=== PATIENT | female | born 1945 | race Caucasian/White ===

== ENCOUNTER 2021-11-26 07:21 | Day surgery (SDC) | payer OTHER ==
--- NOTE | 2021-11-25 15:38 | RAD REPORT ---
EXAM DESCRIPTION: RAD - Chest Pa And Lat (2 Views) - 11/25/2021 3:27 pm CLINICAL HISTORY: pre op pending hernia surgery COMPARISON: Two-view chest November 2012 TECHNIQUE: Frontal and lateral views of the chest were obtained. FINDINGS: The lungs are clear. Interstitial markings are similar comparison. Heart size is normal a nd central vasculature is within normal limits. No pleural effusion or pneumothorax seen. No acute bony finding noted. No aortic abnormality. Since the prior study neurostimulator device has been pl aced into the central canal of the lower thoracic spine. IMPRESSION: No acute cardiopulmonary process. No significant change from comparison study.
[2021-11-25 15:47] LABS: Absolute Lymphocytes (CBC) 1.4 K/uL (0.7-4.9); Hematocrit 37.2 % (36.0-45.0); Lymphocytes % 18.8 % (15.3-44.8); MPV 7.4 fL (7.6-11.3); RBC Red Blood Cell Count 4.07 M/uL (3.86-4.86)
--- NOTE | 2021-11-26 07:48 | EKG ---
Test Date: 2021-11-25 Test Time: 15:11:54 Paperboard Machine Operator: OLY MEASUREMENT RESULTS: Intervals: Rate: 74 IL: 148 QRSD: 78 QT: 362 QTc: 401 [place]: P: 1 IL: 148 QRS: 66 T: 74 INTERPRETIVE STATEMENTS: Normal sinus rhythm Low voltage QRS Borderline ECG Compared to ECG 07/13/2014 13:24:09 No significant changes Electronically Signed On 11-26-21 07:45:43 PASTE UP COPY CAMERA OPERATOR by Miguel Kendrick
[2021-11-26] MEDS ORDERED: Ringers Lactate 1,000 ML IV ONE ×2 (08:14→09:50)
[2021-11-26] MEDS: BUPIVACAINE 0.5% Inj,MDV 50 mL VIAL ONE ×2 (08:27→09:09)
[2021-11-26] MEDS ORDERED: LIDOCAINE 2% MPF 5 ML VIAL ONE (08:28)
[2021-11-26] MEDS ORDERED: ROCURONIUM 50 MG/5 ML VIAL IV ONE ×2 (08:28→10:27)
[2021-11-26] MEDS ORDERED: propofoL 200 MG/20 ML VIAL IV ONE (08:28)
[2021-11-26] MEDS ORDERED: FENTANYL CITR 100 MCG/2 ML ONE (08:28)
[2021-11-26] MEDS ORDERED: CEFAZOLIN/NS 1gm 1 GM/50 ML BAG ONE (08:30)
[2021-11-26] MEDS ORDERED: SCOPOLAMINE HYDROBROMIDE PATCH TD ONE (08:35)
[2021-11-26] MEDS ORDERED: DIPHENHYDRAMINE 50 MG/ML VIAL ONE (09:03)
[2021-11-26] MEDS ORDERED: dexAMETHasone 10 MG/ML VIAL ONE ×2 (09:03→09:32)
[2021-11-26] MEDS ORDERED: KETOROLAC 30 MG/ML INJ ONE (09:03)
[2021-11-26] MEDS ORDERED: ONDANSETRON 4 MG/2 ML VIAL ONE (09:03)
[2021-11-26] MEDS ORDERED: BUPIVACAINE 0.25% PF 10 ML VIAL ONE (09:32)
--- NOTE | 2021-11-26 10:20 | P.BOP ---
Preoperative diagnosis: tender incarcerated ventral and umbilical hernia Postoperative diagnosis: same Primary procedure: 1. Laparoscopic repair of incarcerated ventral hernia with mesh Secondary procedure: 2. Laparoscopic repair of incarcerated umbilical hernia with mesh Other procedure(s): 3. Laparoscopic lysis of adhesions Wrecker Driver: MAURICIO STARKEY (IMPLEMENTATION MANAGER) Estimated blood loss: <10cc Specimen: hernia sac Findings: incarcerated omentum Anesthesia: General Complications: None Implants: !!.5cm ventralight ST with ECHO PS Transferred to: Recovery Room Condition: Good
[2021-11-26] MEDS ORDERED: Mastisol Adhesive Liq ONE (10:28)
[2021-11-26] MEDS: HYDROMORPHONE HCL 1 MG/ML INJ ONE ×4 (11:27→11:46)
[2021-11-26] MEDS ORDERED: NALOXONE 0.4 MG/ML VIAL ONE (12:41)
--- NOTE | 2021-11-26 14:02 | DS ---
Diagnosis: Tender incarcerated ventral and umbilical hernia. Procedures: Laparoscopic repair of incarcerated ventral hernia with mesh, laparoscopic repair of inc arcerated umbilical hernia with mesh, also laparoscopic lysis of adhesions. Disposition: Home. Activity: As tolerated. No heavy lifting. Plan: Follow up in my office in 1 week. Call for appointment at [phone]. Medications: Include hydrocodone q.4 hours p.r.n. pain, Cipro 500 p.o. q.12. HOWARD/PHI Voice ID: [id number] Report ID: [id number]
--- NOTE | 2021-11-26 14:02 | OP ---
Date of Procedure: 11/26/2021 Surgeon: Ryan Gee MD Food Counselor: Priscila Wheat. Preoperative Diagnosis: Tender incarcerated ventral and umbilical hernia. Postoperative Diagnosis: Tender incarcerated ventral and umbilical hernia. Procedures: 1.Laparoscopic repair of incarcerated ventral hernia with mesh. 2.Laparoscopic repair of incarcerated umbilical hernia with mesh. 3.Laparoscopic lysis of adhesions. Estimated Blood Loss: Less than 10 mL. Specimen: Hernia sac. Findings: Incarcerated omentum and both hernias and also extensive adhesions near the hernia itself. We have to spend at least half of the time just doing adhesions with the LigaSure device. Anesthesia: General plus local. Implant: An 11.[address] with Echo Positioning System. Indication: This is the case of a 76-year-old patient, who comes to us with 2 hernias tender and inc reasing in size. The benefits, alternatives, and risks of laparoscopic possible repair of ventral an d umbilical hernia with mesh fully explained, which include, but not limited to infection, bleeding, damage to adjacent structures, anesthesia complication, recurrence, DE, and even . She also und erstands this may not relieve any symptoms. She might need more than one surgical intervention. She understood, signed a consent. Mesh pros and cons were explained to the patient in details. She was allowed to ask questions and answered to the satisfaction. She did consent for the use of mesh. Th e patient understands the need for losing weight and avoiding heavy lifting. Procedure In Detail: The patient was brought to the operating room, placed in supine position. Anes thesia was done without complication. A time-out was called. Abdomen was prepped and draped in usua l sterile fashion. Local anesthesia was applied followed by sharp incision of the skin on the ventra l region. We were trying to use that to trying to put the cameras through that hernia sac, so we can address 2 hernias at the same time. Once we opened that area, we noticed a hernia sac, noticed inca rcerated omentum with extensive adhesions inside, but at least we were able to find a space to put a Bret trocar through it and obtain pneumoperitoneum. Once we obtained pneumoperitoneum, we were abl e to place 3 more trocars, 5 mm each one of them, 2 in the right lateral side of the abdomen on the r ight side and 1 on the left side. This allowed me to switch the cameras and visualize the area insid e. We have extensive adhesions in the anterior abdominal wall. We cannot proceed unless we remove t hose adhesions. The way we did that, we proceeded to carefully using the LigaSure and proceeded to r emove adhesions from that area, and dropping down where it belongs the intestines and the omentum wit hout any enterotomies. Once we have that, we visualized the area of umbilical region. There is a sm all hernia there also with incarcerated omentum that was removed. We closed that defects by a making a counter incision in the bellybutton and going all the way down and cleaning the fascia, removed th e hernia sac and closed that with Prolene #1. At that moment with the camera in, we proceeded to antione culate the area of the mesh. The size of the mesh will cover 2 defects about 11.5 cm with at least 3 -5 cm margins. Once we have that area cleaned, we dropped the mesh into the abdomen through the vent ral incision, inflated the balloon making mesh nice and straight to cover the defects as described ab ove. I proceeded to secure the mesh in place by using CapSure fixation device. The balloon was defl ated and removed under direct visualization and then we continued with the fixation of the mesh anter iorly circumferentially to avoid any tissue to be trapped in between. The mesh looked nice and flat against the defects. The area of the lysis of adhesions looks intact with no bleeding. At that mome nt, I proceeded to deflate the pneumoperitoneum, closed the fascia on the ventral region with #1 Prol nirmal. Trocars were removed already. Pneumoperitoneum was removed and then we proceeded to close the subcutaneous tissue with 3-0 chromic and the skin with 3-0 chromic. Steri-Strip was placed on the ar ea. Sponge counts, instrument counts correct. Local anesthesia was applied at the beginning. The patient sent to recovery in stable condition. HOWARD/PHI Voice ID: [id number] Report ID: [id number]
[2021-11-26 14:11] VITALS: TEMP 97.1
[2021-11-26 16:11] VITALS: BP 118/72; O2SAT 98
== END 2021-11-26 15:30 | disposition home or self-care (01) ==
LOC: OR 07:21
PROVIDERS: ATTEND Surgery
PROC: 0DNU4ZZ Release Omentum, Percutaneous Endoscopic Approach (ICD-10-PCS; 2021-11-26)
PROC: 0WUF4JZ Supplement Abdominal Wall with Synthetic Substitute, Percutaneous Endoscopic Approach (ICD-10-PCS; principal; 2021-11-26 08:45)
DX: K43.6 Other and unspecified ventral hernia with obstruction, without gangrene (principal); K42.0 Umbilical hernia with obstruction, without gangrene; Z20.822 Contact with and (suspected) exposure to COVID-19
CPT/HCPCS: 93005; 85025; 80048; 36415; 88302; 71046; 49653; 49329; U0003; J2704; J2310; J1200; J3010; J1100 ×2; J1170 ×2; J0690; J7120 ×2; J2405; C1781

== ENCOUNTER 2023-07-11 18:00 | Emergency (ER) | payer OTHER ==
--- OUTSIDE RECORDS SUMMARY | 2023-07-11 18:03 | XMS REPORT | Clinical Summary ---
:1945 Author Organization [facility] MD Zamora [facility] Address [address] [place] [address] Care Team Providers Name Role Phone Radha Lynn DO Unavailable Matty Auguste MD Unavailable [phone] Eduardo Antunez MD Unavailable Tierra Wyman APRN Primary Care Provider Allergies Active Allergy Reactions Severity Noted Date Comments Adhesive Itching Medium 04/04/2020 Steri-strips Prochlorperazine Anxiety Low 11/26/2009 Patient sta lubna she gets heart palpitati ons Butorphanol Tartrate Palpitations Low 04/04/2020 Sulfa (Sulfonamide Palpitations Low 12/02/2016 Antibiotics) Medications Medication Sig Dispensed Refills Start Date End Date Status atorvastatin TAKE 1 TABLET 1 03/26/2019 Ac tive (LIPITOR) 20 mg BY MOUTH tablet EVERY DAY pramipexole TAKE 1 TABLET 1 04/17/2019 Act elvira (MIRAPEX) 1 mg BY MOUTH tablet EVERYDAY AT BEDTIME telmisartan TAKE 1 TABLET 1 03/25/2019 Act elvira (MICARDIS) 40 mg BY MOUTH tablet EVERY DAY PARoxetine (PAXIL) Take by mouth 0 Active 30 mg tablet every morning. omeprazole TAKE 1 0 10/22/2020 Active (PriLOSEC) 40 MG CAPSULE BY capsule MOUTH EVERY DAY abaloparatide Inject 80 mcg 0 05/06/2023 A ctive (Tymlos) 80 mcg under the (3,120 mcg/1.56 skin. mL) pnij topiramate TAKE 1 TABLET 0 05/21/2022 Disc ontinued (TOPAMAX) 25 mg BY MOUTH AT 3 (T herapy tablet NIGHT FOR 2 complete d) WEEKS, THEN 2 TABLETS AT NIGHT Active Problems Problem Noted Date Personal history of exposure to therapeutic radiation 08/04/2021 Intraductal carcinoma in situ of left breast 1 Cancer Staging: Clinical stage from 03/26: Stage 0 (cTis (DCIS), cN0, cM0, ER+, MS+, HER2: Not Assessed) - Unsigned Pathologic stage from 06/06/2021: Stage 0 (pTis (DCIS), pN0(sn), cM0, ER: Not Assessed, MS: Not Assessed, HER2: Not Assessed) - Unsigned Lumbar post-laminectomy syndrome 03/28/2020 Overview: Added automatically from request for raul carson [id number] Chronic pain 03/28/2020 Overview: Added automatically from request for raul carson [id number] Reactive depression (situational) 12/06/2019 Generalized anxiety disorder 12/06/2019 Insomnia co-occurrent and due to medical condition Mild cognitive impairment, so stated 12/06/2019 Ankylosing spondylitis 09/06/2019 Low back pain 09/06/2019 Encounters Date Type Specialty Care Team Description 05/26/2023 Office Visit Survivorship - Breast Tierra Wyman, Intr aductal carcinoma in situ of left breast; SLIP COVER SEAMSTRESS Personal history of exposure to therapeu tic radiation Pratima Rubin APRN 05/26/2023 Follow-Up Plastic Surgery Rolando Muller MD Intraduc moustapha carcinoma in situ of left breast; Personal histor y of exposure to therapeutic radiation 05/26/2023 Prep for Surgery Plastic Surgery Carmen Dykes 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 (Primary Dx); Rama PA Personal histor y of exposure to therapeutic radiation 05/26/2023 Travel 05/13/2023 Follow-Up Breast Surgical Juan Stock I, Personal history of Oncology MD breast cancer 05/13/2023 Hospital Encounter Radiation Oncology Eduardo Gonsalez Intraductal carcinoma in situ of left breast; MD Jasmyn Personal histor y of exposure to therapeutic radiation 05/13/2023 Hospital Encounter Radiology Isabel Freitas PA Perso nal history of breast cancer 05/13/2023 Hospital Encounter Radiology Isabel Freitas PA Perso nal history of breast cancer 05/13/2023 Travel after 07/11/2022 Immunizations Name Administration Dates Next Due Influenza Split High Dose Preservative 09/08/2022 Free IM Influenza TIV (IM) 09/01/2019 Influenza, Quadrivalent 08/22/2020 Moderna SARS-CoV-2 Vaccination 07/22/2021, 12/24/2020, 11/27 Surgical History Surgery Date Site/Laterality Comments APPENDECTOMY 11/15/1965 - same surgery as ovary 11/14/1966 removal BACK SURGERY 2015,2016,2018 2 fusions COLONOSCOPY 11/15/2017 - 11/14/2018 HYSTERECTOMY 11/15/1981 - Partial 11/14/1982 NEPHRECTOMY 11/15/2003 - Left and adrenal lucia rickey due to 11/14/2004 kidney cancer; n o further treatment; Dr Se vik Jaffe SHOULDER SURGERY 11/15/2008 - Rotator cuff 11/14/2009 UPPER GASTROINTESTINAL About 3 of them ENDOSCOPY BACK SURGERY 08/10/2019 hardware removal MS PRQ IMPLTJ NSTIM 12/15/2019 Back/N/A Procedure: P ERCUTANEOUS ELECTRODE ARRAY EPIDURAL IMPLANT ATION OF EPIDURAL NEUROSTIMULATOR ELECTRODE ARRAY Spinal cor d stimulator trial ; Surgeon: Lisandro Ruelas MD; Location: [facility]; Service : PAIN SERVICE Medical devices from this surgery are in t he Medical Devices section. MS INSJ/RPLCMT SPI NPGR 04/04/2020 Back/N/A Procedur e: INSERTION OF DIR/INDUXIVE COUPLING SPINAL SEAN ROSTIMULATOR, DIRECT COUPLING; Surgeon: Lisandro Ruelas MD; Location: [facility]; Service : PAIN SERVICE Medical devices from this surgery are in t he Medical Devices section. SKIN LESION EXCISION basal cell on right arm CYST REMOVAL 5 cysts removed in left and right breast starting 24yrs old, over a period of 10 years SKIN LESION EXCISION 11/15/2019 - squamous ce ll under left 11/14/2020 eye OVARY BIOPSY 11/15/1965 - right ovary due to cyst 11/14/1966 FOOT NEUROMA SURGERY Bilateral Right toe f ractured and pin placed. MS MASTECTOMY PARTIAL 06/06/2021 Breast/Left Procedure: SEGMENTAL MASTECTOMY - SEE D LOC; Surgeon: Juan Stock MD; Location[facility]; Service: SURG ON C - MELANOMA MS INJ RADIOACTIVE TRACER 06/06/2021 N/A Proced ure: ISOTOPE FOR ID OF SENTINEL NODE INJECTIO N FOR SENTINEL NODE BIOPSY; Raul geon: Juan Stock MD; Location: [facility]; Service: SURG ON C - MELANOMA MS INTRAOP SENTINEL LYMPH 06/06/2021 Left Proced ure: INTRAOPERATIVE NODE ID W/DYE INJECTION LYMPHATI C MAPPING; Surgeon: Juan Stock MD; [facility]; Service: SURG ON C - MELANOMA MS BX/EXC LYMPH NODE OPEN 06/06/2021 Axilla/Left Proced ure: SENTINEL NODE DEEP AXILLARY NODE BIOPSY - AXIL LA; Surgeon: Juan Stock MD; Location: [facility]; Service: SURG ON C - MELANOMA MS REPAIR COMPLEX TRUNK 06/06/2021 Breast/Left Procedur e: COMPLEX REPAIR 1.1-2.5 CM OF TRUNK; Surgeo n: Rolando Muller MD; Locat ion: [facility]IN OR; Service: PLS - PLASTIC SURGERY Medical History Medical History Date Comments Hypertension 1999 Hyperlipidemia 1999 Cyst of breast 5 cysts removed On left and right br east Gastric reflux Take ranatinadin Hea rtburn also History of recurrent urinary Many infect ions tract infection Urinary incontinence Worse as older Uterine leiomyoma hysterctomy Rheumatoid arthritis Ankylosing spondylitis Taking bi-monthl y infusions, Symponi Gout Many years ago in fo ot Anxiety And panic attacks Taking Paxil Kidney cancer 2004 kidney removed and n o further treatment 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 Basal cell carcinoma of skin 1997 right arm Personal history of exposure to 08/04/2021 therapeutic radiation Family History Medical History Relation Name Comments -Lymphoma Brother 1 Corey Tanner Undergoing treat ments for non-hodgekins -Pancreatic cancer Brother 2 Brian Tanner -Thoracic or Lung Father Elizabeth Tanner history of smo jose martin -Other cancer Paternal Aunt 1 History of smoki ng -Other cancer Paternal Cousin History of smoki ng Bladder Cancer Sister Cleopatra Son Metastatic Relation Name Status Comments Brother 1 Corey Tanner Alive Brother 2 Brian Tanner (Age 68) Daughter Alive Father WKristina Tanner (Age 73) Half-Sister (Age 75) d. heart adrienne rns Maternal Aunt 1 (Age >50) Maternal Aunt 2 (Age 1) d. due to stoma ch issues as a baby Maternal Grandfather (Age 70s) Maternal Grandmother (Age 40s) d. heart issues Maternal Uncle 1 (Age 42) d. heart issu es Maternal Uncle 2 (Age >50) Mother (Age 80) Other 1 (Age >50) Other 2 (Age 1) Paternal Aunt 1 (Age >50) diagnosed >50 Paternal Aunt 2 (Age >50) Paternal Aunt 3 (Age >50) Paternal Aunt 4 (Age >50) Paternal Cousin (Age >50) diagnosed >50 y Paternal Grandfather (Age 53) Paternal Grandmother (Age 86) Paternal Uncle Axel Sister Cleopatra Son (Age 50) Social History Tobacco Use Types Packs/Day Years Used Date Smoking Tobacco: Never Smokeless Tobacco: Never Alcohol Use Standard Drinks/Week Comments Not Currently 0 (1 standard drink = 0.6 oz pure Only m eleonora about 3 or 4 times alcohol) a year Sex Assigned at Date Recorded Not on file Job Start Date Occupation Industry Not on file Not on file Not on file Obstetrics History Para Term AB IAB SAB Ectopic Multiple Living Live Births 1 1 1 Date Outcome GA Total Labor/2nd/3rd Weight Sex Delivery Anes PTL Iwona A 1 A5 Name Clin Labor Para Comments Menarche:16 yrs old Parity: 34 yrs old history:9 weeks total control pills use: 1 month total Fertility Treatments: None Hormone Replacement Therapy Use: Premari n- 10-12yrs after hysterectomy LD : 20years ago LMP: 36yrs old hysterectomy Bra Size: 40B Last Filed Vital Signs Vital Sign Reading Time Taken Comments Blood Pressure 140/75 05/26/2023 10:12 AM CDT Pulse 79 05/26/2023 10:12 AM CDT Temperature 35.9 C (96.6 F) 05/26/2023 10:12 AM CDT Respiratory Rate 19 05/26/2023 10:12 AM CDT Oxygen Saturation 97% 05/26/2023 10:12 AM CDT Inhaled Oxygen Concentration - - Weight 77 kg (169 lb 12.1 oz) 05/26/2023 11:30 AM CDT Height 161 cm (5' 3.39") 05/26/2023 11:30 AM CDT Body Mass Index 29.71 05/26/2023 11:30 AM CDT Plan of Treatment Date Type Specialty Care Team Description 05/11/2024 Appointment Radiology Isabel Freitas PA [address] [place], [place] [address] (Wo rk) 05/11/2024 Appointment Radiology Isabel Freitas PA [address] [place], [place] [address] (Wo rk) 05/11/2024 Follow-Up Breast Surgical Oncology Tashi Stock MD [address] [place], [place] [address] (Wo rk) 05/26/2024 Appointment Radiology Pratima Rubin, SLIP COVER SEAMSTRESS [address] [place], [place] [address] (Wo rk) 05/26/2024 Follow-Up Survivorship - Breast Priscilla Rubin, SLIP COVER SEAMSTRESS [address] [place], [place] [address] (Wo rk) Health Maintenance Due Date Last Done Comments COVID-19 Vaccination (4 - Moderna 09/16/2021 07/22/2021, , series) 11/27/2020 Medical Devices Implanted Type Area Fund Raiser Device Shelf Model / Identifier Expiration Serial / Lot Date Nevro Trial Lead Kit [id number] Implant Midline: 01/2022 [id number] / Implanted: Qty: 1 on 12/15/2019 by Lisandro Ruelas MD at [facility] Back NA / [id number] Nevro N300 Lead Irene Kit [id number] Implant Spine 05/11/2022 [id number] / Implanted: Qty: 1 on 04/04/2020 by Lisandro Ruelas MD at [facility] N/A / [id number] Procedures Procedure Name Priority Date/Time Associated Comments Diagnosis US BREAST COMPLETE Routine 05/13/2023 10:55 AM Personal histor y of Results for this LEFT CDT breast cancer procedure are in the results section. MAMMO DIGITAL Routine 05/13/2023 9:57 AM Personal history of R esults for this DIAGNOSTIC BILATERAL CDT breast cancer proced ure are in [facility] the results section. after 07/11/2022 Results US Breast Complete - Left (05/13/2023 10:55 AM CDT) Anatomical Region Laterality Modality Breast Left Ultrasound Specimen (Source) Anatomical Collection Method Collection Time Re ceived Time Location / / Volume Laterality 05/13/2023 1:19 PM CDT Impressions 05/13/2023 1:26 PM CDT Postsurgical scarring in left breast as detailed above. ACR BI-RADS Category: 2. Benign. Recommend annual surveillance. Narrative 05/13/2023 1:26 PM CDT FULL RESULT: Examination: US BREAST COMPLETE LEFT 04/16 10:55 AM Clinical History: History of left breast DCIS, status post breast conservation surgery in May 2021. History of left sentinel lymph node biopsy (0/1) in May 2021. Presents for routine imaging surveillance with no known clinical complaints. Indication: Personal history of malignan t neoplasm of breast Comparison: Mammography dated ; ultrasound dated 05/14/2022 Technique: Real-time sonographic imaging of the left breast (including all 4 quadrants and retroareolar region) was performed. Images were obtained in multiple scanning planes. Findings: LEFT BREAST: Postsurgical scarring is se en in left upper breast, spanning from 11 o'clock to 2 o'clock/axillary tail. No sonographic features of malignancy are identified. Procedure Note Marina Guzman MD - 05/13/2023Formattin g of this note might be different from the original. FULL RESULT: Examination: US BREAST COMPLETE LEFT 04/16 10:55 AM Clinical History: History of left breast DCIS, status post breast conservation surgery in May 2021. History of left sentinel lymph node biopsy (0/1) in May 2021. Presents for routine imaging surveillance with no known clinical complaints. Indication: Personal history of malignan t neoplasm of breast Comparison: Mammography dated ; ultrasound dated 05/14/2022 Technique: Real-time sonographic imaging of the left breast (including all 4 quadrants and retroareolar region) was performed. Images were obtained in multiple scanning planes. Findings: LEFT BREAST: Postsurgical scarring is se en in left upper breast, spanning from 11 o'clock to 2 o'clock/axillary tail. No sonographic features of malignancy are identified. IMPRESSION: Postsurgical scarring in left breast as detailed above. ACR BI-RADS Category: 2. Benign. Recommend annual surveillance. Isabel SÁNCHEZ IMSarai US ORDERABLES Diagnostic Mammogram w Bladimir - Bilateral (05/13/2023 9:57 AM CDT) Anatomical Region Laterality Modality Breast Bilateral Mammography Specimen (Source) Anatomical Collection Method Collection Time Re ceived Time Location / / Volume Laterality 05/13/2023 12:16 PM CDT Impressions 05/13/2023 12:16 PM CDT There is no mammographic evidence of malignancy. Follow-up mammogram in 1 year is recomme nded. BI-RADS Category 2: Benign Finding(s) Narrative 05/13/2023 12:16 PM CDT CLINICAL INDICATION: Patient is a 77 year old female and is s een for history of breast cancer MAMMO DIGITAL DIAGNOSTIC BILATERAL W NANCI O COMPARISON: The present examination has been compare d to prior imaging studies performed at [facility] o n 12/25/2021 and 05/14/2022. FINDINGS: The breasts are heterogeneously dense, w hich may obscure small masses. There are two post-surgical scars in the left breast in the axilla region and in the superior region. In the right breast, no dominant mass, d istortion, or suspicious calcifications are identified. Tomosynthesis performed in CC and O pr ojections. Procedure Note Marina Guzman MD - 05/13/2023Formattin g of this note might be different from the original. CLINICAL INDICATION: Patient is a 77 year old female and is s een for history of breast cancer MAMMO DIGITAL DIAGNOSTIC BILATERAL W NANCI O COMPARISON: The present examination has been compare d to prior imaging studies performed at [facility] o n 12/25/2021 and 05/14/2022. FINDINGS: The breasts are heterogeneously dense, w hich may obscure small masses. There are two post-surgical scars in the left breast in the axilla region and in the superior region. In the right breast, no dominant mass, d istortion, or suspicious calcifications are identified. Tomosynthesis performed in CC and MLO pr ojections. IMPRESSION: There is no mammographic evidence of mal ignancy. Follow-up mammogram in 1 year is recomme nded. BI-RADS Category 2: Benign Finding(s) Isabel SÁNCHEZ IMG MAMMOGRAPHY ORDERABLES after 07/11/2022 Insurance Payer Benefit Plan / Subscriber ID Effective Dates Phone Addre ss Type Group AETNA MEDICARE AETNA MEDICARE [id number] 2021-Presen [address] [place] [address] (Home) [place] [address] Advance Directives Code Status Date Activated Date Inactivated Comments Full Code 06/06/2021 10:17 PM 06/07/2021 12:34 PM Code Status Date Activated Date Inactivated Comments Full Code 06/06/2021 10:17 PM 06/06/2021 10:17 PM Full Code 04/04/2020 5:33 PM 04/04/2020 8:24 PM Full Code 12/15/2019 1:34 PM 12/15/2019 6:36 PM Care Teams Geometry Professor Relationship Specialty Start Date End Date Radha Lynn DO PCP - External Primary Family Practice 04/12/[address] Care Provider Dimitry [address] [place], [place] [address] Matty Auguste PCP - External Orthopedic Surgery 04/12/19 MD Fabiano Referring [address] [place] [address] Eduardo Antunez MD PCP - External Follow Dermatology 04/17/19 [address] [facility] [place] [address] Tierra Wyman APRN PCP - General Breast Medical 05/25/[address] [place] [address] [place] [address]
--- OUTSIDE RECORDS SUMMARY | 2023-07-11 18:13 | XMS REPORT | Continuity of Care Document ---
:1945 Author Organization [facility] t Address [address] [place] [address] [place] [address] Care Team Providers Name Role Phone Asked, No Pcp Primary Care Physician Unavailable Marybel Burt Attending Clinician Unavailable Radha DANG Attending Clinician Unavailable SYSTEM, PROVIDER NOT IN Attending Clinician Unavailable Shashank Jones Attending Clinician Travon Ortez MD Attending Clinician Sana Kapoor MA Attending Clinician Unavailable Lavell Wyman APRN Attending Clinician Pratima Rubin APRN Attending Clinician LAVELL WYMAN Attending Clinician Unavailable Jose Alfredo Monahan MD Attending Clinician JOSE ALFREDO MONAHAN Attending Clinician Unavailable Carmen Lee Attending Clinician Santhosh Gonsalez MD Attending Clinician SANTHOSH GONSALEZ Attending Clinician Unavailable Britta Templeton MD, I Attending Clinician BRITTA TEMPLETON I Attending Clinician Unavailable Fortino SÁNCHEZ, Pili Attending Clinician PILI FREITAS Attending Clinician Unavailable Sandra Moss DO Attending Clinician [phone] Khadra WEAVER, Chevy Taveras Attending Clinician Angeline Martins MA Attending Clinician Unavailable Evita GRACIA, Cameron Attending Clinician Unavailable SARAY_Cherie Attending Clinician Unavailable Lisa Shields Attending Clinician [phone] Santhosh Hameed Attending Clinician Unavailable Santhosh Hameed Attending Clinician [phone] Justin ATTENDANCE CLERK, Reina Attending Clinician Savage STARKS, Peter Attending Clinician Cheryl CHARLES, Brianna Attending Clinician [phone] Tran Soto Attending Clinician Arminda CHARLES, Teri Akins Attending Clinician James Gonzáles MD Attending Clinician Jennifer Ramos APN Attending Clinician Deng WEAVER, Terra Attending Clinician Talita WEAVER, Griffin Attending Clinician Goodman WEAVER, Lanette Diamond Attending Clinician Flori Asher MD Attending Clinician Eugene Carlton MD Attending Clinician Cal Darby CRNA Attending Clinician Barb Galeano Attending Clinician Antoni TAY Kal Nunes Attending Clinician Unavailable Erik WEAVER, Jennifer Attending Clinician Pratima Vela APN Attending Clinician FLORI ASHER Attending Clinician Unavailable JAMES GONZÁLES Attending Clinician Unavailable Te Cooper Attending Clinician Unavailable Harjeet Earl Attending Clinician Unavailable Swetha Lazo MD Attending Clinician SWETHA LAZO Attending Clinician Unavailable Doctor Unassigned, [place] Attending Clinician Unavailable MARSHA DANIELS Attending Clinician Unavailable LEO NIETO Attending Clinician Unavailable SARAY_Aftab_ Admitting Clinician Unavailable Santhosh Hameed Admitting Clinician Unavailable BRITTA TEMPLETON I Admitting Clinician Unavailable RADHA DANG Admitting Clinician Unavailable Payers Payer Name Policy Type Policy Number Effective Date Expiration Date S caryn AETNA (MEDICARE [id number] 2021 REPLACEMENT PPO) 00:00:00 AETNA [id number] 2018 Common 00:00:00 [facility] AETNA MEDICARE [id number] 2016 ADV 00:00:00 Problems Condition Condition Condition Status Onset Resolution Last Treating Co mments Source Name Details Category Date Date Treatment Clinician Date Other Other Disease Active Methodi osteoporos osteoporos 05-06 is without is without 00:00: Ho spita current current 00 l pathologic pathologic al al fracture fracture Secondary Secondary Disease Active Met hodi hyperparat hyperparat 05-06 st hyroidism hyroidism 00:00: Hosp sandee 00 l Vitamin D Vitamin D Disease Active Met hodi insufficie insufficie 22 [facility] ncy ncy 00:00: Hospita 00 l Lumbosacra Lumbosacra Problem Active A zalea l l 06-18 Orthope radiculopa Radiculopa 00:00: di c thy thy 00 Sports Medic[facility] Neurogenic Neurogenic Problem Active A zalea claudicati Claudicati 06-18 Or thope on on 00:00: dic 00 Sports Medicin e Disorder Disorder Problem Active 2022-0 [facility] a of of 8-04 Orthope lumbosacra Lumbosacra 00:00: di c l l 00 Sports interverte Interverte Me dicin bral disc bral Disc e Lumbar Lumbar Problem Active [facility] post-indu Post-indu 7-12 Or thope ectomy ectomy 00:00: dic syndrome Syndrome 00 Sports Medicin e Chronic Chronic Problem Active [facility] low back Low Back 7-12 Orthop e pain Pain 00:00: dic 00 Sports Medicin e Lumbar Lumbar Problem Active [facility] facet Facet 5-15 Orthope joint pain Joint Pain 00:00: di c 00 Sports Medicin e Personal Personal Disease Active Unive rs history of history of 9-20 it y of exposure exposure 00:00: [place] to to therapeuti therapeuti An derso c c n radiation radiation Can er Center Lumbar Lumbar Problem Active [facility] radiculopa Radiculopa 6-16 Or thope thy thy 00:00: dic 00 Sports Medicin e 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 00 MD left left [facility] breast [facility] Lumbar Lumbar Problem Active [facility] spondylosi Spondylosi 5-27 Or thope s s 00:00: dic 00 Sports Medicin e Lumbar Lumbar Problem Active [place] spine Spine 4-21 Orthope ankylosis Ankylosis 00:00: dic 00 Sports Medicin e Cervical Cervical Problem Active [facility] a post-indu Post-indu 4-21 Or thope ectomy ectomy 00:00: dic syndrome Syndrome 00 Sports Medicin e Pain in Pain in Problem Active [facility] bilateral Bilateral 3-19 Orth ope legs Legs 00:00: dic 00 Sports Medicin e Lumbar Lumbar Disease Active Overview: Univer s post-indu post-indu 5-14 Formattin ity of ectomy ectomy 00:00: g of this [place] syndrome syndrome 00 note MD might be Anders[facility] different n from the Cancer original. Center Added automatic ally from request for surgery [id number] Chronic Chronic Disease Active Overview: Univ ers pain pain 5-14 Formattin ity of 00:00: g of this [place] 00 note MD might be Jigar rivera n from the Cancer original. Center Added automatic ally from request for surgery [id number] Reactive Reactive Disease Active Unive rs depression depression 1-22 it y of [place]sit[place] al[place] 00 MD Jigar walton [facility] Generalize Generalize Disease Active U nivers d anxiety d anxiety 1-22 ity of disorder disorder 00:00: [place] 00 MD Jigar walton [facility] Insomnia Insomnia Disease Active Unive rs co-occurre co-occurre 1-22 it y of nt and due nt and [place] medical to medical 00 condition condition Karl guevara walton [facility] Mild Mild Disease Active Univers cognitive cognitive 1-22 ity of impairment impairment [place] , so , so 00 stated stated Jigar walton [facility] Ankylosing Ankylosing Disease Active 2018-11 U nivers spondyliti spondyliti 0-23 it y of s s 00:00: [place] 00 MD Jigar walton [facility] Low back Low back Disease Active 2018-11 Unive rs pain pain 0-23 ity of 00:00: [place] 00 MD Jigar walton [facility] Lumbosacra Lumbosacra Problem Active A zalea l l 6-21 Orthope spondylosi Spondylosi 00:00: di c s s 00 Sports Medicin e Lumbar Lumbar Problem Active [facility] disc Disc 5-09 Orthope prolapse Prolapse 00:00: dic with with 00 Sports radiculopa Radiculopa Me dicin thy thy e Spinal Spinal Problem Active [facility] stenosis Stenosis 4-03 Orthop e of lumbar of Lumbar 00:00: dic region Region 00 Sports Medicin e Cervical Cervical Problem Active 2017-11 [facility] a spondylosi Spondylosi 2-07 Or s s 00:00: dic 00 Sports Medicin e Spinal Spinal Problem Active 2017-11 [facility] stenosis Stenosis 2-07 Orthop e in in 00:00: dic cervical Cervical 00 Sports region Region Medicin e Aftercare Aftercare Problem Active Aza griffin 9-13 Orthope 00:00: dic 00 Sports Medicin e Idiopathic Idiopathic Problem Active A zalea osteoarthr Osteoarthr 2- Or thope itis itis 00:00: dic 00 Sports Medicin e Enthesopat Enthesopat Problem Active Jennifer nichole hy of hip hy of Hip - Orth ope region Region 00:00: dic 00 Sports Medicin e Panniculit Panniculit Problem Active A dionisio is is 2-18 Orthope affecting Affecting 00:00: dic back Back 00 Sports Medicin e Spondyloli Spondyloli Problem Active A dionisio sthesis sthesis 2-18 Orthope 00:00: dic 00 Sports Medicin e Arthropath Arthropath Problem Active A dionisio y y 7-10 Orthope 00:00: dic 00 Sports Medicin e Rheumatoid Rheumatoid Problem Active 2013-11 A dionisio arthritis Arthritis 2-12 Orth ope 00:00: dic 00 Sports Medicin e Metatarsal Metatarsal Problem Active 2013-11 A dionisio adria adria 2-12 Orthope 00:00: dic 00 Sports Medicin e Lumbosacra Lumbosacra Problem Active A dionisio l l 204 Orthope spondylosi Spondylosi 00:00: di c s without s without 00 Spor ts myelopathy Myelopathy Me dicin e Degenerati Degenerati Problem Active Jennifer nichole on of on of 2-04 Orthope cervicotho Cervicotho 00:00: di c racic racic 00 Sports interverte Interverte Me dicin bral disc bral Disc e Acquired Acquired Problem Active [facility] a spondyloli Spondyloli 2 Or thope sthesis sthesis 00:00: dic 00 Sports Medicin e Shoulder Shoulder Problem Active 2010-11 [facility] a joint pain Joint Pain - Or thope 00:00: dic 00 Sports Medicin e History of History of Problem C ommon 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 St of left of left [facility] kidney kidney [facility] [id number] Stage 3a Problem Comm on chronic Spirit kidney - CHI disease [facility] [id number] History of Problem Co mmon malignant Spirit neoplasm - [facility]I of left [facility] [id number] Diet-contr Problem C ommon [id number] olled type Spirit 2 diabetes - CHI mellitus [facility] [id number] Pulmonary Problem Com mon nodule [facility] Gastroesop GERD Problem Commo n hageal (gastroeso Spirit reflux phageal [facility] disease reflux St disease) [facility] Allergic Allergic Problem Commo n rhinitis rhinitis [facility] [id number] Memory Problem Common change [facility] Chronic Chronic Problem Common back pain back pain Sp[facility] Restless Restless Problem Commo n legs leg Spirit syndrome syndrome [facility] [id number] Acute UTI Problem Com mon [facility] Abnormal Abnormal Problem Commo n mammogram mammogram Sp[facility] Insomnia Insomnia Problem Commo n [facility] Prediabete Prediabete Problem C ommon s s [facility] Hand joint Hand joint Problem C ommon pain pain [facility] [id number] Chronic Problem Common fatigue [facility] [id number] History of Problem Co mmon renal cell [facility] carcinoma [facility] [id number] Influenza Problem Co mmon 9109 vaccinatio [facility] administer St ed at [facility] current Medical visit Center [id number] Sea Problem Common sickness, [facility] initial - [facility] encounter [facility] [id number] Depression Problem Com mon with [facility] anxiety [facility] [id number] Lesion of Problem Co mmon 06 skin of [facility] face [facility] Overactive Overactive Problem C ommon bladder bladder [facility] Dysuria Dysuria Problem Common [facility] Screening Screening Problem Com mon for breast for breast [place] cancer cancer [facility] Sj?gren's Sjogren's Problem Com mon syndrome disease [facility] [id number] Pain in Problem Commo n thumb Spirit joint with - [facility] movement St of left [facility] hand [facility] [id number] Nonadheren Problem Co mmon ce to [facility] medication [facility] [id number] Left hand Problem Co mmon 16415 pain [facility] [id number] Pain in Problem Common right [facility] elbow [facility] Backache Backache Problem Active 2023-07-05 Memoria (finding) (finding) 11:22:23 l Active [place] Problem 07/05/2023 [facility] [place] Dementia Dementia Problem Active 2023-07-05 Memoria (disorder) (disorder) 11:22:23 l Active [place] Problem 07/05/2023 [facility] [place] Essential Essential Problem Active 2023-07-05 Memoria tremor tremor 11:22:23 l (disorder) (disorder) He rmann Active Problem 07/05/2023 [facility] [place] History of History Problem Active 2023-07-05 Memoria nephrectom of 11:22:23 l y nephrectom Fabian n (situation y ) (situation ) Active Problem 07/05/2023 [facility] [place] Hyperlipid Hyperlipi Problem Active 2023-07-05 [facility] emia demia 11:22:23 l (disorder) (disorder) He rmann Active Problem 07/05/2023 [facility] [place] Hypertensi Hypertens Problem Active 2023-07-05 [facility] ve elvira 11:22:23 l disorder, disorder, Herm naye systemic systemic arterial arterial (disorder) (disorder) Active Problem 07/05/2023 [facility] [place] Postproced Postproce Problem Active 2023-07-05 [facility] ural state dural 11:22:23 l finding state Johan (finding) finding (finding) Active Problem 07/05/2023 [facility] [place] Tremor Tremor Problem Active 2023-07-05 Christopher irene (finding) (finding) 11:22:23 l Active Johan Problem 07/05/2023 [facility] [place] Cerebral Cerebral Problem Active 2023-07-05 [facility] atheroscle atheroscle 11:22:23 l rosis rosis Johan (disorder) (disorder) Active Problem 07/05/2023 [facility] [place] Allergies, Adverse Reactions, Alerts Allergy Allergy Status Severity Reaction(s) Onset Inactive Treating Comm ents Source Name Type Date Date Clinician Sulfa DA Active MO HEART RACING [facility] (Sulfona 05-27 [place] mide 00:00: Orthope Antibiot 00 dic ics) Hospita l prochlor DA Active MO HEART [facility] perazine RACING. 05-27 [place] 00:00: Orthope 00 dic Hospita l propoxyp DA Active U UNKNOWN 2022-0 [facility] hene 05-27 00:00: Orthope 00 dic Hospita l pentazoc DA Active PA heart races 2021-0 [facility] ine 05-27 00:00: Orthope 00 dic Hospita l acetamin DA Active U UNKNOWN 2021-0 [facility] ophen 05-27 00:00: Orthope 00 dic Hospita l butorpha DA Active MO HEART 2021-0 [facility] nol RACING. 05-27 00:00: Orthope 00 dic Hospita l citalopr DA Active SV TACHYCARDIA 2021-0 [facility] am 05-27 00:00: Orthope 00 dic Hospita l propoxyp DA Active U UNKNOWN 0 [facility] hene 05-26 00:00: Orthope 00 dic Hospita l acetamin DA Active U UNKNOWN 0 [facility] ophen 05-26 00:00: Orthope 00 dic Hospita l propofol DA Active U UNKNOWN 2021-0 [facility] 05-26 00:00: Orthope 00 dic Hospita l Sulfa DA Active MO HEART RACING 2021-0 [facility] (Sulfona 04-17 mide 00:00: Orthope Antibiot 00 dic ics) Hospita l prochlor DA Active MO HEART 2021-0 [facility] perazine RACING. 04-17 00:00: Orthope 00 dic Hospita l pentazoc DA Active PA heart races 2021-0 [facility] ine 04-17 00:00: Orthope 00 dic Hospita l butorpha DA Active MO HEART 2021-0 [facility] nol RACING. 04-17 00:00: Orthope 00 dic Hospita l citalopr DA Active SV TACHYCARDIA 2021-0 [facility] am 04-17 00:00: Orthope 00 dic Hospita l Sulfa DA Active MO HEART RACING 2021-0 [facility] (Sulfona 02-10 [place] mide 00:00: Orthope Antibiot 00 dic ics) Hospita l prochlor DA Active MO HEART 2021-0 [facility] perazine RACING. 02-10 00:00: Orthope 00 dic Hospita l pentazoc DA Active PA heart races 2021-0 [facility] ine 02-10 00:00: Orthope 00 dic Hospita l butorpha DA Active MO HEART 2021-0 [facility] nol RACING. 02-10 00:00: Orthope 00 dic Hospita l citalopr DA Active SV TACHYCARDIA 2-0 [facility] am 02-10 00:00: Orthope 00 dic Hospita l Sulfa DA Active MO HEART RACING 2021-0 [facility] (Sulfona 01-01 mide 00:00: Orthope Antibiot 00 dic ics) Hospita l prochlor DA Active MO HEART 2021-0 [facility] perazine RACING. 01-01 00:00: Orthope 00 dic Hospita l pentazoc DA Active PA heart races 2021-0 [facility] ine 01-01 00:00: Orthope 00 dic Hospita l butorpha DA Active MO HEART 2021-0 [facility] nol RACING. 01-01 00:00: Orthope 00 dic Hospita l citalopr DA Active SV TACHYCARDIA 2-0 [facility] am 01-01 00:00: Orthope 00 dic Hospita l Sulfa DA Active MO HEART RACING 2020-0 [facility] Antibiot [facility] dic ics) Hospita l prochlor DA Active MO HEART 2020-0 [facility] perazine RACING. 04-30 00:00: Orthope 00 dic Hospita l pentazoc DA Active PA UNKN 2020-0 [facility] ine 04-30 00:00: Orthope 00 dic Hospita l butorpha DA Active MO HEART 2020-0 [facility] nol RACING. 04-30 00:00: Orthope 00 dic Hospita l citalopr DA Active SV TACHYCARDIA 1-0 [facility] am 04-30 00:00: Orthope 00 dic Hospita l Sulfa DA Active MO 1-0 [facility] ([facility]ona 04[facility] Antibiot [facility] dic ics) Hospita l prochlor DA Active MO 1-0 [facility] perazine 04-30 00:00: Orthope 00 dic Hospita l pentazoc DA Active PA 1-0 [facility] ine 04-30 00:00: Orthope 00 dic Hospita l butorpha DA Active MO 1-0 [facility] nol 04-30 00:00: Orthope 00 dic Hospita l citalopr DA Active SV 2021-0 [facility] am 04-30 00:00: Orthope 00 dic Hospita l Sulfa DA Active MO HEART RACING 2020- [facility] (Sulfona 02-06 [facility] Hospita Antibiot 00 l of ics) [place] prochlor DA Active MO HEART 2020-0 [facility] perazine RACING. 02-06 [facility] 00:[facility]: [facility]ospita 00 l of [place] adhesive DA Active U "BREAK OUT" 2020- [facility] tape 02-06 [facility] 00:[facility]: [facility]ospita 00 l of [place] butorpha DA Active MO HEART 2020- [facility] nol RACING. 02-06 [facility] 00:[facility]: [facility]ospita 00 l [facility] [place] Sulfa DA Active MO 2020-0 [facility] (Sulfona 02-06 [facility] 00:00: Hospita Antibiot 00 l of ics) [place] prochlor DA Active MO 2020-0 [facility] perazine 02-06 [facility] 00:[facility]: Hospita 00 l of [place] adhesive DA Active U [facility] tape 02-06 [facility] 00:[facility]: [facility]ospita 00 l of [place] butorpha DA Active MO 2020-0 [facility] nol 02-06 [facility] 00:[facility]: [facility]ospita 00 l [facility] [place] Celexa Allergy Active [facility] to 3-19 Orthope substanc 00:00: dic e 00 Sports Medicin e SULFA Allergy Active 0 [facility] (SULFONA to 3-19 Orthope MIDE substanc 00:00: dic ANTIBIOT e 00 Sports ICS) Medicin e ADHESIVE Allergy Active [facility] TAPE to 2-26 Orthope substanc 00:00: dic e 00 Sports Medicin e Adhesive Drug Active Itching 2020-0 Steri-str Univ ers Allergy 5-21 ips ity of 00:00: [place] 00 MD [facility] Butorpha Propensi Active Palpitations 2020-0 Univers nol ty to 5-21 ity of Tartrate adverse 00:00: [place] reaction 00 MD [facility] BUTORPHA DRUG Active Low Palpitations 2020-0 MD NOL INGREDI 5-21 [facility] TARTRATE 00:00: n 00 ADHESIVE Drug Active Med Itching 2020-0 MD Class 5-21 [facility] 00:00: n 00 BUTORPHA DRUG Active Low Palpitations 2020-0 MD NOL INGREDI 5-21 [facility] TARTRATE 00:00: n 00 ADHESIVE Drug Active Med Itching 2020-0 MD Class 5-21 [facility]o 00:00: n 00 BUTORPHA DRUG Active Low Palpitations 2020-0 MD NOL INGREDI 5-21 [facility] TARTRATE 00:00: n 00 ADHESIVE Drug Active Med Itching 2020-0 MD Class 5-21 Anderso 00:00: n 00 BUTORPHA DRUG Active Low Palpitations 2020-0 MD NOL INGREDI 5-21 [facility] TARTRATE 00:00: n 00 ADHESIVE Drug Active Med Itching 2020-0 MD Class 5-21 Anderso 00:00: n 00 BUTORPHA DRUG Active Low Palpitations 2020-0 MD NOL INGREDI 5-21 Anders[facility] TARTRATE 00:00: n 00 ADHESIVE Drug Active Med Itching 2020-0 MD Class 5-21 [facility]o 00:00: n 00 BUTORPHA DRUG Active Low Palpitations 2020-0 MD NOL INGREDI 5-21 [facility] TARTRATE 00:00: n 00 ADHESIVE Drug Active Med Itching 2020-0 MD Class 5-21 [facility]o 00:00: n 00 BUTORPHA DRUG Active Low Palpitations 2020-0 MD NOL INGREDI 5-21 [facility] TARTRATE 00:00: n 00 ADHESIVE Drug Active Med Itching 2020-0 MD Class 5-21 [facility] 00:00: n 00 BUTORPHA DRUG Active Low Palpitations 2020-0 MD NOL INGREDI 5-21 Anders[facility] TARTRATE 00:00: n 00 ADHESIVE Drug Active Med Itching 2020-0 MD Class 5-21 Anderso 00:00: n 00 BUTORPHA DRUG Active Low Palpitations 2020-0 MD NOL INGREDI 5-21 Anders[facility] TARTRATE 00:00: n 00 ADHESIVE Drug Active Med Itching 2020-0 MD Class 5-21 Anderso 00:00: n 00 BUTORPHA DRUG Active Low Palpitations 2020-0 MD NOL INGREDI 5-21 Anderso TARTRATE 00:00: n 00 ADHESIVE Drug Active Med Itching 2020-0 MD Class 5-21 Anderso 00:00: n 00 BUTORPHA DRUG Active Low Palpitations 2020-0 MD NOL INGREDI 5-21 Anderso TARTRATE 00:00: n 00 ADHESIVE Drug Active Med Itching 2020-0 MD Class 5-21 [facility]o 00:00: n 00 BUTORPHA DRUG Active Low Palpitations 2020-0 MD NOL INGREDI 5-21 Anders[facility] TARTRATE 00:00: n 00 ADHESIVE Drug Active Med Itching 2020-0 MD Class 5-21 [facility]o 00:00: n 00 BUTORPHA DRUG Active Low Palpitations 2020-0 MD NOL INGREDI 5-21 Anderso TARTRATE 00:00: n 00 ADHESIVE Drug Active Med Itching 2020-0 MD Class 5-21 Anderso 00:00: n 00 BUTORPHA DRUG Active Low Palpitations 2020-0 MD NOL INGREDI 5-21 Anderso TARTRATE 00:00: n 00 ADHESIVE Drug Active Med Itching 2020-0 MD Class 5-21 Anderso 00:00: n 00 BUTORPHA DRUG Active Low Palpitations 2020-0 MD NOL INGREDI 5-21 Anderso TARTRATE 00:00: n 00 ADHESIVE Drug Active Med Itching 2020-0 MD Class 5-21 [facility]o 00:00: n 00 BUTORPHA DRUG Active Low Palpitations 2020-0 MD NOL INGREDI 5-21 Anderso TARTRATE 00:00: n 00 ADHESIVE Drug Active Med Itching 2020-0 MD Class 5-21 Anderso 00:00: n 00 BUTORPHA DRUG Active Low Palpitations 2020-0 MD NOL INGREDI 5-21 Anderso TARTRATE 00:00: n 00 ADHESIVE Drug Active Med Itching 2020-0 MD Class 5-21 [facility]o 00:00: n 00 BUTORPHA DRUG Active Low Palpitations 2020-0 MD NOL INGREDI 5-21 Anderso TARTRATE 00:00: n 00 ADHESIVE Drug Active Med Itching 2020-0 MD Class 5-21 Anderso 00:00: n 00 BUTORPHA DRUG Active Low Palpitations 2020-0 MD NOL INGREDI 5-21 Anderso TARTRATE 00:00: n 00 ADHESIVE Drug Active Med Itching 2020-0 MD Class 5-21 Anderso 00:00: n 00 BUTORPHA DRUG Active Low Palpitations 2020-0 MD NOL INGREDI 5-21 Anderso TARTRATE 00:00: n 00 ADHESIVE Drug Active Med Itching 2020-0 MD Class 5-21 Anderso 00:00: n 00 BUTORPHA DRUG Active Low Palpitations 2020-0 MD NOL INGREDI 5-21 Anderso TARTRATE 00:00: n 00 ADHESIVE Drug Active Med Itching 2020-0 MD Class 5-21 Anderso 00:00: n 00 BUTORPHA DRUG Active Low Palpitations 2020-0 MD NOL INGREDI 5-21 Anderso TARTRATE 00:00: n 00 ADHESIVE Drug Active Med Itching 2020-0 MD Class 5-21 Anderso 00:00: n 00 BUTORPHA DRUG Active Low Palpitations 2020-0 MD NOL INGREDI 5-21 Anderso TARTRATE 00:00: n 00 ADHESIVE Drug Active Med Itching 2020-0 MD Class 5-21 Anderso 00:00: n 00 BUTORPHA DRUG Active Low Palpitations 2020-0 MD NOL INGREDI 5-21 Anderso TARTRATE 00:00: n 00 ADHESIVE Drug Active Med Itching 2020-0 MD Class 5-21 Anderso 00:00: n 00 BUTORPHA DRUG Active Low Palpitations 2020-0 MD NOL INGREDI 5-21 Anderso TARTRATE 00:00: n 00 ADHESIVE Drug Active Med Itching 2020-0 MD Class 5-21 Anderso 00:00: n 00 BUTORPHA DRUG Active Low Palpitations 2020-0 MD NOL INGREDI 5-21 Anderso TARTRATE 00:00: n 00 ADHESIVE Drug Active Med Itching 2020-0 MD Class 5-21 Anderso 00:00: n 00 BUTORPHA DRUG Active Low Palpitations 2020-0 MD NOL INGREDI 5-21 Anderso TARTRATE 00:00: n 00 ADHESIVE Drug Active Med Itching 2020-0 MD Class 5-21 Anderso 00:00: n 00 BUTORPHA DRUG Active Low Palpitations 2020-0 MD NOL INGREDI 5-21 Anderso TARTRATE 00:00: n 00 ADHESIVE Drug Active Med Itching 2020-0 MD Class 5-21 Anderso 00:00: n 00 BUTORPHA DRUG Active Low Palpitations 2020-0 MD NOL INGREDI 5-21 Anderso TARTRATE 00:00: n 00 ADHESIVE Drug Active Med Itching 2020-0 MD Class 5-21 Anderso 00:00: n 00 BUTORPHA DRUG Active Low Palpitations 2020-0 MD NOL INGREDI 5-21 Anderso TARTRATE 00:00: n 00 ADHESIVE Drug Active Med Itching 2020-0 MD Class 5-21 Anderso 00:00: n 00 BUTORPHA DRUG Active Low Palpitations 2020-0 MD NOL INGREDI 5-21 Anderso TARTRATE 00:00: n 00 ADHESIVE Drug Active Med Itching 2020-0 MD Class 5-21 Anderso 00:00: n 00 BUTORPHA DRUG Active Low Palpitations 2020-0 MD NOL INGREDI 5-21 Anderso TARTRATE 00:00: n 00 ADHESIVE Drug Active Med Itching 2020-0 MD Class 5-21 Anderso 00:00: n 00 BUTORPHA DRUG Active Low Palpitations 2020-0 MD NOL INGREDI 5-21 Anderso TARTRATE 00:00: n 00 ADHESIVE Drug Active Med Itching 2020-0 MD Class 5-21 Anderso 00:00: n 00 BUTORPHA DRUG Active Low Palpitations 2020-0 MD NOL INGREDI 5-21 Anderso TARTRATE 00:00: n 00 ADHESIVE Drug Active Med Itching 2020-0 MD Class 5-21 Anderso 00:00: n 00 BUTORPHA DRUG Active Low Palpitations 2020-0 MD NOL INGREDI 5-21 Anderso TARTRATE 00:00: n 00 ADHESIVE Drug Active Med Itching 2020-0 MD Class 5-21 Anderso 00:00: n 00 BUTORPHA DRUG Active Low Palpitations 2020-0 MD NOL INGREDI 5-21 Anderso TARTRATE 00:00: n 00 ADHESIVE Drug Active Med Itching 2020-0 MD Class 5-21 Anderso 00:00: n 00 BUTORPHA DRUG Active Low Palpitations 2020-0 MD NOL INGREDI 5-21 Anderso TARTRATE 00:00: n 00 ADHESIVE Drug Active Med Itching 2020-0 MD Class 5-21 Anderso 00:00: n 00 BUTORPHA DRUG Active Low Palpitations 2020-0 MD NOL INGREDI 5-21 Anderso TARTRATE 00:00: n 00 ADHESIVE Drug Active Med Itching 2020-0 MD Class 5-21 Anderso 00:00: n 00 BUTORPHA DRUG Active Low Palpitations 2020-0 MD NOL INGREDI 5-21 Anderso TARTRATE 00:00: n 00 ADHESIVE Drug Active Med Itching 2020-0 MD Class 5-21 Anderso 00:00: n 00 BUTORPHA DRUG Active Low Palpitations 2020-0 MD NOL INGREDI 5-21 Anderso TARTRATE 00:00: n 00 ADHESIVE Drug Active Med Itching 2020-0 MD Class 5-21 Anderso 00:00: n 00 BUTORPHA DRUG Active Low Palpitations 2020-0 MD NOL INGREDI 5-21 Anderso TARTRATE 00:00: n 00 ADHESIVE Drug Active Med Itching 2020-0 MD Class 5-21 Anderso 00:00: n 00 BUTORPHA DRUG Active Low Palpitations 2020-0 MD NOL INGREDI 5-21 Anderso TARTRATE 00:00: n 00 ADHESIVE Drug Active Med Itching 2020-0 MD Class 5-21 Anderso 00:00: n 00 HYDROMOR DRUG Active N/V 2018- Univers PHONE 1-20 ity of (BULK) 00:00: [place] [id number] [facility] BUTORPHA DRUG Active Palpitations 2018- Un merlyn NOL INGREDI 1-18 ity of TARTRATE 00:00: [place] [id number] [facility] citalopr DA Active SV 2019-0 [facility] am 07-14 [facility] [place] citalopr DA Active SV TACHYCARDIA 2019-0 [facility] am 07-14 [facility] 00:[facility]: [facility] [place] ketorola DA Active MO 2019-0 [facility] c 05-05 [place] 00:00: [facility] 00 dic [facility]osp[facility] l Sulfa DA Active MO HEART RACING 2019-0 [facility] (Sulfona 05-05 [place] mide 00:00: Orthope Antibiot 00 dic ics) Hospita l prochlor DA Active MO HEART 2019-0 [facility] perazine RACING. 05-05 [place] 00:00: Orthope 00 dic Hospita l butorpha DA Active MO HEART 2019-0 [facility] nol RACING. 05-05 [place] 00:00: Orthope 00 dic Hospita l Sulfa DA Active MO 2019-0 [facility] (Sulfona 05-05 [facility] mide 00:00: Hospita Antibiot 00 l of ics) [place] prochlor DA Active MO 2019-0 [facility] perazine 05-05 [facility]: [facility] [place] pentazoc DA Active PA 2019-0 [facility] ine 05-05 [facility] 00:[facility]: [facility] [place] butorpha DA Active MO 2019-0 [facility] nol 6-21 [facility] 00:[facility]: [facility] [place] pentazoc DA Active PA UNKN 2019-0 [facility] ine 6-21 [facility] 00:[facility]: [facility] [place] Sulfa DA Active MO 2019-0 [facility] (Sulfona 05-04 [place] mide 00:00: Orthope Antibiot 00 dic ics) Hospita l prochlor DA Active MO 2019-0 [facility] perazine 6 [place] 00:00: Orthope 00 dic [facility]ospita l pentazoc DA Active PA 2019-0 [facility] ine 6 [place] 00:00: Orthope 00 dic Hospita l butorpha DA Active MO 2019-0 [facility] nol 05-04 [place] 00:00: Orthope 00 dic [facility] l Sulfa DA Active MO 2019-0 [facility] Antib[facility] dic ics[facility]ospita l prochlor DA Active MO 2019-0 [facility] perazine 03-23 [place] 00:00: Orthope 00 dic [facility]ospita l butorpha DA Active MO 2019-0 [facility] nol 03-23 [place] 00:00: Orthope 00 dic [facility]ospita l ketorola DA Active PA 2019-0 [facility] c 03-23 [place] 00:00: Orthope 00 dic [facility]ospita l Sulfa DA Active MO 2018-1 [facility] ([facility]ona 12[facility] Antibiot 00 dic ics) Hospita l prochlor DA Active MO 2018-1 [facility] perazine 2- [place] 00:00: Orthope 00 dic Hospita l propoxyp DA Active PA 2018-1 [facility] hene 2 [place] 00:00: Orthope 00 dic Hospita l pentazoc DA Active MO 2018-1 [facility] ine 2-14 [place] 00:00: Orthope 00 dic Hospita l butorpha DA Active MO 2018-1 [facility] nol 2- [place] 00:00: Orthope 00 dic [facility]ospita l Sulfa DA Active MO 2018-0 [facility] ([facility] 06[facility] Antibiot [facility] dic ics) [facility]ospita l prochlor DA Active MO 2018-0 [facility] perazine 8-14 [place] 00:00: Orthope 00 dic Hospita l propoxyp DA Active PA 2018-0 [facility] hene 8 [place] 00:00: Orthope 00 dic Hospita l pentazoc DA Active MO 2018-0 [facility] ine 8-14 [place] 00:00: Orthope 00 dic Hospita l butorpha DA Active MO 2018-0 [facility] nol 8-14 [place] 00:00: Orthope 00 dic Hospita l PROPOXYP DRUG Active Nausea 2018-0 MD HENE INGREDI 8-14 Anderso 00:00: n 00 PROPOXYP DRUG Active Nausea 2018-0 MD HENE INGREDI 8-14 Anderso 00:00: n 00 PROPOXYP DRUG Active Nausea 2018-0 MD HENE INGREDI 8-14 Anderso 00:00: n 00 PROPOXYP DRUG Active Nausea 2018-0 MD HENE INGREDI 8-14 Anderso 00:00: n 00 PROPOXYP DRUG Active Nausea 2018-0 MD HENE INGREDI 8-14 Anderso 00:00: n 00 PROPOXYP DRUG Active Nausea 2018-0 MD HENE INGREDI 8-14 Anderso 00:00: n 00 PROPOXYP DRUG Active Nausea 2018-0 MD HENE INGREDI 8-14 Anderso 00:00: n 00 PROPOXYP DRUG Active Nausea 2018-0 MD HENE INGREDI 8-14 Anderso 00:00: n 00 PROPOXYP DRUG Active Nausea 2018-0 MD HENE INGREDI 8-14 Anderso 00:00: n 00 PROPOXYP DRUG Active Nausea 2018-0 MD HENE INGREDI 8-14 Anderso 00:00: n 00 PROPOXYP DRUG Active Nausea 2018-0 MD HENE INGREDI 8-14 Anderso 00:00: n 00 PROPOXYP DRUG Active Nausea 2018-0 MD HENE INGREDI 8-14 Anderso 00:00: n 00 PROPOXYP DRUG Active Nausea 2018-0 MD HENE INGREDI 8-14 Anderso 00:00: n 00 PROCHLOR DRUG Active Palpitations 2017-0 Un [place] PERAZINE INGREDI 1-18 ity of EDISYLAT 00:00: [place] E 00 [facility] Branch SULFA Drug Active Palpitations 2017-0 Univ ers (SULFONA Class 1-18 ity of MIDE 00:00: [place] ANTIBIOT 00 Medical ICS) Branch PENTAZOC DRUG Active Palpitations 2017-0 Un merlyn INE-NALO 1-18 ity of XONE 00:00: [place] 00 Medical Branch Sulfa Propensi Active Palpitations Un merlyn (Sulfona ty to 1-18 ity of mide adverse 00:00: [place] Antibiot reaction 00 MD ics) [facility] Active Low Palpitations 2016- MD (SULFONA Class 1-18 Anderso MIDE 00:00: n ANTIBIOT 00 ICS) SULFA Drug Active Low Palpitations MD (SULFONA Class 1-18 Anderso MIDE 00:00: n ANTIBIOT 00 ICS) SULFA Drug Active Low Palpitations MD (SULFONA Class 1-18 Anderso MIDE 00:00: n ANTIBIOT 00 ICS) SULFA Drug Active Low Palpitations MD (SULFONA Class 1-18 Anderso MIDE 00:00: n ANTIBIOT 00 ICS) SULFA Drug Active Low Palpitations MD (SULFONA Class 1-18 Anderso MIDE 00:00: n ANTIBIOT 00 ICS) SULFA Drug Active Low Palpitations 2016- MD (SULFONA Class 1-18 Anderso MIDE 00:00: n ANTIBIOT 00 ICS) SULFA Drug Active Low Palpitations 2017- MD (SULFONA Class 1-18 Anderso MIDE 00:00: n ANTIBIOT 00 ICS) SULFA Drug Active Low Palpitations 2016- MD (SULFONA Class 1-18 Anderso MIDE 00:00: n ANTIBIOT 00 ICS) SULFA Drug Active Low Palpitations 2017- MD (SULFONA Class 1-18 Anderso MIDE 00:00: n ANTIBIOT 00 ICS) SULFA Drug Active Low Palpitations 2017- MD (SULFONA Class 1-18 Anderso MIDE 00:00: n ANTIBIOT 00 ICS) SULFA Drug Active Low Palpitations 2017-0 MD (SULFONA Class 1-18 Anderso MIDE 00:00: n ANTIBIOT 00 ICS) SULFA Drug Active Low Palpitations 2017-0 MD (SULFONA Class 1-18 Anderso MIDE 00:00: n ANTIBIOT 00 ICS) SULFA Drug Active Low Palpitations 2016- MD (SULFONA Class 1-18 Anderso MIDE 00:00: n ANTIBIOT 00 ICS) SULFA Drug Active Low Palpitations 2017-0 MD (SULFONA Class 1-18 Anderso MIDE 00:00: n ANTIBIOT 00 ICS) SULFA Drug Active Low Palpitations 2017-0 MD (SULFONA Class 1-18 Anderso MIDE 00:00: n ANTIBIOT 00 ICS) SULFA Drug Active Low Palpitations 2017- MD (SULFONA Class 1-18 Anderso MIDE 00:00: n ANTIBIOT 00 ICS) SULFA Drug Active Low Palpitations 2017- MD (SULFONA Class 1-18 Anderso MIDE 00:00: n ANTIBIOT 00 ICS) SULFA Drug Active Low Palpitations 2017- MD (SULFONA Class 1-18 Anderso MIDE 00:00: n ANTIBIOT 00 ICS) SULFA Drug Active Low Palpitations 2017- MD (SULFONA Class 1-18 Anderso MIDE 00:00: n ANTIBIOT 00 ICS) SULFA Drug Active Low Palpitations 2017- MD (SULFONA Class 1-18 Anderso MIDE 00:00: n ANTIBIOT 00 ICS) SULFA Drug Active Low Palpitations 2017- MD (SULFONA Class 1-18 Anderso MIDE 00:00: n ANTIBIOT 00 ICS) SULFA Drug Active Low Palpitations 2017- MD (SULFONA Class 1-18 Anderso MIDE 00:00: n ANTIBIOT 00 ICS) SULFA Drug Active Low Palpitations 2017- MD (SULFONA Class 1-18 Anderso MIDE 00:00: n ANTIBIOT 00 ICS) SULFA Drug Active Low Palpitations 2017-0 MD (SULFONA Class 1-18 Anderso MIDE 00:00: n ANTIBIOT 00 ICS) SULFA Drug Active Low Palpitations 2017- MD (SULFONA Class 1-18 Anderso MIDE 00:00: n ANTIBIOT 00 ICS) SULFA Drug Active Low Palpitations 2017-0 MD (SULFONA Class 1-18 Anderso MIDE 00:00: n ANTIBIOT 00 ICS) SULFA Drug Active Low Palpitations 2017- MD (SULFONA Class 1-18 Anderso MIDE 00:00: n ANTIBIOT 00 ICS) SULFA Drug Active Low Palpitations 2017-0 MD (SULFONA Class 1-18 Anderso MIDE 00:00: n ANTIBIOT 00 ICS) SULFA Drug Active Low Palpitations 2016-0 MD (SULFONA Class 1-18 Anderso MIDE 00:00: n ANTIBIOT 00 ICS) SULFA Drug Active Low Palpitations 2016- MD (SULFONA Class 1-18 Anderso MIDE 00:00: n ANTIBIOT 00 ICS) SULFA Drug Active Low Palpitations 2016- MD (SULFONA Class 1-18 Anderso MIDE 00:00: n ANTIBIOT 00 ICS) SULFA Drug Active Low Palpitations 2016- MD (SULFONA Class 1-18 Anderso MIDE 00:00: n ANTIBIOT 00 ICS) SULFA Drug Active Low Palpitations 2016- MD (SULFONA Class 1-18 Anderso MIDE 00:00: n ANTIBIOT 00 ICS) SULFA Drug Active Low Palpitations 2016- MD (SULFONA Class 1-18 Anderso MIDE 00:00: n ANTIBIOT 00 ICS) SULFA Drug Active Low Palpitations 2016- MD (SULFONA Class 1-18 Anderso MIDE 00:00: n ANTIBIOT 00 ICS) SULFA Drug Active Low Palpitations 2016- MD (SULFONA Class 1-18 Anderso MIDE 00:00: n ANTIBIOT 00 ICS) SULFA Drug Active Low Palpitations 2016- MD (SULFONA Class 1-18 Anderso MIDE 00:00: n ANTIBIOT 00 ICS) SULFA Drug Active Low Palpitations 2016-0 MD (SULFONA Class 1-18 Anderso MIDE 00:00: n ANTIBIOT 00 ICS) SULFA Drug Active Low Palpitations 2016- MD (SULFONA Class 1-18 Anderso MIDE 00:00: n ANTIBIOT 00 ICS) SULFA Drug Active Low Palpitations 2016-0 MD (SULFONA Class 1-18 Anderso MIDE 00:00: n ANTIBIOT 00 ICS) SULFA Drug Active Low Palpitations 2016- MD (SULFONA Class 1-18 Anderso MIDE 00:00: n ANTIBIOT 00 ICS) SULFA Drug Active Low Palpitations 2016- MD (SULFONA Class 1-18 Anderso MIDE 00:00: n ANTIBIOT 00 ICS) Compazin Allergy Active [place] e to 3-28 Orthope substanc 00:00: dic e 00 Sports Medicin e Sulfathi Allergy Active [place] azole to 3-28 Orthope substanc 00:00: dic e 00 Sports Medicin e Propofol Allergy Active [place] to 3-28 Orthope substanc 00:00: dic e 00 Sports Medicin e DARVON Allergy Active 2010-11 [place] to 2-22 Orthope substanc 00:00: dic e 00 Sports Medicin e STADOL Allergy Active 2010-11 [place] to 2-22 Orthope substanc 00:00: dic e 00 Sports Medicin e Talwin Allergy Active 2010-11 [place] to 2-22 Orthope substanc 00:00: dic e 00 Sports Medicin e PROCHLOR DRUG Active Low Anxiety 2009-0 MD PERAZINE INGREDI 1-12 Anderso 00:00: n 00 CITALOPR DRUG Active NauO 2009-0 MD AM INGREDI 1-12 Anderso 00:00: n 00 PENTAZOC DRUG Active Low Anxiety 2009-0 MD INE INGREDI 1-12 Anderso LACTATE 00:00: n 00 PROCHLOR DRUG Active Low Anxiety 2009-0 MD PERAZINE INGREDI 1-12 Anderso 00:00: n 00 CITALOPR DRUG Active NauO 2010-0 MD AM INGREDI 1-12 Anderso 00:00: n 00 PENTAZOC DRUG Active Low Anxiety 2009-0 MD INE INGREDI 1-12 Anderso LACTATE 00:00: n 00 PROCHLOR DRUG Active Low Anxiety 2009-0 MD PERAZINE INGREDI 1-12 Anderso 00:00: n 00 CITALOPR DRUG Active NauO 2009-0 MD AM INGREDI 1-12 Anderso 00:00: n 00 PENTAZOC DRUG Active Low Anxiety 2009-0 MD INE INGREDI 1-12 Anderso LACTATE 00:00: n 00 PROCHLOR DRUG Active Low Anxiety 2009-0 MD PERAZINE INGREDI 1-12 Anderso 00:00: n 00 CITALOPR DRUG Active NauO 2010-0 MD AM INGREDI 1-12 Anderso 00:00: n 00 PENTAZOC DRUG Active Low Anxiety 2009-0 MD INE INGREDI 1-12 Anderso LACTATE 00:00: n 00 PROCHLOR DRUG Active Low Anxiety 2009-0 MD PERAZINE INGREDI 1-12 Anderso 00:00: n 00 CITALOPR DRUG Active NauO 2010-0 MD AM INGREDI 12 Anderso 00:00: n 00 PENTAZOC DRUG Active Low Anxiety 2009-0 MD INE INGREDI 12 Anderso LACTATE 00:00: n 00 PROCHLOR DRUG Active Low Anxiety 2009-0 MD PERAZINE INGREDI 11-26 Anderso 00:00: n 00 CITALOPR DRUG Active NauO 2009-0 MD AM INGREDI 11-26 Anderso 00:00: n 00 PENTAZOC DRUG Active Low Anxiety 2009-0 MD INE INGREDI 12 Anderso LACTATE 00:00: n 00 Citalopr Propensi Active Nausea Only 2009-0 M ethodi am ty to 11-26 st adverse 00:00: Hospita reaction 00 l s to drug Codeine Propensi Active Nausea Only 2009-0 Me thodi Phosphat ty to 11-26 st e adverse 00:00: Hospita reaction 00 l s to drug Propoxyp Propensi Active Anxiety 2009- Metho di hene-Asa ty to 11-26 st -Caffein adverse 00:00: Hospita e reaction 00 l s to drug Pentazoc Propensi Active Anxiety 2009-0 Metho di ine ty to 11-26 st Lactate adverse 00:00: Hospita reaction 00 l s to drug Sulfasal Propensi Active Rash 2009- Method i azine ty to 11-26 st adverse 00:00: Hospita reaction 00 l s to drug Prochlor Propensi Active Anxiety 2009-0 Patient Univ ers perazine ty to -12 states ity of adverse 00:00: she gets [place] reaction 00 heart MD navjot strange [facility] PROCHLOR DRUG Active Low Anxiety 2009-0 MD PERAZINE INGREDI 11-26 Anderso 00:00: n 00 CITALOPR DRUG Active NauO 2009-0 MD AM INGREDI 11-26 Anderso 00:00: n 00 PENTAZOC DRUG Active Low Anxiety 2009-0 MD INE INGREDI 12 Anderso LACTATE 00:00: n 00 PROCHLOR DRUG Active Low Anxiety 2009-0 MD PERAZINE INGREDI 11-26 Anderso 00:00: n 00 CITALOPR DRUG Active NauO 2009-0 MD AM INGREDI 11-26 Anderso 00:00: n 00 PENTAZOC DRUG Active Low Anxiety 2010-0 MD INE INGREDI 1-12 Anderso LACTATE 00:00: n 00 PROCHLOR DRUG Active Low Anxiety 2010-0 MD PERAZINE INGREDI 1-12 Anderso 00:00: n 00 CITALOPR DRUG Active NauO 2010-0 MD AM INGREDI 1-12 Anderso 00:00: n 00 PENTAZOC DRUG Active Low Anxiety 2010-0 MD INE INGREDI 1-12 Anderso LACTATE 00:00: n 00 PROCHLOR DRUG Active Low Anxiety 2010-0 MD PERAZINE INGREDI 1-12 Anderso 00:00: n 00 CITALOPR DRUG Active NauO 2010-0 MD AM INGREDI 1-12 Anderso 00:00: n 00 PENTAZOC DRUG Active Low Anxiety 2010-0 MD INE INGREDI 1-12 Anderso LACTATE 00:00: n 00 PROCHLOR DRUG Active Low Anxiety 2010-0 MD PERAZINE INGREDI 1-12 Anderso 00:00: n 00 CITALOPR DRUG Active NauO 2010-0 MD AM INGREDI 1-12 Anderso 00:00: n 00 PENTAZOC DRUG Active Low Anxiety 2010-0 MD INE INGREDI 1-12 Anderso LACTATE 00:00: n 00 PROCHLOR DRUG Active Low Anxiety 2010-0 MD PERAZINE INGREDI 1-12 Anderso 00:00: n 00 CITALOPR DRUG Active NauO 2010-0 MD AM INGREDI 1-12 Anderso 00:00: n 00 PENTAZOC DRUG Active Low Anxiety 2010-0 MD INE INGREDI 1-12 Anderso LACTATE 00:00: n 00 PROCHLOR DRUG Active Low Anxiety 2010-0 MD PERAZINE INGREDI 1-12 Anderso 00:00: n 00 CITALOPR DRUG Active NauO 2010-0 MD AM INGREDI 1-12 Anderso 00:00: n 00 PENTAZOC DRUG Active Low Anxiety 2010-0 MD INE INGREDI 1-12 Anderso LACTATE 00:00: n 00 PROCHLOR DRUG Active Low Anxiety 2010-0 MD PERAZINE INGREDI 1-12 Anderso 00:00: n 00 PROCHLOR DRUG Active Low Anxiety 2010-0 MD PERAZINE INGREDI 1-12 Anderso 00:00: n 00 PROCHLOR DRUG Active Low Anxiety 2010-0 MD PERAZINE INGREDI 1-12 Anderso 00:00: n 00 PROCHLOR DRUG Active Low Anxiety 2009-0 MD PERAZINE INGREDI 1-12 Anderso 00:00: n 00 PROCHLOR DRUG Active Low Anxiety 2009-0 MD PERAZINE INGREDI 1-12 Anderso 00:00: n 00 PROCHLOR DRUG Active Low Anxiety 2009-0 MD PERAZINE INGREDI 1-12 Anderso 00:00: n 00 PROCHLOR DRUG Active Low Anxiety 2009-0 MD PERAZINE INGREDI 1-12 Anderso 00:00: n 00 sulfur sulfur Active Memoria topical topical l [place] Stadol Stadol Active Memoria l [place] Compazin Compazin Active Memori a e e l Johan sulfa sulfa Active Memoria drugs drugs l Johan DARVOCET Allergy Active [place] -N 50 to Orthope substanc dic e Sports Medicin e 1285 Drug Active heart races, Comm on allergy "crazy" [facility] 185 Drug Active heart race Common allergy [facility] Family History Family Member Diagnosis Comments Start Date Stop Date Source Natural brother Pancreatic cancer [facility] Natural brother -Lymphoma [facility] Natural [facility] Natural father Lung cancer [facility] Natural father -Thoracic or Lung [facility] Center Natural sister Bladder Cancer [facility] Natural sister Bladder [facility] Natural daughter [facility]i [facility] Center Half-sister Yadi [facility] Maternal aunt [facility] MD [facility] Cancer Center Maternal [facility] MD [facility] Cancer Center Maternal [facility] MD [facility] Cancer [facility] Maternal uncle [facility] Cancer Center Natural mother [facility] Cancer Center Other [facility] Paternal aunt -Other cancer [facility]i [facility] Paternal cousin -[facility] Paternal [facility] MD Barajas [facility] Cancer [facility] Paternal [facility] MD Barajas rson Cancer [facility] Paternal uncle [facility] MD Zam[facility] son Cancer Center Social History Social Habit Start Date Stop Date Quantity Comments Source History of Tobacco Common Spirit - Use [facility] History [facility] University o f Alcohol Frequency [facility] History [facility] University o f Alcohol Std Drinks [place] [facility] History [facility] o f Alcohol Binge [facility] Gender identity Christianity [facility] Sexual orientation Method ist [facility] Alcohol intake 2023-05-26 2023-05-26 Ex-drinker University of 00:00:00 00:00:00 (finding) Ariela morrison [facility] History of Social 2023-05-06 2023-05-[address] function 00:00:00 00:00:00 Hospital Exposure to 2022-05-15 2022-05-25 Not sure University of SARS-CoV-2 (event) 00:00:00 14:11:00 [place] [facility] Tobacco use and 2019-04-26 2019-04-26 Smokeless tobacco Un iversity of exposure 00:00:00 00:00:00 non-user Ariela morrison [facility] Alcohol Comment 2019-04-26 2019-04-26 Only marshal [facility] ersity of 00:00:00 00:00:00 about 3 or 4 Ariela WEAVER And jessica times a year [facility] Sex Assigned At [birth year] Universit y of 00:00:00 00:00:00 Ariela morrison [facility] Smoking Status Start Date Stop Date Source Tobacco smoking status [facility] Medications Ordered Filled Start Stop Current Ordering Indication Dosage Frequency Signature Comments Components Source Medication Medication Date Date Medication? Clinician (SIG) Name Name [place]DROcodone 2022- [place] [address] 1{tbl} Q12H Take 1 Methodi -acetaminop 8-16 08-[address] hen (NORCO) 00:00: 04:59 mouth Hosp sandee 5-325 mg 00 :00 every 12 l per tablet (twelve) hours as needed for severe pain for up to 7 days .acute pain. Max Daily Amount: 2 tablets abaloparati Yes [id number] 80ug QD Inject 80 Methodi de (Tymlos) 7-[address] 80 mcg 00:00: the skin Hospita (3,120 00 daily. l mcg/1.56 mL) pen injector pen needle, Yes [id number] For use Methodi diabetic 7-[address] (BD 00:00: Tymlos Hospita Ultra-Fine 00 daily l Mini Pen Needle) 31 gauge x 3/16" needle PARoxetine Yes Take by [facility] ers (PAXIL) 30 7-12 mouth ity of mg tablet 11:32: every morning. MD [facility] aspirin 81 2022-0 Yes 81 mg = 1 Me moria mg tablet, 7- tab, PO, l enteric 17:18: Daily, # Fabian n coated 00 90 tab, 3 Refill(s) aspirin 81 0 Yes 81 mg = 1 Me moria mg tablet, 7- tab, PO, l enteric 17:18: Daily, # Fabian n coated 00 90 tab, 3 Refill(s) aspirin 81 0 Yes 81 mg = 1 Me moria mg tablet, 7- tab, PO, l enteric 17:18: Daily, # Fabian n coated 00 90 tab, 3 Refill(s) aspirin 81 0 Yes 81 mg = 1 Me moria mg tablet, 7- tab, PO, l enteric 17:18: Daily, # Fabian n coated 00 90 tab, 3 Refill(s) primidone 2022-0 Yes 50 mg = 1 Mem oria 50 mg oral 7-07 tab, PO, l tablet 17:16: Bedtime, # Jaz nn 00 30 tab, 3 Refill(s), Pharmacy: [id number], 162.56, cm, 05/21/23 11:40:00 CDT, Height, 77.273, kg, 05/21/23 11:40:00 CDT, Weight primidone 2022-0 Yes 50 mg = 1 Mem oria 50 mg oral 7-07 tab, PO, l tablet 17:16: Bedtime, # Jaz nn 00 30 tab, 3 Refill(s), Pharmacy: [id number], 162.56, cm, 05/21/23 11:40:00 CDT, Height, 77.273, kg, 05/21/23 11:40:00 CDT, Weight primidone 2022-0 Yes 50 mg = 1 Mem oria 50 mg oral 7-07 tab, PO, l tablet 17:16: Bedtime, # Jaz nn 00 30 tab, 3 Refill(s), Pharmacy: [facility] #[id number], 162.56, cm, 05/21/23 11:40:00 CDT, Height, 77.273, kg, 05/21/23 11:40:00 CDT, Weight primidone Yes 50 mg = 1 Mem oria 50 mg oral 7-07 tab, PO, l tablet 17:16: Bedtime, # Jaz nn 00 30 tab, 3 Refill(s), Pharmacy: [facility] #[id number], 162.56, cm, 05/21/23 11:40:00 CDT, Height, 77.273, kg, 05/21/23 11:40:00 CDT, Weight Tymlos 80 Yes 80 Memoria mcg/0.04 mL 7-07 microgram, l subcutaneou 16:48: SUB-Q, Herm naye s solution 00 Daily, 0 Refill(s) Tymlos 80 0 Yes 80 Memoria mcg/0.04 mL 7-07 microgram, l subcutaneou 16:48: SUB-Q, Herm naye s solution 00 Daily, 0 Refill(s) Tymlos 80 0 Yes 80 Memoria mcg/0.04 mL 7-07 microgram, l subcutaneou 16:48: SUB-Q, Herm naye s solution 00 Daily, 0 Refill(s) Tymlos 80 2022-0 Yes 80 Memoria mcg/0.04 mL 7-07 microgram, l subcutaneou 16:48: SUB-Q, Herm naye s solution 00 Daily, 0 Refill(s) telmisartan Yes 40mg QD Take 1 Meth saman (MICARDIS) 6-22 tablet (40 st 40 MG 14:38: mg total) Hospita tablet 39 by mouth l daily. omeprazole Yes 20mg QD Take 1 Metho di (PriLOSEC) 6-[address] 20 MG 14:38: (20 mg Hospita capsule 39 total) by l mouth daily. abaloparati Yes [id number] 80ug QD Inject 80 Methodi de (Tymlos) 6-[address] 80 mcg 00:00: the skin Hospita (3,120 00 daily. l mcg/1.56 mL) pen injector abaloparati Yes 80ug Inject 80 U nivers de (Tymlos) 6-22 mcg under ity of 80 mcg 00:00: the skin. [place] (3,120 00 MD mcg/1.56 Anderso mL) [facility] atorvastati Yes TAKE 1 Christopher irene n 40 mg 5-23 TABLET BY l oral tablet 14:38: MOUTH Jaz nn 00 EVERY DAY ORALLY ONCE AT NIGHT 90 DAYS gabapentin Yes TAKE 1 Memor ia 300 mg oral 5-23 CAPSULE BY l capsule 14:38: MOUTH [place] 00 THREE TIMES A DAY telmisartan Yes TAKE 1 Christopher irene 80 mg oral 5-23 TABLET BY l tablet 14:38: MOUTH [place] 00 EVERY DAY FOR 90 DAYS omeprazole Yes TAKE 1 Memor ia 40 mg oral 5-23 CAPSULE BY l delayed 14:38: MOUTH [place] release 00 EVERY DAY capsule FOR 90 DAYS pramipexole Yes TAKE 2 Christopher irene 1 mg oral 5-23 TABLETS BY l tablet 14:38: MOUTH Johan 00 EVERY DAY AT BEDTIME 90 Paxil 30 mg Yes 30 mg = 1 M emoria oral tablet 5-23 tab, PO, l 14:38: Daily, # Johan 00 30 tab, 1 Refill(s) cyanocobala Yes 1,000 Memor ia min 1000 5-23 microgram l mcg 14:38: = 1 tab, Johan sublingual 00 SL, QMon, tablet 0 Refill(s) atorvastati Yes TAKE 1 Christopher irene n 40 mg 5-23 TABLET BY l oral tablet 14:38: MOUTH Jaz nn 00 EVERY DAY ORALLY ONCE AT NIGHT 90 DAYS gabapentin Yes TAKE 1 Memor ia 300 mg oral 5-23 CAPSULE BY l capsule 14:38: MOUTH Johan 00 THREE TIMES A DAY telmisartan Yes TAKE 1 Christopher irene 80 mg oral 5-23 TABLET BY l tablet 14:38: MOUTH Johan 00 EVERY DAY FOR 90 DAYS omeprazole Yes TAKE 1 Memor ia 40 mg oral 5-23 CAPSULE BY l delayed 14:38: MOUTH [place] release 00 EVERY DAY capsule FOR 90 DAYS pramipexole Yes TAKE 2 Christopher irene 1 mg oral 5-23 TABLETS BY l tablet 14:38: MOUTH [place] 00 EVERY DAY AT BEDTIME 90 Paxil 30 mg 0 Yes 30 mg = 1 M emoria oral tablet 5-23 tab, PO, l 14:38: Daily, # [place] 00 30 tab, 1 Refill(s) cyanocobala Yes 1,000 Mem[facility] min 1000 5-23 microgram l mcg 14:38: = 1 tab, [place] sublingual 00 SL, QMon, tablet 0 Refill(s) atorvastati Yes TAKE 1 Christopher irene n 40 mg 5-23 TABLET BY l oral tablet 14:38: MOUTH Jaz nn 00 EVERY DAY ORALLY ONCE AT NIGHT 90 DAYS gabapentin Yes TAKE 1 [facility] 300 mg oral 5-23 CAPSULE BY l capsule 14:38: MOUTH [place] 00 THREE TIMES A DAY telmisartan Yes TAKE 1 Christopher irene 80 mg oral 5-23 TABLET BY l tablet 14:38: MOUTH [place] 00 EVERY DAY FOR 90 DAYS omeprazole Yes TAKE 1 [facility] 40 mg oral 5-23 CAPSULE BY l delayed 14:38: MOUTH [place] release 00 EVERY DAY capsule FOR 90 DAYS pramipexole Yes TAKE 2 Christopher irene 1 mg oral 5-23 TABLETS BY l tablet 14:38: MOUTH [place] 00 EVERY DAY AT BEDTIME 90 Paxil 30 mg 0 Yes 30 mg = 1 M emoria oral tablet 5-23 tab, PO, l 14:38: Daily, # [place] 00 30 tab, 1 Refill(s) cyanocobala 0 Yes 1,000 Mem[facility] ia min 1000 5-23 microgram l mcg 14:38: = 1 tab, [place] sublingual 00 SL, QMon, tablet 0 Refill(s) atorvastati Yes TAKE 1 Christopher irene n 40 mg 5-23 TABLET BY l oral tablet 14:38: MOUTH [place] nn 00 EVERY DAY ORALLY ONCE AT NIGHT 90 DAYS gabapentin Yes TAKE 1 [facility] 300 mg oral 5-23 CAPSULE BY l capsule 14:38: MOUTH [place] 00 THREE TIMES A DAY telmisartan 0 Yes TAKE 1 Christopher irene 80 mg oral 5-23 TABLET BY l tablet 14:38: MOUTH [place] 00 EVERY DAY FOR 90 DAYS omeprazole 0 Yes TAKE 1 [facility] 40 mg oral 5-23 CAPSULE BY l delayed 14:38: MOUTH [place] release 00 EVERY DAY capsule FOR 90 DAYS pramipexole 0 Yes TAKE 2 Christopher irene 1 mg oral 5-23 TABLETS BY l tablet 14:38: MOUTH [place] 00 EVERY DAY AT BEDTIME 90 Paxil 30 mg 2022-0 Yes 30 mg = 1 M emoria oral tablet 5-23 tab, PO, l 14:38: Daily, # [place] 00 30 tab, 1 Refill(s) cyanocobala 0 Yes 1,000 Mem[facility] min 1000 5-23 microgram l mcg 14:38: = 1 tab, [place] sublingual 00 SL, QMon, tablet 0 Refill(s) atorvastati 0 Yes TAKE 1 Christopher irene n 40 mg 5-23 TABLET BY l oral tablet 14:38: MOUTH Jaz nn 00 EVERY DAY ORALLY ONCE AT NIGHT 90 DAYS gabapentin 0 Yes TAKE 1 [facility] 300 mg oral 5-23 CAPSULE BY l capsule 14:38: MOUTH [place] 00 THREE TIMES A DAY telmisartan 0 Yes TAKE 1 [facility] irene 80 mg oral 5-23 TABLET BY l tablet 14:38: MOUTH [place] 00 EVERY DAY FOR 90 DAYS omeprazole 0 Yes TAKE 1 [facility] 40 mg oral 5-23 CAPSULE BY l delayed 14:38: MOUTH [place] release 00 EVERY DAY capsule FOR 90 DAYS pramipexole 0 Yes TAKE 2 Christopher irene 1 mg oral 5-23 TABLETS BY l tablet 14:38: MOUTH [place] 00 EVERY DAY AT BEDTIME 90 Paxil 30 mg 2022-0 Yes 30 mg = 1 M emoria oral tablet 5-23 tab, PO, l 14:38: Daily, # [place] 00 30 tab, 1 Refill(s) cyanocobala 2022-0 Yes 1,000 Mem[facility] ia min 1000 5-23 microgram l mcg 14:38: = 1 tab, [place] sublingual 00 SL, QMon, tablet 0 Refill(s) atorvastati Yes TAKE 1 Christopher irene n 40 mg 5-23 TABLET BY l oral tablet 14:38: MOUTH Jaz nn 00 EVERY DAY ORALLY ONCE AT NIGHT 90 DAYS gabapentin Yes TAKE 1 [facility] 300 mg oral 5-23 CAPSULE BY l capsule 14:38: MOUTH [place] 00 THREE TIMES A DAY telmisartan Yes TAKE 1 [facility] irene 80 mg oral 5-23 TABLET BY l tablet 14:38: MOUTH [place] 00 EVERY DAY FOR 90 DAYS omeprazole Yes TAKE 1 [facility] 40 mg oral 5-23 CAPSULE BY l delayed 14:38: MOUTH [place] release 00 EVERY DAY capsule FOR 90 DAYS pramipexole Yes TAKE 2 [facility] irene 1 mg oral 5-23 TABLETS BY l tablet 14:38: MOUTH [place] 00 EVERY DAY AT BEDTIME 90 Paxil 30 mg Yes 30 mg = 1 M emoria oral tablet 5-23 tab, PO, l 14:38: Daily, # [place] 00 30 tab, 1 Refill(s) cyanocobala Yes 1,000 [facility] ia min 1000 5-23 microgram l mcg 14:38: = 1 tab, [place] sublingual 00 SL, QMon, tablet 0 Refill(s) gabapentin 2023- No [id number] 300mg [id number] Take 1 [facility] (NEURONTIN) 5-17 05-[id number] 300 mg 00:00: 04:59 3D (300 mg Hospita capsule 00 :00 total) by l mouth 3 (three) times a day. cyanocobala Yes INJECT 1ML [facility] min 1,000 5-[address] mcg/mL 00:00: LARLY ONCE Hospi ta injection 00 A MONTH l diazePAM 2022- No 5mg [id number] Take 1 [facility] (Valium) 5 2-24 05-17 [id number] tablet (5 st MG tablet 00:00: 00:00 3D mg total) [facility] 00 :00 by mouth 3 l (three) times a day. 2 tab 45 minutes before procedure , 1 tab 15 minutes before if needed Amoxicillin Amoxicillin 2022- No 1{table BID Amoxicilli -Pot -Pot 1-04 01-14 t} n-Pot Clavulanate Clavulanate 00:00: 00:00 Clavulanat 875-125 MG 875-125 MG 00 :00 e 875-125 MG Amoxicillin Amoxicillin 2022- No 1{table BID Amoxicilli -Pot -Pot 11-18 t} n-Pot Clavulanate Clavulanate 00:00: 00:00 Clavulanat 875-125 MG 875-125 MG 00 :00 e 875-125 MG omeprazole 2021-11 Yes 20mg QD Take 1 Metho di (PriLOSEC) 2-[address] 20 MG 09:00: (20 mg Hospita capsule 27 total) by l mouth daily. omeprazole 2021-11 Yes 20mg QD Take 1 Metho di (PriLOSEC) 2-[address] 20 MG 09:00: (20 mg Hospita capsule 27 total) by l mouth daily. omeprazole 2021-11 Yes 20mg QD Take 1 [facility] di (PriLOSEC) 2-[address] 20 MG 09:00: (20 mg Hospita capsule 27 total) by l mouth daily. omeprazole 2021-11 Yes 20mg QD Take 1 Metho di (PriLOSEC) 2-[address] 20 MG 09:00: (20 mg Hospita capsule 27 total) by l mouth daily. telmisartan 2021-11 Yes 40mg QD Take 1 Meth saman (MICARDIS) 2-02 tablet (40 st 40 MG 08:59: mg total) Hospita tablet 27 by mouth l daily. telmisartan 2021-11 Yes 40mg QD Take 1 Meth saman (MICARDIS) 2-02 tablet (40 st 40 MG 08:59: mg total) Hospita tablet 27 by mouth l daily. telmisartan 2021-11 Yes 40mg QD Take 1 Meth saman (MICARDIS) 2-02 tablet (40 st 40 MG 08:59: mg total) Hospita tablet 27 by mouth l daily. telmisartan 2021-11 Yes 40mg QD Take 1 Meth saman (MICARDIS) 2-02 tablet (40 st 40 MG 08:59: mg total) Hospita tablet 27 by mouth l daily. PARoxetine Yes Take by [facility] ers (PAXIL) 30 7-11 mouth ity of mg tablet 14:54: every [place] 42 morning. MD Jigar walton [facility] PARoxetine Yes Take by [facility] ers (PAXIL) 30 7-11 mouth ity of mg tablet 14:54: every [place] 42 morning. MD Jigar walton [facility] PARoxetine Yes Take by [facility] ers (PAXIL) 30 7-11 mouth ity of mg tablet 14:54: every [place] 42 morning. MD Jigar walton [facility] PARoxetine Yes Take by [facility] ers (PAXIL) 30 7-11 mouth ity of mg tablet 14:54: every [place] 42 morning. MD Jigar walton [facility] PARoxetine Yes Take by [facility] ers (PAXIL) 30 7-11 mouth ity of mg tablet 14:54: every [place] 42 morning. MD Jigar walton [facility] topiramate Yes TAKE 1 Unive rs (TOPAMAX) 7-07 TABLET BY ity o f 25 mg 00:00: MOUTH AT [place] tablet 00 NIGHT FOR MD 2 WEEKS, Anderso THEN 2 n TABLETS AT [facility] topiramate Yes TAKE 1 Unive rs (TOPAMAX) 7-07 TABLET BY ity o f 25 mg 00:00: MOUTH AT [place] tablet 00 NIGHT FOR MD 2 WEEKS, Anderso THEN 2 n TABLETS AT [facility] topiramate Yes TAKE 1 Unive rs (TOPAMAX) 7-07 TABLET BY ity o f 25 mg 00:00: MOUTH AT [place] tablet 00 NIGHT FOR MD 2 WEEKS, Anderso THEN 2 n TABLETS AT [facility] topiramate Yes TAKE 1 Unive rs (TOPAMAX) 7-07 TABLET BY ity o f 25 mg 00:00: MOUTH AT [place] tablet 00 NIGHT FOR MD 2 WEEKS, Anderso THEN 2 n TABLETS AT [facility] topiramate Yes TAKE 1 Unive rs (TOPAMAX) 7-07 TABLET BY ity o f 25 mg 00:00: MOUTH AT [place] tablet 00 NIGHT FOR MD 2 WEEKS, Anderso THEN 2 n TABLETS AT [facility] topiramate 3- No TAKE 1 Univ ers (TOPAMAX) 7-07 07-12 TABLET BY ity of 25 mg 00:00: 00:00 MOUTH AT [place] tablet 00 :00 NIGHT FOR MD 2 WEEKS, Jigar THEN 2 n TABLETS AT [facility] NIGHT Center Cipro 500 Cipro 500 2020-11- No 1{table BID Cipro 500 MG MG 0-08-21 t} MG 00:00: 00:00 00 :00 acetaminoph 2020- No Intraductal 1{tbl} Take 1 [facility] 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 LORazepam Intraductal 1mg Take 1 [facility] (ATIVAN) 1 06-02 carcinoma tablet (1 ity of mg tablet 00:00: 00:00 in situ of mg) by Ariela 00 :00 left breast mouth 2 MD (two) Tomaserso times a n day as Cancer needed for Center anxiety. Take 1 tab 30 mins prior to procedure. May take an additional tab before exam starts if needed. telmisartan telmisartan No telmisarta Lucero 20 mg 20 mg 3-19 n 20 mg [facility] tablet RX tablet RX 00:00: tablet RX dic by other MD by other 00 by other Sports MD Hardik johns telmisartan telmisartan No telmisarta Lucero 20 mg 20 mg 3-19 n 20 mg [facility] tablet RX tablet RX 00:00: tablet RX dic by other MD by other 00 by other Sports MD Hardik johns telmisartan telmisartan No telmisarta Lucero 20 mg 20 mg 3-19 n 20 mg [facility] tablet RX tablet RX 00:00: tablet RX dic by other MD by other 00 by other Sports MD Hardik johns cyclobenzap 2020- No 3 (three) Univers rine 11-20 times a ity of (FLEXERIL) 00:00: 00:00 [place] 7.5 mg 00 :00 needed. MD samanta walton [facility] omeprazole 2019-11 Yes TAKE 1 Unive rs (PriLOSEC) 2-08 CAPSULE BY ity of 40 MG 00:00: MOUTH [place] capsule 00 EVERY DAY MD Jigar walton [facility] omeprazole 2019-11 Yes TAKE 1 Unive rs (PriLOSEC) 2-08 CAPSULE BY ity of 40 MG 00:00: MOUTH [place] capsule 00 EVERY DAY MD Jigar walton [facility] omeprazole 2019-11 Yes TAKE 1 Unive rs (PriLOSEC) 2-08 CAPSULE BY ity of 40 MG 00:00: MOUTH [place] capsule 00 EVERY DAY MD Jigar walton [facility] omeprazole 2019-11 Yes TAKE 1 Unive rs (PriLOSEC) 2-08 CAPSULE BY ity of 40 MG 00:00: MOUTH [place] capsule 00 EVERY DAY MD Jigar walton [facility] omeprazole 2019-11 Yes TAKE 1 Unive rs (PriLOSEC) 2-08 CAPSULE BY ity of 40 MG 00:00: MOUTH [place] capsule 00 EVERY DAY MD Jigar walton [facility] omeprazole 2019-11 Yes TAKE 1 Unive rs (PriLOSEC) 2-08 CAPSULE BY ity of 40 MG 00:00: MOUTH [place] capsule 00 EVERY DAY MD Jigar walton [facility] DULoxetine 2021- No Lumbar 20mg Take 1 Un merlyn (CYMBALTA) 04-04-12 post-isaiah capsule ity of 20 mg 00:00: 00:00 ct[place] ([place] mg[place] capsule 00 :00 syndrome mouth daily. [facility] DULoxetine 2021- No Lumbar 20mg Take 1 Un merlyn (CYMBALTA) -04 06-12 post-isa[place] capsule ity of 20 mg 00:00: 00:00 ct[place] (20 mg[place] capsule 00 :00 syndrome mouth daily. [facility] DULoxetine 2021- No Lumbar 20mg Take 1 Un merlyn (CYMBALTA) 5-04 06-12 post-isa[place] capsule ity of 20 mg 00:00: 00:00 ct[place] (20 mg[place] capsule 00 :00 syndrome mouth daily. [facility] DULoxetine 2021- No Lumbar 20mg Take 1 Un merlyn (CYMBALTA) 5- 07-12 post-isa[place] capsule ity of 20 mg 00:00: 00:00 ct[place] (20 mg[place] capsule 00 :00 syndrome mouth MD daily. [facility] DULoxetine Lumbar 20mg Take 1 Un merlyn (CYMBALTA) 5- 07-12 post-isa[place] capsule ity of 20 mg 00:00: 00:00 ct[place] (20 mg[place] capsule 00 :00 syndrome mouth MD daily. [facility] Clifton Clifton 2019- No Na Dang 1 tablet Com mon 03-01 as needed Spirit 00:00: 00:00 for - [facility] 00 :[address] [facility] pain ( [facility]) [facility] pramepexole Yes TAKE 1 Univ ers (MIRAPEX) 1 6-03 TABLET BY ity of mg tablet 00:00: MOUTH [place] 00 EVERYDAY MD AT BEDTIME [facility] pramipexole 2018- Yes TAKE 1 Univ ers (MIRAPEX) 1 6-03 TABLET BY ity of mg tablet 00:00: MOUTH [place] 00 EVERYDAY MD AT BEDTIME [facility] pramipexole 2019- Yes TAKE 1 Univ ers (MIRAPEX) 1 6-03 TABLET BY ity of mg tablet 00:00: MOUTH [place] 00 EVERYDAY MD AT BEDTIME [facility] pramipexole 2019- Yes TAKE 1 Univ ers (MIRAPEX) 1 6-03 TABLET BY ity of mg tablet 00:00: MOUTH [place] 00 EVERYDAY MD AT BEDTIME [facility] pramipexole 2019- Yes TAKE 1 Univ ers (MIRAPEX) 1 6-03 TABLET BY ity of mg tablet 00:00: MOUTH [place] 00 EVERYDAY MD AT BEDTIME [facility] pramipexole 2019- Yes TAKE 1 Univ ers (MIRAPEX) 1 6-03 TABLET BY ity of mg tablet 00:00: MOUTH [place] 00 EVERYDAY MD AT BEDTIME [facility] atorvastati 2018- Yes TAKE 1 Univ ers n (LIPITOR) 5-12 TABLET BY ity of 20 mg 00:00: MOUTH [place] tablet 00 EVERY DAY [facility] atorvastati Yes TAKE 1 Univ ers n (LIPITOR) 5-12 TABLET BY ity of 20 mg 00:00: MOUTH [place] tablet 00 EVERY DAY [facility] atorvastati Yes TAKE 1 Univ ers n (LIPITOR) 5-12 TABLET BY ity of 20 mg 00:00: MOUTH [place] tablet 00 EVERY DAY [facility] isabelle [facility] atorvastati Yes TAKE 1 Univ ers n (LIPITOR) 5-12 TABLET BY ity of 20 mg 00:00: MOUTH [place] tablet 00 EVERY DAY [facility] atorvastati Yes TAKE 1 Univ ers n (LIPITOR) 5-12 TABLET BY ity of 20 mg 00:00: MOUTH [place] tablet 00 EVERY DAY [facility] isabelle [facility] atorvastati Yes TAKE 1 Univ ers n (LIPITOR) 5-12 TABLET BY ity of 20 mg 00:00: MOUTH [place] tablet 00 EVERY DAY MD [facility]abel[facility] telmisartan Yes TAKE 1 Univ ers (MICARDIS) 5-11 TABLET BY ity of 40 mg 00:00: MOUTH [place] tablet 00 EVERY DAY [facility] telmisartan Yes TAKE 1 Univ ers (MICARDIS) 5-11 TABLET BY ity of 40 mg 00:00: MOUTH [place] tablet 00 EVERY DAY [facility] telmisartan Yes TAKE 1 Univ ers (MICARDIS) 5-11 TABLET BY ity of 40 mg 00:00: MOUTH [place] tablet 00 EVERY DAY [facility] telmisartan Yes TAKE 1 Univ ers (MICARDIS) 5-11 TABLET BY ity of 40 mg 00:00: MOUTH [place] tablet 00 EVERY DAY [facility] telmisartan Yes TAKE 1 Univ ers (MICARDIS) 5-11 TABLET BY ity of 40 mg 00:00: MOUTH [place] tablet 00 EVERY DAY [facility] telmisartan Yes TAKE 1 Univ ers (MICARDIS) 5-11 TABLET BY ity of 40 mg 00:00: MOUTH [place] tablet 00 EVERY DAY [facility] Augmentin Augmentin 0 Yes Na Dang 1 tablet Common 05-17 Spirit 00:00: - [facility] 00 [facility] Augmentin Augmentin 0 No 1{table BID Augmentin 875-125 MG 875-125 MG 7- t} 875-125 MG 00:00: 00 Augmentin Augmentin 0 No 1{table BID Augmentin 875-125 MG 875-125 MG 05-17 t} 875-125 MG 00:00: 00 Augmentin Augmentin No 1{table BID Augmentin 875-125 MG 875-125 MG 05-17 t} 875-125 MG 00:00: 00 traZODone 2016-11 Yes 100mg QD Take 100 [facility] (DESYREL) 0-[address] 100 MG 00:00: mouth Hospita tablet 00 nightly. l traZODone 2016-11 Yes 100mg QD Take 100 [facility] (DESYREL) 0-[address] 100 MG 00:00: mouth [facility]osp[facility] tablet 00 nightly. l traZODone 2016-11 Yes 100mg QD Take 100 [facility] (DESYREL) 0-[address] 100 MG 00:00: mouth [facility]ospita tablet 00 nightly. l traZODone 2016-11 Yes 100mg QD Take 100 [facility] (DESYREL) 0-[address] 100 MG 00:00: mouth [facility]ospita tablet 00 nightly. l traZODone 2016-11- No 100mg QD Take 100 [facility] (DESYREL) 0-25 02-[address] 100 MG 00:00: 00:00 mouth Hospita tablet 00 :00 nightly. l diazePAM 2016-11- No TAKE 1 [facility] (VALIUM) 5 0-22 12-[address] MG tablet 00:00: 00:00 MOUTH 3 [facility] 00 :00 TIMES A l DAY NEEDED FOR SPASMS diazePAM 2016-11- No TAKE 1 [facility] (VALIUM) 5 0-22 12-[address] MG tablet 00:00: 00:00 MOUTH 3 [facility] 00 :00 TIMES A l DAY NEEDED FOR SPASMS diazePAM 2016-11- No TAKE 1 [facility] (VALIUM) 5 0-22 12-[address] MG tablet 00:00: 00:00 MOUTH 3 [facility] 00 :00 TIMES A l DAY NEEDED FOR SPASMS diazePAM 2016-11- No TAKE 1 [facility] (VALIUM) 5 0-22 12-[address] MG tablet 00:00: 00:00 MOUTH 3 [facility] 00 :00 TIMES A l DAY NEEDED FOR SPASMS diazePAM 2016-11- No TAKE 1 [facility] (VALIUM) 5 0-22 12-[address] MG tablet 00:00: 00:00 MOUTH 3 [facility] 00 :00 TIMES A l DAY NEEDED FOR SPASMS methotrexat 2016-11- No TAKE 4 Met hodi e 2.5 MG 0-15 12-[address] tablet 00:00: 00:00 MOUTH Hospita 00 :00 EVERY 7 l DAYS methotrexat 2016-11- No TAKE 4 Met hodi e 2.5 MG 0-15 12-[address] tablet 00:00: 00:00 MOUTH Hospita 00 :00 EVERY 7 l DAYS methotrexat 2016-11- No TAKE 4 Met hodi e 2.5 MG 0-15 12-[address] tablet 00:00: 00:00 MOUTH Hospita 00 :00 EVERY 7 l DAYS methotrexat 2016-11- No TAKE 4 Met hodi e 2.5 MG 0-15 12-[address] tablet 00:00: 00:00 MOUTH Hospita 00 :00 EVERY 7 l DAYS methotrexat 2016-11- No TAKE 4 Met hodi e 2.5 MG 0-15 12-[address] tablet 00:00: 00:00 MOUTH Hospita 00 :00 EVERY 7 l DAYS valsartan 2021- No 40mg QD Take 40 mg M ethodi (DIOVAN) 40 08-[address] MG tablet 00:00: 00:00 once Hospita 00 :00 daily. l valsartan 2021- No 40mg QD Take 40 mg M ethodi (DIOVAN) 40 08-[address] MG tablet 00:00: 00:00 once Hospita 00 :00 daily. l valsartan 2021- No 40mg QD Take 40 mg M ethodi (DIOVAN) 40 08-[address] MG tablet 00:00: 00:00 once Hospita 00 :00 daily. l valsartan 2016-2021- No 40mg QD Take 40 mg M ethodi (DIOVAN) 40 08-[address] MG tablet 00:00: 00:00 once Hospita 00 :00 daily. l valsartan 2016-2021- No 40mg QD Take 40 mg M ethodi (DIOVAN) 40 08-[address] MG tablet 00:00: 00:00 once Hospita 00 :00 daily. l PARoxetine 2017-0 Yes 30mg QD Take 1 Metho di (PAXIL) 30 8-23 tablet (30 st MG tablet 00:00: mg total) [facility] 00 by mouth l once daily. pramipexole 2017-0 Yes 1mg QD Take 1 Meth saman (MIRAPEX) 1 8-23 tablet (1 st MG tablet 00:00: mg total) [facility] 00 by mouth l nightly. PARoxetine 2017-0 Yes 30mg QD Take 30 mg M ethodi (PAXIL) 30 8-[address] MG tablet 00:00: once Hospita 00 daily. l pramipexole 2017-0 Yes 1mg QD Take 1 mg M ethodi (MIRAPEX) 1 8-[address] MG tablet 00:00: nightly. [facility] 00 l ranitidine 2017-0 Yes 150mg Q.5D Take 150 [facility] (ZANTAC) 8-[address] 150 MG 00:00: mouth 2 Hospita tablet 00 (two) l times a day. PARoxetine 2017-0 Yes 30mg QD Take 30 mg M ethodi (PAXIL) 30 8-[address] MG tablet 00:00: once Hospita 00 daily. l pramipexole 2017-0 Yes 1mg QD Take 1 mg M ethodi (MIRAPEX) 1 8-[address] MG tablet 00:00: nightly. [facility] 00 l ranitidine 2017-0 Yes 150mg Q.5D Take 150 [facility] (ZANTAC) 8-[address] 150 MG 00:00: mouth 2 Hospita tablet 00 (two) l times a day. PARoxetine 2017-0 Yes 30mg QD Take 30 mg M ethodi (PAXIL) 30 8-[address] MG tablet 00:00: once Hospita 00 daily. l pramipexole 2016- Yes 1mg QD Take 1 mg M ethodi (MIRAPEX) 1 8-[address] MG tablet 00:00: nightly. [facility] 00 l ranitidine 2016-0 Yes 150mg Q.5D Take 150 [facility] (ZANTAC) 8-[address] 150 MG 00:00: mouth 2 Hospita tablet 00 (two) l times a day. PARoxetine Yes 30mg QD Take 30 mg M ethodi (PAXIL) 30 8-[address] MG tablet 00:00: once Hospita 00 daily. l pramipexole Yes 1mg QD Take 1 mg M ethodi (MIRAPEX) 1 8- by mouth st MG tablet 00:00: nightly. [facility] 00 l ranitidine 2016- Yes 150mg Q.5D Take 150 [facility] (ZANTAC) 8-[address] 150 MG 00:00: mouth 2 Hospita tablet 00 (two) l times a day. ranitidine 2016-2022- No 150mg Q.5D Take 150 M ethodi (ZANTAC) 8-23 02-[address] 150 MG 00:00: 00:00 mouth 2 Hospita tablet 00 :00 (two) l times a day. atorvastati 2017-0 Yes 40mg QD Take 2 Meth saman n (LIPITOR) 8-[address] 20 MG 00:00: (40 mg Hospita tablet 00 total) by l mouth daily. atorvastati 2017-0 Yes 20mg QD Take 20 mg [facility] n (LIPITOR) 8-[address] 20 MG 00:00: once Hospita tablet 00 daily. l atorvastati 2017-0 Yes 20mg QD Take 20 mg [facility] n (LIPITOR) 8-[address] 20 MG 00:00: once Hospita tablet 00 daily. l atorvastati 2017-0 Yes 20mg QD Take 20 mg [facility] n (LIPITOR) 8-[address] 20 MG 00:00: once [facility]ospita tablet 00 daily. l atorvastati 2017-0 Yes 20mg QD Take 20 mg [facility] n (LIPITOR) 8-[address] 20 MG 00:00: once Hospita tablet 00 daily. l folic acid 2021- No 1mg QD Take 1 mg M ethodi (FOLVITE) 1 8- 12-[address] MG tablet 00:00: 00:00 once Hospita 00 :00 daily. l gabapentin 2021- No 200mg QD Take 200 M ethodi (NEURONTIN) 8- 12-[address] 100 mg 00:00: 00:00 mouth Hospita capsule 00 :00 nightly. l folic acid 2021- No 1mg QD Take 1 mg M ethodi (FOLVITE) 1 06-17 12-[address] MG tablet 00:00: 00:00 once Hospita 00 :00 daily. l gabapentin 2021- No 200mg QD Take 200 M ethodi (NEURONTIN) 8 12-[address] 100 mg 00:00: 00:00 mouth Hospita capsule 00 :00 nightly. l folic acid 2021- No 1mg QD Take 1 mg M ethodi (FOLVITE) 1 06-17-[address] MG tablet 00:00: 00:00 once Hospita 00 :00 daily. l gabapentin 2021- No 200mg QD Take 200 M ethodi (NEURONTIN) 8 12-[address] 100 mg 00:00: 00:00 mouth Hospita capsule 00 :00 nightly. l folic acid 2021- No 1mg QD Take 1 mg M ethodi (FOLVITE) 1 06-17 12-[address] MG tablet 00:00: 00:00 once Hospita 00 :00 daily. l gabapentin 2021- No 200mg QD Take 200 M ethodi (NEURONTIN) 8 12-[address] 100 mg 00:00: 00:00 mouth [facility]ospita capsule 00 :00 nightly. l folic acid 2021- No 1mg QD Take 1 mg M ethodi (FOLVITE) 1 - 12-[address] MG tablet 00:00: 00:00 once Hospita 00 :00 daily. l gabapentin 2021- No 200mg QD Take 200 M ethodi (NEURONTIN) 06-17 12-[address] 100 mg 00:00: 00:00 mouth [facility]ospita capsule 00 :00 nightly. l Lipitor 10 Lipitor 2010-11 No Lipitor 10 Lucero mg tablet mg tablet 2-22 mg tablet [facility] 00:[facility]: dic 00 [facility] Lipitor 10 Lipitor 2010-11 No Lipitor 10 Lucero mg tablet mg tablet 2-22 mg tablet [facility] 00:00: dic 00 [facility] Lipitor 10 Lipitor 2010-11 No Lipitor 10 Lucero mg tablet mg tablet 2-22 mg tablet [facility] 00:00: dic 00 [facility] Cyclobenzap Cyclobenzap No 1{table QD Cyclobenza rine HCl rine HCl t_at_be cammy HCl 7.5 MG 7.5 MG dtime} 7.5 MG PARoxetine PARoxetine No PARoxetine HCl 30 MG HCl 30 MG HCl 30 MG Pramipexole Pramipexole No Pramipexol Dihydrochlo Dihydrochlo e ride 1 MG ride 1 MG Dihydrochl oride 1 MG Telmisartan Telmisartan No Telmisarta 40 MG 40 MG n 40 MG Atorvastati Atorvastati No Atorvastat n Calcium n Calcium in Calcium 20 MG 20 MG 20 MG PARoxetine PARoxetine No PARoxetine HCl 30 MG HCl 30 MG HCl 30 MG Telmisartan Telmisartan No Telmisarta 40 MG 40 MG n 40 MG Pramipexole Pramipexole No Pramipexol Dihydrochlo Dihydrochlo e ride 1 MG ride 1 MG Dihydrochl oride 1 MG Omeprazole Omeprazole No Omeprazole 40 MG 40 MG 40 MG Atorvastati Atorvastati No Atorvastat n Calcium n Calcium in Calcium 20 MG 20 MG 20 MG Pramipexole Pramipexole No Pramipexol Dihydrochlo Dihydrochlo e ride 1 MG ride 1 MG Dihydrochl oride 1 MG Omeprazole Omeprazole No Omeprazole 40 MG 40 MG 40 MG Benzonatate Benzonatate No 1{capsu TID Benzonatat 200 MG 200 MG le} e 200 MG PARoxetine PARoxetine No PARoxetine HCl 30 MG HCl 30 MG HCl 30 MG methylPREDN methylPREDN No QD methylPRED ISolone 4 ISolone 4 NISolone 4 MG MG MG Atorvastati Atorvastati No Atorvastat n Calcium n Calcium in Calcium 20 MG 20 MG 20 MG Telmisartan Telmisartan No Telmisarta 40 MG 40 MG n 40 MG Pramipexole Pramipexole No Pramipexol Dihydrochlo Dihydrochlo e ride 1 MG ride 1 MG Dihydrochl oride 1 MG Omeprazole Omeprazole No Omeprazole 40 MG 40 MG 40 MG Benzonatate Benzonatate No 1{capsu TID Benzonatat 200 MG 200 MG le} e 200 MG PARoxetine PARoxetine No PARoxetine HCl 30 MG HCl 30 MG HCl 30 MG methylPREDN methylPREDN No QD methylPRED ISolone 4 ISolone 4 NISolone 4 MG MG MG Atorvastati Atorvastati No Atorvastat n Calcium n Calcium in Calcium 20 MG 20 MG 20 MG Telmisartan Telmisartan No Telmisarta 40 MG 40 MG n 40 MG Pramipexole Pramipexole No Pramipexol Dihydrochlo Dihydrochlo e ride 1 MG ride 1 MG Dihydrochl oride 1 MG Telmisartan Telmisartan No Telmisarta 40 MG 40 MG n 40 MG Omeprazole Omeprazole No Omeprazole 40 MG 40 MG 40 MG PARoxetine PARoxetine No PARoxetine HCl 30 MG HCl 30 MG HCl 30 MG methylPREDN methylPREDN No QD methylPRED ISolone 4 ISolone 4 NISolone 4 MG MG MG Atorvastati Atorvastati No Atorvastat n Calcium n Calcium in Calcium 20 MG 20 MG 20 MG Benzonatate Benzonatate No 1{capsu TID Benzonatat 200 MG 200 MG le} e 200 MG Pramipexole Pramipexole No Pramipexol Dihydrochlo Dihydrochlo e ride 1 MG ride 1 MG Dihydrochl oride 1 MG Telmisartan Telmisartan No Telmisarta 40 MG 40 MG n 40 MG Omeprazole Omeprazole No Omeprazole 40 MG 40 MG 40 MG PARoxetine PARoxetine No PARoxetine HCl 30 MG HCl 30 MG HCl 30 MG methylPREDN methylPREDN No QD methylPRED ISolone 4 ISolone 4 NISolone 4 MG MG MG Atorvastati Atorvastati No Atorvastat n Calcium n Calcium in Calcium 20 MG 20 MG 20 MG Benzonatate Benzonatate No 1{capsu TID Benzonatat 200 MG 200 MG le} e 200 MG Pramipexole Pramipexole No Pramipexol Dihydrochlo Dihydrochlo e ride 1 MG ride 1 MG Dihydrochl oride 1 MG Telmisartan Telmisartan No Telmisarta 40 MG 40 MG n 40 MG Omeprazole Omeprazole No Omeprazole 40 MG 40 MG 40 MG PARoxetine PARoxetine No PARoxetine HCl 30 MG HCl 30 MG HCl 30 MG methylPREDN methylPREDN No QD methylPRED ISolone 4 ISolone 4 NISolone 4 MG MG MG Atorvastati Atorvastati No Atorvastat n Calcium n Calcium in Calcium 20 MG 20 MG 20 MG Benzonatate Benzonatate No 1{capsu TID Benzonatat 200 MG 200 MG le} e 200 MG Pramipexole Pramipexole No Pramipexol Dihydrochlo Dihydrochlo e ride 1 MG ride 1 MG Dihydrochl oride 1 MG Telmisartan Telmisartan No Telmisarta 40 MG 40 MG n 40 MG Omeprazole Omeprazole No Omeprazole 40 MG 40 MG 40 MG PARoxetine PARoxetine No PARoxetine HCl 30 MG HCl 30 MG HCl 30 MG methylPREDN methylPREDN No QD methylPRED ISolone 4 ISolone 4 NISolone 4 MG MG MG Atorvastati Atorvastati No Atorvastat n Calcium n Calcium in Calcium 20 MG 20 MG 20 MG Benzonatate Benzonatate No 1{capsu TID Benzonatat 200 MG 200 MG le} e 200 MG Lipitor 20 Lipitor 20 No Lipitor 20 MG MG MG Mirapex 1 Mirapex 1 No Mirapex 1 MG MG MG Diovan 40 Diovan 40 No 1{table QD Diovan 40 MG MG t} MG Omeprazole Omeprazole No 1{capsu QD Omeprazole 40 MG 40 MG le} 40 MG Estrace 0.1 Estrace 0.1 No Estrace MG/GM MG/GM 0.1 MG/GM PARoxetine PARoxetine No QD PARoxetine HCl 30 MG HCl 30 MG HCl 30 MG traZODone traZODone No traZODone HCl 100 MG HCl 100 MG HCl 100 MG Ellura 200 Ellura 200 No Ellura 200 MG MG MG Florajen3 - Florajen3 - No Florajen3 - Pramipexole Pramipexole No Pramipexol Dihydrochlo Dihydrochlo e ride 1 MG ride 1 MG Dihydrochl oride 1 MG Lipitor 20 Lipitor 20 No Lipitor 20 MG MG MG Atorvastati Atorvastati No Atorvastat n Calcium n Calcium in Calcium 20 MG 20 MG 20 MG Paxil 30 MG Paxil 30 MG No 1{table QD Paxil 30 t_in_th MG e_morni ng} Telmisartan Telmisartan No Telmisarta 40 MG 40 MG n 40 MG Zantac 150 Zantac 150 No 1{table BID Zantac 150 MG MG t_at_be MG dtime} Paxil 30 mg Paxil 30 mg No 1 Q1D Paxil 30 Lucero tablet Take tablet Take mg tablet [facility] 1 tablet 1 tablet Take 1 dic every day every day tablet Spo rts by oral by oral every day Medi marlys route. route. by oral e route. topiramate topiramate No 1 Q1D topiramate Lucero 25 mg 25 mg 25 mg [facility] tablet Take tablet Take tablet dic 1 tablet 1 tablet Take 1 Sport s every day every day tablet Med icin by oral by oral every day e route. route. by oral route. atorvastati atorvastati No 1 Q1D atorvastat Lucero n 20 mg n 20 mg in 20 mg Ortho pe tablet Take tablet Take tablet dic 1 tablet 1 tablet Take 1 Sport s every day every day tablet Med icin by oral by oral every day e route. route. by oral route. Mirapex Mirapex No Mirapex Lucero 0.75 mg 0.75 mg 0.75 mg Orthop e tablet RX tablet RX tablet RX dic by other MD by other MD by other Sports MD Medicin e omeprazole omeprazole No 1capsul Q1D omeprazole Lucero 40 mg 40 mg e(s) 40 mg [facility] capsule,del capsule,del capsule,de dic ayed ayed layed Sports release release release Medici n Take 1 Take 1 Take 1 e capsule capsule capsule every day every day every day by oral by oral by oral route. route. route. Paxil 30 mg Paxil 30 mg No 1 Q1D Paxil 30 Lucero tablet Take tablet Take mg tablet [facility] 1 tablet 1 tablet Take 1 dic every day every day tablet Spo rts by oral by oral every day Medi marlys route. route. by oral e route. topiramate topiramate No 1 Q1D topiramate Lucero 25 mg 25 mg 25 mg [facility] tablet Take tablet Take tablet dic 1 tablet 1 tablet Take 1 Sport s every day every day tablet Med icin by oral by oral every day e route. route. by oral route. atorvastati atorvastati No 1 Q1D atorvastat Lucero n 20 mg n 20 mg in 20 mg Ortho pe tablet Take tablet Take tablet dic 1 tablet 1 tablet Take 1 Sport s every day every day tablet Med icin by oral by oral every day e route. route. by oral route. gabapentin gabapentin No 2capsul TID gabapentin Lucero 100 mg 100 mg e(s) 100 mg [facility] capsule capsule capsule dic Take 2 Take 2 Take 2 Sports capsules 3 capsules 3 capsules 3 Medicin times a day times a day times a e by oral by oral day by route for route for oral route 30 days. 30 days. for 30 days. Mirapex Mirapex No Mirapex Lucero 0.75 mg 0.75 mg 0.75 mg Orthop e tablet RX tablet RX tablet RX dic by other MD by other MD by other Sports MD Medicin e omeprazole omeprazole No 1capsul Q1D omeprazole Lucero 40 mg 40 mg e(s) 40 mg [facility] capsule,del capsule,del capsule,de dic ayed ayed layed Sports release release release Medici n Take 1 Take 1 Take 1 e capsule capsule capsule every day every day every day by oral by oral by oral route. route. route. Paxil 30 mg Paxil 30 mg No 1 Q1D Paxil 30 Lucero tablet Take tablet Take mg tablet [facility] 1 tablet 1 tablet Take 1 dic every day every day tablet Spo rts by oral by oral every day Medi marlys route. route. by oral e route. tizanidine tizanidine No 1 BID tizanidine Lucero 4 mg tablet 4 mg tablet 4 mg O rthope Take 1 Take 1 tablet dic tablet tablet Take 1 Sports twice a day twice a day tablet Medicin by oral by oral twice a e route. route. day by oral route. topiramate topiramate No 1 Q1D topiramate Lucero 25 mg 25 mg 25 mg [facility] tablet Take tablet Take tablet dic 1 tablet 1 tablet Take 1 Sport s every day every day tablet Med icin by oral by oral every day e route. route. by oral route. atorvastati atorvastati No atorvastat Lucero n 20 mg n 20 mg in 20 mg Ortho pe tablet TAKE tablet TAKE tablet dic 1 TABLET BY 1 TABLET BY TAKE 1 Sports MOUTH EVERY MOUTH EVERY TABLET BY Medicin DAY DAY MOUTH e EVERY DAY omeprazole omeprazole No omeprazole Lucero 40 mg 40 mg 40 mg [facility] capsule,del capsule,del capsule,de dic ayed ayed layed Sports release release release Medici n TAKE 1 TAKE 1 TAKE 1 e CAPSULE BY CAPSULE BY CAPSULE BY MOUTH EVERY MOUTH EVERY MOUTH DAY DAY EVERY DAY Paxil 30 mg Paxil 30 mg No 1 Q1D Paxil 30 Lucero tablet Take tablet Take mg tablet [facility] 1 tablet 1 tablet Take 1 dic every day every day tablet Spo rts by oral by oral every day Medi marlys route. route. by oral e route. pramipexole pramipexole No pramipexol [place] 1 mg tablet 1 mg tablet e 1 mg [facility] TAKE 2 TAKE 2 tablet dic TABLETS BY TABLETS BY TAKE 2 S ports MOUTH EVERY MOUTH EVERY TABLETS BY Medicin DAY AT DAY AT MOUTH e BEDTIME 90 BEDTIME 90 EVERY DAY AT BEDTIME 90 telmisartan telmisartan No telmisarta Lucero 40 mg 40 mg n 40 mg [facility] tablet TAKE tablet TAKE tablet dic 1 TABLET BY 1 TABLET BY TAKE 1 Sports MOUTH EVERY MOUTH EVERY TABLET BY Medicin DAY DAY MOUTH e EVERY DAY tramadol 50 tramadol 50 No tramadol [facility]ero mg tablet mg tablet 50 mg Orth ope TAKE 1 TAKE 1 tablet dic TABLET TABLET TAKE 1 Sports TWICE A DAY TWICE A DAY TABLET Medicin BY ORAL BY ORAL TWICE A e ROUTE ROUTE DAY BY NEEDED. NEEDED. ORAL ROUTE NEEDED. atorvastati atorvastati No atorvastat Lucero n 20 mg n 20 mg in 20 mg Ortho pe tablet TAKE tablet TAKE tablet dic 1 TABLET BY 1 TABLET BY TAKE 1 Sports MOUTH EVERY MOUTH EVERY TABLET BY Medicin DAY DAY MOUTH e EVERY DAY omeprazole omeprazole No omeprazole Lucero 40 mg 40 mg 40 mg [facility] capsule,del capsule,del capsule,de dic ayed ayed layed Sports release release release Medici n TAKE 1 TAKE 1 TAKE 1 e CAPSULE BY CAPSULE BY CAPSULE BY MOUTH EVERY MOUTH EVERY MOUTH DAY DAY EVERY DAY pramipexole pramipexole No pramipexol Lucero 1 mg tablet 1 mg tablet e 1 mg [facility] TAKE 2 TAKE 2 tablet dic TABLETS BY TABLETS BY TAKE 2 S ports MOUTH EVERY MOUTH EVERY TABLETS BY Medicin DAY AT DAY AT MOUTH e BEDTIME 90 BEDTIME 90 EVERY DAY AT BEDTIME 90 telmisartan telmisartan No telmisarta Lucero 40 mg 40 mg n 40 mg [facility] tablet TAKE tablet TAKE tablet dic 1 TABLET BY 1 TABLET BY TAKE 1 Sports MOUTH EVERY MOUTH EVERY TABLET BY Medicin DAY DAY MOUTH e EVERY DAY atorvastati atorvastati No 1 Q1D atorvastat Lucero n 20 mg n 20 mg in 20 mg Ortho pe tablet Take tablet Take tablet dic 1 tablet 1 tablet Take 1 Sport s every day every day tablet Med icin by oral by oral every day e route. route. by oral route. Mirapex Mirapex No Mirapex [facility]ero 0.75 mg 0.75 mg 0.75 mg Orthop e tablet RX tablet RX tablet RX dic by other MD by other MD by other Sports MD Medicin e omeprazole omeprazole No 1capsul Q1D omeprazole Lucero 40 mg 40 mg e(s) 40 mg [facility] capsule,del capsule,del capsule,de dic ayed ayed layed Sports release release release Medici n Take 1 Take 1 Take 1 e capsule capsule capsule every day every day every day by oral by oral by oral route. route. route. Trazodone Trazodone Yes Na Dang 1 tablet Common HCl HCl at bedtime [facility] Mirapex Mirapex Yes Na Dang TAKE 1 Comm on TABLET BY Spirit MOUTH AT - [facility] BEDTIME [facility] Telmisartan Telmisartan Yes Na Dang 1 tablet Common [facility] Diovan Diovan Yes Na Dang 1 tablet Comm on [facility] Ellura Ellura Yes Na Dang not Common defined [facility] Florajen3 Florajen3 Yes Na Dang not Co mmon defined [facility] Telmisartan Telmisartan Yes Na Dang 1 tablet Common [facility] Lipitor Lipitor Yes Na Dang TAKE 1 Comm on TABLET BY [facility] EVERY DAY [facility] Estrace Estrace Yes Na Dang not Common defined [facility] Zantac Zantac Yes Na Dang 1 tablet Comm on at bedtime [facility] Paxil Paxil Yes Na Dang 1 tablet Common in the [facility] Ellura 200 Ellura 200 No Ellura 200 MG MG MG PARoxetine PARoxetine No QD PARoxetine HCl 30 MG HCl 30 MG HCl 30 MG Mirapex 1 Mirapex 1 No Mirapex 1 MG MG MG Atorvastati Atorvastati No Atorvastat n Calcium n Calcium in Calcium 20 MG 20 MG 20 MG Pramipexole Pramipexole No Pramipexol Dihydrochlo Dihydrochlo e ride 1 MG ride 1 MG Dihydrochl oride 1 MG Telmisartan Telmisartan No Telmisarta 40 MG 40 MG n 40 MG Lipitor 20 Lipitor 20 No Lipitor 20 MG MG MG Estrace 0.1 Estrace 0.1 No Estrace MG/GM MG/GM 0.1 MG/GM Lipitor 20 Lipitor 20 No Lipitor 20 MG MG MG Paxil 30 MG Paxil 30 MG No 1{table QD Paxil 30 t_in_th MG e_morni ng} traZODone traZODone No traZODone HCl 100 MG HCl 100 MG HCl 100 MG Diovan 40 Diovan 40 No 1{table QD Diovan 40 MG MG t} MG Omeprazole Omeprazole No 1{capsu QD Omeprazole 40 MG 40 MG le} 40 MG Zantac 150 Zantac 150 No 1{table BID Zantac 150 MG MG t_at_be MG dtime} Florajen3 - Florajen3 - No Florajen3 - Ellura 200 Ellura 200 No Ellura 200 MG MG MG PARoxetine PARoxetine No QD PARoxetine HCl 30 MG HCl 30 MG HCl 30 MG Mirapex 1 Mirapex 1 No Mirapex 1 MG MG MG Atorvastati Atorvastati No Atorvastat n Calcium n Calcium in Calcium 20 MG 20 MG 20 MG Pramipexole Pramipexole No Pramipexol Dihydrochlo Dihydrochlo e ride 1 MG ride 1 MG Dihydrochl oride 1 MG Telmisartan Telmisartan No Telmisarta 40 MG 40 MG n 40 MG Lipitor 20 Lipitor 20 No Lipitor 20 MG MG MG Estrace 0.1 Estrace 0.1 No Estrace MG/GM MG/GM 0.1 MG/GM Lipitor 20 Lipitor 20 No Lipitor 20 MG MG MG Paxil 30 MG Paxil 30 MG No 1{table QD Paxil 30 t_in_th MG e_morni ng} traZODone traZODone No traZODone HCl 100 MG HCl 100 MG HCl 100 MG Diovan 40 Diovan 40 No 1{table QD Diovan 40 MG MG t} MG Omeprazole Omeprazole No 1{capsu QD Omeprazole 40 MG 40 MG le} 40 MG Zantac 150 Zantac 150 No 1{table BID Zantac 150 MG MG t_at_be MG dtime} Florajen3 - Florajen3 - No Florajen3 - Atorvastati Atorvastati No 1{table QD Atorvastat n Calcium n Calcium t} in Calcium 20 MG 20 MG 20 MG Mirapex 1 Mirapex 1 No 2{table QD Mirapex 1 MG MG ts_at_b MG edtime} Paxil 30 MG Paxil 30 MG No 1{table QD Paxil 30 t_in_th MG e_morni ng} Telmisartan Telmisartan No 1{table QD Telmisarta 40 MG 40 MG t} n 40 MG Cyclobenzap Cyclobenzap No 1{table QD Cyclobenza rine HCl rine HCl t_at_be cammy HCl 7.5 MG 7.5 MG dtime} 7.5 MG Omeprazole Omeprazole No 1{capsu QD Omeprazole 40 MG 40 MG le} 40 MG Telmisartan Telmisartan No Telmisarta 40 MG 40 MG n 40 MG Omeprazole Omeprazole No Omeprazole 40 MG 40 MG 40 MG Cyclobenzap Cyclobenzap No 1{table QD Cyclobenza rine HCl rine HCl t_at_be cammy HCl 7.5 MG 7.5 MG dtime} 7.5 MG Atorvastati Atorvastati No Atorvastat n Calcium n Calcium in Calcium 20 MG 20 MG 20 MG PARoxetine PARoxetine No PARoxetine HCl 30 MG HCl 30 MG HCl 30 MG Mirapex 1 Mirapex 1 No 2{table QD Mirapex 1 MG MG ts_at_b MG edtime} Telmisartan Telmisartan No Telmisarta 40 MG 40 MG n 40 MG Omeprazole Omeprazole No Omeprazole 40 MG 40 MG 40 MG Cyclobenzap Cyclobenzap No 1{table QD Cyclobenza rine HCl rine HCl t_at_be cammy HCl 7.5 MG 7.5 MG dtime} 7.5 MG Atorvastati Atorvastati No Atorvastat n Calcium n Calcium in Calcium 20 MG 20 MG 20 MG PARoxetine PARoxetine No PARoxetine HCl 30 MG HCl 30 MG HCl 30 MG Mirapex 1 Mirapex 1 No 2{table QD Mirapex 1 MG MG ts_at_b MG edtime} Telmisartan Telmisartan No Telmisarta 40 MG 40 MG n 40 MG Omeprazole Omeprazole No Omeprazole 40 MG 40 MG 40 MG PARoxetine PARoxetine No PARoxetine HCl 30 MG HCl 30 MG HCl 30 MG Mirapex 1 Mirapex 1 No 2{table QD Mirapex 1 MG MG ts_at_b MG edtime} Atorvastati Atorvastati No Atorvastat n Calcium n Calcium in Calcium 20 MG 20 MG 20 MG Cyclobenzap Cyclobenzap No 1{table QD Cyclobenza rine HCl rine HCl t_at_be cammy HCl 7.5 MG 7.5 MG dtime} 7.5 MG Omeprazole Omeprazole No Omeprazole 40 MG 40 MG 40 MG PARoxetine PARoxetine No PARoxetine HCl 30 MG HCl 30 MG HCl 30 MG Atorvastati Atorvastati No Atorvastat n Calcium n Calcium in Calcium 20 MG 20 MG 20 MG Cyclobenzap Cyclobenzap No 1{table QD Cyclobenza rine HCl rine HCl t_at_be cammy HCl 7.5 MG 7.5 MG dtime} 7.5 MG Pramipexole Pramipexole No Pramipexol Dihydrochlo Dihydrochlo e ride 1 MG ride 1 MG Dihydrochl oride 1 MG Telmisartan Telmisartan No Telmisarta 40 MG 40 MG n 40 MG Omeprazole Omeprazole No Omeprazole 40 MG 40 MG 40 MG Telmisartan Telmisartan No Telmisarta 40 MG 40 MG n 40 MG Cyclobenzap Cyclobenzap No 1{table QD Cyclobenza rine HCl rine HCl t_at_be cammy HCl 7.5 MG 7.5 MG dtime} 7.5 MG Pramipexole Pramipexole No Pramipexol Dihydrochlo Dihydrochlo e ride 1 MG ride 1 MG Dihydrochl oride 1 MG PARoxetine PARoxetine No PARoxetine HCl 30 MG HCl 30 MG HCl 30 MG Atorvastati Atorvastati No Atorvastat n Calcium n Calcium in Calcium 20 MG 20 MG 20 MG Omeprazole Omeprazole No Omeprazole 40 MG 40 MG 40 MG Telmisartan Telmisartan No Telmisarta 40 MG 40 MG n 40 MG Cyclobenzap Cyclobenzap No 1{table QD Cyclobenza rine HCl rine HCl t_at_be cammy HCl 7.5 MG 7.5 MG dtime} 7.5 MG Pramipexole Pramipexole No Pramipexol Dihydrochlo Dihydrochlo e ride 1 MG ride 1 MG Dihydrochl oride 1 MG PARoxetine PARoxetine No PARoxetine HCl 30 MG HCl 30 MG HCl 30 MG Atorvastati Atorvastati No Atorvastat n Calcium n Calcium in Calcium 20 MG 20 MG 20 MG Omeprazole Omeprazole No Omeprazole 40 MG 40 MG 40 MG Telmisartan Telmisartan No Telmisarta 40 MG 40 MG n 40 MG Cyclobenzap Cyclobenzap No 1{table QD Cyclobenza rine HCl rine HCl t_at_be cammy HCl 7.5 MG 7.5 MG dtime} 7.5 MG Pramipexole Pramipexole No Pramipexol Dihydrochlo Dihydrochlo e ride 1 MG ride 1 MG Dihydrochl oride 1 MG PARoxetine PARoxetine No PARoxetine HCl 30 MG HCl 30 MG HCl 30 MG Atorvastati Atorvastati No Atorvastat n Calcium n Calcium in Calcium 20 MG 20 MG 20 MG Omeprazole Omeprazole No Omeprazole 40 MG 40 MG 40 MG Telmisartan Telmisartan No Telmisarta 40 MG 40 MG n 40 MG Cyclobenzap Cyclobenzap No 1{table QD Cyclobenza rine HCl rine HCl t_at_be cammy HCl 7.5 MG 7.5 MG dtime} 7.5 MG Pramipexole Pramipexole No Pramipexol Dihydrochlo Dihydrochlo e ride 1 MG ride 1 MG Dihydrochl oride 1 MG PARoxetine PARoxetine No PARoxetine HCl 30 MG HCl 30 MG HCl 30 MG Atorvastati Atorvastati No Atorvastat n Calcium n Calcium in Calcium 20 MG 20 MG 20 MG Omeprazole Omeprazole No Omeprazole 40 MG 40 MG 40 MG Telmisartan Telmisartan No Telmisarta 40 MG 40 MG n 40 MG Cyclobenzap Cyclobenzap No 1{table QD Cyclobenza rine HCl rine HCl t_at_be cammy HCl 7.5 MG 7.5 MG dtime} 7.5 MG Pramipexole Pramipexole No Pramipexol Dihydrochlo Dihydrochlo e ride 1 MG ride 1 MG Dihydrochl oride 1 MG PARoxetine PARoxetine No PARoxetine HCl 30 MG HCl 30 MG HCl 30 MG Atorvastati Atorvastati No Atorvastat n Calcium n Calcium in Calcium 20 MG 20 MG 20 MG Omeprazole Omeprazole No Omeprazole 40 MG 40 MG 40 MG Immunizations Ordered Filled Immunization Date Status Comments Sourc e Immunization Name Name FLUZONE HIGH DOSE FLUZONE HIGH DOSE 2022-09-08 [facility] OVER 65 14:34:00 [facility] FLUZONE HIGH DOSE FLUZONE HIGH DOSE 2022-09-08 [facility] - OVER 65 OVER 65 14:34:00 [facility] FLUZONE HIGH DOSE FLUZONE HIGH DOSE 2022-09-08 [facility] - OVER 65 OVER 65 14:34:00 [facility] FLUZONE HIGH DOSE FLUZONE HIGH DOSE 2022-09-08 Completed [facility] - OVER 65 OVER 65 14:34:00 [facility] FLUZONE HIGH DOSE FLUZONE HIGH DOSE 2022-09-08 [facility]pleted [facility] - OVER 65 OVER 65 14:34:00 [facility] FLUZONE HIGH DOSE FLUZONE HIGH DOSE 2022-09-08 Completed [facility] - OVER 65 OVER 65 14:34:00 [facility] FLUZONE HIGH DOSE FLUZONE HIGH DOSE 2022-09-08 [facility] - OVER 65 OVER 65 14:34:00 [facility] Influenza Split 2022-09-08 [facility] IM FluAD FluAD 2021-09-26 [facility] - 09:57:00 [facility] FluAD FluAD 2021-09-26 [facility] - 09:57:00 [facility] FluAD FluAD 2021-09-26 [facility] - 09:57:00 [facility] FluAD FluAD 2021-09-26 [facility] - 09:57:00 [facility] FluAD FluAD 2021-09-26 [facility] - 09:57:00 [facility] FluAD FluAD 2021-09-26 [facility] - 09:57:00 [facility] FluAD FluAD 2021-09-26 [facility] - 09:57:00 [facility] FluAD FluAD 2021-09-26 [facility] - 09:57:00 [facility] FluAD FluAD 2021-09-26 [facility] - 09:57:00 [facility] FluAD FluAD 2021-09-26 [facility] - 09:57:00 [facility] FluAD FluAD 2021-09-26 [facility] - 09:57:00 [facility] FluAD FluAD 2021-09-26 [facility]pleted [facility] - 09:57:00 [facility] FluAD FluAD 2021-09-26 [facility]pleted [facility] - 09:57:00 [facility] FluAD FluAD 2021-09-26 [facility] - 09:57:00 [facility] FluAD FluAD 2021-09-26 [facility]pleted [facility] - 09:57:00 [facility] FluAD FluAD 2021-09-26 [facility]pleted [facility] - 09:57:00 [facility] FluAD FluAD 2021-09-26 [facility]pleted [facility] - 09:57:00 [facility] FluAD FluAD 2021-09-26 [facility]pleted [facility] - 09:57:00 [facility] FluAD FluAD 2021-09-26 [facility]pleted [facility] - 09:57:00 [facility] FluAD FluAD 2021-09-26 [facility]57[facility]00 [facility] 2021-07-22 Com[facility] 2021-07-22 Completed [facility] Vaccination 00:00:00 [facility] SARS-CoV-2 2021-07-22 Completed [facility] Vaccination 00:00:00 Ariela Barajas [facility] SARS-CoV-2 2021-07-22 Completed [facility] Vaccination 00:00:00 Ariela Barajas [facility] SARS-CoV-2 2021-07-22 Completed [facility] Vaccination 00:00:00 Ariela Barajas [facility] SARS-CoV-2 2021-07-22 Completed [facility] Vaccination 00:00:00 Ariela Barajas [facility] SARS-CoV-2 2020-12-24 Completed [facility] Vaccination 00:00:00 Ariela Barajas [facility] SARS-CoV-2 2020-12-24 Completed [facility] Vaccination 00:00:00 Ariela Barajas [facility] SARS-CoV-2 2020-12-24 Completed [facility] Vaccination 00:00:00 Ariela Barajas [facility] SARS-CoV-2 2020-12-24 Completed [facility] Vaccination 00:00:00 Ariela Barajas [facility] SARS-CoV-2 2020-12-24 Completed [facility] Vaccination 00:00:00 Ariela Barajas [facility] SARS-CoV-2 2020-12-24 Completed [facility] Vaccination 00:00:00 Ariela Barajas [facility] SARS-CoV-2 2020-11-27 Completed [facility] Vaccination 00:00:00 Ariela Barajas [facility] SARS-CoV-2 2020-11-27 Completed [facility] Vaccination 00:00:00 Ariela Barajas [facility] SARS-CoV-2 2020-11-27 Completed [facility] Vaccination 00:00:00 Ariela Barajas [facility] SARS-CoV-2 2020-11-27 Completed [facility] Vaccination 00:00:00 Ariela Barajas [facility] SARS-CoV-2 2020-11-27 Completed [facility] Vaccination 00:00:00 Ariela Barajas [facility] SARS-CoV-2 2020-11-27 Completed [facility] Vaccination 00:00:00 [place] Barajas [facility] Influenza, 2020-08-22 Completed [facility] 00:00:00 [place] [facility] Influenza, 2020-08-22 Completed [facility] 00:00:00 [place] [facility] Influenza, 2020-08-22 Completed [facility] 00:00:00 [place] [facility] Influenza, 2020-08-22 Completed [facility] 00:00:00 [place] [facility] Influenza, 2020-08-22 Completed [facility] 00:00:00 [place] [facility] Influenza, 2020-08-22 Completed [facility] 00:00:00 [place] [facility] Influenza TIV (IM) 2019-09-01 Com[facility]01 Com[facility] 00:00:00 Ariela WEAVER [facility] Influenza TIV (IM) 2019-09-01 Completed [facility] 2019-09-01 Completed [facility] 00:00:00 Ariela WEAVER [facility] Influenza TIV (IM) 2019-09-01 Completed [facility] 2019-09-01 Completed [facility] 00:00:00 [facility] Flu[facility] FluAD 2018-09-15 [facility] - 15:48:00 [facility] FluAD FluAD 2018-09-15 Completed [facility] - 15:48:00 [facility] FluAD FluAD 2018-09-15 Completed [facility] - 15:48:00 [facility] FluAD FluAD 2018-09-15 Completed [facility] - 15:48:00 [facility] FluAD FluAD 2018-09-15 Completed [facility] - 15:48:00 [facility] FluAD FluAD 2018-09-15 Completed [facility] - 15:48:00 [facility] FluAD FluAD 2018-09-15 Completed [facility] - 15:48:00 [facility] FluAD FluAD 2018-09-15 Completed [facility] - 15:48:00 [facility] FluAD FluAD 2018-09-15 Completed [facility] - 15:48:00 [facility] FluAD FluAD 2018-09-15 Completed [facility] - 15:48:00 [facility] FluAD FluAD 2018-09-15 Completed [facility] - 15:48:00 [facility] FluAD FluAD 2018-09-15 [facility]00 [facility] FluAD FluAD 2018-09-15 [facility]pleted [facility] 15:[facility]:00 [facility] FluAD FluAD 2018-09-15 [facility]pleted [facility] 15:48:00 [facility] FluAD FluAD 2018-09-15 Completed [facility] 15:48:00 [facility] FluAD FluAD 2018-09-15 Completed [facility] 15:48:00 [facility] FluAD FluAD 2018-09-15 Completed [facility] 15:48:00 [facility] FluAD FluAD 2018-09-15 Completed [facility] 15:48:00 [facility] FluAD FluAD 2018-09-15 Completed [facility] 15:48:00 [facility] FluAD FluAD 2018-09-15 Completed [facility] 15:48:00 [facility] FluAD FluAD 2018-09-15 Completed [facility] 15:48:00 [facility] Vital Signs Vital Name Observation Time Observation Value Comments Source height 2022-11-18 10:40:00 63.20 [in_i] [facility] weight 2022-11-18 10:40:00 164 [lb_av] [facility] bmi 2022-11-18 10:40:00 28.86 kg/m2 [facility] Height 2022-09-22 00:00:00 63 [in_i] [facility] BMI (Body Mass 2022-09-22 00:00:00 28.9 kg/m2 [facility] Body Weight 2022-09-22 00:00:00 163 [lb_av] [facility] height 2022-09-08 13:20:00 63.20 [in_i] [facility] weight 2022-09-08 13:20:00 163 [lb_av] [facility] temperature 2022-09-08 13:20:00 97.6 [degF] [facility] bmi 2022-09-08 13:20:00 28.69 kg/m2 [facility] oximetry 2022-09-08 13:20:00 97 % [facility] respiratory rate 2022-09-08 13:20:00 18 /min [facility] blood pressure 2022-09-08 13:20:00 134 mm[Hg] [facility] - systolic [facility] blood pressure 2022-09-08 13:20:00 68 mm[Hg] [facility] - diastolic [facility] BP Diastolic 2022-09-02 00:00:00 97 mm[Hg] [facility] Height 2022-09-02 00:00:00 63 [in_i] [facility] BMI (Body Mass 2022-09-02 00:00:00 28.9 kg/m2 [facility] BP Systolic 2022-09-02 00:00:00 128 mm[Hg] [facility] Body Weight 2022-09-02 00:00:00 163 [lb_av] [facility] Height 2022-06-17 00:00:00 63 [in_i] [facility] BMI (Body Mass 2022-06-17 00:00:00 29.4 kg/m2 [facility]) Sports [facility] Body Weight 2022-06-17 00:00:00 166 [lb_av] [facility] height 2022-06-08 14:00:00 63.20 [in_i] Common [facility] weight 2022-06-08 14:00:00 167.4 [lb_av] [facility] temperature 2022-06-08 14:00:00 97.5 [degF] [facility] bmi 2022-06-08 14:00:00 29.46 kg/m2 [facility] oximetry 2022-06-08 14:00:00 99 % [facility] respiratory rate 2022-06-08 14:00:00 16 /min Comm on [facility] blood pressure 2022-06-08 14:00:00 161 mm[Hg] Common [facility] - systolic [facility] blood pressure 2022-06-08 14:00:00 75 mm[Hg] Common [facility] - diastolic [facility] height 2022-06-08 13:40:00 63.20 [in_i] Common [facility] weight 2022-06-08 13:40:00 167.4 [lb_av] [facility] temperature 2022-06-08 13:40:00 97.5 [degF] [facility] bmi 2022-06-08 13:40:00 29.46 kg/m2 [facility] oximetry 2022-06-08 13:40:00 99 % [facility] respiratory rate 2022-06-08 13:40:00 16 /min Comm on [facility] blood pressure 2022-06-08 13:40:00 161 mm[Hg] Common [facility] - systolic [facility] blood pressure 2022-06-08 13:40:00 75 mm[Hg] [facility] Height 2022-05-22 00:00:00 63 [in_i] [facility] BMI (Body Mass 2022-05-22 00:00:00 29.2 kg/m2 [facility]) Sports Medicine Body Weight 2022-05-22 00:00:00 165 [lb_av] [facility] height 2022-03-03 13:00:00 63.20 [in_i] Common [facility] weight 2022-03-03 13:00:00 176.2 [lb_av] Common [facility] temperature 2022-03-03 13:00:00 97.6 [degF] [facility] 2022-03-03 13:00:00 31.01 kg/m2 [facility] oximetry 2022-03-03 13:00:00 98 % [facility] respiratory rate 2022-03-03 13:00:00 16 /min Comm on [facility] blood pressure 2022-03-03 13:00:00 132 mm[Hg] [facility] blood pressure 2022-03-03 13:00:00 70 mm[Hg] [facility] height 2021-10-27 14:00:00 63.20 [in_i] [facility] weight 2021-10-27 14:00:00 178 [lb_av] [facility] temperature 2021-10-27 14:00:00 97.6 [degF] [facility] bmi 2021-10-27 14:00:00 31.33 kg/m2 [facility] oximetry 2021-10-27 14:00:00 96 % [facility] blood pressure 2021-10-27 14:00:00 122 mm[Hg] [facility] systolic [facility] blood pressure 2021-10-27 14:00:00 70 mm[Hg] [facility] diastolic [facility] height 2021-09-26 09:00:00 63.20 [in_i] [facility] weight 2021-09-26 09:00:00 176.8 [lb_av] Common [facility] temperature 2021-09-26 09:00:00 97.3 [degF] [facility] bmi 2021-09-26 09:00:00 31.12 kg/m2 [facility] oximetry 2021-09-26 09:00:00 98 % [facility] respiratory rate 2021-09-26 09:00:00 16 /min Comm on [facility] blood pressure 2021-09-26 09:00:00 133 mm[Hg] [facility] systolic [facility] blood pressure 2021-09-26 09:00:00 62 mm[Hg] [facility] diastolic [facility] temperature 2021-08-18 13:50:00 97.8 [degF] [facility] bmi 2021-08-18 13:50:00 31.15 kg/m2 [facility] oximetry 2021-08-18 13:50:00 97 % [facility] respiratory rate 2021-08-18 13:50:00 9 /min Comm on [facility] blood pressure 2021-08-18 13:50:00 142 mm[Hg] [facility] systolic [facility] blood pressure 2021-08-18 13:50:00 66 mm[Hg] [facility] - diastolic [facility] height 2021-08-18 13:50:00 63.20 [in_i] [facility] weight 2021-08-18 13:50:00 177 [lb_av] [facility] WEIGHT 2020-12-18 09:10:00 82 kg WEIGHT 2020-05-15 00:00:00 77.9 kg Systolic (mm Hg) 2023-07-02 18:23:00 [facility] [place] Diastolic (mm Hg) 2023-07-02 18:23:00 Mem orial [place] Heart Rate 2023-07-02 18:23:00 [facility] 2023-07-02 18:23:00 5 [ft_i] [facility] Weight 2023-07-02 18:23:00 [facility] BMI Calculated 2023-07-02 [facility]:23[facility]00 [facility] 2023-05-26 16:30:00 161 cm [facility]i ty [facility] Body weight 2023-05-26 16:30:00 77 kg [facility]i ty [facility] BMI 2023-05-26 16:30:00 29.71 kg/m2 [facility] Systolic blood 2023-05-26 15:12:11 140 mm[Hg] Univer sity of pressure Ariela [facility] Diastolic blood 2023-05-26 15:12:11 75 mm[Hg] Unive rsity of pressure Ariela [facility] Heart rate 2023-05-26 15:12:11 79 /min Universi ty [facility] Body temperature 2023-05-26 15:12:11 35.89 Shanice Univ ersity of [facility] Respiratory rate 2023-05-26 15:12:11 19 /min Univ ersity of [facility] Oxygen saturation in 2023-05-26 15:12:11 97 /min [facility] Arterial blood by Ariela forman Pulse oximetry Cancer Center Diastolic (mm Hg) 2023-05-21 16:24:00 Mem orial [place] Heart Rate 2023-05-21 16:24:00 [facility] Height 2023-05-21 16:24:00 5 [ft_i] [facility] Weight 2023-05-21 16:24:00 [facility] BMI Calculated 2023-05-21 16:24:00 Memori al Johan Systolic (mm Hg) 2023-05-21 16:24:00 Christopher rial Johan Systolic blood 2023-05-06 19:38:00 139 mm[Hg] Method ist [facility] pressure Diastolic blood 2023-05-06 19:38:00 71 mm[Hg] [facility] pressure Heart rate 2023-05-06 19:38:00 80 /min [facility] Body height 2023-05-06 19:38:00 160 cm [facility] Body weight 2023-05-06 19:38:00 76.658 kg [facility] BMI 2023-05-06 19:38:00 29.94 kg/m2 [facility] Systolic (mm Hg) 2023-04-06 14:32:00 Christopher [facility] [place] Diastolic (mm Hg) 2023-04-06 14:32:00 Mem orial [place] Heart Rate 2023-04-06 14:32:00 [facility] Height 2023-04-06 14:32:00 5 [ft_i] [facility] Weight 2023-04-06 14:32:00 [facility] BMI Calculated 2023-04-06 14:32:00 Memori al [place] Respiratory rate 2022-12-04 16:45:00 16 /min [facility] Oxygen saturation in 2022-12-04 16:45:00 98 /min [facility] Arterial blood by Pulse oximetry Body temperature 2022-12-04 16:17:00 37 Shanice [facility] Systolic blood 2022-05-25 19:46:00 148 mm[Hg] Univer sity of pressure [facility] Diastolic blood 2022-05-25 19:46:00 83 mm[Hg] Unive rsity of pressure Ari[facility] Heart rate 2022-05-25 19:46:00 76 /min [facility] Respiratory rate 2022-05-25 19:46:00 16 /min [facility] Body height 2022-05-25 19:46:00 161 cm [facility] Body weight 2022-05-25 19:46:00 75.9 kg [facility] BMI 2022-05-25 19:46:00 29.28 kg/m2 [facility] Body temperature 2022-05-14 19:35:00 36.94 Shanice [facility] Oxygen saturation in 2022-05-14 19:35:00 97 /min [facility] Arterial blood by Ariela forman Pulse oximetry Cancer Center Procedures Procedure Date / Time Performing Clinician Source Performed PARATHYROID HORMONE (PTH) 2023-06-07 18:32:00 [facility] AND CALCIUM [facility] VITAMIN D 25 HYDROXY LEVEL 2023-06-07 18:32:00 [facility] US BREAST COMPLETE LEFT 2023-05-13 15:55:08 Pili Freitas [facility] MD Ramirez [facility] Center MAMMO DIGITAL DIAGNOSTIC 2023-05-13 14:57:25 Pili Freitas [facility] BILATERAL W [facility] CALCIUM LEVEL, URINE, 24 2023-04-23 13:52:00 [facility] HOUR [facility] CREATININE LEVEL, URINE, 2023-04-23 13:52:00 [facility] 24 HOUR [facility] CELIAC DISEASE SCREEN WITH 2023-04-16 17:09:00 [facility] REFLEXES [facility] VITAMIN D 25 HYDROXY LEVEL 2023-04-16 17:09:00 [facility] PROTEIN ELECTROPHORESIS 2023-04-16 17:09:00 [facility] REFLEX YOKO [facility] PHOSPHORUS LEVEL 2023-04-16 17:09:00 [facility] PARATHYROID HORMONE 2023-04-16 17:09:00 [facility] COMPREHENSIVE METABOLIC 2023-04-16 17:09:00 [facility] PANEL [facility] BONE SPECIFIC ALK 2023-04-16 17:09:00 [facility] PHOSPHATASE Gunner ESTIMATED GFR 2023-04-16 17:09:00 [facility] TISSUE TRANSGLUTAMINASE 2023-04-16 17:09:00 [facility] (TTG) ANTIBODY, IGA [facility] DXA BONE DENSITY EXTERNAL 2023-03-01 15:32:00 [facility] STUDY [facility] DXA BONE DENSITY EXTERNAL 2023-03-01 13:28:00 [facility] STUDY [facility] XR SPINE SCOLIOSIS 2-3 2023-01-18 16:03:45 [facility] VIEWS CT POST MYELOGRAM THORACIC 2022-12-04 16:26:[address] [facility] [address] POST MYELOGRAM LUMBAR 2022-12-04 16:26:19 [facility] IR MYELOGRAM 2+REG INCL 2022-12-04 15:50:[address] [facility] INJ W S&I FL EXTERNAL STUDY EXAM 2022-05-27 15:26:00 Geremias Orteziy [facility] US BREAST COMPLETE LEFT 2022-05-14 18:36:42 Pili Freitas [facility] MAMMO DIGITAL DIAGNOSTIC 2022-05-14 17:06:18 Pili Freitas [facility] BILATERAL W ESTELLE [facility] FL EXTERNAL STUDY EXAM 2022-04-17 18:13:48 Travon Ortez [facility] FL EXTERNAL STUDY EXAM 2022-02-10 14:32:25 Travon Ortez [facility] FL EXTERNAL STUDY EXAM 2022-01-01 20:23:01 [facility] US BREAST COMPLETE LEFT 2021-12-25 18:32:00 Pili Freitas [facility] US CHEST 2021-12-25 18:32:00 Freitas, Pili [facility] MAMMO DIGITAL DIAGNOSTIC 2021-12-25 16:51:00 Pili Freitas [facility] LEFT [facility] KELLY 2021-07-18 15:43:00 Cheryl [facility] Brianna [facility] XR FEMUR 2 VW RIGHT 2021-07-02 15:24:38 Tera Caldwell [facility] PATHOLOGY SURGICAL 2021-06-06 21:24:40 Britta Templeton I [facility] INTERPRETATION [facility] NM DOSING APPOINTMENT 2021-06-06 20:42:43 [facility]ili Freitas [facility] SEGMENTAL MASTECTOMY - 2021-06-06 19:40:00 Britta Templeton [facility] SEED LOC [facility] ISOTOPE INJECTION FOR 2021-06-06 19:40:00 Britta Templeton I [facility] SENTINEL NODE BIOPSY [facility] INTRAOPERATIVE LYMPHATIC 2021-06-06 19:40:00 Britta Templeton [facility] MAPPING [facility] SENTINEL NODE BIOPSY - 2021-06-06 19:40:00 Britta Templeton [facility] AXILLA [facility] COMPLEX REPAIR OF TRUNK 2021-06-06 19:40:00 Jose Alfredo Monahan [facility] BREAST SPECIMEN RADIOGRAPH 2021-06-06 19:18:04 [facility]ili [facility] MAMMO GUIDED SEED 2021-06-03 16:54:15 Pili Freitas [facility] PLACEMENT LEFT [facility] MAMMO POST PROCEDURE LEFT 2021-06-03 16:41:38 [facility] 2019-NCOV COVID-19 2021-06-03 15:04:00 Britta Templeton [facility] XR SPINE CERVICAL COMPLETE 2021-06-03 14:51:10 Pratima Vela [facility] 4 OR 5 VW [facility] Plan of Care Planned Activity Planned Date Details Comments Source Future Scheduled Test 2023-07-11 65+ PNEUMOCOCCAL [facility] 16:57:49 VACCINE (1 - PCV) [code = 65+ PNEUMOCOCCAL VACCINE (1 - PCV)] Future Scheduled Test 2023-07-11 Hepatitis C screening [facility] 16:57:49 (procedure) [code = 225223800] Future Scheduled Test 2023-07-11 SHINGLES VACCINES (1 [facility] 16:57:49 of 2) [code = SHINGLES VACCINES (1 of 2)] Future Scheduled Test 2023-07-11 COVID-19 [facility] 16:57:49 Moderna series) [code = COVID-19 VACCINE (4 - Moderna series)] Future Scheduled Test 2023-07-[address] [facility] 16:57:49 (#1) [code = INFLUENZA VACCINE (#1)] Future Scheduled Test 2023-07-11 BREAST CANCER [facility] 16:57:49 SCREENING [code = BREAST CANCER SCREENING] Future Scheduled Test 2023-07-07 COVID-19 Vaccination [facility] 10:50:48 (4 - Moderna series) Ariela Ramirez [code = COVID-19 Cancer Cent er Vaccination (4 - Moderna series)] Future Scheduled Test 2022-11-30 65+ PNEUMOCOCCAL [facility] 09:38:00 VACCINE (1 - PCV) [code = 65+ PNEUMOCOCCAL VACCINE (1 - PCV)] Future Scheduled Test 2022-11-30 Hepatitis C screening [facility] 09:38:00 (procedure) [code = 775220820] Future Scheduled Test 2022-11-30 SHINGLES VACCINES (1 [facility] 09:38:00 of 2) [code = SHINGLES VACCINES (1 of 2)] Future Scheduled Test 2022-11-30 BREAST CANCER [facility] 09:38:00 SCREENING [code = BREAST CANCER SCREENING] Future Scheduled Test 2022-11-30 COLONOSCOPY SCREENING [facility] 09:38:00 [code = COLONOSCOPY SCREENING] Future Scheduled Test 2022-11-30 COVID-19 [facility]ACCINE ([facility] 09:38:00 Booster for Moderna series) [code = COVID-19 VACCINE (4 - Booster for Moderna series)] Future Scheduled Test 2022-11-29 65+ [facility]OCOCCAL [facility] 14:45:05 VACCINE (1 - PCV) [code = 65+ PNEUMOCOCCAL VACCINE (1 - PCV)] Future Scheduled Test 2022-11-29 Hepatitis C screening [facility] 14:45:05 (procedure) [code = [id number]] Future Scheduled Test 2022-11-29 SHINGLES VACCINES (1 [facility] 14:45:05 of 2) [code = SHINGLES VACCINES (1 of 2)] Future Scheduled Test 2022-11-29 BREAST CANCER [facility] 14:45:05 SCREENING [code = BREAST CANCER SCREENING] Future Scheduled Test 2022-11-29 COLONOSCOPY SCREENING [facility] 14:45:05 [code = COLONOSCOPY SCREENING] Future Scheduled Test 2022-11-29 COVID-19 VACCINE ([address] [place] [address] 14:45:05 Booster for Moderna series) [code = COVID-19 VACCINE (4 - Booster for Moderna series)] Future Scheduled Test 2022-11-18 65+ PNEUMOCOCCAL [facility] 10:03:49 VACCINE (1 - PCV) [code = 65+ PNEUMOCOCCAL VACCINE (1 - PCV)] Future Scheduled Test 2022-11-18 Hepatitis C screening [facility] 10:03:49 (procedure) [code = [id number]] Future Scheduled Test 2022-11-18 SHINGLES VACCINES (1 [facility] 10:03:49 of 2) [code = SHINGLES VACCINES (1 of 2)] Future Scheduled Test 2022-11-18 BREAST CANCER [facility] 10:03:49 SCREENING [code = BREAST CANCER SCREENING] Future Scheduled Test 2022-11-18 COLONOSCOPY SCREENING [facility] 10:03:49 [code = COLONOSCOPY SCREENING] Future Scheduled Test 2022-11-18 COVID-19 VACCINE (4 [facility] 10:03:49 Booster for Moderna series) [code = COVID-19 VACCINE (4 - Booster for Moderna series)] Future Scheduled Test 2022-11-18 65+ PNEUMOCOCCAL [facility] 10:03:49 VACCINE (1 - PCV) [code = 65+ PNEUMOCOCCAL VACCINE (1 - PCV)] Future Scheduled Test 2022-11-18 Hepatitis C screening [facility] 10:03:49 (procedure) [code = [id number]] Future Scheduled Test 2022-11-18 SHINGLES VACCINES (1 [facility] 10:03:49 of 2) [code = SHINGLES VACCINES (1 of 2)] Future Scheduled Test 2022-11-18 BREAST CANCER [facility] 10:03:49 SCREENING [code = BREAST CANCER SCREENING] Future Scheduled Test 2022-11-18 COLONOSCOPY SCREENING [facility] 10:03:49 [code = COLONOSCOPY SCREENING] Future Scheduled Test 2022-11-18 COVID-19 VACCINE (4 - Christianity [facility] 10:03:49 Booster for Moderna series) [code = COVID-19 VACCINE (4 - Booster for Moderna series)] Future Scheduled Test 2022-10-16 COVID-19 Vaccination [facility] 10:57:11 (4 - Booster) [code = [facility] COVID19 Vaccination Cancer Center (4 - Booster)] Future Scheduled Test 2022-10-16 COVID-19 Vaccination [facility] of 10:57:11 (4 - Booster) [code = [facility] COVID19 Vaccination Cancer Center (4 - Booster)] Future Scheduled Test 2022-10-16 COVID-19 Vaccination [facility] of 10:57:11 (4 - Booster) [code = [facility] COVID19 Vaccination Cancer Center (4 - Booster)] Future Scheduled Test 2022-10-16 COVID-19 Vaccination [facility] 10:57:11 (4 - Booster) [code = [facility] COVID19 Vaccination Cancer Center (4 - Booster)] Future Scheduled Test 2022-05-26 COVID-19 Vaccination [facility] of 08:35:27 (4 - Booster) [code = [facility] COVID19 Vaccination Cancer Center (4 - Booster)] Instructions [facility] Encounters Start End Encounter Admission Attending Care Care Encounter Source Date/Time Date/Time Type Type Clinicians Facility Department ID 2023-02-02 Outpatient Burt, [facility] [id number] Common 15:25:01 Marybel [id number] [facility] 2022-12-01 [facility] [id number] Common 16:32:00 [id number] [facility] 2022-11-18 Out[facility] DANG[facility] [id number] 2 Common 08:45:00 [id number] [facility] 2022-09-07 Outpatient Dang, Na STLMLC STLMLC [id number] 2 Common 07:37:00 [id number] [facility] 2021-12-10 Outpatient Dang, Na STLMLC STLMLC [id number] 2 Common 14:23:16 [id number] [facility] 2021-12-10 Outpatient Dang, Na STLMLC STLMLC [id number] 2 Common 12:24:31 [id number] [facility] 2021-12-10 Outpatient Dang, Na STLMLC STLMLC [id number] 2 Common 12:11:58 [id number] [facility] 2021-12-10 Outpatient Dang, Na STLMLC STLMLC [id number] 2 Common 12:10:40 [id number] [facility] 2021-12-10 Outpatient Dang, Na STLMLC STLMLC [id number] 2 Common 11:18:32 [id number] [facility] 2021-12-10 Outpatient Dang, Na STLMLC STLMLC [id number] 2 Common 11:17:41 [id number] [facility] 2021-12-10 Outpatient Dang, Na STLMLC STLMLC [id number] 2 Common 11:00:11 [id number] [facility] 2021-04-21 Outpatient SYSTEM, [facility] [id number] 15:49:47 PROVIDER Isaías walton 2024-01-12 2024-01-12 Outpatient MHIE MHIE [id number] Memoria 13:00:00 13:00:00 03 maya Prado 2023-07-02 2023-07-03 Outpatient MHIE MNA [id number] Memoria 18:30:00 04:59:59 Neurology 02 maya Prado 2023-07-02 2023-07-02 Outpatient CAPRICE Jones [id number] 13:30:00 23:59:59 Shashank Wade 2023-07-02 2023-07-02 Outpatient MHIE MHIE [id number] Memoria 13:30:00 13:30:00 02 maya Prado 2023-07-022023-07-02 [facility] [id number] Memoria 13:30:00 13:30:00 02 l Johna 2023-06-30 2023-06-30 Office Emy, 1.2.840.1 [id number] 2100 [id number] Methodi 09:30:00 09:39:17 Visit Travon 45498.1.[address] 3.430.2.7 Hospit a .3.001148 l .8 2023-06-30 2023-06-30 [facility] [id number] [place] 00:00:00 00:00:[address] 2023-05-28 2023-05-28 Orders Emelia, 1.2.840.1 [id number] 57941 33278 Methodi 00:00:00 00:00:00 Only Sana 50724.1.[address] 3.430.2.7 Hospit a .3.489995 l .8 2023-05-28 2023-05-28 Orders Emelia, 1.2.840.1 [id number] 37413 Methodi 00:00:00 00:00:00 Only Sana 43093.1.[address] 3.430.2.7 Hospit a .3.930739 l .8 2023-05-28 2023-05-28 Orders Emelia, 1.2.840.1 [id number] 61774 28580 Methodi 00:00:00 00:00:00 Only Sana 71173.1.[address] 3.430.2.7 Hospit a .3.907297 l .8 2023-05-26 2023-05-26 Office Lavell Wyman 1.2.840.1 [id number] [facility] 14:30:00 14:30:00 Visit Pratima Rubin 68668.1.1 ity of 3.412.2.7 [place] .3.611667 .8 [facility] 2023-05-26 2023-05-26 Outpatient JOSE WYMAN MDA MDA [id number] 11:23:41 11:53:45 LAVELL Isaías oleg walton 2023-05-26 2023-05-26 Follow-Up Hero, 1.2.840.1 [id number] [id number] [facility] 10:30:00 10:58:27 Jose Alfredo 74394.1.1 ity of 3.412.2.7 [place] .3.366714 .8 [facility] 2023-05-26 2023-05-26 Outpatient JOSE MONAHAN MDA [facility] [id number] 09:59:17 10:58:27 JOSE ALFREDO Metz oleg walton 2023-05-26 2023-05-26 Prep for [place], 1.2.840.1 [id number] 1108 [id number] [facility] 00:00:00 00:00:00 Surgery Carmen L 29643.1.1 ity of 3.412.2.7 [place] .3.602166 .8 [facility] 2023-05-26 2023-05-26 Travel 1.2.840.1 1.2.908.514 7044 [id number] [facility] 00:00:00 00:00:00 58050.1.1 350.1.13.41 ity of 3.412.2.7 [place].3.698 [place] .3.102361 084.8 .8 [facility] 2023-05-21 2023-05-22 Outpatient MHIE MNA [id number] Memoria 16:30:00 04:59:59 Neurology 01 maya Prado 2023-05-21 2023-05-22 Outpatient MHIE MNA [id number] 465 Memoria 16:30:00 04:59:59 Neurology 01 l Jose Roberto Prado 2023-05-21 2023-05-21 Outpatient CAPRICE Jones [id number] 11:30:00 23:59:59 Shashank Uzair Wade 2023-05-21 2023-05-21 Outpatient MHIE SONNY [id number] Memoria 11:30:00 11:30:00 01 maya Prado 2023-05-13 2023-05-13 [facility] 1.2.840.1 [id number] [id number] [facility] 11:14:44 23:59:00 Encounter Santhosh Vines 73303.1.1 ity of 3.412.2.7 [place] .3.870692 .8 Jigar walton [facility] 2023-05-13 2023-05-13 Outpatient JOSE GONSALEZ MDA MDA [id number] 11:14:44 23:59:00 SANTHOSH walton 2023-05-13 2023-05-13 Follow-Up Jareth 1.2.840.1 [id number] 1094 [id number] [facility] 14:15:00 14:15:00 Britta Matthews 74711.1.1 it y of 3.412.2.7 [place] .3.245673 MD [facility]8 [facility] 2023-05-13 2023-05-13 Outpatient JOSE JARETHLINO MDA [id number] 13:00:50 13:45:22 BRITTA walton 2023-05-13 2023-05-13 [facility], 1.2.840.1 [id number] [facility] 09:45:00 11:13:00 Encounter Pili 73645.1.1 it y of 3.412.2.7 [place] .3.890818 MD Acevedo8 Jigar walton [facility] 2023-05-13 2023-05-13 Outpatient JOSE FREITASLINO MDA [id number] MD 09:45:00 11:13:00 PILI walton 2023-05-13 2023-05-13 [facility], 1.2.840.1 [id number] [facility] 08:42:42 09:44:00 Encounter Pili 12389.1.1 it y of 3.412.2.7 [place] .3.675268 MD Acevedo8 Jigar walton [facility] 2023-05-13 2023-05-13 Outpatient JOSE FREITASLINO MDA [id number] MD 08:42:42 09:44:00 PILIANGIE walotn 2023-05-13 2023-05-13 Travel 1.2.840.1 1.2.454.102 0405 [id number] [facility] 00:00:00 00:00:00 59108.1.1 350.1.13.41 ity of 3.412.2.7 [place]7.3.698 [place] .3.498478 084.8 .8 [facility] 2023-05-06 2023-05-06 Office Melvi, 1.2.840.1 [id number] 21 [id number] Methodi 15:40:00 15:40:00 Visit Sandra 47181.1.[address] Gunner 3.430.2.7 Hospit a .3.268451 l .8 2023-05-06 2023-05-06 Outpatient [facility] 597 [id number] [place] 00:00:00 00:00:00 SANDRA [address] 2023-04-16 2023-04-16 [facility] 1.[facility].840.1 [id number] 2 [id number] Methodi 10:37:12 23:59:00 Encounter Sandra 69641.1.[address] Gunner 3.430.2.7 Hospit a .3.093506 l .8 2023-04-16 2023-04-16 [facility] [id number] 21 [id number] Methodi 12:00:00 12:05:[address] Gunner 3.430.2.7 Hospit a .3.339558 l .8 2023-04-16 2023-04-16 [facility], 1.2.840.1 [id number] 21 [id number] Methodi 10:40:00 11:50:58 Visit Sandra 75725.1.[address] Gunner 3.430.2.7 Hospit a .3.994859 l .8 2023-04-16 2023-04-16 [facility], 1.2.840.1 [id number] 2 [id number] Methodi 10:31:32 10:36:00 Encounter Sandra 95276.1.[address] Gunner 3.430.2.7 Hospit a .3.255520 l .8 2023-04-16 2023-04-16 [facility] [id number] [place] 00:00:00 00:00:00 SANDRA 346 Method i 2023-04-16 2023-04-16 Outpatient MELVI [facility] [id number] [place] 00:00:00 00:00:00 SANDRA 241 Method i 2023-04-16 2023-04-16 Outpatient MELVI [facility] [id number] [place] 00:00:00 00:00:00 SANDRA 319 Method i 2023-04-16 2023-04-16 Outpatient MELVI [facility] 831 [id number] [place] 00:00:00 00:00:00 SANDRA 838 Method i 2023-04-16 2023-04-16 Travel 1.2.840.1 1.2.531.070 1407 [id number] Methodi 00:00:00 00:00:[address] 3.430.2.7 0.2.7.3.698 Ho spita .3.647809 084.8 l .8 2023-04-16 2023-04-16 [facility] Melvi 1.2.840.1 [id number] 21 [id number] Methodi 00:00:00 00:00:00 Only Sandra 17528.1.[address] [facility] 3.430.2.7 Hospit a .3.254220 l .8 2023-04-06 2023-04-07 Outpatient MHIE MNA [id number] Memoria 14:30:00 04:59:59 Neurology 00 l Jose Roberto Prado 2023-04-06 2023-04-07 Outpatient MHIE MNA [id number] Memoria 14:30:00 04:59:59 Neurology 00 l Jose Roberto Prado 2023-04-06 2023-04-06 [id number] 09:30:00 23:59:59 Shashank 00 Mauro 2023-04-06 2023-04-06 Outpatient MHIE MHIE [id number] Memoria 09:30:00 09:30:00 00 maya Prado 2023-03-31 2023-03-31 Office Freyvert, 1.2.840.1 [id number] 2099 [id number] Methodi 08:45:00 09:07:36 Visit Travon 41644.1.[address] 3.430.2.7 Hospit a .3.959324 l .8 2023-03-31 2023-03-31 [facility] [id number] [place] 00:00:00 00:00:00 TRAVON [address] 2023-03-31 2023-03-31 Travel 1.2.840.1 1.2.128.864 6539 [id number] Methodi 00:00:00 00:00:[address] 3.430.2.7 0.2.7.3.698 Ho spita .3.930291 084.8 l .8 2023-03-24 2023-03-24 Travel 1.2.840.1 1.2.082.679 5077 227780 Methodi 00:00:00 00:00:[address] 3.430.2.7 0.2.7.3.698 Ho spita .3.384649 084.8 l .8 2023-03-22 2023-03-22 Travel 1.2.840.1 1.2.942.671 2547 737342 Methodi 00:00:00 00:00:[address] 3.430.2.7 0.2.7.3.698 Ho spita .3.781804 084.8 l .8 2023-01-18 2023-01-18 [facility], 1.2.840.1 [id number] 416 [id number] Methodi 09:34:21 23:59:00 Encounter Travon 58387.1.1 535 s t 3.430.2.7 Hospit a .3.602570 l .8 2023-01-18 2023-01-18 [facility], 1.2.840.1 [id number] 2099 854035 Methodi 11:15:00 12:17:25 Visit Travon 45635.1.[address] 3.430.2.7 Hospit a .3.023824 l .8 2023-01-18 2023-01-18 [facility]patient [facility] [id number] [place] 00:00:00 00:00:00 TRAVON [address] 2023-01-18 2023-01-18 [facility] [id number] [id number] [place] 00:00:00 00:00:00 TRAVON [address] 2023-01-18 2023-01-18 Travel 1.2.840.1 1.2.983.404 7794 755552 Methodi 00:00:00 00:00:[address] 3.430.2.7 0.2.7.3.698 Ho spita .3.011110 084.8 l .8 2023-01-12 2023-01-12 Procedure Khadra, 1.2.840.1 [id number] 844 [id number] Methodi 09:30:00 12:36:57 visit Chevy 05657.1.[address] [facility] 3.430.2.7 Hospit a .3.590815 l .8 2023-01-12 2023-01-12 Outpatient [facility] [id number] [place] 00:00:00 00:00:00 CHEVY [address] 2023-01-12 2023-01-12 Travel 1.2.840.1 1.2.552.171 1664 679257 Methodi 00:00:00 00:00:[address] 3.430.2.7 0.2.7.3.698 Ho spita .3.424475 084.8 l .8 2023-01-08 2023-01-08 Office Geremias Orteziy 1.2.840.1 46189 6062 [id number] Methodi 10:30:00 11:05:02 Visit Chevy Gaviria 34434.1.[address] 3.430.2.7 Hospit a .3.181066 l .8 2023-01-08 2023-01-08 Outpatient [facility] [id number] [id number] [place] 00:00:00 00:00:00 TRAVON [address] 2023-01-07 2023-01-07 Travel 1.2.840.1 1.2.699.723 9048 562272 Methodi 00:00:00 00:00:[address] 3.430.2.7 0.2.7.3.698 Ho spita .3.964875 084.8 l .8 2022-12-24 2022-12-24 Travel 1.2.840.1 1.2.887.946 5209 572222 Methodi 00:00:00 00:00:[address] 3.430.2.7 0.2.7.3.698 Ho spita .3.781912 084.8 l .8 2022-12-21 2022-12-21 [facility] [id number] Methodi 08:45:00 09:20:34 Visit Travon 31903.1.[address] 3.430.2.7 Hospit a .3.707362 l .8 2022-12-21 2022-12-21 Outpatient [facility] [id number] 38877 [place] 00:00:00 00:00:[address] TRA[address] 2022-12-21 2022-12-21 Travel 1.2.840.1 1.2.993.974 3148 855942 Methodi 00:00:00 00:00:[address] 3.430.2.7 0.2.7.3.698 Ho spita .3.260737 084.8 l .8 2022-12-18 2022-12-18 Telephone Lakshmi, 1.2.840.1 [id number] 2100 222964 Methodi 00:00:00 00:00:[address] 3.430.2.7 Hospit a .3.698743 l .8 2022-12-13 2022-12-13 (TEL) STLMLC STLMLC [id number] Co mmon 00:00:00 00:00:00 [facility] 2022-12-11 2022-12-11 Travel 1.2.840.1 1.2.137.692 0454 981639 Methodi 00:00:00 00:00:[address] 3.430.2.7 0.2.7.3.698 Ho spita .3.381195 084.8 l .8 2022-12-07 2022-12-07 (TEL) STLMLC STLC 7624201 Co mmon 00:00:00 00:00:00 [facility] 2022-12-04 2022-12-04 [facility], 1.2.840.1 [id number] 634 [id number] Methodi 09:55:49 23:59:00 Encounter Travon 53920.1.1 063 s t 3.430.2.7 Hospit a .3.348130 l .8 2022-12-04 2022-12-04 [facility], 1.2.840.1 [id number] 119 [id number] Methodi 09:50:00 09:54:00 Encounter Travon 74080.1.1 850 s t 3.430.2.7 Hospit a .3.447710 l .8 2022-12-04 2022-12-04 [facility], 1.2.840.1 [id number] 480 [id number] Methodi 07:39:06 09:49:00 Encounter Travon 00056.1.1 894 s t 3.430.2.7 Hospit a .3.637276 l .8 2022-12-04 2022-12-04 [facility] [id number] [place] [address] 00:00:00 00:00:00 TRAVON 894 Metho di 2022-12-04 2022-12-04 Outpatient EMY, [facility] [id number] 17234 [place] 00:00:00 00:00:00 TRAVON [address] 2022-12-04 2022-12-04 Outpatient JAYDENADRY, [facility] 98095 [id number] [place] 00:00:00 00:00:00 TRAVON 063 Metho di 2022-12-04 2022-12-04 Travel 1.2.840.1 1.2.132.290 3427 962195 Methodi 00:00:00 00:00:[address] 3.430.2.7 0.2.7.3.698 Ho spita .3.011904 084.8 l .8 2022-12-03 2022-12-03 (TEL) [facility] [id number] Co mmon 00:00:00 00:00:00 [facility] 2022-11-27 2022-11-27 Telephone Sirls, 1.2.840.1 [id number] 2099 673844 Methodi 00:00:00 00:00:[address] 3.430.2.7 Hospit a .3.480045 l .8 2022-11-27 2022-11-27 Telephone Sirls, 1.2.840.1 [id number] 2100 982433 Methodi 00:00:00 00:00:[address] 3.430.2.7 Hospit a .3.004493 l .8 2022-11-24 2022-11-24 Orders Lakshmi, 1.2.840.1 [id number] 351927 4858 Methodi 00:00:00 00:00:00 Only Angeline 46203.1.[address] 3.430.2.7 Hospit a .3.549055 l .8 2022-11-24 2022-11-24 Orders Lakshmi, 1.2.840.1 [id number] 840772 7280 Methodi 00:00:00 00:00:00 Only Angeline 04467.1.[address] 3.430.2.7 Hospit a .3.502971 l .8 2022-11-19 2022-11-19 (TEL) STLMLC STLMLC 1272172 Co mmon 00:00:00 00:00:00 [facility] 2022-11-18 2022-11-18 (TEL) STLMLC STLMLC [id number] Co mmon 00:00:00 00:00:00 [facility] 2022-11-18 2022-11-18 OFFICE STLMLC STLMLC [id number] Co mmon 00:00:00 00:00:00 VISIT EST Spir it PT LEVEL [address] [place] [address] 2022-11-13 2022-11-13 [facility], 1.2.840.1 [id number] 476 [id number] Methodi 14:18:37 23:59:00 Encounter Travon 60877.1.1 588 s t 3.430.2.7 Hospit a .3.142269 l .8 2022-11-13 2022-11-13 [facility], 1.2.840.1 [id number] 490 0962013 Methodi 14:18:36 23:59:00 Encounter Travon 36832.1.1 587 s t 3.430.2.7 Hospit a .3.963028 l .8 2022-11-13 2022-11-13 [facility], 1.2.840.1 [id number] 922 [id number] Methodi 14:18:17 23:59:00 Encounter Travon 40792.1.1 561 s t 3.430.2.7 Hospit a .3.545554 l .8 2022-11-13 2022-11-13 [facility], 1.2.840.1 [id number] 888 [id number] Methodi 14:18:16 23:59:00 Encounter Travon 61835.1.1 559 s t 3.430.2.7 Hospit a .3.196728 l .8 2022-11-02 2022-11-13 [facility], 1.2.840.1 [id number] 2100 606895 Methodi 10:00:00 09:06:16 Visit Travon 62088.1.[address] 3.430.2.7 Hospit a .3.145280 l .8 2022-11-02 2022-11-13 [facility], 1.2.840.1 [id number] 2100 855936 Methodi 10:00:00 09:06:16 Visit Travon 63502.1.[address] 3.430.2.7 Hospit a .3.841449 l .8 2022-11-13 2022-11-13 [facility], 1.2.840.1 [id number] 577 [id number] [place] 00:00:00 00:00:00 Encounter TRAVON 53902.1.1 [address] 3.430.2.7 st .3.984768 .8 2022-11-13 2022-11-13 [facility], 1.2.840.1 [id number] 454 [id number] [place] 00:00:00 00:00:00 Encounter TRAVON 16608.1.1 [address].2.7 [address] .3.015294 .8 2022-11-13 2022-11-13 [facility], 1.2.840.1 [id number] 896 [id number] [place] 00:00:00 00:00:00 Encounter TRAVON 69359.1.1 [address].7 [address] .3.964695 .8 2022-11-13 2022-11-13 [facility], 1.2.840.1 [id number] 428 [id number] [place] 00:00:00 00:00:00 Encounter TRAVON 21307.1.1 [address] 3.430.2.7 st .3.830229 .8 2022-11-05 2022-11-05 [facility], 1.2.840.1 [id number] 030 [id number] Methodi 17:07:25 23:59:00 Encounter Travon 35218.1.1 172 s t 3.430.2.7 Hospit a .3.785835 l .8 2022-11-05 2022-11-05 [facility], 1.2.840.1 [id number] 940 [id number] [place] 00:00:00 00:00:00 Encounter TRAVON 10489.1.1 [address].7 [address] .3.293067 .8 2022-11-02 2022-11-02 Travel 1.2.840.1 1.2.979.420 5610 140017 Methodi 00:00:00 00:00:[address] 3.430.2.7 0.2.7.3.698 Ho spita .3.462318 084.8 l .8 2022-11-02 2022-11-02 Travel 1.2.840.1 1.2.049.917 8987 140017 Methodi 00:00:00 00:00:[address] 3.430.2.7 0.2.7.3.698 Ho spita .3.480883 084.8 l .8 2022-10-16 2022-10-23 [facility], 1.2.840.1 [id number] 2099 208686 Methodi 09:15:00 00:13:26 Visit Travon 76237.1.[address] 3.430.2.7 Hospit a .3.774416 l .8 2022-10-16 2022-10-23 [facility], 1.2.840.1 [id number] 2099 790928 Methodi 09:15:00 00:13:26 Visit Travon 52263.1.[address] 3.430.2.7 Hospit a .3.089099 l .8 2022-10-21 2022-10-21 [facility], 1.2.840.1 [id number] 682 [id number] Methodi 11:24:03 23:59:00 Encounter Travon 57515.1.1 224 s t 3.430.2.7 Hospit a .3.186168 l .8 2022-10-21 2022-10-21 [facility], 1.2.840.1 [id number] 511 [id number] Methodi 11:23:52 11:23:52 Encounter Travon 97481.1.1 178 s t 3.430.2.7 Hospit a .3.505820 l .8 2022-10-21 2022-10-21 [facility], 1.2.840.1 [id number] 2099 246347 Methodi 00:00:00 00:00:00 Only Travon 63274.1.[address] 3.430.2.7 Hospit a .3.784871 l .8 2022-10-21 2022-10-21 [facility], 1.2.840.1 [id number] 2099 986955 Methodi 00:00:00 00:00:00 Only Travon 95027.1.[address] 3.430.2.7 Hospit a .3.263023 l .8 2022-10-21 2022-10-21 [facility], 1.2.840.1 [id number] 826 [id number] [place] 00:00:00 00:00:00 Encounter TRAVON 65743.1.1 [address]7 [address] .3.219027 .8 2022-10-21 2022-10-21 [facility], 1.2.840.1 [id number] 865 [id number] [place] 00:00:00 00:00:00 Encounter TRAVON 09151.1.1 [address]7 [address] .3.781665 .8 2022-10-20 2022-10-20 Travel 1.2.840.1 1.2.424.019 6618 983768 Methodi 00:00:00 00:00:[address] 3.430.2.7 0.2.7.3.698 Ho spita .3.751875 084.8 l .8 2022-10-20 2022-10-20 Travel 1.2.840.1 1.2.595.156 4582 678112 Methodi 00:00:00 00:00:[address] 3.430.2.7 0.2.7.3.698 Ho spita .3.626488 084.8 l .8 2022-10-17 2022-10-17 Outpatient FOG_Mauro AOSM AOSM 583 2865-20 Lucero 00:00:00 00:00:00 son_Paul_ [id number] [facility] 2022-10-16 2022-10-16 Travel 1.2.840.1 1.2.301.724 5267 503640 Methodi 00:00:00 00:00:[address] 3.430.2.7 0.2.7.3.698 Ho spita .3.540255 084.8 l .8 2022-10-16 2022-10-16 Travel 1.2.840.1 1.2.869.223 9261 457486 Methodi 00:00:00 00:00:[address] 3.430.2.7 0.2.7.3.698 Ho spita .3.529694 084.8 l .8 2022-10-15 2022-10-15 [facility], 1.2.840.1 [id number] 293 1440905 Methodi 14:42:14 23:59:00 Encounter Travon 96421.1.1 679 s t 3.430.2.7 Hospit a .3.096930 l .8 2022-10-15 2022-10-15 [facility], 1.2.840.1 [id number] 370 [id number] Methodi 14:41:27 14:41:27 Encounter Travon 48622.1.1 546 s t 3.430.2.7 Hospit a .3.387473 l .8 2022-10-15 2022-10-15 [facility], 1.2.840.1 [id number] 548 [id number] Methodi 14:40:07 14:40:07 Encounter Travon 74275.1.1 336 s t 3.430.2.7 Hospit a .3.998756 l .8 2022-10-15 2022-10-15 [facility], 1.2.840.1 [id number] 667 [id number] Methodi 14:38:46 14:39:00 Encounter Travon 32414.1.1 138 s t 3.430.2.7 Hospit a 3.754512 l .8 2022-10-15 2022-10-15 [facility], 1.2.840.1 [id number] 274 [id number] [place] 00:00:00 00:00:00 Encounter TRAVON 07051.1.1 [address].2.7 [address] .3.217116 .8 2022-10-15 2022-10-15 [facility], 1.2.840.1 [id number] 107 [id number] [place] 00:00:00 00:00:00 Encounter TRAVON 27472.1.1 [address] .3.323693 .8 2022-10-15 2022-10-15 [facility], 1.2.840.1 [id number] 724 [id number] [place] 00:00:00 00:00:00 Encounter TRAVON 64299.1.1 [address] .3.829746 .8 2022-10-15 2022-10-15 [facility], 1.2.840.1 [id number] 111 [id number] [place] 00:00:00 00:00:00 Encounter TRAVON 37173.1.1 679 M [address]i 3.430.2.7 st .3.516144 .8 2022-10-08 2022-10-08 Outpatient SARAY_Mauro RUSSELL AO 583 [id number] [place] 00:00:00 00:00:00 Junior [id number] [facility] 2022-09-22 2022-09-22 Outpatient FOG_Mauro RUSSELL AOSM 583 [id number] [place] 00:00:00 00:00:00 Junior [id number] [facility] 2022-09-22 2022-09-22 Te Parrish AOSM [place] - Ortho [id number] [place] 00:00:00 00:00:00 Ara Cooper MD: [id number] FOG_Ofc dic [facility], [place] [address] , Ph. [phone] 2022-09-22 2022-09-22 Travel 1.2.840.1 1.2.571.246 [id number] Methodi 00:00:00 00:00:[address] 3.430.2.7 0.2.7.3.698 Ho spita .3.179716 084.8 l .8 2022-09-22 2022-09-22 Travel 1.2.840.1 1.2.887.502 5476 [id number] Methodi 00:00:00 00:00:[address] 3.430.2.7 0.2.7.3.698 Ho spita .3.756421 084.8 l .8 2022-09-14 2022-09-14 Outpatient FOG_Mauro RUSSELL AOSM 583 [id number] [place] 00:00:00 00:00:00 Junior [id number] [facility] 2022-09-08 2022-09-08 OFFICE STLMLC STLMLC [id number] Co mmon 00:00:00 00:00:00 VISIT EST Spir it PT LEVEL 3 - [facility] 2022-09-02 2022-09-02 Outpatient FOG_Mauro RUSSELL AOSM 583 [id number] [place] 00:00:00 00:00:00 Junior 191603 [facility] 2022-09-02 2022-09-02 Santhosh KEENSM [place] - Ortho [id number] [place] 00:00:00 00:00:00 Ara Hameed MD: [id number] FOG_Ofc dic [facility] Sp[facility] [place] [address] , Ph. [phone] 2022-09-02 2022-09-02 (TEL) STLMLC STLMLC [id number] Co mmon 00:00:00 00:00:00 [facility] 2022-08-29 2022-08-29 Outpatient FOG_Mauro AO AO 583 [id number] [place] 00:00:00 00:00:00 Junior [id number] Orth ope dic Sports Medicin e 2022-07-05 2022-07-05 (TEL) STLMLC STLMLC [id number] Co mmon 00:00:00 00:00:00 [facility] 2022-06-22 2022-06-22 (TEL) STLMLC STLMLC [id number] Co mmon 00:00:00 00:00:00 [facility] 2022-06-17 2022-06-17 Outpatient FOG_Mauro AO AO 583 [id number] [place] 00:00:00 00:00:00 Junior [id number] Orth ope dic Sports Medicin e 2022-06-17 2022-06-17 Lisa [facility] [place] - Ortho [id number] [place] 00:00:00 00:00:00 Ara Shields ATTENDANCE CLERK: [id number] FOG_Ofc dic [facility] e [address] , Ph. [phone] 2022-06-17 2022-06-17 Outpatient YVONNE Shields [id number] 24- 00:00:00 00:00:00 Lisa [id number] 2022-06-11 2022-06-11 (TEL) STLMLC STLMLC [id number] Co mmon 00:00:00 00:00:00 [facility] 2022-06-08 2022-06-08 [facility] [id number] Common 00:00:00 00:00:00 MCR Spirit WELLNESS - CHI VISIT [facility] 2022-06-08 2022-06-08 [facility] [id number] Co mmon 00:00:00 00:00:00 VISIT EST Spir it PT LEVEL 3 - [facility] 2022-05-29 2022-05-29 (TEL) [facility] [id number] Co mmon 00:00:00 00:00:00 Spirit - [facility] 2022-05-27 2022-05-27 Outpatient FOG_Mauro AO AO 583 [id number] [place] 12:30:00 12:30:00 Junior [id number] Orth ope dic Sports Medicin e 2022-05-27 2022-05-27 Outpatient FOG_Mauro AOADONIS AO 583 [id number] [place] 12:30:00 12:30:00 Junior [id number] Orth ope dic Sports Medicin e 2022-05-27 2022-05-27 Outpatient JOSE Hameed [facility] [id number] [facility] 07:53:00 07:53:00 [facility] 2022-05-27 2022-05-27 Santhosh RUSSELL [place] - Ortho 71 [place] 00:00:00 00:00:00 Ara Hameed MD: [id number] FOG_[place] dic [facility]_OP [facility] [address] , Ph. 2022-05-27 2022-05-27 Outpatient YVONNE Hameed [id number] c-0 00:00:00 00:00:00 Santhosh Lemons [id number] 2022-05-25 2022-05-25 Office JOSE Wyman, 1.2.840.1 [id number] Univers 15:00:00 15:30:00 Visit Lavell 63934.1.1 ity of 3.412.2.7 [place] .[id number] MD .8 [facility] 2022-05-25 2022-05-25 Travel 1.2.840.1 1.2.297.091 4697 [id number] Univers 00:00:00 00:00:00 81277.1.1 350.1.13.41 ity of 3.412.2.7 [place].3.698 [place] .3.505767 084.8 MD Acevedo8 [facility] 2022-05-22 2022-05-22 Outpatient FOG_William AO AO 583 2865-20 [place] 10:33:00 10:33:00 Junior [id number] Orth ope dic Sports Medicin e 2022-05-22 2022-05-22 Outpatient YVONNE Shields [id number] 00:00:00 00:00:00 Lisa 20e-11ed-b [id number] 2022-05-22 2022-05-22 Lisa RUSSELL [place] - Ortho [id number] [place] 00:00:00 00:00:00 Ara Shields rthoplizbeth ATTENDANCE CLERK: [id number] FOG_Ofc dic [facility] Spo rts [place], [place] [address] , Ph. [phone] 2022-05-14 2022-05-14 [facility] JOSE Freitas, 1.2.840.1 [id number] Univers 12:06:42 23:59:00 Encounter Pili 65941.1.1 it y of 3.412.2.7 [place] .3Kristina142935 MD Acevedo8 [facility] 2022-05-14 2022-05-14 Office Britta Hays I 1.2.840.1 [id number] Univers 15:00:00 15:05:23 Visit Pili Freitas 56123.1.1 ity of 3.412.2.7 [place] .[id number] MD Acevedo8 [facility] 2022-05-14 2022-05-[address] [facility] [place], 1.2.840.1 [id number] Univers 10:57:39 12:05:00 Encounter Pili 37393.1.1 it y of 3.412.2.7 [place] .3.517174 .8 [facility] 2022-05-14 2022-05-14 Travel 1.2.840.1 1.2.347.268 [id number] [id number] Univers 00:00:00 00:00:00 92876.1.1 350.1.13.41 ity of 3.412.2.7 2.[place]7.3.698 [place] .3.600838 084.8 .8 [facility] 2022-05-04 2022-05-04 Outpatient SARAY_Mauro KEEN31 Lewis Streeta 07:12:00 07:12:00 Junior [id number] [facility] 2022-04-17 2022-04-17 Outpatient JOSE Hameed HCATO PAIN [id number] [facility] 10:42:00 10:42:00 Santhosh Rodriguez [facility] 2022-03-30 2022-03-30 Outpatient Mitzi [place] [id number] [place] 10:49:00 10:49:00 Junior [id number] [facility] 2022-03-09 2022-03-09 OL DIG E/[facility] [id number] Common 00:00:00 00:00:[address] [facility] [place]20 Spir it MIN - [facility] 2022-03-03 2022-03-03 (TEL) [facility] [id number] Co mmon 00:00:00 00:00:00 Spirit - [facility] 2022-03-03 2022-03-03 OFFICE STLC STLC [id number] Co mmon 00:00:00 00:00:00 VISIT Spirit ESTAB PT - [facility] LEVEL 2 [facility] 2022-02-10 2022-02-10 Outpatient JOSE Hameed ASAELTO PAIN [id number] [facility] 07:21:00 07:21:00 Santhosh Sandoval [place] [facility] 2022-01-01 2022-01-01 Outpatient TONE Vazquez PAIN [id number] [facility] 11:42:00 11:42:00 Santhosh 06 [place] [facility] 2022-01-01 2022-01-01 Orders Justin, 1.2.840.1 [id number] Univers 00:00:00 00:00:00 Only Reina 03579.1.1 ity of 3.412.2.7 [place] .3Kristina229164 MD Acevedo8 [facility] 2021-12-26 2021-12-26 Telephone Savage, 1.2.840.1 [id number] Univers 00:00:00 00:00:00 Betjose cruz 32807.1.1 it y of 3.412.2.7 [place] .3Kristina504423 MD Acevedo8 [facility] 2021-12-25 2021-12-25 [facility] Brianna Luna 1.2.840.1 [id number] Univers 11:30:00 23:59:00 Encounter Santhosh Gonsalez 55285.1.1 ity of 3.412.2.7 [place] .3Kristina217335 MD Acevedo8 [facility] 2021-12-25 2021-12-25 Office JOSE Templeton, 1.2.840.1 [id number] Univers 15:00:00 15:19:36 Visit Britta Matthews 42499.1.1 it y of 3.412.2.7 [place] .3Kristina868056 MD Acevedo8 [facility] 2021-12-25 2021-12-[address] [facility] [place], 1.2.840.1 [id number] Univers 10:30:00 11:29:00 Encounter Pili 86674.1.1 it y of 3.412.2.7 [place] .3Kristina179868 MD Acevedo8 [facility] 2021-12-25 2021-12-[address] [facility] [place], 1.2.840.1 [id number] Univers 09:20:19 10:29:00 Encounter Pili 49931.1.1 it y of 3.412.2.7 [place] .3.022726 MD Acevedo8 [facility] 2021-12-25 2021-12-25 Orders Justin, 1.2.840.1 [id number] Univers 00:00:00 00:00:00 Only Reina 13710.1.1 ity of 3.412.2.7 [place] .3.943799 MD Acevedo8 [facility] 2021-12-25 2021-12-25 Travel 1.2.840.1 1.2.772.458 6336 [id number] Univers 00:00:00 00:00:00 89336.1.1 350.1.13.41 ity of 3.412.2.7 [place].3.698 [place] .3.8937[place] 084.8 MD Philip [facility] 2021-10-27 2021-10-27 OFFICE STLMLC STLMLC [id number] Co mmon 00:00:00 00:00:00 VISIT EST Spir it PT LEVEL 3 - [facility] 2021-10-14 2021-10-14 (TEL) STLMLC STLMLC [id number] Co mmon 00:00:00 00:00:00 Spirit - [facility] 2021-09-26 2021-09-26 OFFICE STLMLC STLMLC [id number] Co mmon 00:00:00 00:00:00 VISIT EST Spir it PT LEVEL 3 - [facility] 2021-08-20 2021-08-20 Telephone Charles, 1.2.840.1 [id number] Univers 00:00:00 00:00:00 Tran 98736.1.1 ity of 3.412.2.7 [place] .3.686923 MD Acevedo8 [facility] 2021-08-18 2021-08-18 OFFICE STLMLC STLMLC [id number] Co mmon 00:00:00 00:00:00 VISIT Spirit ESTAB PT - CH[facility] LEVEL 2 [facility] 2021-08-04 2021-08-04 Mariano Hilliard, 1.2.840.1 [id number] [id number] Univers 00:00:00 00:00:00 Only Teri Akins 94272.1.1 i ty of 3.412.2.7 [place] .3.930204 MD Philip [facility] 2021-07-18 2021-07-18 [facility] 1.2.840.1 [id number] 1 [id number] Univers 10:38:28 23:59:00 Encounter o, 18858.1.1 it [place] of [place] .3.903700 MD Philip [facility] 2021-07-18 2021-07-18 [facility], 1.2.840.1 [id number] Univers 09:57:36 10:37:00 Encounter Valmario 93372.1.1 it y of 3.412.2.7 [place] .3.390256 MD Philip [facility] 2021-07-18 2021-07-18 [facility] Wallace, 1.2.840.1 [id number] 1083 [id number] Univers 09:00:43 09:56:00 Encounter Santhosh Nicole 22582.1.1 ity of 3.412.2.7 [place] .3.769650 MD Philip [facility] 2021-07-18 2021-07-18 Documentat [facility], 1.2.840.1 [id number] Univers 00:00:00 00:00:00 ion Santhosh Nicole 84525.1.1 i ty of 3.412.2.7 [place] .3.623259 MD Philip [facility] 2021-07-18 2021-07-18 Travel 1.2.840.1 1.2.944.392 2187 [id number] Univers 00:00:00 00:00:00 06389.1.1 350.1.13.41 ity of 3.412.2.7 [place]7.3.698 [place] .3.318207 084.8 MD Philip [facility] 2021-07-17 2021-07-17 [facility] Eliecer, 1.2.840.1 [id number] Univers 09:41:52 23:59:00 Encounter Valerae 91466.1.1 it y of 3.412.2.7 [place] .3.988223 MD Philip [facility] 2021-07-17 2021-07-17 Orders Thierno 1.2.840.1 [id number] Univers 00:00:00 00:00:00 Only oleg 31723.1.1 [place] .3.715365 MD Philip [facility] 2021-07-17 2021-07-17 Mariano Soto 1.2.840.1 [id number] Univers 00:00:00 00:00:00 Only Tran 07148.1.1 ity of 3.412.2.7 [place] .3.771370 MD Philip [facility] 2021-07-17 2021-07-17 Travel 1.2.840.1 1.2.218.508 2084 [id number] Univers 00:00:00 00:00:00 81468.1.1 350.1.13.41 ity of 3.412.2.7 2.[place]7.3.698 [place] .3.297704 084.8 MD Philip [facility] 2021-07-16 2021-07-16 Hospital JOSE Gonzáles, 1.2.840.1 [id number] [id number] Univers 10:15:46 23:59:00 Encounter Valerae 35254.1.1 it y of 3.412.2.7 [place] .3.431280 MD Philip [facility] 2021-07-16 2021-07-16 Telephone Jennifer Burciaga 1.2.840.1 [id number] Univers 13:15:00 14:11:39 Tran Soto 33541.1.1 ity of 3.412.2.7 [place] .3.109789 MD Philip [facility] 2021-07-16 2021-07-16 Mariano Soto 1.2.840.1 [id number] Univers 00:00:00 00:00:00 Only Tran 98274.1.1 ity of 3.412.2.7 [place] .3.103636 MD Philip [facility] 2021-07-16 2021-07-16 Travel 1.2.840.1 1.2.026.924 7091 [id number] Univers 00:00:00 00:00:00 80284.1.1 350.1.13.41 ity of 3.412.2.7 2.[place]7.3.698 [place] .3.781722 084.8 MD Philip [facility] 2021-07-15 2021-07-15 [facility] Eliecer, 1.2.840.1 [id number] [id number] Univers 10:01:06 23:59:00 Encounter Valerae 79955.1.1 it y of 3.412.2.7 [place] .3.913352 MD Philip [facility] 2021-07-15 2021-07-15 Travel 1.2.840.1 1.2.673.313 6864 [id number] Univers 00:00:00 00:00:00 38297.1.1 350.1.13.41 ity of 3.412.2.7 2.[place].7.3.698 [place] .3.743116 084.8 MD Philip [facility] 2021-07-14 2021-07-14 [facility], 1.2.840.1 [id number] Univers 10:27:09 23:59:00 Encounter Valerae 09392.1.1 it y of 3.412.2.7 [place] .3.218102 MD Philip [facility] 2021-07-14 2021-07-14 Office Hero, 1.2.840.1 [id number] [id number] Univers 14:15:00 14:32:40 Visit Jose Alfredo 34091.1.1 ity of 3.412.2.7 [place] .3.256957 MD Philip [facility] 2021-07-14 2021-07-14 Documentat Pepin, 1.2.840.1 [id number] 1 [id number] Univers 00:00:00 00:00:00 ion Terra 27084.1.1 ity of 3.412.2.7 [place] .3.761983 MD Philip [facility] 2021-07-14 2021-07-14 Travel 1.2.840.1 1.2.792.109 4898 [id number] Univers 00:00:00 00:00:00 88177.1.1 350.1.13.41 ity of 3.412.2.7 2.[place]7.3.698 [place] .3.213366 084.8 MD Philip [facility] 2021-07-11 2021-07-11 Documentat [facility], 1.2.840.1 [id number] 10 [id number] Univers 00:00:00 00:00:00 ion Santhosh Nicole 41673.1.1 i ty of 3.412.2.7 [place] .3.045165 MD Philip [facility] 2021-07-07 2021-07-07 [facility] JOSE Gonzáles, 1.2.840.1 [id number] Univers 06:00:00 23:59:00 Encounter Valmario 07011.1.1 it y of 3.412.2.7 [place] .3.114868 MD Philip [facility] 2021-07-02 2021-07-02 [facility], 1.2.840.1 [id number] 1082 [id number] Univers 12:33:12 23:59:00 Encounter Santhosh Nicole 32961.1.1 ity of 3.412.2.7 [place] .3.706501 MD Philip [facility] 2021-07-02 2021-07-02 Office [facility], 1.2.840.1 [id number] 3167 Univers 10:40:00 12:23:19 Visit Valerae 79043.1.1 ity of 3.412.2.7 [place] .3.151258 MD Philip [facility] 2021-07-022021-07-02 Ancillary JOSE Gonzáles, 1.2.840.1 [id number] 1082 [id number] Univers 10:00:00 10:15:00 Procedure Valerae 96585.1.1 it y of 3.412.2.7 [place] .3.744405 MD Philip [facility] 2021-07-02 2021-07-02 Documentat Stautip, 1.2.840.1 [id number] 10 [id number] Univers 00:00:00 00:00:00 lavinia Santhosh Nicole 29770.1.1 i ty of 3.412.2.7 [place] .3.047705 MD Philip [facility] 2021-07-02 2021-07-02 Documentat Stautip, 1.2.840.1 [id number] 10 [id number] Univers 00:00:00 00:00:00 lavinia Santhosh Nicole 49657.1.1 i ty of 3.412.2.7 [place] .3.318625 MD Philip [facility] 2021-07-02 2021-07-02 Documentat Stautip, 1.2.840.1 [id number] 10 [id number] Univers 00:00:00 00:00:00 lavinia Santhosh Nicole 47822.1.1 i ty of 3.412.2.7 [place] .3.719905 MD Philip [facility] 2021-07-02 2021-07-02 Travel 1.2.840.1 1.2.552.661 0323 [id number] Univers 00:00:00 00:00:00 41937.1.1 350.1.13.41 ity of 3.412.2.7 [place]7.3.698 [place] .3.969228 084.8 MD Philip [facility] 2021-06-30 2021-06-30 Orders Griffin Sanon 1.2.840.1 [id number] 592 [id number] Univers 00:00:00 00:00:00 Only 42316.1.1 ity of 3.412.2.7 [place] .3.057389 MD Philip [facility] 2021-06-272021-06-27 Orders Fortino 1.2.840.1 [id number] Univers 00:00:00 00:00:00 Only Pili 01144.1.1 ity of 3.412.2.7 [place] .3.312953 MD Philip [facility] 2021-06-26 2021-06-26 Hospital JOSE Lanette Nash 1.2.840.1 10 [id number] Univers 09:32:00 23:59:00 Encounter Santhosh Gonsalez 35334.1.1 ity of 3.412.2.7 [place] .3.102828 MD Acevedo8 [facility] 2021-06-26 2021-06-26 Office Britta Hays I 1.2.840.1 [id number] Univers 16:15:00 16:15:00 Visit Pili Freitas 51774.1.1 ity of 3.412.2.7 [place] .3.961462 MD Philip [facility] 2021-06-26 2021-06-26 Travel 1.2.840.1 1.2.144.231 3554 [id number] Univers 00:00:00 00:00:00 50077.1.1 350.1.13.41 ity of 3.412.2.7 2.2[place]7.3.698 [place] .3.560177 084.8 MD Philip [facility] 2021-06-12 2021-06-12 Office JOSE Asher 1.2.840.1 [id number] 4540 Univers 14:00:00 16:00:34 Visit Flori 26987.1.1 ity of 3.412.2.7 [place] .3.723627 MD Acevedo8 [facility] 2021-06-12 2021-06-12 Travel 1.2.840.1 1.2.925.639 1179 [id number] Univers 00:00:00 00:00:00 87407.1.1 350.1.13.41 ity of 3.412.2.7 2.2.7.3.698 [place] .3.171315 084.8 MD Philip [facility] 2021-06-06 2021-06-07 Hospital Jareth, 1.2.840.1 [id number] Univers 11:36:00 10:29:00 Encounter Britta Byron 71663.1.1 ity of 3.412.2.7 [place] .3.406634 MD Acevedo8 [facility] 2021-06-06 2021-06-06 Hospital JOSE Freitas, 1.2.840.1 [id number] [id number] Univers 14:18:04 23:59:00 Encounter Pili 32654.1.1 it y of 3.412.2.7 [place] .3.913027 MD Philip [facility] 2021-06-06 2021-06-06 [facility], 1.2.840.1 [id number] [id number] Univers 15:05:00 18:55:00 Bland Byron 23639.1.1 it y of 3.412.2.7 [place] .3.987957 MD Philip [facility] 2021-06-06 2021-06-06 Anesthesia Eugene Carlton 1.2.840.1 [id number] Univers 15:10:00 18:20:00 Event Cal Darby 20897.1.1 ity of 3.412.2.7 [place] .3.431571 MD Philip [facility] 2021-06-06 2021-06-06 Ancillary Fortino, 1.2.840.1 [id number] [id number] Univers 14:00:00 14:30:00 Procedure Pili 30800.1.1 it y of 3.412.2.7 [place] .3.401141 MD Philip [facility] 2021-06-06 2021-06-06 [facility] Freitas, 1.2.840.1 [id number] Univers 00:00:00 00:00:00 Only Pili 58050.1.1 ity of 3.412.2.7 [place] .3.288204 MD Philip [facility] 2021-06-06 2021-06-06 Travel 1.2.840.1 1.2.555.272 3272 [id number] Univers 00:00:00 00:00:00 65468.1.1 350.1.13.41 ity of 3.412.2.7 [place]7.3.698 [place] .3.775289 084.8 MD Acevedo8 [facility] 2021-06-04 2021-06-04 Orders Arnie, 1.2.840.1 [id number] Univers 00:00:00 00:00:00 Only Barb 10916.1.1 ity of 3.412.2.7 [place] .3.057227 MD Acevedo8 [facility] 2021-06-03 2021-06-03 Clinical EL Pili Freitas 1.2.840.1 [id number] Univers 13:30:00 13:30:00 Support Kal Corrales 03000.1.1 ity of 3.412.2.7 [place] .3.251214 MD Acevedo8 [facility] 2021-06-03 2021-06-03 Ancillary JOSE Freitas 1.2.840.1 [id number] [id number] Univers 10:00:00 11:30:00 Procedure Pili 04216.1.1 it y of 3.412.2.7 [place] .3.012701 MD Acevedo8 [facility] 2021-06-03 2021-06-03 Ancillary EL 1.2.840.1 [id number] [id number] Univers 10:50:00 11:05:00 Procedure 60190.1.1 it y of 3.412.2.7 [place] .3.213300 MD Philip [facility] 2021-06-03 2021-06-03 Ancillary JOSE Valencia 1.2.840.1 [id number] Univers 09:45:00 10:00:00 Procedure Jennifer 77224.1.1 it y of 3.412.2.7 [place] .3.796907 MD Philip [facility] 2021-06-03 2021-06-03 Travel 1.2.840.1 1.2.600.431 3316 [id number] Univers 00:00:00 00:00:00 56952.1.1 350.1.13.41 ity of 3.412.2.7 2.[place]7.3.698 [place] .3.143554 084.8 .8 [facility] 2021-06-02 2021-06-02 Orders Freitas, 1.2.840.1 [id number] Univers 00:00:00 00:00:00 Only Pili 27432.1.1 ity of 3.412.2.7 [place] .3.665386 .8 [facility] 2021-05-27 2021-05-27 Pratima Perera 1.2.840.1 [id number] Univers 23:59:59 23:59:59 Event Y 61005.1.1 ity of 3.412.2.7 [place] .3.755574 .8 [facility] 2021-05-26 2021-05-26 Outpatient JOSE SANABRIA, MDA MDA [id number] 09:48:46 23:59:00 PILI Mariners o n 2021-05-26 2021-05-26 Outpatient JOSE SANABRIA, MDA MDA [id number] MD 07:34:45 14:57:55 PILI Metz o n 2021-05-26 2021-05-26 Outpatient EL HERO, MDA MDA [id number] 12:04:08 14:14:32 JOSE ALFREDO Metz o n 2021-05-26 2021-05-26 Outpatient JOSE SANABRIA, MDA MDA [id number] 06:04:47 09:47:00 PILI Metz o n 2021-05-26 2021-05-26 Outpatient JOSE SANABRIA, MDA MDA [id number] 06:55:28 06:55:28 PILIANGIE Metz o n 2021-05-08 2021-05-08 Outpatient JOSE ASHER, MDA MDA [id number] MD 14:20:19 15:53:30 FLORI walton 2021-05-08 2021-05-08 Outpatient EL JARETH, MDA MDA [id number] MD 12:00:51 14:15:09 BRITTA Mariners o n 2021-05-08 2021-05-08 Outpatient EL ELIECER, MDA MDA [id number] MD 13:30:55 13:30:55 JAMES Mariners o n 2021-05-08 2021-05-08 Outpatient EL ELIECER, MDA MDA [id number] MD 13:30:49 13:30:49 JAMES Isaías o n 2021-05-07 2021-05-07 Outpatient EL ELLY, MDA MDA [id number] MD 09:30:00 23:59:00 PILI Mariners o n 2021-05-07 2021-05-07 Outpatient EL ELLY, MDA MDA [id number] MD 07:59:33 09:29:00 PILI Mariners o n 2021-04-30 2021-04-30 Outpatient EL Hameed, HCATO PAIN [id number] [facility] 08:48:00 08:48:00 [facility]anthosh [facility] [place] [facility] 2021-04-21 2021-04-21 Outpatient EL ELIECER, MDA MDA [id number] MD 15:29:36 15:29:36 JAMES Mariners o n 2021-04-21 2021-04-21 Outpatient EL ELIECER, MDA MDA [id number] MD 15:29:35 15:29:35 JAMES Isaías o n 2021-04-21 2021-04-21 Outpatient JOSE GONZÁLES, MDA MDA [id number] MD 15:29:34 15:29:34 JAMES Isaías o n 2021-04-21 2021-04-21 Outpatient EL ELIECER, MDA MDA [id number] MD 15:29:34 15:29:34 JAMES Isaías o n 2021-04-10 2021-04-10 Outpatient Hameed, HCATO PAIN [id number] [facility] 16:30:00 16:30:00 Santhosh Dumas [place] [facility] 2021-04-01 2021-04-01 Outpatient STLMLC STLMLC [id number] Common 00:00:00 00:00:00 [facility] 2021-03-26 2021-03-26 Outpatient STLMLC STLMLC [id number] Common 00:00:00 00:00:00 [facility] 2021-03-06 2021-03-06 Outpatient STLMLC STLMLC [id number] Common 00:00:00 00:00:00 [facility] 2021-02-17 2021-02-17 Outpatient STLMLC STLMLC [id number] Common 00:00:00 00:00:00 [facility] 2021-02-06 2021-02-06 Outpatient ASAEL Cooper SIST [id number] [facility] 09:40:[place] [place] [address] [address] [facility] 2021-02-04 2021-02-04 Outpatient TONE CooperTO [id number] [facility] 10:51:54 10:51:54 Te 09 [facility] 2021-01-13 2021-01-13 Outpatient STLMLC STLMLC [id number] Common 00:00:00 00:00:00 [facility] 2021-01-06 2021-01-06 [facility] 1.2.840.114 [id number] 12:37:59 23:59:00 Encounter Swetha johns 350.1.13.10 [place] 565[address].2.7.2.686 [place] [id number] 2021-01-06 2021-01-06 Outpatient R [facility] [id number] Univers 00:00:00 00:00:00 SWETHA Johns [facility] 2021-01-06 2021-01-06 Orders Doctor DAVIDSON 1.2.840.114 [id number] 00:00:00 00:00:00 Only UnassignedCHRIS 350.1.13.10 [place] [facility] 4.2.7.2.686 [id number] 2020-12-30 2020-12-30 Outpatient R [facility] [id number] Univers 00:00:00 00:00:00 SWETHA Johns [facility] 2020-12-18 2020-12-18 Outpatient JOSE DANIELS, MDA MDA [id number] 08:12:04 23:59:00 MARSHA walton 2020-12-18 2020-12-18 Outpatient JOSE GONZÁLES, MDA MDA [id number] 09:02:57 10:45:07 JAMES walton 2020-12-11 2020-12-11 Outpatient STLMLC STLMLC [id number] Common 00:00:00 00:00:00 [facility] 2020-12-09 2020-12-09 Outpatient STLMLC STLMLC [id number] Common 00:00:00 00:00:00 [facility] 2020-12-09 2020-12-09 Outpatient STLMLC STLMLC [id number] Common 00:00:00 00:00:00 [facility] 2020-12-06 2020-12-06 Outpatient STLMLC STLMLC [id number] Common 00:00:00 00:00:00 [facility] 2020-12-04 2020-12-04 Outpatient JOSE GONZÁLES, MDA MDA [id number] 00:00:00 00:00:00 JAMES walton 2020-12-04 2020-12-04 Outpatient JOSE DANIELS, MDA MDA [id number] 00:00:00 00:00:00 MARSHA walton 2020-10-22 2020-10-22 Outpatient STLMLC STLMLC [id number] Common 00:00:00 00:00:00 [facility] 2020-10-16 2020-10-16 Outpatient LEO ERNANDEZ MDA MDA [id number] 14:08:04 23:59:00 Isaías walton 2020-05-15 2020-05-15 Outpatient JOSE DANIELS, MDA MDA [id number] 08:27:44 23:59:00 MARSHA wlaton 2020-05-15 2020-05-15 Outpatient JOSE GONZÁLES, MDA MDA [id number] 10:25:50 12:10:06 JAMES walton 2020-04-19 2020-04-19 Outpatient LEO ERNANDEZ MDA MDA [id number] 23:59:00 23:59:00 Isaías walton 2020-04-04 2020-04-04 Outpatient EL LINO MDA [id number] 13:52:31 13:52:31 Isaías walton 2020-03-01 2020-03-01 [facility] [id number] Common 16:40:00 16:40:[address] [facility] 2020-03-01 2020-03-01 Out[facility] [id number] Common 13:56:00 13:56:[address] [facility] 2019-11-30 2019-11-30 Outpatient [facility] [id number] Common 10:00:00 10:00:[address] [facility] 2019-11-20 2019-11-20 Out[facility] [id number] Common 15:40:00 15:40:[address] [facility] 2019-11-03 2019-11-03 Out[facility] [id number] Common 15:50:00 15:50:[address] [facility] 2019-10-18 2019-10-18 Out[facility] [id number] Common 15:00:00 15:00:[address] [facility] 2019-10-17 2019-10-17 Outpatient [facility] [id number] Common 14:00:00 14:00:[address] [facility] 2019-09-14 2019-09-14 [facility] [id number] Common 16:39:00 16:39:[address] [facility] 2019-08-03 2019-08-03 Out[facility] [id number] Common 13:20:00 13:20:[address] [facility] 2019-06-01 2019-06-01 Out[facility] [id number] Common 16:00:00 16:00:[address] [facility] 2019-04-26 2019-04-26 Outpatient EL [facility] LINO [id number] MD 08:52:16 08:52:43 Isaías walton 2019-02-17 2019-02-17 Out[facility] [id number] Common 11:37:00 11:37:[address] [facility] 2019-01-20 2019-01-20 Outpatient [facility] [id number] Common 13:59:00 13:59:[address] [facility] 2019-01-20 2019-01-20 Outpatient [facility] [id number] Common 13:55:00 13:55:[address] [facility] 2019-01-20 2019-01-20 [facility] [id number] Common 13:54:00 13:54:[address] [facility] 2019-01-17 2019-01-17 [facility] [id number] Common 13:13:00 13:13:[address] [facility] 2018-12-28 2018-12-28 [facility] [id number] Common 11:30:00 11:30:[address] [facility] 2018-12-20 2018-12-20 [facility] [id number] Common 16:02:00 16:02:[address] [facility] [address] [facility] 2018-09-15 2018-09-15 Outpatient [facility] [id number] Common 00:00:00 00:00:00 [facility] 2018-05-17 2018-05-17 [facility] [id number] Common 15:00:00 15:00:[address] [facility] 2018-03-02 2018-03-02 [facility] [id number] Common 15:06:00 15:06:[address] [facility] 2018-02-18 2018-02-18 Outpatient [facility] [id number] Common 13:02:00 13:02:[address] [facility] 2018-02-17 2018-02-17 Outpatient [facility] [id number] Common 14:00:00 14:00:[address] [facility] 2018-02-14 2018-02-14 Outpatient [facility] [id number] Common 15:15:00 15:15:[address] [facility] Results Test Description Test Time Test Comments Results Result Comments Source Vitamin D 25 hydroxy level 2023-06-08 17:34:00 Test Item Value Reference Range Interpretation Comme nts Vitamin D, 42 ng/mL 30-100 Vitamin D Statu s 25-OH Vitamin D: Deficiency: <20 25-hydroxy ng/mLInsufficie ncy: 20 - 29 ng/mLOptimal: > or = (test code = 30 ng/mL For 25 -OH Vitamin D testing on patients 1986-) on D2-supplemen tation and patients for whom quantitation of D2 and D3 fractions is required, the QuestAssure D(TM)25-OH VIT D, (D2,D3), LC/MS/MS is recommended: order code 39969 (patients >2yrs). See Note 1 Note 1 For additional information, please refer to http://[email or web address] [email or web address] (This link is b eing provided for informational/e ducational purposes only.) MARIAH (test FASTING:YES code = MARIAH) FASTING: YES RAC (test Performing code = RAC) Organization Information: Site ID: [id number] Address: [address] [place] [id number] Director: Renata Trejo [facility] CampusParathyroid hormone (PTH) and [id number] 17:34:00 Test Item Value Reference Interpretation Comments Range PTH (test 66 pg/mL 16-77 Interpretive G uide Intact code = PTH 2731-8) Calcium-------- ---- ---Normal Parathyroid Nor mal NormalHypoparat hyroidism Low or Low Normal LowHyperparathy roidism Primary Normal or High High Secondary High Normal or Low Tertiary High HighNon-Parathy roid Hypercalcemia L ow or Low Normal High Calcium 9.6 mg/dL 8.6-10.4 (test code = 94111-2) MARIAH (test FASTING:YES code = MARIAH) FASTING: YES RAC (test Performing code = RAC) Organization Information: Site ID: RGA Name: [facility] Address: [address] [place] [address] Director: Renata Ingram [facility], urine, 24 [id number] 20:25:00 Test Item Value Reference Range Interpretation Comments Creatinine, 24 0.79 See_Comment URINE VOLUME: hour urine 900/24 [Automat ed (test code = message] The sy stem 2162-6) which generated this result transmitted reference range : 0.50 - 2.15 g/2 4 h. The reference r lavell was not used to interpret this result as normal/abnormal . RAC (test code Performing = RAC) Organization Information: Site ID: MAGDA Name: [facility] Address: [address] [place] [address] Director: Saleem Enriquez [facility], urine, 24 [id number] 20:25:00 Test Item Value Reference Range Interpretation Comments Calcium, 24 172 mg/24 h Reference Ran ge hour urine 35-250 Low calc ium (test code = diet 35-200URIN E 6874-2) VOLUME: 900/24 RAC (test code Performing = RAC) Organization Information: Site ID: [facility] Name: [facility] Address: [address] [place] [address] Director: [facility] FL[facility] [id number] 12:44:00 [facility] : 1945 Sex: F Patient Name: KASIA RICHARDS Unit No: [id number] EXAMS: CPT CODE: [id number] XR FLUORO FOR SPINE INJ 33119 LUMBAR EPIRADICULAR INJECTION REFERRAL PHYSICIAN: None PREOPERATIVE DIAGNOSIS: Lumbar Radiculitis POSTOPERATIVE DIAGNOSIS: Multilevel lumbar disc degeneration status post L3-4 and L4-5 fusion and spinal cord stimulator placement with stenosis and bilateral lumbar radiculitis PROCEDURES PERFORMED: Fluoroscopically guided needle localization of the bilateral L2 and bilateral L5 spinal nerves with transforaminal epidurograms and epidural injection of local anesthetic and steroid. FINDINGS: Fairly good flow seen through the bilateral L5-S1 foramen but obstructive flow seen cephalad across the L4-5 grade 1 spondylolisthesis. Good flow seen through the bilateral L2-3 foramen and retrograde flow showsmarked anterior epidural displacement across the L2-3 disc. Flow was limited cephalad across the L1-2 disc. Provocation with injection was negative. Anesthetic response was positive with the patient noting complete relief of her low back and radiating pain. Preinjection VAS 6/10. Postinjection VAS 0/10. Steroid response pending follow-up. ESTIMATED BLOOD LOSS: Minimal ANESTHESIA: TIVA COMPLICATIONS: None DETAILS OF PROCEDURE: After obtaining stable vital signs, informed consent and IV access, with no contraindications, the patient was taken to the operating room and placed in a prone position with all extremities padded and appropriate monitors placed. The patient was sterilely prepped and draped over the lumbosacral spine. Using fluoroscopic visualization the insertion sites were marked for paravertebral approaches and using standard technique, a 25 gauge needle was advanced to the base of eachpedicle without paresthesias. Isovue-300 contrast 0.2 mL of was injected at each level incrementallywith frequent negative aspirations to produce each epidurogram. There were no signs of intravascularor intrathecal uptake. Bupivicaine 0.75% 0.25 mL with lidocaine 4% 0.5 mL and Decadron 5 mg was thenincrementally injected with frequent negative aspirations at each level and again there were no signs of intravascular or intrathecal uptake. The needles were removed and the patient was taken to the PACU in good condition. Electronically Signed: Santhosh Hameed M.D. Image: Image 1 Image: Image 2 I mage: Image 4 [facility] NAME: KASIA RICHARDS [address] [facility] PHYS: Santhosh Echevarria MD [place], [place] [address] : 1945 AGE: 76 SEX: F LOC: [place] PHONE #: [phone] EXAM DATE: 05/27/2022 STATUS: [facility] [place] FAX #: [phone] RAD #: D/C DT PAGE 1 Signed Report (CONTINUED) Patient Name: KASIA RICHARDS Unit No: [id number] EXAMS: CPT CODE: [id number] XR FLUORO FOR SPINE INJ 74581 (Continued) Image: Image 3 at 1244 Reported and signed by: Santhosh Hameed M.D. CC: Technologist: Lynn Rodríguez(R) Transcribed D/ (7169) [facility] NAME: KASIA RICHARDS [address] [facility] PHYS: Santhosh Echevarria MD [place], [place] [address] : 1945 AGE: 76 SEX: F LOC: [place] PHONE #: [phone] EXAM DATE: 05/27/2022 STATUS: [facility] [place] FAX #: [phone] RAD #: D/C DT PAGE 2 Signed Report Patient Name: KASIA RICHARDS Unit No: [id number] EXAMS: CPT CODE: [id number] XR FLUORO FOR SPINE INJ 48528 (Continued) Orig Print D/T: S: 05/27/2022 (1243) [facility] NAME: [facility]AS[facility]ICHARDS [address] [facility] Santhosh Echevarria MD [place], [place] [address] : 1945 AGE: 76 SEX: F LOC: [place] PHONE #: [phone] EXAM DATE: 05/27/2022 STATUS: [facility]C FAX #: [phone] RAD #: D/C DT PAGE 3 Signed Report- XR FLUORO FOR SPINE [id number] 17:49:00 [facility] : 1945 Sex: F Patient Name: KASIA RICHARDS Unit No: [id number] EXAMS: CPT CODE: [id number] XR FLUORO FOR SPINE INJ 58624 DIAGNOSTIC LUMBAR FACET RFTC REFERRAL PHYSICIAN: None Preoperative diagnosis: Lumbar spondylosis without radiculopathy or myelopathy Postoperative diagnosis: Lumbar spondylosis without radiculopathy or myelopathy Procedure performed: Fluoroscopically guided needle localization of the bilateral L1 and bilateral L2 dorsal median branches and bilateral L5 dorsal rami with stereotactic localization andradiofrequency thermocoagulation. Findings:Initial anesthetic blockade of the bilateral L2-3 and bilateral L5-S1 facets produced complete relief the patient's low back pain. No radicular blockade or stimulation was obtained. Fusion mass obstructs access to the bilateral L4 dorsal median branches. Preinjection VAS 4/10. Postinjection VAS 0/10. Final outcome pending follow-up. Estimated blood loss: Minimal Anesthesia: TIVA Complications: None Details of procedure: After obtaining stable vital signs,informed consent and IV access, with no contraindications to proceeding, the patient was taken to the operating room and placed in a prone position with all extremities padded and appropriate monitors placed. The patient was sterilely prepped and draped over the lumbosacral spine. Using fluoroscopic vi sualization the insertion sites were marked for paravertebral approaches and using standard technique, a 20-gauge 1 cm bare tip insulated SMK needle was guided to the base of each transverse process and sacral ala without paresthesias. Aspiration was negative. Sensory stimulation was carried out at 0.6 volts and motor stimulation was carried out at 1.5-2 volts with needle tip position adjusted to optimize stimulation. No radicular stimulation was obtained at any site. Lidocaine 4% 0.25 mL with bupivicaine 0.75% 0.25 mL was then injected incrementally with frequent negative aspirations at each site.There were no signs of intravascular or intrathecal uptake. Two radiofrequency lesions were then carried out at each dorsal branch at 80 degrees Celsius for 60 seconds, adjusting the needle tip position between the 2 lesions along the course of each dorsal branch. No paresthesias were elicited. The patient's vital signs remained stable. All needles were removed and the patient was taken to the PACU in good condition. Image: Image 1 Image: Image 2 [facility] NAME: KASIA RICHARDS [address] [facility] PHYS: Santhosh Echevarria MD [place], [place] [address] : 1945 AGE: 76 SEX: FACCT NO: [id number] LOC: [place] PHONE #: [phone] EXAM DATE: 04/17/2022 STATUS: [facility] [place] FAX #: RAD #: D/C DT PAGE 1 Signed Report (CONTINUED) Patient Name: KASIA RICHARDS Unit No: [id number] EXAMS: CPT CODE: [id number] XR FLUORO FOR SPINE INJ 15166 (Continued) Image: Image 3 Image: Image 4 at 8068 Reported and signed by: Santhosh Hameed M.D. CC: Santhosh Hameed MD Technologist: LIO TIRADO RT(R) Transcribed D/ (6244) tBIGG.[facility] NAME: KASIA RICHARDS [address] [facility] PHYS: Santhosh Echevarria MD [place], [place] [address] : 1945 AGE: 76 SEX: F LOC: [place] PHONE #: [phone] EXAM DATE: 04/17/2022 STATUS: [facility] [place] FAX #: [phone] RAD #: D/C DT PAGE 2 Signed Report Patient Name: KASIA RICHARDS Unit No: [id number] EXAMS: CPT CODE: [id number] XR FLUORO FOR SPINE INJ 79453 (Continued) Orig Print D/T: S: 04/17/2022 (1753) [facility] NAME: KASIA RICHARDS [address] [facility] PHYS: Santhosh Echevarria MD [place], [place] [address] : 1945 AGE: 76 SEX: F LOC: [place] PHONE #: [phone] EXAM DATE: 04/17/2022 STATUS: [facility] [place] FAX #: [phone] RAD #: D/C DT PAGE 3 Signed Report- XR FLUORO FOR SPINE [id number] 19:46:00 [facility] : 1945 Sex: F Patient Name: KASIA RICHARDS Unit No: [id number] EXAMS: CPT CODE: [id number] XR FLUORO FOR SPINE INJ 75538 LUMBAR TRANSFORAMINAL INJECTION REFERRAL PHYSICIAN: None PREOPERATIVE DIAGNOSIS: Lumbar Disc Degeneration and Radiculitis POSTOPERATIVE DIAGNOSIS: L1-2 and L2-3 disc degeneration with lumbar radiculitis PROCEDURES PERFORMED: Fluoroscopically guided needle localization of the right L1 and left L2 spinal nerves with transforaminal injection of local anesthetic and steroid. FINDINGS: Marked loss of disc space height with diffuse annular degeneration is seen at the L1-2 and L2-3 discs. Provocation withinjection was negative. Anesthetic response was positive with the patient noting relief of her low back pain. Infraneural approaches were taken at each level. Preinjection VAS 5/10. Postinjection VAS 0/10. Steroid response pending follow-up. ESTIMATED BLOOD LOSS: Minimal ANESTHESIA: TIVA COMPLICATIONS: None DETAILS OF PROCEDURE: After obtaining stable vital signs, informed consent and IV access, with no contraindications, the patient was taken to the operating room and placed in a prone position with all extremities padded and appropriate monitors placed. The patient was sterilely prepped and draped over the lumbosacral spine. Using fluoroscopic visualization the insertion sites were marked for paravertebral approaches and using standard technique, a 25 gauge needle was advanced to the base of each pedicle without paresthesias. Isovue-300 contrast 0.2 mL of was injected incrementally with frequent negative aspirations to produce each epidurogram. There were no signs of intravascular or intrathecal uptake. Intradiscal uptake was seen at each level. Bupivicaine 0.75% 0.25 mL with lidocaine 4% 0.25 mL and triamcinolone 30 mg with kefzol (100 mg/ml) 0.2 ml was then incrementally injected with frequent negative aspirations and again there were no signs of intravascular or intrathecal uptake. The needles were removed and the patient was taken to the PACU in good condition. Image: Image 1 Image: Image 2 at 1946 Reported and signed by: Santhosh Hameed M.D. [facility] NAME: KASIA RICHARDS [address] [facility] PHYS: Santhosh Echevarria MD [place], [place] [address] : 1945 AGE: 76 SEX: F LOC: [place] PHONE #: [phone] EXAM DATE: 02/10/2022 STATUS: [facility] FAX #: [phone] RAD#: D/C DT PAGE 1 Signed Report (CONTINUED) Patient Name: KASIA RICHARDS Unit No: [id number] EXAMS: CPT CODE: [id number] XR FLUORO FOR SPINE INJ 40780 (Continued) CC: Technologist: Lynn Rodríguez(R) Transcribed D/ (1945) Connie [facility] NAME: KASIA RICHARDS [address] [facility] PHYS: Santhosh Echevarria MD [place] [address] : 1945 AGE:76 SEX: F LOC: [place] PHONE #: [phone] EXAM DATE: 02/10/2022 STATUS: [facility] [place] FAX #: [phone] RAD #: D/C DT PAGE 2 Signed Report Patient Name: KASIA RICHARDS Unit No: [id number] EXAMS: CPT CODE: [id number] XR FLUORO FOR SPINE INJ 02313 (Continued) Orig Print D/T: S: 02/10/2022 (2019) [facility] NAME: KASIA RICHARDS [address] [facility] PHYS: Santhosh Echevarria MD [place] [address] : 1945 AGE: 76 SEX: F LOC: [place] PHONE #: [phone] EXAM DATE: 02/10/2022 STATUS: [facility] [place] FAX #: [phone] RAD #: D/C DT PAGE 3 Signed Report- XR FLUORO FOR SPINE [id number] 18:40:00 [facility] : 1945 Sex: F Patient Name: KASIA RICHARDS Unit No: [id number] EXAMS: CPT CODE: [id number] XR FLUORO FOR SPINE INJ 96585 DIAGNOSTIC LUMBAR FACET DORSAL BRANCH BLOCK REFERRAL PHYSICIAN: None Preoperative diagnosis: Lumbarspondylosis without radiculopathy or myelopathy Postoperative diagnosis: Lumbar spondylosis without radiculopathy or myelopathy Procedure performed: Fluoroscopically guided needle localization of the bilateral L2-3 and bilateral L5-S1 with diagnostic blockade. Findings:The patient is fused from L3 to L5. Initial anesthetic response to blockade of the bilateral L2-3 and L5-S1 facets via the dorsal branches produced approximately 50% reduction of her low back pain but residual pain remained. Preinjection VAS 4/10. Postinjection VAS 2/10. Recommend intradiscal treatment before considering RFTC. Estimated blood loss: Minimal Anesthesia: TIVA Complications: None Details of procedure: After obtaining stable vital signs, informed consent and IV access, with no contraindications to proceeding, the patient was taken to the operating room and placed in a prone position with all extremities padded and appropriate monitors placed. The patient was sterilely prepped and draped over the lumbosacral spine. Using fluoroscopic visualization the insertion sites were marked for paravertebral approaches and using standard technique, a 25-gauge needle was guided to the base of each transverse process and sacral ala without paresthesias. Aspiration was negative. Isovue-300 contrast 0.2 mL was injected incrementally with frequent negative aspirations at each site to confirm appropriate spread. There were no signs of intravascular or intrathecal uptake. Bupivacaine 0.75% 0.4 mL was then injected incrementally withfrequent negative aspirations at each dorsal branch. There were no signs of intravascular or intrathecal uptake. The patient's vital signs remained stable. All needles were removed and the patient was taken to the PACU in good condition. Image: Image 1 Image: Image 2 Image: Image 3 Image: Image 4 [facility] NAME: KASIA RICHARDS [address] [facility] PHYS: Santhosh Echevarria MD [place], [place] [address] : 1945 AGE: 76 SEX: F LOC: [place] PHONE #: [phone] EXAM DATE: 01/01/2022 STATUS: REG [facility]C FAX #: [phone] RAD #: D/C DT PAGE 1 Signed Report (CONTINUED) Patient Name: KASIA RICHARDS Unit No: [id number] EXAMS: CPT CODE: [id number] XR FLUORO FORSPINE INJ 39930 (Continued) at 1840 Reported and signed by: Santhosh Hameed M.D. CC: Santhosh Hameed MD Technologist: LIO TIRADO RT(R) Transcribed D/ (1839) [facility] NAME: KASIA RICHARDS [address] [facility] PHYS: Santhosh Echevarria MD [place] [address] : 1945 AGE:76 SEX: F LOC: [place] PHONE #: [phone] EXAM DATE: 01/01/2022 STATUS: [facility] [place] FAX #: [phone] RAD #: D/C DT PAGE 2 Signed Report Patient Name: KASIA RICHARDS Unit No: [id number] EXAMS: CPT CODE: [id number] XR FLUORO FOR SPINE INJ 39131 (Continued) Orig Print D/T: S: 01/01 (1842) [facility] NAME: KASAI RICHARDS [address] [facility] PHYS: Santhosh Echevarria MD [place] [address] : 1945 AGE: 76 SEX: F LOC: [place] PHONE #: [phone] EXAM DATE: 01/01/2022 STATUS: [facility] [place] FAX #: [phone] RAD #: D/C DT PAGE 3Signed [id number] 00:00:00 Test Item Value Reference Range Interpretation Comments Kelly (test See Note Specimen for code = 9114) genetic testing has been obtain ed, processed, and sent out to the reference laboratory. You r care team will contact you whe n the results are available. MARIAH (test code = Please schedule MARIAH) for lab at [facility] tomorrow 07/18 around 11 AM. Thank you! [facility] 2021-06-12 14:08:39 Test Item Value Reference Range Interpretation Comments Submitted Clinical t9uciZPeWNBsa5nhFCOedQ History (test code = FuZzEwMzNcZnRuYmpcdWMx 05973) XOmfxvExZTphn6NoJ9YpYw AwMFxhbnNpXGRlZmxhbmcx FUSzSMX8ikObGUOjOVjhFW GrPNrrBd5zqMCvfEddIkXy JBXej8rtjpNKvizznMz2g9 vlZRYzYnP6hDDzGIvxZ2qq ddXriNXlXVWyFRv7oP35CU GmvY9xtLRpNUhiyoBfHvR5 OBrrZVUrNrO5PKFqtKAbUY ZyI7kjINQiMPxzVYVlOUat dANzURI1bHkfz9M3hSNbcT OutCedDkGbWhLkUeRUj4Zf JSy4rNbsY9PpJOEoTsV5cH QgUGFyYWdyYXBoIEZvbnQ7 kD39VYajbcO2lJWbx3Lwe4 1ar400fP7baXUsPCF5TXZv NDCjsIReWXUeNYE4KTNqhU EaS7jbTUGfFF8qyrrrHVtf QDfkXDAutPI7LTJtgQRbV7 DtZABnNTdiDFIrddd3PxCf Ya1baWOlmLbnXYzut1esi7 aisFDkCvy6NCFsWgOgPokg XQcqk5Ndc5suILUtyi3xOX L5sGSttRhuf3I8cMZwONYo xJHnygIyIGFuYyH5DYrdAI 1ghw73SUGjSDO3fz9keMBq iUlfkeRaoPThKZjmZ2DqBR Lqe560IIYjH9GnBFOvv8J4 gjBzNuQmTJLbkHU3usI9TA OpRSp1kHErjkC4wrVwtSHi R5sbtH1iNPLfXZ8nnuyvr4 pePTiqSLtrIQDzuBP0vfE6 ALRalBNnR3CqyV5iARHfOP tjIEFhsva5RlBqKa3cuTGw eTcyMFxzYmtwYWdlXHBnbm NvbnRccGduZGVjXHBsYWlu XHBsYWluXGYwXGZzMjRccW zwoOddiO2kPlSjSaEfAIzj CL5oZQZcT7ioeSOlPIWvLX UkE1ayIjGlpK2heApnIAdf czIwIEludHJhZHVjdGFsIG RbnxSqfx9uIQLbjtLyrVQ3 YY3uTYwxIfMxMjInUQT4HV tEMDUuMTJdXHBsYWluXGYx XGZzMjJcbGFuZzEwMzNcaG ljaFxmMVxkYmNoXGYxXGxv C7diSqAsJmMeVvivMOR3pH == Diagnosis (test code = r2wlcLKsDPCpvMB9JBVeDT 34) Cqc7vgz4DksRLuiDAuDIgp iHSejzYqqo61zZB8rO50GK 1xDYRvDbC4XMCcaqI2Idn2 PMJbVKLdpTEfM154l3kwf7 jnywItzER2BEBqCIYiA2Kl UU3pONVfbVLiV68iqTZnIL A1ZLYqVPPqaBIsZOOuFTU2 LTTlwJPmG7naWXUnCP7ncy prIIkqHRedRLHbvEK8MTAl yGZkV6DaZIAnEYooRYKrqi e8DrJoGh2wcPXihUnzMXuo YXJkXHBsYWluXGZzMjBcY2 QwBUB7OUUxanEhdhDhILn2 iZRvBB6uWVZkFLtyLdRnWZ lxpKuktrdtx8HhuSmyBAyl hHjfuCmbgg0nDKRhWKKvAP SayD67SNIwViknfKOyHTnq NzIwXGxpbjcyMFxjZjBccG PcYF1iOZBewA8laVJqo6Ww JNWkXFnzuTf8PXUwt1PaQ1 ViD1ieb29nMAauPrKkVynw HYLzJU2ozU6udZdayI2lpK KywGWfuIDrmXCpurNgj9Bq tRJmV1i6g2fvnoO8eO6uhK MgbmVnYXRpdmUuIFxwYXJc bGkwXGxpbjBccGFyXGNmMS DDYjODclTlo1PkYPucHoXe GQHrF53glzOnuTPfRUI1WD X5w398CjeoWCGrmUw7JfXm bGluNzIwXGNmMFxwYXIgRF TDEIIXZSRTTtRMTy3KYAVE YpXEDXNGRDgAC3cBQAfdWF 2SIDWKOEXGLKXKKA0LK9sK HHXgH6NMWQFlLRWKYTUTPQ ILNh9uDXlRLW2snEIfPXIO CTGsENVYX2QWSMIvTl59AT 7KVCpSPSUtA35QZTZINOoj BABdvzsejXLvPdx8EnZqcE quPBWRqLstaPOjQ6kkdlMx tlHzN9BdMVPqtPakflB9EC 8vYqtsCCDfbZv0UiEmVwje BRbwanqpJXZOvY9yi3nwo3 z2MFRzfRQkP1VxTXNpw69c iAB3HAAut1e9sJEVC5bVRm DqnCZyEFNoU8VhJXH5yFTa F7GbKXK1K5XgnOAhsUSwqy RcGJAwHKHiSCBDCR8eqEVy DLFpB7YoWEQqpPZvDFC0D0 RhbCBoeXBlcnBsYXNpYSwg HSGdp9OwZnAyGLP9TWOcp4 K1THgsVY2oSCAdhFG5SLPe HYSjuCPiNOKih70avHQ9KL Pxf9g8kXNvzGJlk1ZhxEYu QqopNMVga84mDdOsfEEkFH stOAqgsA1kASCuewpgSeGk BggwWoGnKHT4KSJfTWZ5LS DySKCivJrblhHwPJQ7mMQu mD8yAC0etdpynnryrPGuBG xpNzIwXGxpbjcyMFxjZjBc zOZhLBZjTODkoUL4eSChvO CqZO3jA8G7nFKdNRZtlkSd vAvhpYIea7UbY4XhM7mbh7 1hLiBccGFyXHBhcmRccGFy fQ== Comment (test code = s4rtiMAlFYKqeLT9NMVqLZ 9835) Utu1wwd6EjfWUdzQRdFQrj zNAjaxJpzm66eFM2mH08SA 5bWSSdLcZ6KWXoxtG8Sbj2 QYGoXFXmbLNjL435i7akd2 czciGchAL0vJvkKLRvxofn WlF3VSelZVTkoczsBZi7TV akUNRdkRH1DMSbtERvS9Ca TSNwMH7ddro1TEI3DUvzNT CiXcB3VABmmJRaXNItcBho CRumm550CJK1KtVfODVrhi TfqVqecZ9qNhOkSJRFZ0tJ QX7lBGCxBREyt3WnUVHqd3 AxpLXaITPwVUStXBP1PRap bDRpf5KmXJLhCYCgsKArx1 NyPaSgbKlkOD5rGMFgwQGa wQDhw3LhXR0hsmNxyCMgfN NnJOU9zpTlOD1ipgO8ORCP XPRbG8RcS9AtVWCmd8KnY9 9sLiBccGFyfQ== Synoptic Checklist DCIS OF THE BREAST: (test code = 9864) Resection (DCIS OF THE BREAST: COMPLETE EXCISION - All Specimens) 8th Edition - Protocol posted: 01/10/2020 SPECIMEN Procedure: Excision (less than total mastectomy) Specimen Laterality: Left TUMOR Histologic Type: Ductal carcinoma in situ Size (Extent) of DCIS: Estimated size (extent) of DCIS is at least (Millimeters): Previous biopsy ([id number]) measures at least 6 mm Architectural Patterns: Cribriform Nuclear Grade: Grade II (intermediate) Necrosis: Not identified MARGINS Margins: Uninvolved by DCIS Distance from Closest Margin (Millimeters): Greater than: All margins > 5 mm LYMPH NODES Regional Lymph Nodes: Uninvolved by tumor cells Total Number of Lymph Nodes Examined: 1 Number of Avella Nodes Examined: 1 PATHOLOGIC STAGE CLASSIFICATION (pTNM, AJCC 8th Edition) Primary Tumor (pT): pTis (DCIS) Regional Lymph Nodes Modifier: (sn): Avella node(s) evaluated Regional Lymph Nodes (pN): pN0 Gross Description (test x3dakQOhBFTvzSU0IWQxQH code = [id number]) Aqo0ntu0MqcMLidHJqEKhz qRRotgSaji17uKQ7xP08ZC 3dYWAyGdP1QLLdjqE3Hzm0 XFBfRHSceSSwE446f1sae5 omiqJjtLM0KMUsXEZhU8Bo YY2uGUUxtHTjE89ueFXwNO C6BOJsFZSktVZcQIBcPIE0 OEGicCAkU4sjUVKaNV8uxo iaOMkvLMelFWEunHR6KQCf yWBwI5QxSPPvQWwyWSCzgp u1TbWxWm6orUYxwYevJPbm QRJys5luBUOmvQGgLIP0AS denXWnWFHuHLRvMLo2YEZk TBtgpVKrCW5kjXfoXmmxcP wwx8HotWVpTCsfNPRbTWFy GPskMBOzA1UIILJiPxLrMH nhIvQvLFy1PTgbA2JHXFLj YEW7IHW2UGe5CgE7IEp1EZ DLLv4jLgr8IfJ1Jjt7SXO6 NTgzIFxcdCAyIFxcZmwgXF xmIEFyaWFsIFxcZnMgMTAg KXmqMePgHL7yvZdyxKIzst xiXGZzMjAgQTpccGFyXGNm XHHXKI33eM4gzNCgyT8ocN Fyy5DyFOGjmXhavISgeRxj bGVmdCBheGlsbGFyeSBzZW 57bN1vwOWvkR1rgHYkr4Fb QJDpTDicB556yhXfNZO6Lk 0ax4UfB1pyQoKvFoxyQXXx TSAsy1KzcSJfKQLceS5jxV Ivj8PpZEetOGcnPI37LCab RY85TCJfCYXjvfDbFKOjSH qoyJVnMFQ8jH2uOQVoXSXw ZCBlbnRpcmVseSBzdWJtaX Q9IXLhnP5fPRDlZR2lOSHm GfDxPLCcy1LiB8B8POFnLJ slb5taDPVuLMtwp1VeYBpH KNVQPY3IQQ0ytFV8LXxDS3 IXE7zEoTEsKDR7nXI3HRGU XkgxlSV6rZH6sP66QOTtOK GxuANrZPiqH802EFh2HLOw NGljd2kyEDNuWKcvt9FhRN xJDDVDVZ5TTN6vaPY7UGlP P6CBVTfhNQWuPagtbLPPDH W1ZMejbZhizUe2d5kboRRa i1z2ZGwhIFK8oIrjuIErwl uotcFih1vabRykm0DkaCSq VSzmFLRwqXAtQRicmI0uCw Osb8susJq8XXwluhO7CQBv sz75DMawSLGmI2ZiR6KgZE khUYV7VYYdUsSmRCObQV6G QjThRHZxVTV9KUJbMGl4DV w2ZD5GPrKlPXItRHx5DkS5 FnDpZTv5XCaqFR6NEAg1CZ A4XsaiFRJ0QFM2AkAxDUUm MiBcXGZsIFxcZiBBcmlhbC BcXGZzIDEwIFxcZmIgXFxu X51uUzOGGnlxZTPdH9QiUT JyZWFzdCwgbGVmdCwgbGVm tIVcocXwn0Pgd4NfdTUiiW MwLE6zh5IpB0AgaTntHKJy a1J6ETMnvNIeRKPbdOZfro qulwzhfC1rQmGhm9AuxICg zKL4RVWplHiebN9aLcKzeE 6dzCCuVCMstNfdb2c8tIKb LEMwkVUjONOlmKGqg7ZrMR 9xIp9jZFTtB9PuOMjmKkMt IGOpe3VjuUJydTBkAV4fw8 AkC7YgrMztBSxfVNI5BHWz UNV5YLIkCCVmhZaiRF8dXZ J1EDwnTGtubRbkKF27Fwxv JBVjj3A0QAP3tCEprOWcyL MskLKiahsabaxrXJ59Sqel HHrwpkaer6VxvROsLEO7NI xhdGVyYWwsIGFuZCBhIHNp vkwjIOSro20sIGS1aDLzbL BhdCBkZWVwLiAgVGhlIHNw ZWNpbWVuIGlzIHNlcmlhbG k6AMHfkGCgKNKvls4tNI4j WHcazDZ9ycVwMIPqzmEtOA jyQCwob2dlU7NuBzCuCj3g D3Qaq5JmiASuozRpydWqRF VudGlmaWVkLiAgQWxsIHNs oPCcgzKelcHiSx7mXHcoif U2LEF3CU0nzfY4sB0iQDQe skDyrFloJNIuCJczdD4otY X5HII6GLj7MYEbq33gYOHR YGMqq0MqeTLbbXyuRDWhHD IkRC9sS5LaPLRuVMLqIQek WC12eCJhFKRaoR9xc9pgZ3 KkTxZtNLYDzNDjl3OmR1bw JE4lcPWgo1PjuBwkOPYdNE IfdcVrtI1ngdRffY9pbNVg SROcUwHJCkidX93XGOkmZP 05ONMym7LueNXluP96ZYPn t3Q6ETSqu0MoXxkzF5vjLD B1gEDzkG2gRYYioSIxVLsz PoRfkJ3mZBjbYOSmANCzVB QeIDaoBP6mJKttlOUoTDxc fxJmTIHylnk5GKFuA1XJEC mQNiDBI8ESIoBHWNQqAYXm YWwgcGVycGVuZGljdWxhci ZgLPTovL9eMCDrGIYcyfAv ZWQgYXJlYSBpbiBzbGljZS WuDhixYoEbY0wyR1wyIMWo cmVhIGluIHNsaWNlICMzLC NXXF1MZxWcmPPlqIPuVBVt QFSaNTTit8TpZWCmOYD3vU VbXVQtGbhikWB3KDEcmYQx PY5eLV1uM6IfXNJts6l5aP QgWIHuoA3lQLmvJMEbwIZy SJL2SEJLVyTmfJApjAStFY MxWZCmbB8fm5ifL7EkTnLd DQX1FBuuaEFxFUijqWIrfP MuQFuupNunwqHpFTJbdH8g ICBccHJvdGVjdHtcZmllbG K0FTwxRikecR4moGXUGCNC BweRQlajfjKhOJ0IWW7EUo LWGU69QtJsODX0OyxOF4NK sPL0Bhd6WBa2lTuuDimlto GimCHcPnJoiK2VCSudVain mQF6PBarIgeltR5jrWGTBZ FJZpdDXsyvitYwSO3QMO1P RI0EuUOjCFI5jMI1XTNVTw topDW8bER9gH83ZAUlBRWj dLMwLLynL781ZXSsGZguTN WnGcT8GQDsjCJoRRU7HR6g ULMvenowPYZaKDNlQOB5DZ sqrQ86yOFlFUPbQDVssKPn zAutGjbhrZila9XujKViRJ iuNYHnXKGyUAnvBBJjD3VY GTUiVvXkJKnsLbOiFNl5KZ quV7WGVSNsVEM3BYJ2XLF1 XlM3ABb2CYCIEd7gNhp6FJ J5UaQ9XHW0BIsrWRhtcDUg IFxcZmwgXFxmIEFyaWFsIF brQjDbLQTdKApvOpRcWN5b lSbrMKX2NJVcsbwnUoSgSw RdXWT9PTVzKNU8OKVfYQYf cAnfezKnTU7jufhijeygdF PkpIViyfPom0StDZLenBKh i10qbBZdxBLtyyhrqsZaAI EjqE8tGNY6wJFgiVRzjqBi iSP5cOMpuSAsK3rmIa4zp3 XdZ0rtVaKeRkxuRGYkV62z n7fniKVdm7WwXA6hg1DbTV 87GQArmK8qmGsijtEkSbX9 WFgua7nhb9cxoXTyAqzcuu 9rGGC4aGA9uYTnhQDcZAAk WFT9IJYiDHP4XNWsFGTkjT ksIHdoaWNoIGhhcyBhIHN1 uZElDXGrgzJ6fWPiio26qk RlZCBlZGdlIGluZGljYXRp gxbpwIbqMJ7zfwzwwp6zxH jaPSx5PIAtPXgeVQ7jojmi biBpcyBpbmtlZCBhbmQgdG hlIHNwZWNpbWVuIGlzIHNl I2Dqo98xQUL8jyEwBLTvYW sjKK4giF7fZJ7pujaxVqjd ZJewyRzgsk25NY9mVJcrNw CgACErIQNkYIlrd3QwJYDj j8P8KXD2fSOhTAJjBK68CN RiSwElwEVqrKrjs9NmYBYl CNMbyzQqBWLKbTMqs8EuK0 bpRO0tjMWqHK11xUZwyAvv FA5aVDTedUBdleXwSRovmT EpxEEilQE9UVWlBqNkGp0e nBnlFMf7SILaDM3RSGBYJB N3YKRzjWTeeUTvV0qnHiRf UDMjj4VeX8H0NDOlNYyrb2 koJEMlANyng3CwTDmOEPYQ WO9SKF8tzCJ3IQfJC9OKV4 uQiJYqZJR0rSB3CNYZNmqt iHO1oLY0qJ56ETBzGXNltN SvBAxeO175PDJ0UELxDKfk p9faHWYzSVhog3ZdGWuZOB NPUI8IVI9asAQ6KAsDF5TO EHabSBZpJbsmaREDGMR9FB thtLvlcPt1l8rimSPgx0b2 SWorOQH9dDvdsSPozflwij Xju6jmfJhmm2AfaGEvIM04 CWInlOBeWGL3ZY2xxVmpPZ J9 Intraoperative p3htvIKyMKJbbFEUMUXvW5 Evaluation (test code = nipfNxBZEvtLMqW8Zvzwxp [id number]) DPdxTN6eQL4jeTbfbUCesJ ErEO9QGHUfQkFiOIOtpFDq lmGvHgQhOALljPTzaCE4WQ HdUM0gdydaWNnlCWogQVEv qlJ7APQwjHQoE0TjKDSoVD 9cpcneFPR9FJxqlB6wfwCF HdosLu3vbLNzqWkoXnErOm NoYXJzZXQwXGZuaWwgQXJp CKp3sN6BRmdlIBL9OSHPKp dkGICfDR6Js8znDYUupWTu JKQ6HApyiTSaNHAfOXTxIH w9LXCmVHmqxDKqEN8toJgz PxragVsdm5YthQWeCWsdSF QdUEKgADriSCFbMG1DIcNu QRCyKRH9ZTAsAXc6PRz3JT 1PFiDzBNTnKNq2UaY3NzUb UZn4AGheDJ5PEGo6TSt3RB E5XQF3GLD1SAPqHGRaAdKs XGYgQXJpYWwgXFxmcyAxMC SrYCPpDAclTydrSMswB06v gMjomQ5tKneqbuSvZUA2DL BhciANClxwbGFpblxlcGlj TmVzdERvYzEgDQpcbHRycG FyXGxpbjBccmluMCANClxs dHJjaFxiXGZzMjAgQnJlYX C2AEDnPWI7BSKbJTX2ZUZs KGDzyWEwZKykNI99GRdrsR DzoERmlV9ktQsvt0grifXq PY39QdxgSDF8eDAgsM9nPW Nfk39wRCVmxCRpZJViNXGy awWpERZma10iOIEbleftSN HrDJCgYNT3qUZtSSAcE6an bFpeIVXzHAyjWWAtUz8xe8 NnJufcdXPpSR0JWKfwMmTs XGxpbjcyMCANClxiMCBNYX VnvK2kIPDcTUBtMVyPFY2n ZIOhr3CqR2Z5JURuTWdie7 kiXESaCVpem7WwGWcHPTCR YZ5KPH0leTW3YEnZK5OZO1 tPeVXrANP7vLA8OXPQYpsh pBF5nNP4iH91STVrIAWypM DyRDesM612IKL2XXGhLFjg c8hnYINrMRwjg1WmMTySZP MMNO3DNP3whFS1ZVeLW2AE AUyvKFWfKsaslLPCPUZ7DN bbpLhquMt1p3tfeINcj3n8 RMqzHIE2wDvklHAnxayqiK JjaFxmczIwXHBhciANClxw XNUhUTn6lzGtfzPSJskiYJ TdCIxqjAVhGN6IDZYwBVnt RGJblFUCXLD3DK2xZLrnaF AunvskFKFxT4QpB8UgynMz mWPmWVJsodQap5zjOTS2CC NsbXVsdDBcZnMxNlxwYXJ9 UUaxq1jyTNY2VFMdtIJjoI LtKDsrFjTzPylaIPGwQ1De R7SegaR0JYh6 [employer](s) c0gbkONwOZMdbBD9IIHaSS (test code = 9841) Qau5dhz4HsqCNoaDLuGMpk lCEczrPahs96hHK1uV90EH 7jBKRhXlW6ORVwlyS2Zew3 ZNKsDMEpkNIrK297a7fzy7 usdiRhlQO6wNjqEVFizmaz OkZ0WIaaMOHfxdmaVZc7HZ ciXNGmhWE9QWXcpQKgJ5Gl ROQlJC1ixec3ATY8RZepDN NzBtC3SHWmjQApOKNocPjo LKted109TCC3LsMcVHUdps OoqMuciL4pMyXmEPVDjusj FCS8JIQ9jJ3nNTUzq0ImEY tRS4xULEigVsAypPPraR== Disclaimer (test code = v6ivpBVeZAEkzQCvHgGcSP 9815) AkUUXca2bgWGLlaOCuGhEg MzNcZnRuYmpcdWMxXGRlZm Pos2rnl794pMDlo7dpAGNb ObT2pWNoLIBqzBDjK035EY PoCLtke9dxf8XsYNHrpVJu z7S3CVSHgbeskHy8xHijE9 4me1Q9FevoS3fvLGPuQEIa Z3QqAV6aFLYvOve5GOA6ZO E3QFPsISBeX5FiUV0iGGNg pKVxHSq1b3gloUxoGGTnMJ C0m7tiJChhnkBuIG4xrx2l iBv5l2ctfiGzQNFrKZZfnR GTFGRcB5KknZroSl4ogEv6 nOiaSqqvZJS9Wmk4PR5aqm 77reh2dNqyYJRroxpgWcD5 CPerKCBkppdxRIj1YNgaXS OypMJ4TEZauSUmY9BlBBTj HS5kscn8GVO5GCeuWKQnDy U4CTHjsVYnPSTkzObwITqu e240GTM1LyRiLK9wP5Yxv9 H7qI9chYWaBSCyjNNeCqNt ZGFpmy8etVZiAQkxb8WmFW D1xuR5tKQzdGVcGYYlSD79 Sxzpt1YxBcdwHMR1THSfxk Ndp2Kxq1xpZzCzdgMpX3du O5FmKXPoIRQbIVNeIiWhdt Lnp5Plm6HesPXqiGi4z9qv ASFaQXReiFfsx3jjETU6HK HmF8V0bUFek9rfJRvjUBGa yAE9ypH2ZVBgoEQaD5VxsI 1kPCRzUI2poqn6m6mwEUL2 UOefOQWlBxB8mmP3BFWisQ CmPRHvfXqcZJrox053INI9 TcUpTOKty8OhY7CevHglJ6 9buFhwJ36dEEFcjUhurS3e nVcigK1qPqSrGbZyKPhveP szgFOpsrytIBdxxmH9OSfu jmlwSJOhIYdfE3zjYoMtSB XfyZgvKIdil5PdSDJhSFIg OddnduL8YIHWl73zOWCsa0 SlISXqwW3ybTTpXGfwqhAv pZR7FYillkEgZbPdclQvSY ZzzM0fRSNbXY2bYKHckuZn lu7eviReFWJiRJTaH1Nsco gaaTcgzvNeHSUtqa1pveXy DTO2AWRBZW6CLTNrCYDul3 4gIULacKhmeY8laWOistDq LTZuu9DnoJ3arXPIXJKqY6 btBM6iLHwtc3OwfRLycVQk tQV5UTEyz4GhIjSbckPckS GczCLeC7ZirJdyR5zkDHYz AHLuuuLwnNCoi9UvUZPfkS B0uZHuUL6THdHLo23vKGKa ZPDTonKwDMApgGpleZR6iu E8sW6fPbCVDiXvfYEniVSp NljoNHEpc372lb3zqqY3AB JvZRJcdsdjm2PiBVVfSHNz wI32JZYoUEZvjd5hhebmaS EsjpHrL0Bkktw4kW6uQZLd YWluXGYxXGZzMjJcbGFuZz EwMzNcaGljaFxmMVxkYmNo FUOsFGibT0uzBqExWcOuLu xwYXJ9 [facility] (THERESA-CoV-2) PCR [id number] 12:16:52 Test Item Value Reference Range Interpretation Comments COVID19 SARS Pre-OR Procedure Indication (test code = 23353) COVID19 SARS Result Not Detected Not Detected (test code = 46988-6) COVID19 SARS SARS-CoV-2 NOT Interpretation (test Detected. Reference code = 19186) Range: Not Detected Methodology: The [facility] High-throughput SARS-CoV-2 RT-PCR Assay is a qualitative RT-PCR test intended for the detection of SARS CoV-2 RNA in nasal, nasopharyngeal and oropharyngeal swabs from individuals who are suspected of COVID-19 by their health care provider. The test utilizes primers and probes for viral N1 and N2 sequences, and controls as characterized in the Centers for Disease Control and Prevention (CDC) 2019-Novel Coronavirus (2019-nCoV) Real-Time Reverse Transcriptase (RT)-PCR Diagnostic Panel. Results must be interpreted within the context of all relevant clinical and laboratory findings, and epidemiological risk factors. Positive results are indicative of the presence of SARS-CoV-2 RNA. Clinical correlation with patient history and other diagnostic information is necessary to determine patient infection status. Positive results do not rule out bacterial infection or co-infection with other viruses. Negative results do not preclude SARS-CoV-2 infection and should not be used as the sole basis for patient management decisions. This test was developed and its performance characteristics were validated by the CLIA-certified, high-complexity Molecular Diagnostics Laboratory (MDL) at [facility] for clinical use under the Food and Drug Administration (FDA) s Emergency Use Authorization. Factsheet for patients: https://www.[facility]. org/CLULB62HYQBsjhzzlzN actsheet for healthcare providers: https://www.[facility]. org/RTZHH74OAYWZK Test performed by:[facility] Molecular Diagnostic [address] [place] [address] [facility]- XR FLUORO FOR SPINE [id number] 21:20:00[facility] : 1945 Sex: F Patient Name: KASIA RICHARDS Unit No: [id number] EXAMS: CPT CODE: [id number] XR FLUORO FOR SPINE INJ 65466 LUMBAR EPIRADICULAR INJECTION REFERRAL PHYSICIAN: None PREOPERATIVE DIAGNOSIS: Lumbar Disc Degeneration and Radiculitis POSTOPERATIVE DIAGNOSIS: Status post L3-S1 fusion with transitional degenerative discs L1-2 and L2-3 with lumbar radiculitis PROCEDURES PERFORMED: Fluoroscopically guided needle localization of the right L1 and left L2 spinal nerves with transforaminal epidurograms and epidural injection of local anesthetic and steroid. FINDINGS: Infraneural approaches were taken at each level. Marked right-sided loss of disc space height is seen at L2-3 and left-sided loss of disc space height at L1-2 with diffuse annular degeneration at both levels. Provocation was negative. Anesthetic response was positive with the patient noting relief of her low back and radiating pain. Preinjection VAS 3/10. Postinjection VAS 0/10. Steroid response pending follow-up. ESTIMATED BLOOD LOSS: Minimal ANESTHESIA: TIVA COMPLICATIONS: None DETAILS OF PROCEDURE: After obtaining stable vital signs, informed consent and IV access, with no contraindications, the patient was taken to the operating room and placedin a prone position with all extremities padded and appropriate monitors placed. The patient was sterilely prepped and draped over the lumbosacral spine. Using fluoroscopic visualization the insertion sites were marked for paravertebral approaches and using standard technique, a 25 gauge needle was advanced to the base of each superior pedicle without paresthesias. Isovue-300 contrast 0.2 mL of was injected incrementally with frequent negative aspirations to produce each epidurogram. There were no signs of intravascular or intrathecal uptake. Intradiscal uptake was seen at each level. Bupivicaine 0.75% 0.25 mL with lidocaine 4% 0.25 mL and triamcinolone 30 mg with kefzol (100 mg/ml) 0.2 ml was then incrementally injected with frequent negative aspirations and again there were no signs of intravascular or intrathecal uptake. The needles were removed and the patient was taken to the PACU in good condition. Image: Image 1 Image: Image 2 at 0 Reported and signed by: Santhosh Hameed M.D. [facility] NAME: KASIA RICHARDS [address] [facility] PHYS: Santhosh Echevarria MD [place], [place] [address] : 1945 AGE: 75 SEX: F LOC: [place] PHONE #: [phone] EXAM DATE: 04/30/2021 STATUS: [facility] [place] FAX #: [phone] RAD #: D/C DT PAGE 1 Signed Report (CONTINUED) Patient Name: MONA RICHARDS Unit No: [id number] EXAMS: CPT CODE: [id number] XR FLUORO FOR SPINE INJ 95780 (Continued) CC: Technologist: Lynn Rodríguez(Rodrigue) Transcribed D/ (2119) Connie [facility] NAME: KASIA RICHARDS [address] [facility] PHYS: Santhosh Echevarria [place] [facility] [place] [id number] : 1945 AGE: 75 SEX: F LOC: [place] PHONE #: [phone] EXAM DATE: 04/30/2021 STATUS: [facility] [place] FAX #: [phone] RAD #: D/C DT PAGE 2 Signed Report Patient Name: KASIA RICHARDS Unit No: [id number] EXAMS: CPT CODE: [id number] XR FLUORO FOR SPINE INJ 28961 () Orig Print D/T: S: 04/30/2021 (2122) [facility] NAME: KASIA RICHARDS [address] [facility] PHYS: Santhosh Echevarria MD [place], [place] [address] : 1945 AGE: 75 SEX: F LOC: [place] PHONE #: [phone] EXAM DATE: 04/30/2021 STATUS: [facility] [place] FAX #: [phone] RAD #: D/C DT PAGE 3 Signed Report- XR FLUORO FOR SPINE [id number] 20:04:00 [facility] : 1945 Sex: F Patient Name: KASIA RICHARDS Unit No: [id number] EXAMS: CPT CODE: [id number] XR FLUORO FOR SPINE INJ 16364 LUMBAR FACET INJECTION DIAGNOSTIC REFERRAL PHYSICIAN: None PREOPERATIVE DIAGNOSIS: Lumbar spondylosis without myelopathy or radiculopathy POSTOPERATIVE DIAGNOSIS: Lumbar spondylosis without myelopathy or radiculopathy PROCEDURE PERFORMED: Fluoroscopically guided needle localization of the bilateral L2-3 and bilateral L5-S1 facets with arthrograms and diagnostic injection of local anesthetic and steroid. FINDINGS: Marked degeneration was seen at all joints greatest bilaterally at L2-3. Provocation with injection was negative. Anesthetic response was positive with the patient noting relief of her low back pain. Preinjection VAS 4/10. Postinjection VAS 0/10. Steroid response pending follow-up. ESTIMATED BLOOD LOSS: Minimal ANESTHESIA: TIVA COMPLICATIONS: None DETAILS OF PROCEDURE: After obtaining stable vital signs, informed consent and IV access patient was taken to the fluoroscopy suite where the patient was placed in a prone position with all extremities padded and appropriate monitors placed. The patient was sterilely prepped prepped and draped over the lumbosacral spine. Using fluoroscopicvisualization, the insertion sites were marked for a paravertebral approach to each joint. Using standard technique, a 26 -gauge needle was inserted into each joint capsule without paresthesias. At alllevels, aspiration was negative for clear serous fluid. Isovue-300 contrast 0.2 mL was injected to produce each arthrogram. There were no signs of intravascular or intrathecal uptake. Bupivicaine 0.75%0.25 mL with Lidocaine 4% 0.25 ml and triamcinolone 16 mg was then injected incrementally into each joint. There were no signs of intravascular or intrathecal uptake. The patient's vital signs remainedstable. All needles were removed and the patient was taken to the PACU in good condition. Image: Image 3 Image: Image 1 Image: Image 2 at 2004 Reported and signed by: Santhosh Hameed M.D. [facility] NAME: KASIA RICHARDS [address] [facility] PHYS: Santhosh Echevarria MD [place], [place] [address] : 1945 AGE: 75 SEX: F LOC: P[place]ALDEN PHONE #: [phone] EXAM DATE: 04/10/2021 STATUS: [facility] [place] FAX #: [phone] RAD #: D/C DT PAGE 1 Signed Report (CONTINUED) Patient Name: KASIA RICHARDS U nit No: [id number] EXAMS: CPT CODE: [id number] XR FLUORO FOR SPINE INJ 26044 (Continued) CC: Technologist: Lynn Rodríguez(R) Transcribed D/ (2003) [facility] NAME: KASIA RICHARDS [address] [facility] [address] PHYS: Santhosh Echevarria MD [place] [address] : 1945 AGE: 75 SEX: F LOC: [place] PHONE #: [phone] EXAM DATE:04/10/2021 STATUS: [facility] [place] FAX #: [phone] RAD #: D/C DT PAGE 2 Signed Report Patient Name: KASIA RICHARDS Unit No: [id number] EXAMS: CPT CODE: [id number] XR FLUORO FOR SPINE INJ 35303 (Continued) Orig Print D/T: S: 04/10/2021 (2006) [facility] NAME: KASIA RICHARDS [address] [facility] [address] PHYS: Santhosh Echevarria MD [place] [address] : 1945 AGE: 75 SEX: F LOC: [place] PHONE #: [phone] EXAM DATE: 04/10/2021 STATUS: [facility] [place] FAX #: [phone] RAD #: D/C DT PAGE 3 Signed Report- XR L-SPINE [id number] 11:58:00 [facility] : 1945 Sex: F Patient Name: KASIA RICHARDS Unit No: [id number] EXAMS: CPT CODE: [id number] XR L-SPINE 4+VIEWS 14769 Lumbar spine 2 views plus flexion and extension COMMENT: Fusion has been performed from L3 to L5. Thereis endplate degenerative change and interspace narrowing from L1 to L3. Mild retrolisthesis is seen at L1-2 and L2- 3. Abnormal motion is present at both levels. at 1158 Reported and signed by: Saji Kingston MD CC: Technologist: RT Piero.(R) Transcribed D/ (7430) [email or web address] [facility] NAME: KASIA RICHARDS [address] [facility] PHYS: WIMDA. - [place] : 1945 AGE: 75 SEX: F [place] [address] LOC: Y.JASVIRL PHONE #: [phone] EXAM DATE: 02/06/2021 STATUS: [facility] [place] FAX #: [phone] RAD #: D/C DT PAGE 1 Signed Report Patient Name: KASIA RICHARDS UnitNo: [id number] EXAMS: CPT CODE: [id number] XR L-SPINE 4+VIEWS 63758 (Continued) Orig Print D/T: S: 02/06/2021 (1201) [facility] NAME: KASIA RICHARDS [address] [facility] PHYS: WIMDA. - [place] : 1945 AGE: 75 SEX: F [place] [address] LOC: Y.MYL PHONE #: [phone] EXAM DATE: 02/06/2021 STATUS: [facility] [place] FAX #: [phone] RAD #: D/C DT PAGE 2 Signed Report- XR MYELOGRAM [id number] 11:45:00 [facility] : 1945 Sex: F Patient Name: KASIA RICHARDS Unit No: [id number] EXAMS: CPT CODE: [id number] XR MYELOGRAM L- SPINE 47020 LUMBAR MYELOGRAM DIAGNOSIS: 1. At L1-2 there is a small ventral extradural defect without lateralization consistent with disc bulging. 2. At L2- 3 there is a small ventral extradural defect and posteriornarrowing with asymmetric underfilling of the right L3 nerve root consistent with lateralizing disc and/or spondylosis. COMMENT: COMPARISON: No prior exams available. After informed consent was obtained the lumbar subarachnoid space was evaluated with 15 mL of Isovue 200 via an oblique L2-3 approach with a 26-gauge spinal needle. This was an atraumatic tap and no immediate complications were encountered. 0.7 minutes of fluoroscopy time was utilized. Ventral and root sleeve defects are as described.CT OF THE LUMBAR SPINE POST MYELOGRAPHY WITH SAGITTAL, CORONAL AND OBLIQUE RECONSTRUCTIONS DIAGNOSIS: 1. At L1-2 there is a slight retrolisthesis and 2 mm of disc bulging with moderate left foraminal narrowing without right- sided stenosis. No canal stenosis is seen. 2. At L2-3 there is a mild retrolis thesis with disc bulging which lateralizes into the left neural foramen and 3 mm. Endplate spur formation lateralizes into the right neural foramen with moderate right foraminal narrowing and mild left-sided stenosis. Mild to moderate central canal stenosis is seen with facet and ligamentum flavum hype rtrophic and degenerative change. 3. At L3-4 there is solid fusion with decompression of the canal. No foraminal narrowing is seen. 4. At L4-5 there is solid fusion with a postsurgical grade 1 spondylolisthesis. Mild right and moderate left foraminal narrowing is seen with decompression of the canal. 5. At L5-S1 there is mild disc bulging without canal or foraminal narrowing. Bilateral facet degeneration is present. COMMENT: COMPARISON: No prior exams available. Scans were performed from L1 to S1 post myelography and reconstructions were obtained. There is a scoliosis convex left. Postsurgical changes are as described. Disc configurations are as described. Spondylitic changes [facility] NAME: KASIA RICHARDS [address] [facility] PHYS: JOO - [place] : 1945 AGE: 75 SEX: F [place] [address] LOC: Y.JASVIRL PHONE #: [phone] EXAM DATE: 02/06/2021 STATUS: [facility] [place] FAX #: [phone] RAD #: D/C DT PAGE 1 Signed Report (CONTINUED) Patient Name: KASIA RICHARDS Unit No: [id number] EXAMS: CPT CODE: [id number] XR MYELOGRAM L-SPINE 92841 (Continued) are as noted. The conus is in the expected location. The description these findings assumes anormal count of 5 lumbar type vertebra. at 1145 Reported and signed by: Saji Kingston MD CC: Technologist: RT. Piero(R)Transcribed D/ (1144) [email or web address] [facility] NAME: KASIA RICHARDS [address] [facility] PHYS: JOO - [place] : 1945 AGE: 75 SEX: F [place], [place] [address] LOC: Y.MYL PHONE #: [phone] EXAM DATE: 02/06/2021 STATUS: [facility] [place] FAX #: [phone] RAD #: D/C DT PAGE 2 Signed Report Patient Name: KASIA RICHARDS Unit No: [id number] EXAMS: CPT CODE: [id number] XR MYELOGRAM L- SPINE 98217 (Continued) Orig Print D/T: S: 02/06/2021 (1148)[facility] NAME: KASIA RICAHRDS [address] [facility] PHYS: WIMDA.Uzair - [place] : 1945 AGE: 75 SEX: F [place], [place] [address] LOC: MERLY PHONE #: [phone] EXAM DATE: 02/06/2021 STATUS: [facility] [place] FAX #: [phone] RAD #: D/C DT PAGE 3 Signed Report- CT L-SPINE W/[id number] 11:45:00[facility] : 1945 Sex: F Patient Name: KASIA RICHARDS Unit No: [id number] EXAMS: CPT CODE: [id number] CT L-SPINE W/CONTRAST 77162 LUMBAR MYELOGRAM DIAGNOSIS: 1. At L1-2 there is a small ventral extradural defect without lateralization consistent with disc bulging. 2. At L2-3 there is a small ventral extradural defect and posterior narrowing with asymmetric underfilling of the right L3 nerve root consistent with lateralizing discand/or spondylosis. COMMENT: COMPARISON: No prior exams available. After informed consent was obtained the lumbar subarachnoid space was evaluated with 15 mL of Isovue 200 via an oblique L2-3 approachwith a 26-gauge spinal needle. This was an atraumatic tap and no immediate complications were encountered. 0.7 minutes of fluoroscopy time was utilized. Ventral and root sleeve defects are as described. CT OF THE LUMBAR SPINE POST MYELOGRAPHY WITH SAGITTAL, CORONAL AND OBLIQUE RECONSTRUCTIONS DIAGNOSIS: 1. At L1-2 there is a slight retrolisthesis and 2 mm of disc bulging with moderate left foraminal narrowing without right-sided stenosis. No canal stenosis is seen. 2. At L2-3 there is a mild retrolisthesis with disc bulging which lateralizes into the left neural foramen and 3 mm. Endplate spur formation lateralizes into the right neural foramen with moderate right foraminal narrowing and mild left-sided stenosis. Mild to moderate central canal stenosis is seen with facet and ligamentum flavum hypertrophic and degenerative change. 3. At L3-4 there is solid fusion with decompression of the canal.No foraminal narrowing is seen. 4. At L4-5 there is solid fusion with a postsurgical grade 1 spondylolisthesis. Mild right and moderate left foraminal narrowing is seen with decompression of the canal.5. At L5-S1 there is mild disc bulging without canal or foraminal narrowing. Bilateral facet degeneration is present. COMMENT: COMPARISON: No prior exams available. Scans were performed from L1 to S1 post myelography and reconstructions were obtained. There is a scoliosis convex left. Postsurgical changes are as [facility] NAME: KASIA RICHARDS [address] [facility] PHYS: [email or web address] - Te Cooper : 1945 AGE: 75 SEX: F [place] [id number] LOC: [facility] PHONE #: [phone] EXAM DATE: 02/06/2021 STATUS: [facility] [place] FAX #: [phone] RAD #: D/C DT PAGE 1 Signed Report (CONTINUED) Patient Name: KASIA RICHARDS Unit No: [id number] EXAMS: CPT CODE: [id number] CT L-SPINE W/CONTRAST 25731 (Continued) described. Disc configurations are as described. Spondylitic changes are as noted. The conus is in the expected location. The description these findings assumes a normal count of 5 lumbar type vertebra. at 1145 Reported and signed by: Saji Kingston MD CC: Technologist: RT Alisson(R) CTDI: DLP: Trnscrpt: 02/06/2021 (0900) [email or web address] [facility] NAME: KASIA RICHARDS [address] [facility] PHYS: Te Caraballo : 1945 AGE: 75 SEX: F [place] [address] LOC: [facility] PHONE #: [phone] EXAM DATE: 02/06/2021 STATUS: [facility] [place] FAX #: [phone] RAD #: D/C DT PAGE 2 Signed Report Patient Name: KASIA RICHARDS Unit No: [id number] EXAMS: CPT CODE: [id number] CT L-SPINE W/CONTRAST 30378 (Continued) Orig Print D/T: S: 02/06/2021 (1148) [facility] NAME: KASIA RICHARDS [address] [facility] PHYS: Te Caraballo : 1945 AGE: 75 SEX: F [place] [phone] LOC: [facility] PHONE#: [phone] EXAM DATE: 02/06/2021 STATUS: [facility] [place] FAX #: [phone] RAD #: D/C DT PAGE 3 Signed ReportBLOOD UREA [id number] 10:09:00 Test Item Value Reference Range Interpretation Comments BLOOD UREA NITROGEN (test code = 18 mg/dL 7-18 BUN) CREATININE W ESTIMATED [id number] 10:09:00 Test Item Value Reference Range Interpretation Comments GLOMERULAR FILTRATION 54.3 >60 Unit o f measure: RATE (test code = GFR) mL/mi n/1.73 [id number] Range:Healthy A dults >90 mL/min/1.73 m2 For Chronic Kid manjeet Disease: Stage II Mild Decrease i n GFR 60-90 Stage III Moderate Decrea se in GFR 30-59 Stage IV Severe Decrease in GFR 15-29 Stage V Kidney Failure <15Unit of aries ure: mL/min/1.73 [id number] Range:Healthy A dults >90 mL/min/1.73 m2 For Chronic Kid manjeet Disease: Stage II Mild Decrease i n GFR 60-90 Stage III Moderate Decrea se in GFR 30-59 Stage IV Severe Decrease in GFR 15-29 Stage V Kidney Failure <15 CREATININE (test code = 1.0 mg/dL 0.5-1.0 CREAT) BLOOD UREA [id number] 10:09:00 Test Item Value Reference Range Interpretation Comments BLOOD UREA NITROGEN (test code = 18 mg/dL -18 N BUN) CREATININE W ESTIMATED [id number] 10:09:00 Test Item Value Reference Range Interpretation Comments GLOMERULAR FILTRATION RATE (test 54 ml/min >60 L code = GFR) CREATININE (test code = CREAT) 1.0 mg/dL 0.5-1.[address] SPECT (EG, HEAD, NECK, CHEST, PELVIS) SINGLE AREA [[id number]]2021-02-05 09:50:40[facility] : 1945 Sex: FCLINICAL INDICATIO N: M54.16 Radiculopathy, lumbar regionMODALITY: Discovery NM/CT 670TECHNIQUE: 25 mCi Tc 99m MDP are injected IV. After a suitable time delay, whole body imaging images were obtained. SPECT imaging of the lumbar spine is performed with computer and physician-assisted 2-D and 3-D reconstruction. Co-registered low dose limited diagnostic CT images are obtained at the level of SPECT imaging.Computed Tomography Dose Index: 5.44 mGy.FINDINGS:COMPARISON: Fusion CT exam.CT Comments: None.Single right kidneyis demonstrated.Mild to moderate arthritic uptake is noted bilateral shoulders and hips. There is moderate uptake noted over the right greater trochanter. Mild to moderate maxillary and mandibular periodontal uptake is observed. Neurostimulator device is present.SPECT CT fusion imaging of the lumbar spine demonstrates at least moderate uptake at the right L2-3 intervertebral disc to be present. Mild to moderate uptake is noted at the left L1-2 intervertebral disc. Mild to moderate bilateral inferiorSI joint activity is seen. Moderate - severe uptake is present at the right L3-4 facet. There is mild to moderate uptake noted at the left L5- S1 facet. Mild uptake is noted at the left L3-4 facet.IMPRESSION:See comments above.PQRS 147: 3570FHGB [id number] 06:19:00 Test Item Value Reference Range Interpretation Comments HEMOGLOBIN (test code = HGB) 10.7 g/dL 10.7-13.9 HEMATOCRIT (test code = HCT) 32.5 % 32.1-42.1 HGB [id number] 06:19:00 Test Item Value Reference Range Interpretation Comments HEMOGLOBIN (test code = HGB) 10.7 g/dL 10.7-13.9 N HEMATOCRIT (test code = HCT) 32.5 % 32.1-42.1 N HGB [id number] 07:16:00 Test Item Value Reference Range Interpretation Comments HEMOGLOBIN (test code = HGB) 10.9 g/dL 12-16 L HEMATOCRIT (test code = HCT) 30.0 % 37-47 L BASIC METABOLIC [id number] 06:23:00 Test Item Value Reference Range Interpretation Comments SODIUM (test code = 144 mmol/L 136-145 N NA) POTASSIUM (test code = 5.0 mmol/L 3.5-5.1 N K) CHLORIDE (test code = 107.0 mmol/L 98-107 N CL) CARBON DIOXIDE (test 25.5 mmol/L 21-32 N code = CO2) GLUCOSE (test code = 197 mg/dL 70-110 H GLU) BLOOD UREA NITROGEN 10 mg/dL 7-18 N (test code = BUN) GLOMERULAR FILTRATION 65.0 >60 Unit o f measure: RATE (test code = GFR) mL/mi n/1.73 [id number] Range:Healthy Adults >90 mL/min/1.73 m2 For Chronic Kidney Disease: Stage II Mild Decrease i n GFR 60-90 Stage III Moderate Decrea se in GFR 30-59 St age IV Severe Decre ase in GFR 15-29 St age V Kidney Failur e <15 CREATININE (test code 0.86 mg/dL 0.55-1.30 N = CREAT) CALCIUM (test code = 8.9 mg/dL 8.2-10.1 N CA) HGB [id number] 05:54:00 Test Item Value Reference Range Interpretation Comments HEMOGLOBIN (test code = HGB) 10.9 g/dL 12-16 L HEMATOCRIT (test code = HCT) 30.3 % 37-47 L URINALYSIS [id number] 12:48:00 Test Item Value Reference Range Interpretation Comments UA COLOR (test code = COLU) YELLOW YELLOW UA APPEARANCE (test code = CLOUDY CLEAR APPU) UA GLUCOSE DIPSTICK (test code NEGATIVE NEGATIVE = DGLUU) UA BILIRUBIN DIPSTICK (test NEGATIVE NEGATIVE code = BILU) UA KETONE DIPSTICK (test code NEGATIVE mg/dL NEG = KETU) UA SPECIFIC GRAVITY (test code >= 1.030 1.003-1.035 = SGU) UA BLOOD DIPSTICK (test code = NEGATIVE NEGATIVE ZEE) UA PH DIPSTICK (test code = 6.0 >6.5 ANGELA) UA PROTEIN DIPSTICK (test code NEGATIVE mg/dL NEG = PROU) UA UROBILINIOGEN DIPSTICK 0.2 mg/dL NORM (test code = URO) UA NITRITE DIPSTICK (test code NEGATIVE NEG = KADY) UA LEUKOCYTE ESTERASE DIPSTICK NEGATIVE NEGATIVE (test code = LEUU) UA WBC (test code = WBCU) NONE SEEN /HPF 0-2 UA RBC (test code = RBCU) NONE SEEN /HPF 0-2 UA EPITHELIAL CELLS (test code 2-5 /HPF 0-2 = EPIU) UA BACTERIA (test code = BACU) FEW /HPF NONE UA CALCIUM OXALATE CRYSTALS TNTC #/HPF NONE SEEN (test code = CAOXU) BASIC METABOLIC [id number] 11:25:00 Test Item Value Reference Range Interpretation Comments SODIUM (test code = 143 mmol/L 136-145 N NA) POTASSIUM (test code = 3.7 mmol/L 3.5-5.1 N K) CHLORIDE (test code = 108.0 mmol/L 98-107 H CL) CARBON DIOXIDE (test 26.7 mmol/L 21-32 N code = CO2) GLUCOSE (test code = 106 mg/dL 70-110 N GLU) BLOOD UREA NITROGEN 19 mg/dL 7-18 H (test code = BUN) GLOMERULAR FILTRATION 60.2 >60 Unit o f measure: RATE (test code = GFR) mL/mi n/1.73 [id number] Range:Healthy Adults >90 mL/min/1.73 m2 For Chronic Kidney Disease: Stage II Mild Decrease i n GFR 60-90 Stage III Moderate Decrea se in GFR 30-59 St age IV Severe Decre ase in GFR 15-29 S tage V Kidney Failur e <15 CREATININE (test code 0.92 mg/dL 0.55-1.30 N = CREAT) CALCIUM (test code = 8.6 mg/dL 8.2-10.1 N CA) CBC W/AUTO [id number] 10:55:00 Test Item Value Reference Range Interpretation Comments WHITE BLOOD CELL (test code = WBC) 5.0 K/mm3 5.8-11.0 L RED BLOOD CELL (test code = RBC) 3.82 M/mm3 4.2-5.4 L HEMOGLOBIN (test code = HGB) 12.6 g/dL 12-16 N HEMATOCRIT (test code = HCT) 37.1 % 37-47 N MEAN CELL VOLUME (test code = MCV) 97 fL 80-98 N MEAN CELL HGB (test code = MCH) 33.0 pg 27-34 N MEAN CELL HGB CONCENTRATION (test 34.0 g/dL 30.8-34.1 N code = MCHC) RED CELL DISTRIBUTION WIDTH (test 13.5 % 11-16 N code = RDW) PLT (test code = PLT) 236 K/mm3 130-400 N MEAN PLATELET VOLUME (test code = 10.0 fL 8.9-12.1 N MPV) NEUTROPHIL % (test code = NT%) 56.9 % 45-70 N LYMPHOCYTE % (test code = LY%) 25.2 % 20-40 N MONOCYTE % (test code = MO%) 12.5 % 3-10 H EOSINOPHIL % (test code = EO%) 4.0 % 1-5 N BASOPHIL % (test code = BA%) 1.0 % 0.0-1.1 N NEUTROPHIL # (test code = NT#) 2.82 K/mm3 2.00-7.50 N LYMPHOCYTE # (test code = LY#) 1.25 K/mm3 1.50-4.00 L MONOCYTE # (test code = MO#) 0.62 K/mm3 0.2-0.8 N EOSINOPHIL # (test code = EO#) 0.20 K/mm3 0.04-0.4 N BASOPHIL # (test code = BA#) 0.05 K/mm3 0.02-0.10 N MANUAL DIFF REQUIRED (test code = NO MANUAL DIFF MDIFF) NUCLEATED RED BLOOD CELL (test 0 % 0-0 N code = NRBC) NM BONE SPECT [id number] 11:14:19CLINICAL INDICATION: M43.26 Fusion of spine, lumbar regionMODALITY: Discovery NM/CT 670TECHNIQUE: 25mCi Tc 99m MDP are injected IV. After a suitable time delay, whole body imaging images were obtained. SPECT imaging of the lumbar spine is performed with computer and physician-assisted 2-D and 3-D reconstruction. Co-registered low dose limited diagnostic CT images are obtained at the level of SPECT imaging.Computed Tomography Dose Index: 5.44 mGy.FINDINGS:COMPARISON: Fusion CT exam.CT Comments: Previous bone scan and MRI performed 10/2016.Note is made of a left nephrectomy.Diffuse calvarial hyperostosis is observed. Mild to moderate periodontal uptake is noted, left maxilla and bilateral mandible.Mild to moderate arthritic uptake is present bilateral shoulders, right sternoclavicular joint. Thereis moderate uptake noted at the greater trochanter of the right femur. Mild symmetric knee arthritisis seen.SPECT CT fusion imaging of the lumbar spine is reviewed. Global fusion is demonstrated L3-L5, with wide L4 laminectomy. Trans pedicle screws are noted at the L3-4 level. Mild to moderate localization is noted at the anterior aspect of the L3-4 intervertebral discectomy fusion. Moderate bilateral L3-4 facet uptake is seen, with activity extending along the right L3 trans pedicle screw into theL3 vertebral body. Mild to moderate symmetric uptake is noted at the inferior SI joints bilaterally.I MPRESSION:1. Stable chondroid lesion right greater trochanter.2. See additional comments above.PQRS 147: 3570F- XR FLUORO FOR SPINE [id number] 17:40:00 Patient Name: KASIA RICHARDS Unit No: [id number] EXAMS: CPT CODE: [id number] XR FLUORO FOR SPINE INJ 09356 LUMBAR FACET INJECTION DIAGNOSTIC REFERRAL PHYSICIAN: Faith Auguste M.D. PREOPERATIVE DIAGNOSIS: Mechanical low back pain POSTOPERATIVE DIAGNOSIS: Minimal symptomatic bilateral L5-S1 facets PROCEDURE PERFORMED: Fluoroscopically guided needle localization of the bilateral L5-S1 facets with arthrograms and diagnostic injection of local anesthetic and steroid. FINDINGS: The right L5-S1 facet showed mild capsular degeneration mild joint hypertrophy. The left L5-S1 facets may be partially an kylosed with limited intra-articular filling. Provocation with injection was negative. Anesthetic response was negative with the patient having persistent low back and tailbone pain. Preinjection VAS 3/10. Postinjection VAS 3/10. Steroid response pending follow-up. ESTIMATED BLOOD LOSS: Minimal ANESTHESIA: TIVA COMPLICATIONS: None DETAILS OF PROCEDURE: After obtaining stable vital signs, informed consent and IV access patient was taken to the fluoroscopy suite where the patient was placed in a prone position with All extremities padded and appropriate monitors placed. The patient was sterilely prepped prepped and draped over the lumbosacral spine. Using fluoroscopic visualization, the insertion sites were marked for a paravertebral approach to each joint. Using standard technique, a 25 -gauge needle was inserted into each joint capsule without paresthesias. At all levels, aspiration was negative for clear serous fluid. Isovue-300 contrast 0.2 mL was injected to produce each arthrogram. There were no signs of intravascular or intrathecal uptake. Bupivicaine 0.75% 0.5 mL with Lidocaine 4% 0.25 ml and triamcinolone 20 mg was then injected incrementally into each joint. There were no signs of int ravascular or intrathecal uptake. The patient's vital signs remained stable. All needles were removed and the patient was taken to the PACU in good condition. at 2973 Reported and signed by: Santhosh Hameed M.D. CC: Santhosh Hameed MD Technologist: LETY GASTON RT(R) Transcribed D/ (7039) Connie.ALETA [facility] NAME: KASIA RICHARDS [address] [facility] PHYS: Santhosh Echevarria MD [place], [place] [address] : 1945 AGE: 73 SEX: F LOC: [place] PHONE #: [phone] EXAM DATE: 05/05/2019 STATUS: REG SDC FAX #: [phone] RAD #: D/C DT PAGE 1 Signed Report Patient Name: KASIA RICHARDS Unit No: [id number] EXAMS: CPT CODE: [id number] XR FLUORO FOR SPINE INJ 23471 (Continued) Orig Print D/T: S: 05/05/2019 (1743) [facility] NAME: KASIA RICHARDS [address] [facility] PHYS: Santhosh Echevarria MD [place], [place] [address] : 1945 AGE: 73 SEX: F LOC: [place] PHONE #: [phone] EXAM DATE: 05/05/2019 STATUS: REG SDC FAX #: [phone] RAD #: D/C DT PAGE 2 Signed Report- XR FLUORO FOR SPINE [id number] 15:59:00 Patient Name: KASIA RICHARDS Unit No: [id number] EXAMS: CPT CODE: [id number] XR FLUORO FOR SPINE INJ 06869 LUMBAR EPIRADICULAR INJECTION REFERRAL PHYSICIAN: Faith Auguste M.D. PREOPERATIVE DIAGNOSIS: Lumbar Radiculitis POSTOPERATIVE DIAGNOSIS: Transitional L2-3 disc degeneration with stenosisand right lower extremity radicular pain status post L3-4 AP fusion PROCEDURES PERFORMED: Fluoroscopically guided needle localization of the right L2 and right L3 spinal nerves with transforaminal epidurograms and epidural injection of local anesthetic and steroid. FINDINGS: Excellent flow seen through the foramen at L2-3 and proximally. The L3 level showed good flow through the foramen but limited flow in the right L2-3 lateral recess. Moderate anterior epidural displacement is seen across the L2-3disc. Provocation was negative. Anesthetic response was positive with the patient noting complete relief of her right low back and thigh pain. Preinjection VAS 9/10. Postinjection VAS 0/10. Steroid response pending follow-up. ESTIMATED BLOOD LOSS: Minimal ANESTHESIA: TIVA COMPLICATIONS: None DETAILS OF PROCEDURE: After obtaining stable vital signs, informed consent and IV access, with no contraindications, the patient was taken to the operating room and placed in a prone position with all extremities padded and appropriate monitors placed. The patient was sterilely prepped and draped over the lumbosacral spine. Using fluoroscopic visualization the insertion sites were marked for paravertebral approaches and using standard technique, a 25 gauge needle was advanced to the base of each pedicle without paresthesias. Isovue-300 contrast 0.2 mL of was injected incrementally with frequent negative aspirations to produce each epidurogram. There were no signs of intravascular or intrathecal uptake. Bupivicaine 0.75% 0.25 mL with lidocaine 4% 0.5 mL and Decadron 8 mg was then incrementally injected with frequent negative aspirations and again there were no signs of intravascular or intrathecal uptake.The needles were removed and the patient was taken to the PACU in good condition. at 1559 Reported and signed by: Santhosh Hameed M.D. CC: Santhosh Hameed MD Technologist: LIO TIRADO RT(R) Transcribed D/ (6891)Connie [facility] NAME: KASIA RICHARDS [address] [facility] PHYS: Santhosh Echevarria MD [place], [place] [address] : 1945 AGE: 73 SEX: F LOC: [place] PHONE #: [phone] EXAM DATE: 03/23/2019 STATUS: [facility] [place] FAX #: [phone] RAD #: D/C DT PAGE 1 Signed Report Patient Name: KASIA RICHARDS Unit No: [id number] EXAMS: CPT CODE: [id number] XR FLUORO FORSPINE INJ 29132 (Continued) Orig Print D/T: S: 03/23/2019 (7212) [facility] NAME: KASIA RICHARDS [address] [facility] PHYS: MARCIALSAMANTHA Santhosh Weeks MD [place], [place] [address] : 1945 AGE: 73 SEX: F LOC: [place] PHONE #: [phone] EXAM DATE: 03/23/2019 STATUS: [facility] [place] FAX #: [phone] RAD #: D/C DT PAGE 2 Signed Report- MRI PELVIS W/O [id number] 11:22:00 Patient Name: KASIA RICHARDS Unit No: [id number] EXAMS: CPT CODE: [id number] MRI PELVIS W/O CONT 15570 TECHNIQUE: Multiplanar, multisequence MRI of the pelvis without contrast. COMPARISON: Lumbar spine MRI dated 02/20/2019 FINDINGS: Muscle and tendons: Muscle volume and signal intensity are preserved.Low-grade tears of bilateral gluteus medius tendons are visualized. No significant tendon retraction. Pelvic musculature is normal in size and signal intensity. Hamstring tendinosis is noted bilaterally. Hip joints: No significant joint effusion. No evidence of femoral head osteonecrosis. No evidence of high-grade cartilage loss. Subtle linear signal within the right superior labrum could represent alabral tear. Sacroiliac joints/ spine: Sacroiliac joints are within normal limits. See recent MRI for evaluation of the lumbar spine. Bone: A round intraosseous lesion of the right proximal femur is centered within the greater trochanter and measures 3.4 cm transversely and 2.9 cm in craniocaudal dimension. The lesion demonstrates a hyperintense lobulated border, most compatible with a low-grade chondroid lesion. No acute fracture is visualized. No other focal lesion. Intrapelvic structures: No significant abnormality. IMPRESSION: 1. Lobulated lesion within the right proximal femur measuring up to 3.4 cm, most compatible with a low-grade chondroid lesion. 2. No fracture visualized. 3. Other chronic findings as above. at 1122 Reported and signed by: Deshawn Cruz M.D. CC: Faith Auguste M.D. Technologist: Amber Nelson, RT(R) Transcribed D/ (1122) [email or web address] [facility] NAME: KASIA RICHARDS [address] [facility] PHYS: Matty Sena MD : 1945 AGE: 73 SEX: F [place], [place] [address] LOC: Y.MRI PHONE #: [phone] EXAM DATE: 03/10/2019 STATUS: DEP CLI FAX #: [phone] RAD #: D/C DT PAGE 1 Signed Report Patient Name: KASIA RICHARDS Unit No: [id number] EXAMS: CPT CODE: [id number] MRI PELVIS W/O CONT 78680 (Continued) Orig Print D/T: S: 03/13/2019 (1125) [facility] NAME: KASIA RICHARDS [address] [facility] PHYS: Matty Sena MD : 1945 AGE: 73 SEX: F [place], [place] [address] LOC: Y.MRI PHONE #: [phone] EXAM DATE: 03/10/2019 STATUS: DEP CLI FAX #: [phone] RAD #: D/C DT PAGE 2 Sign ed Report- CT L-SPINE W/O [id number] 13:46:00 Patient Name: KASIA RICHARDS Unit No: [id number] EXAMS: CPT CODE: [id number] CT L-SPINE W/O CONTRAST 18021 DIAGNOSIS: 1. At L1-2 there is no evidence for disc bulge or herniation, bony canal or foraminal stenosis. 2. At L2-3 there is a mild retrolisthesis and associated disc bulging with mild narrowing of the central canal. Mild right foraminal narrowing is seen without left-sided stenosis. 3. At L3-4 patient is status post discectomy and graft with solid posterior lateral fusion bilaterally. Decompression of the canal is noted. No foraminal narrowing is seen. 4. At L4-5 the patient is status post discectomy and graft with a grade 1 spondylolisthesis. Solid anterior fusion is seen as well as right posterior lateral fusion. Decompression of the canal is noted. Mild left foraminal narrowing is seen without right-sided stenosis. 5. At L5-S1 there is no evidence for disc bulge or herniation, bony canal or foraminal stenosis. Asymmetric left facet degeneration is present. COMMENT: COMPARISON: August 02, 2017 Scans were performed from L1 to S1 without contrast and reconstructions were obtained. Postsurgical changes are as noted. Disc configurations are as described. Spondylitic changes are as noted.. The description the levels of these findings is consistent with the prior exam. at 1346 Reported and signed by: Saji Kingston MD CC: Faith Auguste M.D. Technologist: Ishaan Kearns,RT(R) CTDI: DLP: Trnscrpt: 02/20/2019 (5160) tOLGA LIDIA [facility] NAME: KASIA RICHARDS [address] [facility] PHYS: Matty Sena MD : 1945 AGE: 73 SEX: F [place] [address] : Y.MRI PHONE #: [phone] EXAM DATE: 02/20/2019 STATUS: REG CLI FAX #: [phone] RAD #: D/C DT PAGE 1 Signed Report Patient Name: KASIA RICHARDS Unit No: [id number] EXAMS: CPT CODE: [id number] CT L-SPINE W/O CONTRAST 53397 (Continued) Orig Print D/T: S: 02/20/2019 (0270) [facility] NAME: KASIA RICHARDS [address] [facility] PHYS: Matty Sena MD : 1945 AGE: 73 SEX: F [place] [address] LOC: Y.MRI PHONE #: [phone] EXAM DATE: 02/20/2019 STATUS: REG CLI FAX #: [phone] RAD #: D/C DT PAGE 2 Signed Report- CT L-SPINE W/O [id number] 13:46:00 Patient Name: KASIA RICHARDS Unit No: [id number] EXAMS: CPT CODE: [id number] CT L-SPINE W/O CONTRAST 16661 DIAGNOSIS: 1. At L1-2 there is no evidence for disc bulge or herniation, bony canal or foraminal stenosis. 2. At L2-3 there is a mild retrolisthesis and associated disc bulging with mild narrowing of the central canal. Mild right foraminal narrowing is seen without left-sided stenosis. 3. At L3-4 patient is status post discectomy and graft with solid posterior lateral fusion bilaterally. Decompression of the canal is noted. No foraminal narrowing is seen. 4. At L4-5 the patient is status post discectomy and graft with a grade 1 spondylolisthesis. Solid anterior fusion is seen as well as right posterior lateral fusion. Decompression of the canal is noted. Mild left foraminal narrowing isseen without right-sided stenosis. 5. At L5-S1 there is no evidence for disc bulge or herniation, bony canal or foraminal stenosis. Asymmetric left facet degeneration is present. COMMENT: COMPARISON: S justice 2016 Scans were performed from L1 to S1 without contrast and reconstructions were obtained. Postsurgical changes are as noted. Disc configurations are as described. Spondylitic changes areas noted.. The description the levels of these findings is consistent with the prior exam. at 1346 Reported and signed by: Saji Kingston MD CC: Faith Auguste M.D. Technologist: RT Alisson(R) CTDI: DLP: Trnscrpt: 02/20/2019 (3903) [email or web address] [facility] NAME: KASIA RICHARDS [address] [facility] PHYS: Matty Sena MD : 1945 AGE: 73 SEX: F [place] [address] LOC: Y.MRI PHONE #: [phone] EXAM DATE: 02/20/2019 STATUS: REG CLI FAX #: [phone] RAD #: D/C DT PAGE 1 Signed Report Patient Name: KASIA RICHARDS Unit No: [id number] EXAMS: CPT CODE: [id number] L-SPINE W/O CONTRAST 78364 (Continued) Orig Print D/T: S: 02/20/2019 (1350) [facility] NAME: KASIA RICHARDS [address] [facility] PHYS: Matty Sena MD : 1945 AGE: 73 SEX: F [place] [address] LOC: Y.MRI PHONE #: [phone] EXAM DATE: 02/20/2019 STATUS: REG CLI FAX #: [phone] RAD #: D/C DT PAGE 2 Signed Report- MRI L-SPINE W/O [id number] 13:30:00 Patient Name: KASIA RICHARDS Unit No: [id number] EXAMS: CPT CODE: [id number] MRI L-SPINE W/O [id number] DIAGNOSIS: 1. At L1-2 there is 2 mm of disc bulging lateralizing into the left neural foramen with mild left foraminal narrowing. No canal or right foraminal stenosis is seen. There is no change since the previous examination of March 04, 2018. 2. At L2-3 there is 3 mm of disc bulging lateralizing right posterior lateral and foraminal with mild retrolisthesis and mild right foraminal narrowing.There is slight disc bulging in the left neural foramen with mild narrowing. Mild narrowing of the central canal is present with facet and ligamentum flavum hypertrophic and degenerative change. 3. At L3-4 the patient is status post discectomy and graft with decompression of the canal. No foraminal narrowing is seen. 4. At L4-5 the patient is status post discectomy and graft with a mild spondylolisthesis. Decompression of the canal is noted. There is mild right foraminal narrowing without left-sidedstenosis. 5. At L5-S1 there is no evidence for disc bulge or herniation, bony canal or foraminal yany nosis. COMMENT: COMPARISON: March 04, 2018 Scans were performed in the sagittal and axial planes utilizing T1, T2 and inversion recovery images. Postsurgical changes are seen from L3 to L5. Endplate and disc degeneration is seen from L1 to L3. Scoliosis convex left is present. Disc configurations are as described. Spondylitic changes are as noted. The conus is in the expected location. The description the levels of these findings is consistent with the prior exam. at 1330 Reported and signed by: Saji Kingston MD CC: Faith Auguste M.D. Technologist: AAKASH JORGE RT(R) Transcribed D/ (4930) Candy [facility] NAME: KASIA RICHARDS [address] [facility] PHYS: RONALDO - Matty Auguste BMD : 1945 AGE: 73 SEX: F [place] [address] LOC: Y.MRI PHONE #: [phone] EXAM DATE: 02/20/2019 STATUS: REG CLI FAX #: [phone] RAD #: D/C DT PAGE 1 Signed Report Patient Name: KASIA RICHARDS Unit No: [id number] EXAMS: CPT CODE: [id number] MRI L-SPINE W/O CONT 52493 (Continued) Orig Print D/T: S: 02/20/2019 (1333) [facility] NAME: KASIA RICHARDS [address] [place] [address] PHYS: Matty Sena MD : 1945 AGE: 73 SEX: F [place] [address] LOC: Y.MRI PHONE #: [phone] EXAM DATE: 02/20/2019 STATUS: REG CLI FAX #: [phone] RAD #: D/C DT PAGE 2 Signed Report Notes Date/Time Note Provider Source 2019-08-18 07:31:00-00:00 [id number] [place] [address] PATIENT NAME: KASIA RICHARDS ADMIT DATE: 07/17 05/03 ACCOUNT NO: [id number] ROOM NO: Y.515 AGE: 73 REPORT TYPE: OPERATIVE REPORT SEX: F ADMITTING PHYSICIAN:Matty Auguste MD ATTENDING PHYSICIAN:Matty Auguste MD OPERATION DATE: 08/10/2019 ADDENDUM TO THE OPERATIVE REPORT: Confirmation #[id number], DID #[id number]. The patient was admitted to the hospital for exc essive drainage post-hardware removal and from her drains, the patient had bee n seen and evaluated in my hardware removal and a redo decompression, had necessitated the hardware removal because of continued pain and continued radiculopathy into her lower extremity despite what appeared to be a fusion at L3-L4 an d L4-L5. The patient also had radicular component, which was residual and unde rwent a redo decompression, which also medically necessary because of the se verity of the pain, but the patient was unable to sit, stand, walk, or funct ion. The hardware was removed and at the time of the hardware removal, it was necessary to explore the nerve roots to ensure there was no residual compressio n, the compression upon the nerve roots because of the patient's inability t o function. The hardware removal, the decompression, AND exploration of t he fusion were all medically necessary secondary to the severity of the pain. The patient's postoperative hospital stay in inpatient admission was deemed necessary secondary to the amount of drainage from her drains and the patient's pain control, which was not adequate to send the patient home until the thir d postoperative day. Dictated By: Matty Auguste MD WT: OP:DIRK/WILJB/NTS Conf#: [id number]#: [id number] Authenticated by Matty Auguste MD On 07/2019 08:01:34 AM Electronically Signed by Matty Auguste MD o n 08/23/19 at 0801 PATIENT NAME: KASIA RICHARDS [id number] [birth year] 10:49:00-00:00 [facility] Discharge Summary REPORT#:[id number] REPORT STATUS: Signed DATE:08/13/19 TIME: 1049 PATIENT: KASIA RICHARDS UNIT #: [id number] ROOM/BED: Y.515-A : 47 AGE: 73 SEX: F ATTEND: Matty Auguste MD ADM AUTHOR: Caleb Quintana * ALL edits or amendments must be made on the el [employer]/computer document * General Information Date of discharge: 08/13/19 Hospital course: Surgeon: MD Molina Marketing Writer: ACE Quintana Preadmission Diagnosis: Lumbar Radiculopathy Postadmission Diagnosis: Lumbar Radiculopathy Procedure Preformed: Removal of hardware , exploration of fusion, Redo LLD L3-4 and L4-5 Significant Findings: None Complications: None The patient was taken from the OR to the Recover y room in stable condition Hospital Course: The patient was admitted to the hospital for the aforementioned procedure. Postoperative course was unr emarkable. The patient was up and ambulatory, taking well a regular diet and voiding without difficulty. Labs were stable. Incision was clean and dry. Patient was to be discharged home and begin a walking exercise program. Patient was given general prec autions for bending, lifting, twisting and turning. Infection and neurological warnings were given. The patient was given instructions for bathing, brace wear, wound care and to return to clinic f or follow up in 3 weeks. Discharge medications include pain medicine, mus nilson relaxers, steroids and antibiotics. The patient was to call the office with any problems or difficulties post the time of discharge to home. Intraoperative findings and expected outcome were discussed. Potential probl ems at other levels were discussed as well. The patient understood each o f these things at the time of discharge to home. Med Rec Med Rec Discharge meds: Continue taking these medications: traZODone (DESYREL) 100 MG TAB 100 MILLIGRAM ORAL BEDTIME. PRAMIPEXOLE ER (MIRAPEX ER) 0.75 MG TAB.SR.24H 1 MILLIGRAM ORAL BEDTIME. PARoxetine (PAXIL) 30 MG TAB 30 MILLIGRAM ORAL DAILY. RANITIDINE (ZANTAC) 150 MG TAB 150 MILLIGRAM ORAL TWICE DAILY. ATORVASTATIN (LIPITOR) 20 MG TAB 20 MILLIGRAM ORAL DAILY. TELMISARTAN (MICARDIS) 40 MG TAB 40 MILLIGRAM ORAL DAILY. HYDROcodone/APAP (NORCO 5/325) 1 TAB TAB 1 TABLET ORAL TWICE DAILY NEEDED. as needed for PAIN traMADol (ULTRAM) 50 MG TAB 50 MILLIGRAM ORAL EVERY 8 HR NEEDED. as need ed for PAIN [THC GUMMIES] (Unknown Strength) Unknown Dose Comments: MARIJUANA GUMMIES TO HELP WITH PAIN, TAKES THEM VERY SELDOM Electronically Signed by Caleb Quintana on at 1050 RPT #:[id number] END OF REPORT 2019-08-13 10:49:00-00:00 [facility] Discharge Summary REPORT#:[id number] REPORT STATUS: Signed DATE:08/13/19 TIME: 1049 PATIENT: KASIA RICHARDS UNIT #: [id number] ROOM/BED: [facility] : 47 AGE: 73 SEX: F ATTEND: Matty Auguste MD ADM AUTHOR: Caleb Quintana * ALL edits or amendments must be made on the [employer]/computer document * General Information Date of discharge: 08/13/19 Hospital course: Surgeon: MD Molina Marketing Writer: ACE Quintana Preadmission Diagnosis: Lumbar Radiculopathy Postadmission Diagnosis: Lumbar Radiculopathy Procedure Preformed: Removal of hardware , exploration of fusion, Redo LLD L3-4 and L4-5 Significant Findings: None Complications: None The patient was taken from the OR to the Recover y room in stable condition Hospital Course: The patient was admitted to the hospital for the aforementioned procedure. Postoperative course was unr emarkable. The patient was up and ambulatory, taking well a regular diet and voiding without difficulty. Labs were stable. Incision was clean and dry. Patient was to be discharged home and begin a walking exercise program. Patient was given general prec autions for bending, lifting, twisting and turning. Infection and neurological warnings were given. The patient was given instructions for bathing, brace wear, wound care and to return to clinic f or follow up in 3 weeks. Discharge medications include pain medicine, mus nilson relaxers, steroids and antibiotics. The patient was to call the office with any problems or difficulties post the time of discharge to home. Intraoperative findings and expected outcome were discussed. Potential probl ems at other levels were discussed as well. The patient understood each o f these things at the time of discharge to home. Med Rec Med Rec Discharge meds: Continue taking these medications: traZODone (DESYREL) 100 MG TAB 100 MILLIGRAM ORAL BEDTIME. PRAMIPEXOLE ER (MIRAPEX ER) 0.75 MG TAB.SR.24H 1 MILLIGRAM ORAL BEDTIME. PARoxetine (PAXIL) 30 MG TAB 30 MILLIGRAM ORAL DAILY. RANITIDINE (ZANTAC) 150 MG TAB 150 MILLIGRAM ORAL TWICE DAILY. ATORVASTATIN (LIPITOR) 20 MG TAB 20 MILLIGRAM ORAL DAILY. TELMISARTAN (MICARDIS) 40 MG TAB 40 MILLIGRAM ORAL DAILY. HYDROcodone/APAP (NORCO 5/325) 1 TAB TAB 1 TABLET ORAL TWICE DAILY NEEDED. as needed for PAIN traMADol (ULTRAM) 50 MG TAB 50 MILLIGRAM ORAL EVERY 8 HR NEEDED. as need ed for PAIN [THC GUMMIES] (Unknown Strength) Unknown Dose Comments: MARIJUANA GUMMIES TO HELP WITH PAIN, TAKES THEM VERY SELDOM Electronically Signed by Caleb Quintana on at 1050 at 1155 RPT #:[id number] END OF REPORT 2019-08-13 10:47:00-00:00 [facility] Clinical Note REPORT#:[id number] REPORT STATUS: Signed DATE:08/13/19 TIME: 1047 PATIENT: KASIA RICHARDS UNIT #: [id number] ROOM/BED: [address] : 47 AGE: 73 SEX: F ATTEND: Matty Auguste MD ADM AUTHOR: Caleb Quintana * ALL edits or amendments must be made on the [employer]/computer document * Clinical Note Note: Patient doing well. Afebrile. Vitals stable. Amb ulating well. Laboratory Tests 08/13 0438 Hematology Hgb (10.7 - 13.9 g/dL) 10.7 Hct (32.1 - 42.1 %) 32.5 Vital Signs Date Temp Pulse Resp B/P B/P Mean Pulse Ox FiO2 08/12-08/13 97.2-99.0 67-81 16-18 136-163/64-80 0.0-102 95-99 32 Intake Output 08/13 0700 08/12 2300 08/12 1500 Intake Total 270.00 90.00 Output Total 20 40 60 Balance 250.00 50.00 -60 Intake, IV 270.00 90.00 Number 5 Bowel Movements Number Voids 1 1 Output, 20 40 60 Drainage Exam: Neuro Intact Impression: Post Op Removal of hardware, explora tion of fusion, redo LLD L3-4 and L4-5 Plan: DC Drains Change Dressing DC to Home post good po, void and ambulating Send with home Rx Return to clinic in 3 weeks Electronically Signed by Caleb Quintana on at 1048 RPT #:[id number] END OF REPORT 2019-08-13 10:47:00-00:00 [facility] Clinical Note REPORT#:[id number] REPORT STATUS: Signed DATE:08/13/19 TIME: 1047 PATIENT: KASIA RICHARDS UNIT #: [id number] ROOM/BED: [address]-A : 47 AGE: 73 SEX: F ATTEND: Matty Auguste MD ADM AUTHOR: Caleb Quintana * ALL edits or amendments must be made on the [employer]/computer document * Clinical Note Note: Patient doing well. Afebrile. Vitals stable. Amb ulating well. Laboratory Tests 08/13 0438 Hematology Hgb (10.7 - 13.9 g/dL) 10.7 Hct (32.1 - 42.1 %) 32.5 Vital Signs Date Temp Pulse Resp B/P B/P Mean Pulse Ox FiO2 08/12-08/13 97.2-99.0 67-81 16-18 136-163/64-80 0.0-102 95-99 32 Intake Output 08/13 0700 08/12 2300 08/12 1500 Intake Total 270.00 90.00 Output Total 20 40 60 Balance 250.00 50.00 -60 Intake, IV 270.00 90.00 Number 5 Bowel Movements Number Voids 1 1 Output, 20 40 60 Drainage Exam: Neuro Intact Impression: Post Op Removal of hardware, explora tion of fusion, redo LLD L3-4 and L4-5 Plan: DC Drains Change Dressing DC to Home post good po, void and ambulating Send with home Rx Return to clinic in 3 weeks Electronically Signed by Caleb Quintana on at 1048 at 1155 RPT #:[id number] END OF REPORT 2019-08-12 10:36:00-00:00 [facility] Clinical Note REPORT#:[id number] REPORT STATUS: Signed DATE:08/12/19 TIME: 1036 PATIENT: KASIA RICHARDS UNIT #: [id number] ROOM/BED: [address]-A : 47 AGE: 73 SEX: F ATTEND: Matty Auguste MD ADM AUTHOR: Matty Auguste MD * ALL edits or amendments must be made on the el [employer]/computer document * Clinical Note Note: Surgeon: MD Molina Marketing Writer: ACE Quintana Preadmission Diagnosis: Lumbar hardware Postadmission Diagnosis: Lumbar hardware Procedure Preformed: Lumbar Laminectomy removal hardware Complications: None The patient was taken from the OR to the Recover y room in stable condition Hospital Course: The patient was admitted to the hospital for the aforementioned procedure. Postoperative course was unr emarkable. The patient was up and ambulatory, taking well a regular diet and voiding without difficulty. Labs were stable. Incision was clean and dry. Patient was to be discharged home and begin a walking exercise program. Patient was given general prec autions for bending, lifting, twisting and turning. Infection and neurological warnings were given. The patient was given instructions for bathi ng, wound care and to return to clinic for follow up in 3 weeks. Discharge medications include pain medicine, muscle relaxers, steroids and antib iotics. The patient was to call the office with any problems or difficulties post the time of discha rge to home. Intraoperative findings and expected outcome were discussed. Th e patient understood each of these things at the time of discharge to home. Vital Signs Date Time Temp Pulse Resp B/P B/P Pulse O2 O2 F low FiO2 Mean Ox Delivery Rate 08/12 0743 97.7 77 18 147/76 99.6 98 Nasal 3.00 0000 cannula 08/12 0505 97.7 77 14 162/75 108 98 Nasal cannula 08/12 0214 99 Nasal 2.335411 28 cannula 08/11 2239 96.8 81 18 154/67 97 99 Nasal cannula 08/11 2035 96 Nasal 2.197032 28 cannula 08/11 1925 97.0 80 20 124/61 88 97 Room air 08/11 1905 Nasal 3.912520 cannula 08/11 1523 97.2 88 14 122/65 84.2 95 Room air 08/11 1111 95.9 80 14 122/59 79.8 93 Room air 08/11 0955 99 Room air 08/11 0900 Nasal 3.269405 32 cannula 08/11 0900 Nasal 3.221261 32 cannula 08/11 0727 96.6 81 16 135/69 90.9 97 Nasal cannula 08/11 0513 96 Nasal 3.931216 32 cannula 08/11 0330 96.8 84 14 120/59 85 94 Nasal cannula 08/10 2315 96 Nasal 3.831817 32 cannula 08/10 2201 98.2 92 14 141/67 97 97 Nasal cannula 08/10 1915 Nasal 3.827792 cannula 08/10 1915 97.3 98 14 126/61 86 98 Nasal cannula 08/10 1855 99 Nasal 3.782008 32 cannula 08/10 1710 Nasal 3.502859 cannula 08/10 1635 96.1 98 16 139/72 94.2 96 Nasal cannula 08/10 1630 96 Nasal 3.238965 32 cannula 08/10 1600 97.2 105 16 146/67 100 Nasal 3.77211 0 cannula 08/10 1544 108 16 156/68 99 Nasal 3.734135 cannula 08/10 1540 Simple 8.420964 mask 08/10 1529 91 16 156/65 100 Simple 8.636205 mask 08/10 1515 Simple 8.157438 mask 08/10 1511 97 16 152/67 100 Simple 8.034392 mask 08/10 1456 97.6 98 14 148/66 100 Simple 8.89853 0 mask Laboratory Tests: 08/12 0515 Hematology Hgb (12 - 16 g/dL) 10.9 L Hct (37 - 47 %) 30.0 L 08/12 0700 08/11 2300 08/11 1500 Intake Total 650.00 460.00 Output Total 440 560 50 Balance 210.00 -100.00 -50 Intake, IV 400.00 210.00 Intake, Oral 250 250 Number 1 Bowel Movements Output, 40 60 50 Drainage Output, Urine 400 500 Patient 167 lb Weight at 1038 RPT #:[id number] END OF REPORT 2019-08-12 07:03:00-00:00 [facility] Clinical Note REPORT#:[id number] REPORT STATUS: Signed DATE:08/12/19 TIME: 0703 PATIENT: KASIA RICHARDS UNIT #: [id number] ROOM/BED: [address] : 47 AGE: 73 SEX: F ATTEND: Matty Auguste MD ADM AUTHOR: Toy Armenta MD * ALL edits or amendments must be made on the [employer] document * Clinical Note Note: Vital Signs: Date Time Temp Pulse Resp B/P B/P Pulse O2 O2 F low FiO2 Mean Ox Delivery Rate 08/12 0505 97.7 77 14 162/75 108 98 Nasal cannula 08/12 0214 99 Nasal 2.472569 28 cannula 08/11 2239 96.8 81 18 154/67 97 99 Nasal cannula 08/11 2035 96 Nasal 2.398111 28 cannula 08/11 1925 97.0 80 20 124/61 88 97 Room air 08/11 1905 Nasal 3.653053 cannula 08/11 1523 97.2 88 14 122/65 84.2 95 Room air 08/11 1111 95.9 80 14 122/59 79.8 93 Room air 08/11 0955 99 Room air 08/11 0900 Nasal 3.128454 32 cannula 08/11 0900 Nasal 3.011022 32 cannula 08/11 0727 96.6 81 16 135/69 90.9 97 Nasal cannula Has some cramping in abd but no n/v; alden n control fair; was oob yesterday; PE: abd soft; continue pain control; wean Gates and drain as tolerated Electronically Signed by Toy Armenta MD o n 08/12/19 at 0706 RPT #:[id number] END OF REPORT 2019-08-11 09:46:00-00:00 [facility] Clinical Note REPORT#:[id number] REPORT STATUS: Signed DATE:08/11/19 TIME: 945 PATIENT: KASIA RICHARDS UNIT #: [id number] [facility] AGE: 73 SEX: F ATTEND: Matty Auguste MD ADM AUTHOR: Kajal Williamson * ALL edits or amendments must be made on the [employer] document * Clinical Note Note: Ask to manage postoperative pain by Dr. FAUSTIN ON Epidural IV ASSEMBLY WORKER X Medication DILAUDID Pump Settings: Basal Rate 0 Dose 0.1 Delay 8 ASSEMBLY WORKER Use OCCASIONAL Assessment VAS 8 L.O.S. 1 Res pirator Quality 1 Side Effects: X Nausea PT IS POD 1 S/P REM. HW, EXPLORATION OF SPINAL F USION. HX: HTN, LT. NEPHRECTOMY, ADRENALECTOMY, ANXIETY PT IS LAYING IN BED, NOT USING ASSEMBLY WORKER DUE TO NAUSEA . PAIN SEVERE WITH MOVEMENT. STATES SHE HAS HAD MORPHINE BEFORE WITHOUT ANY N AUSEA. WILL D/C DILAUDID AND START MORPHINE ASSEMBLY WORKER WITH DOSE 1MG, 10 MIN LOCKOUT . WILL REASSESS AFTER MEDICATION CHANGE. Site Assessment: X Site non-tender and free of r edness, swelling or exudates. Other Catheter Discontinued N/A Portions of this section were scribed by Carolee Greenfield on 08/11/19 at 0948 at 1330 RPT #:[id number] END OF REPORT 2019-08-11 07:19:00-00:00 [facility] Internal Medicine Prog. Note REPORT#:[id number] REPORT STATUS: Signed DATE:08/11/19 TIME: 718 PATIENT: KASIA RICHARDS UNIT #: [id number] ROOM/BED: [address] : 47 AGE: 73 SEX: F ATTEND: Matty Auguste MD ADM AUTHOR: Alexander Vieyra MD * ALL edits or amendments must be made on the [employer]computer document * Subjective Chief Complaint: MARIA and nausea. Patient reports: no abdominal pain, no chest alden n, no dizziness (when getting OOB), no heartburn, no nausea (at present time), no shortness of breath, no vomiting, pain controlled, headache (mild at pre sent time), passing flatus Objective General VS/I O: Vital Signs Date Temp Pulse Resp B/P B/P Mean Pulse Ox FiO2 08/10-08/11 96.1-98.2 83-108 14-16 120-156/59-9 4 85-97 94-100 32 Last Documented: Result Date Time Pulse Ox 96 08/11 05 FiO2 32 08/11 05 O2 Delivery Nasal cannula 08/11 513 O2 Flow Rate 3.760856 08/11 513 B/P 120/59 08/11 330 B/P Mean 85 08/11 330 Temp 96.8 08/11 330 Pulse 84 08/11 330 Resp 14 08/11 330 24 hour I O ending at 0700: 08/11 0700 08/10 1900 Intake Total 1300.00 100.00 Output Total 1690 130 Balance -390.00 -30.00 Intake, IV 750.00 100.00 Intake, Oral 550 Output, 140 30 Drainage Output, Urine 1550 100 Patient 168 lb Weight Weight Standing scale Measurement Method Patient Weight Weight (lb): 167 Weight (oz): 8.82 Weight (kg): 76.000 Post-op: day 1 Physical Exam General appearance: alert, awake, no acute distr ess Abdomen: abnormal bowel sounds (minimal), non-te nder, soft, no distention Genitourinary: gates Extremities: Extremities: no calf tenderness, no edema Results Findings/Data: Laboratory Tests 08/11/19349: [Embedded Image Not Available] Laboratory Tests 08/11 350 Chemistry Sodium (136 - 145 mmol/L) 144 Potassium (3.5 - 5.1 mmol/L) 5.0 Chloride (98 - 107 mmol/L) 107.0 Carbon Dioxide (21 - 32 mmol/L) 25.5 BUN (7 - 18 mg/dL) 10 Creatinine (0.55 - 1.30 mg/dL) 0.86 Glomerular Filtr Rate (>60) 65.0 Glucose (70 - 110 mg/dL) 197 H Calcium (8.2 - 10.1 mg/dL) 8.9 Laboratory Tests 08/11 350 Hematology Hgb (12 - 16 g/dL) 10.9 L Hct (37 - 47 %) 30.3 L Results: labs reviewed Diagnosis, Assessment Plan Problem List/A P: 1. HTN (hypertension) 2. GERD (gastroesophageal reflux disease) 3. Rheumatoid arthritis 4. Drug-induced hyperglycemia 5. Postoperative anemia due to acute blood loss Free Text DxA P Notes Free Text DxA P Notes: Pt's MARIA and nausea are likely due to hydromorpho ne use as both sxs worsen shortly after dosing. Dr. Auguste to adjust p ain medication. BP is controlled. GERD and RA are asymptomatic . Pt with mild acute blood loss anemia from surgery. Pt with markedly elevated BS due t o steroid treatment. Will DC remaining doses of dexamethasone and cancel Medr ol Dose Pack.. Continue other current treatments. Continue to mobilize. Electronically Signed by Alexander Vieyra MD on at 0804 RPT #:[id number] END OF REPORT 2019-08-11 07:18:00-00:00 [facility] Clinical Note REPORT#:[id number] REPORT STATUS: Signed DATE:08/11/19 TIME: 717 PATIENT: KASIA RICHARDS UNIT #: [id number] ROOM/BED: [address] : 47 AGE: 73 SEX: F ATTEND: Matty Auguste MD ADM AUTHOR: Caleb Quintana * ALL edits or amendments must be made on the [employer] document * Clinical Note Note: Patient doing well. Afebrile. Vitals stable. Amb ulating well. Laboratory Tests 08/11 035 Chemistry Sodium (136 - 145 mmol/L) 144 Potassium (3.5 - 5.1 mmol/L) 5.0 Chloride (98 - 107 mmol/L) 107.0 Carbon Dioxide (21 - 32 mmol/L) 25.5 BUN (7 - 18 mg/dL) 10 Creatinine (0.55 - 1.30 mg/dL) 0.86 Glomerular Filtr Rate (>60) 65.0 Glucose (70 - 110 mg/dL) 197 H Calcium (8.2 - 10.1 mg/dL) 8.9 Laboratory Tests 08/11 0350 Hematology Hgb (12 - 16 g/dL) 10.9 L Hct (37 - 47 %) 30.3 L Vital Signs Date Temp Pulse Resp B/P B/P Mean Pulse Ox FiO2 08/10-08/11 96.1-98.2 83-108 14-16 120-156/59-9 4 85-97 94-100 32 Intake Output 08/11 0700 08/10 2300 08/10 1500 Intake Total 850.00 550.00 Output Total 1050 770 Balance -200.00 -220.00 Intake, IV 600.00 250.00 Intake, Oral 250 300 Output, 50 120 Drainage Output, Urine 1000 650 Patient 168 lb Weight Weight Standing scale Measurement Method Exam: Neuro Intact Impression: Post Op Removal of hardware, redo LL D L3-4 and L4-5 Plan: Out of Bed 4-6 hours Ambulate with PT Continue Gates catheter Continue Drains Continue IV Antibiotics Electronically Signed by Caleb Quintana on at 0719 RPT #:[id number] END OF REPORT 2019-08-11 07:18:00-00:00 [facility] Clinical Note REPORT#:[id number] REPORT STATUS: Signed DATE:08/11/19 TIME: 717 PATIENT: KASIA RICHARDS UNIT #: [id number] [facility] AGE: 73 SEX: F ATTEND: Matty Auguste MD ADM AUTHOR: Caleb Quintana * ALL edits or amendments must be made on the [employer] document * Clinical Note Note: Patient doing well. Afebrile. Vitals stable. Amb ulating well. Laboratory Tests 08/11 035 Chemistry Sodium (136 - 145 mmol/L) 144 Potassium (3.5 - 5.1 mmol/L) 5.0 Chloride (98 - 107 mmol/L) 107.0 Carbon Dioxide (21 - 32 mmol/L) 25.5 BUN (7 - 18 mg/dL) 10 Creatinine (0.55 - 1.30 mg/dL) 0.86 Glomerular Filtr Rate (>60) 65.0 Glucose (70 - 110 mg/dL) 197 H Calcium (8.2 - 10.1 mg/dL) 8.9 Laboratory Tests 08/11 0350 Hematology Hgb (12 - 16 g/dL) 10.9 L Hct (37 - 47 %) 30.3 L Vital Signs Date Temp Pulse Resp B/P B/P Mean Pulse Ox FiO2 08/10-08/11 96.1-98.2 83-108 14-16 120-156/59-9 4 85-97 94-100 32 Intake Output 08/11 0700 08/10 2300 08/10 1500 Intake Total 850.00 550.00 Output Total 1050 770 Balance -200.00 -220.00 Intake, IV 600.00 250.00 Intake, Oral 250 300 Output, 50 120 Drainage Output, Urine 1000 650 Patient 168 lb Weight Weight Standing scale Measurement Method Exam: Neuro Intact Impression: Post Op Removal of hardware, redo LL D L3-4 and L4-5 Plan: Out of Bed 4-6 hours Ambulate with PT Continue Gates catheter Continue Drains Continue IV Antibiotics Electronically Signed by Caleb Quintana on at 0719 at 1155 [facility] #:[id number] END OF REPORT 2019-08-10 18:54:00-00:00 [id number] [place] [id number] PATIENT NAME: KASIA RICHARDS ADMIT DATE: 08/10 ACCOUNT NO: [id number] ROOM NO: Y.515 AGE: 73 REPORT TYPE: CONSULTATION REPORT SEX: F ADMITTING PHYSICIAN:Matty Auguste MD ATTENDING PHYSICIAN:Matty Auguste MD CONSULTATION DATE: 08/10/2019 CONSULTING PHYSICIAN: Alexander Vieyra MD ATTENDING PHYSICIAN: Matty Auguste M.D. REASON FOR CONSULTATION: Postoperative medical e valuation and management of patient with multiple medical problems. HISTORY OF PRESENT ILLNESS: The patient is a 73- year-old white female with lumbar radiculopathy, who underwent removal of h ardware and exploration of fusion and redo decompression L3-L4 and L4-L5, e tracielier today. The patient tolerated surgery well. She currently reports maria ving inadequate pain control with her hydromorphone ASSEMBLY WORKER. She has not yet been up, out of bed since surgery. She has had nausea, but no vomiting. She denies any chest pain or shortness of breath. PAST MEDICAL HISTORY: Hypertension. Gastroesopha geal reflux disease. Hypercholesterolemia. Rheumatoid arthritis. Anxi ety. Restless leg syndrome. History of left renal cell carcinoma, for which the patient underwent a left nephrectomy. History of recurrent urinar y tract infections. The patient denies any diabetes, coronary artery disease, c ongestive heart failure, asthma, sleep apnea, or history of deep venous thrombosis. PAST SURGICAL HISTORY: Three previous lumbar fus ions. Bilateral breast cyst removal. Bilateral Gonsalez's neuroma removal. Rig ht rotator cuff tear repair. Hysterectomy. Synovial cyst removal. Right foot surgery. Appendectomy. ALLERGIES: SULFA, PROCHLORPERAZINE, PENTAZOCINE, STADOL, CITALOPRAM. CURRENT MEDICATIONS: Atorvas tatin 20 mg daily, telmisartan 40 mg daily, Clifton 5 mg b.i.d. p.r.n. severe pain, paroxetine 30 mg d aily, pramipexole 1 mg at bedtime, tramadol 50 mg q. 8 hours p.r.n. modera te pain, trazodone 100 mg at bedtime, ranitidine 150 mg b .i.d., postop dexamethasone 4 mg IV q. 6 hours for 4 doses and then Medrol Dosepak, hydromorphone ASSEMBLY WORKER . FAMILY HISTORY: Father had lung cancer. Mother h ad diabetes. SOCIAL HISTORY: The patient is retired. She does not smoke or drink alcohol. REVIEW OF SYSTEMS: The patient denies exertional chest pain, dyspnea on exertion, orthopnea, PND, black tarry stools, br ight red blood per rectum, or PATIENT NAME: KASIA RICHARDS [id number] dysuria. PHYSICAL EXAMINATION: GENERAL: Well-developed, overweight, white femal e in no apparent distress. VITAL SIGNS: Pulse 98 and regular, respirations 16, blood pressure 139/72, temperature 96.1, oxygen saturation 97% on 3 L O 2. EYES: EOMI. PERRLA. Sclerae are anicteric. OROPHARYNX: Clear. NECK: No adenopathy, thyromegaly, masses, tender ness, JVD, or carotid bruits. LUNGS: Clear to auscultation. HEART: Regular rate and rhythm without murmurs, gallops, or rubs. ABDOMEN: Minimal bowel sounds throughout. No hep atosplenomegaly, masses, tenderness, bruits, or distention. EXTREMITIES: No clubbing, cyanosis, or edema. No calf or thigh swelling or posterior tenderness bilater ally. No Homans sign or palpable cords bilaterally. IMPRESSION: 1. Hypertension. Blood pressure well controlled at the present time. 2. Gastroesophageal reflux disease. Asymptomatic . 3. Restless leg syndrome. Asymptomatic. 4. Rheumatoid arthritis. Asymptomatic. The patie nt is no longer taking methotrexate. 5. Hypercholesterolemia. 6. History of left renal cell carcinoma. 7. Status post lumbar decompression. The patient is currently stable. PLAN: 1. Clear liquid diet. We will advance to low-alexander t, low-cholesterol diet when the patient is passing flatus. 2. Thigh-high ERI hose. 3. Sequential compression devices to both feet. 4. Begin mobilization later tonight. 5. Check chem-6 in a.m. 6. Hold telmisartan if systolic blood pressure l ess than 120. 7. Maalox 30 mL p.o. q. 4 hours p.r.n. indigesti on. 8. The patient encouraged to eat sitting up, out of bed when possible and not to lie down within 2 hours after eating in order to minimize risk of reflux symptoms. Thank you very much for this consultation. I polly trejo follow patient with you during her hospitalization. Dictated By: Alexander Vieyra MD WT: CON:YBRIANNA/BRAIN/MALICK Conf#: [id number]/DID#: [id number] Authenticated by Alexander Vieyra MD On 08/11/2019 08:05:31 AM PATIENT NAME: KASIA RICHARDS [id number] Electronically Signed by Alexander Vieyra MD on at 0805 PATIENT NAME: KASIA RICHARDS [id number] 18:44:00-00:00 [facility] Internal Medicine Prog. Note REPORT#:[id number] REPORT STATUS: Signed DATE:08/10/19 TIME: 1843 PATIENT: KASIA RICHARDS UNIT #: [id number] [facility] AGE: 73 SEX: F ATTEND: Matty Auguste MD ADM AUTHOR: Alexander Vieyra MD * ALL edits or amendments must be made on the el ectronic/computer document * Subjective Comments: Consult Note Dictated Objective General VS/I O: Vital Signs Date Temp Pulse Resp B/P B/P Mean Pulse Ox FiO2 08/10 96.1-97.6 83-108 14-16 137-156/65-94 94.2 96-100 Last Documented: Result Date Time O2 Delivery Nasal cannula 08/10 171 O2 Flow Rate 3.790807 08/10 1710 Pulse Ox 96 08/10 1635 B/P 139/72 08/10 1635 B/P Mean 94.2 08/10 1635 Temp 96.1 08/10 1635 Pulse 98 08/10 1635 Resp 16 08/10 1635 Patient Weight Weight (lb): 167 Weight (oz): 8.82 Weight (kg): 76.000 Physical Exam General appearance: alert, awake, no acute distr ess Diagnosis, Assessment Plan Problem List/A P: 1. HTN (hypertension) 2. GERD (gastroesophageal reflux disease) 3. Rheumatoid arthritis 4. Hypercholesteremia Electronically Signed by Alexander Vieyra MD on at 1903 [facility] #:[id number] END OF REPORT 2019-08-10 15:14:00-00:00 [id number] [place] [address] PATIENT NAME: KASIA RICHARDS ADMIT DATE: 08/10 ACCOUNT NO: [id number] ROOM NO: Y.515 AGE: 73 REPORT TYPE: OPERATIVE REPORT SEX: F ADMITTING PHYSICIAN:Matty Auguste MD ATTENDING PHYSICIAN:Matty Auguste MD OPERATION DATE:08/10/2019 PREADMISSION DIAGNOSES: Retained painful hardwar e, status post lumbar fusion, L3-L4, L4-L5. POSTADMISSION DIAGNOSES: Retained painfu l hardware, status post lumbar fusion, L3-L4, L4-L5. PROCEDURES PERFORMED: 1. Removal of instrumentation, L3-L4. 2. Exploration of fusion at L3-L4 and L4-L5. 3. Redo right-sided hemilami nectomy at L3-L4, L4-L5 with exploration of fusion. SURGEON: Matty Auguste MD TITLE INSURANCE EXAMINER: PRINCESS Frederick ANESTHESIA: COMPLICATIONS: None. DISPOSITION: The patient was taken from the operating room to recovery room in stable condition. INDICATIONS FOR SURGICAL INTERVENTION: Ms. Kasia Richards is a 73-year-old female, who undergone lumbar fusion at L3-L4 and L4-L5 post-lumbar fusion and developed low back pain and intermittent buttock s pain in the right buttocks, which have been irretractable in nature. The pat ient has been managed conservatively with medicines, exercises , and injections without resolution of her symptoms. The patient had mechanical back pa in with bending, twisting, turning, it was irretractabl e in nature. She had undergone an MRI, which showed good alignment of the graft and instrumentation. She had undergone CT scan, which showed the fusion to be solid. It was disc ussed with her at length her options and suggested she can manage this conser vatively with medicines, exercise, stretching, strengthening appropriate to do so. The alternative treatment options including injections, which sh lizbeth had already discussed with surgical intervention. Because of the pain and r adiculopathy, she desired to have the instrument removed. She underst ood fully, but the procedure might not give her symptomatic relief. She understood the procedure, risks, benefits, list of complications, alternative forms of treatment have been discussed with her at length. The fusion was solid and it was i ndeterminate with removal of hardware were give her significant relief. PATIENT NAME: KASIA RICHARDS [id number] OPERATIVE PROCEDURE: The patient was given appro priate perioperative antibiotics and 10 mg of Decadron. She was taken to the operating room, where she was placed under general endotrachea l anesthesia, positioned with her neck in a neutral position, upper extremities well padded, and her pulse was intact. The patient's previous incis ion was marked. The patient was prepped and draped. Incision was carried down through skin and subc utaneous tissue down to the lamina. The lamina were dissected latera lly to identify the instrumentation at L3-L4 was identified and removed without difficu lty. The crosslink interconnecting rods and top tightening fasters were removed without difficulty. The fusion was explored and felt to be solid bilaterally at L3-L4. The fusion was explored at L4-L5, which was also felt to be solid. Underneath headlight illumination and loupe magnification, a redo dec ompression was carried out at L3-L4, L4-L5 to the right completely decompressi ng each of the nerve roots to ensure there was no neural compression, adding t o the right buttocks pain. Thorough irrigation and hemostasis was carried o ut. Each of the decompressive sites was inspected. Irrigation and hemostasis c arried out. A medium Hemovac was placed. The fascia was closed using interrup eri #1 Vicryl, subcutaneous tissue with 2-0 Vicryl, skin with 3-0 Vicryl. Steri-Strips and sterile dressing were applied. The patient was taken from the ope rating room to recovery room. POSTOPERATIVE PLAN: To be up and ambulatory. Int raoperative findings were discussed with the patient's family. The patient was given general precaution for bending, lifting, twisti ng, turning, bathing, and wound care. Infection and neurologic warnings were given. The patient was returned back to clinic to follow up in 3 weeks. Dictated By: Matty Auguste MD WT: OP:DIRK/RONALDO/MALICK Conf#: [id number]/DID#: [id number] Authenticated and Edited by Matty walton MD On 08/16/19 8:03:19 AM Electronically Signed by Matty Auguste MD o n 08/16/19 at 0805 PATIENT NAME: KASIA RICHARDS [id number] 14:57:00-00:00 [facility] Brief Op Note REPORT#:[id number] REPORT STATUS: Signed DATE:08/10/19 TIME: 7 PATIENT: KASIA RICHARDS UNIT #: [id number] ROOM/BED: [place] [address] : 47 AGE: 73 SEX: F ATTEND: Matty Auguste MD ADM AUTHOR: Matty Auguste MD * ALL edits or amendments must be made on the el [employer]/computer document * Op/Inv Proc Note - Brief Pre-procedure diagnosis: Lumbar Radiculopathy Post-procedure diagnosis: same as pre procedure dx Procedures performed: Removal of hardware, exploration of fusion, redo decompression L3-4 and L4-5 Primary Surgeon: Molina Marketing Writer(s): Mariano Findings: Same as above Complications: none Estimated blood loss in ml's: 150 ml Specimens removed/altered: none Drain(s): Gates Catheter Placed, Medium Hemovac at 1458 RPT #:[id number] END OF REPORT 2019-07-14 10:12:00-00:00 [id number] [facility] [address] [place] [address] PATIENT NAME: KASIA RICHARDS ADMIT DATE: ACCOUNT NO: [id number] ROOM NO: AGE: 73 REPORT TYPE: ELECTROCARDIOGRAM SEX: F ADMITTING PHYSICIAN:Matty Auguste MD ATTENDING PHYSICIAN:Matty Auguste MD Order: [id number] Test Reason : PRE OP CLEARANCE HTN Test Date/Time Stamp: WedJul 14 2019 10:12:19 Blood Pressure : / mmHG Vent. Rate : 077 BPM Atrial Rate : 077 BPM P-R Int : 138 ms QRS Dur : 076 ms QT Int : 360 ms P-R-T Axes : -07 061 094 degree s QTc Int : 407 ms Normal sinus rhythm Normal ECG When compared with ECG of 27-AUG-2017 08:25, No significant change was found Confirmed by ANN STEVENS MD ([id number]) on 07/18/2019 1 2:28:00 PM Referred By: Matty Auguste Confirmed by:ANN STEVENS MD Electronically Signed by Ann Stevens MD on 01/31 at 1228 PATIENT NAME: KASIA RICHARDS [id number]
[2023-07-11] MEDS ORDERED: HYDROCODONE/APAP 7.5/325 MG TAB ONE (19:05)
--- NOTE | 2023-07-11 19:45 | RAD REPORT ---
EXAM DESCRIPTION: CT - Head C Spine Cap Wo Con - 07/11/2023 7:04 pm CLINICAL HISTORY: TRAUMA COMPARISON: Brain Wo Cont dated 04/28/2023; Abdomen Pelvis W/Wo Contrast dated 06/19/2022 TECHNIQUE: Head and cervical spine CT images were obtained without IV contrast. Chest, abdomen, and pelvis CT images were obtained, also without IV contrast. Multiplanar reformats were generated and re viewed. All CT scans are performed using dose optimization technique as appropriate and may include automated exposure control or mA/KV adjustment according to patient size. FINDINGS: CT HEAD: No intracranial hemorrhage, mass effect, or edema. No evidence of acute territorial infarct. No midli ne shift or abnormal fluid collection. Right basal ganglia foci of hypoattenuation, and other patchy deep white matter hypoattenuation, nonspecific suggest chronic small vessel ischemic changes. The alexandro tricles are normal in caliber and configuration for age. Basal cisterns are patent. Mastoid aircells and paranasal sinuses are clear. No acute skull fracture. CT CERVICAL SPINE: No acute cervical spine fracture or subluxation. Vertebral body heights are well maintained. Multilev el endplate and facet degenerative changes. Straightening of normal cervical lordosis which could be positional or secondary to muscle spasm. No hyperattenuating canal hematoma. Prevertebral and paraspi nous soft tissues are unremarkable. CT CHEST: No pneumothorax, pulmonary contusion or pleural fluid collection. No mediastinal hematoma and the aor ta and pulmonary arteries are unremarkable. Trace pericardial effusion. No chest will mass or abnorma l axillary finding. No displaced rib fracture or other significant bony finding. CT ABDOMEN/ PELVIS: No evidence of traumatic injury to solid abdominal viscera. Gallbladder and biliary tree are unremark able. No bowel injury or significant finding. Status post left nephrectomy and ventral hernia mesh re pair. No free air, free fluid or abnormal fat stranding. No urinary bladder abnormality. No significant bony finding. Sequelae of lumbar spine posterior decompression at multiple levels, wi th vertebral interbody spacers, and sequelae of prior lumbar posterior approach fusion hardware remov al. Numerous right renal parapelvic and cortical cysts the largest at the superior pole anteriorly me asuring 4.7 cm. Sclerotic lesion involving the right femoral greater trochanter is stable, favored to represent a benign lesion such as an enchondroma. IMPRESSION: No acute traumatic findings. Incidental that chronic findings as above.
--- NOTE | 2023-07-11 19:53 | ER ---
Nurse's Notes [facility] Name: Irina Sanford Age: 77 yrs Sex: Female : 1945 Arrival Date: 07/11/2023 Time: 18:00 Bed Treatment Private MD: Diagnosis: Fall (on)(from) incline;Contusion of front wall of thorax Presentation: 07/11 18:12 Chief complaint: Patient states: Mechanical fall at 1330 today, hit back and right side jl7 of head, reports continued pain from back and wraps around to right breast. Did not loose consciousness. Coronavirus screen: At this time, the client does not indicate any symptoms associated with coronavirus-19. Ebola Screen: No symptoms or risks identified at this time. Initial Sepsis Screen: Does the patient meet any 2 criteria? No. Patient's initial sepsis screen is negative. Does the patient have a suspected source of infection? No. Patient's initial sepsis screen is negative. Risk Assessment: Do you want to hurt yourself or someone else? Patient reports no desire to harm self or others. Onset of symptoms was July 11, 2023 at 13:30. 18:12 Method Of Arrival: Ambulatory jl7 18:12 Acuity: CARMELA 3 jl7 Triage Assessment: 18:15 General: Appears in no apparent distress. uncomfortable, Behavior is calm, cooperative, jl7 appropriate for age. Pain: Complains of pain in right lateral posterior chest and right lateral anterior chest Pain currently is 9 out of 10 on a pain scale. Historical: - Allergies: 18:15 Compazine; jl7 18:15 Sulfa (Sulfonamide Antibiotics); jl7 18:15 Talwin; jl7 - PMHx: 18:15 Hypertensive disorder; jl7 - Immunization history:: Adult Immunizations unknown. - Social history:: Smoking status: Patient denies any tobacco usage or history of. Screenin:26 [facility] ED Fall Risk Assessment (Adult) History of falling in the last 3 months, ap3 including since admission Yes- single mechanical fall (1 pt). Abuse screen: Denies threats or abuse. Nutritional screening: No deficits noted. Tuberculosis screening: No symptoms or risk factors identified. Vital Signs: 18:12 BP 141 / 75; Pulse 82; Resp 17; Temp 97.1; Pulse Ox 100% ; Weight 76.2 kg; Height 5 ft. jl7 3 in. ; Pain 9/10; 18:12 Body Mass Index 29.76 (76.20 kg, 160.02 cm) jl7 18:12 Pain Scale: Adult 7 ED Course: 18:02 Patient arrived in ED. rg4 18:15 Triage completed. jl7 18:15 Arm band placed on right wrist. jl7 18:18 Carmen Chavez FNP-C is [facility]. snw 18:18 Mike Ramirez MD is Attending Physician. snw 18:39 CT Traumagram (Head C Spine CAP wo con) In Process Unspecified. EDMS 20:26 Provided Education on: discharge education. ap3 20:26 No provider procedures requiring assistance completed. Patient did not have IV access ap3 during this emergency room visit. 20:27 Patient has correct armband on for positive identification. Bed in low position. Call ap3 light in reach. Side rails up X 1. Administered Medications: 19:14 Drug: Hydrocodone-Acetaminophen PO (7.5 mg-325 mg) 1 tabs Route: PO; ap3 Medication: 20:27 VIS not applicable for this client. ap3 Outcome: 19:53 Discharge ordered by . snw 20:26 Discharged to home via wheelchair. ap3 20:26 Condition: good 20:26 Discharge instructions given to patient, family, Instructed on discharge instructions, follow up and referral plans. Demonstrated understanding of instructions, follow-up care, medications, Prescriptions given X 2. 20:27 Patient left the ED. ap3 Signatures: Dispatcher [employer] EDNE Carmen Chavez FNP-C ART GLASS SETTER-June Siddiqui rg4 Paige Kimble RN RN jl7 Clarissa Hawkins RN RN ap3
--- NOTE | 2023-07-11 19:53 | EDPHYS ---
Physician Documentation [facility] Name: Irina Sanford Age: 77 yrs Sex: Female : 1945 Arrival Date: 07/11/2023 Time: 18:00 Bed Treatment Private MD: ED Physician Mike Ramirez HPI: 07/11 18:50 This 77 yrs old Female presents to ER via Ambulatory with complaints of Fall Injury. snw 18:50 Details of fall: The patient fell from an upright position, off of running board of snw vehicle. Onset: The symptoms/episode began/occurred suddenly, just prior to arrival. Severity of symptoms: At their worst the symptoms were moderate. The patient has not experienced similar symptoms in the past. It is unknown whether or not the patient has recently seen a physician. Historical: - Allergies: 18:15 Compazine; jl7 18:15 Sulfa (Sulfonamide Antibiotics); jl7 18:15 Talwin; jl7 - PMHx: 18:15 Hypertensive disorder; jl7 - Immunization history:: Adult Immunizations unknown. - Social history:: Smoking status: Patient denies any tobacco usage or history of. ROS: 18:50 Constitutional: Negative for fever, chills, and weight loss, Eyes: Negative for injury, snw pain, redness, and discharge, ENT: Negative for injury, pain, and discharge, Neck: Negative for injury, pain, and swelling, Cardiovascular: Negative for chest pain, palpitations, and edema, Respiratory: Negative for shortness of breath, cough, wheezing, and pleuritic chest pain, Abdomen/GI: Negative for abdominal pain, nausea, vomiting, diarrhea, and constipation. 18:50 : Negative for injury, bleeding, discharge, and swelling, Skin: Negative for injury, rash, and discoloration. 18:50 Neuro: Negative for headache, weakness, numbness, tingling, and seizure, Psych: Negative for depression, anxiety, suicide ideation, homicidal ideation, and hallucinations. 18:50 Back: Positive for injury or acute deformity, pain with movement, flank pain, on the right, radiated pain. 18:50 MS/extremity: Positive for contusion, decreased range of motion, pain, tenderness, of the right lateral anterior chest and right lateral posterior chest. Exam: 19:50 Constitutional: This is a well developed, well nourished patient who is awake, alert, snw and in no acute distress. Head/Face: Normocephalic, atraumatic. Eyes: Pupils equal round and reactive to light, extra-ocular motions intact. Lids and lashes normal. Conjunctiva and sclera are non-icteric and not injected. Cornea within normal limits. Periorbital areas with no swelling, redness, or edema. ENT: Nares patent. No nasal discharge, no septal abnormalities noted. Tympanic membranes are normal and external auditory canals are clear. Oropharynx with no redness, swelling, or masses, exudates, or evidence of obstruction, uvula midline. Mucous membranes moist. Neck: Trachea midline, no thyromegaly or masses palpated, and no cervical lymphadenopathy. Supple, full range of motion without nuchal rigidity, or vertebral point tenderness. No Meningismus. 19:50 Cardiovascular: Regular rate and rhythm with a normal S1 and S2. No gallops, murmurs, or rubs. Normal PMI, no JVD. No pulse deficits. Respiratory: Lungs have equal breath sounds bilaterally, clear to auscultation and percussion. No rales, rhonchi or wheezes noted. No increased work of breathing, no retractions or nasal flaring. + splinting Abdomen/GI: Soft, non-tender, with normal bowel sounds. No distension or tympany. No guarding or rebound. No evidence of tenderness throughout. Back: No spinal tenderness. No costovertebral tenderness. Full range of motion. Skin: Warm, dry with normal turgor. Normal color with no rashes, no lesions, and no evidence of cellulitis. MS/ Extremity: Pulses equal, no cyanosis. Neurovascular intact. Full, normal range of motion. Neuro: Awake and alert, GCS 15, oriented to person, place, time, and situation. Cranial nerves II-XII grossly intact. Motor strength 5/5 in all extremities. Sensory grossly intact. Cerebellar exam normal. Normal gait. Psych: Awake, alert, with orientation to person, place and time. Behavior, mood, and affect are within normal limits. 19:50 Chest/axilla: Inspection: normal, Palpation: crepitus, is not appreciated, tenderness, that is moderate, of the right lateral posterior chest and right lateral anterior chest. Vital Signs: 18:12 BP 141 / 75; Pulse 82; Resp 17; Temp 97.1; Pulse Ox 100% ; Weight 76.2 kg; Height 5 ft. jl7 3 in. ; Pain 9/10; 18:12 Body Mass Index 29.76 (76.20 kg, 160.02 cm) jl7 18:12 Pain Scale: Adult jl7 MDM: 18:19 Patient medically screened. snw 18:51 Differential diagnosis: closed head injury, contusion, fracture, sprain, strain. Data snw reviewed: vital signs, nurses notes, radiologic studies. I considered the following discharge prescriptions or medication management in the emergency department Medications were administered in the Emergency Department. See JAN. 19:51 Counseling: I had a detailed discussion with the patient and/or guardian regarding the snw historical points, exam findings, and any diagnostic results supporting the discharge/admit diagnosis, radiology results, the need for outpatient follow up, for definitive care, to return to the emergency department if symptoms worsen or persist or if there are any questions or concerns that arise at home. Response to treatment: the patient's symptoms have markedly improved after treatment. Special discussion: Based on the patient's history, exam, and Dx evaluation, there is no indication for emergent intervention or inpatient Tx. It is understood by the patient/guardian that if the Sx's persist or worsen they need to return immediately for re-evaluation. Based on the history and exam findings, there is no indication for further emergent testing or inpatient evaluation. I discussed with the patient/guardian the need to see the primary care provider for further evaluation of the symptoms. 07/11 18:28 Order name: CT Traumagram (Head C Spine CAP wo con); Complete Time: 19:49 snw 07/11 18:28 Order name: INCENTIVE SPIROMETRY snw 07/11 18:28 Order name: PO challenge: crackers; Complete Time: 19:14 snw Administered Medications: 19:14 Drug: Hydrocodone-Acetaminophen PO (7.5 mg-325 mg) 1 tabs Route: PO; ap3 Disposition Summary: 07/11/23 19:53 Discharge Ordered Location: Home snw Condition: Stable snw Diagnosis - Fall (on)(from) incline snw - Contusion of front wall of thorax snw Followup: snw - With: Emergency Department - When: As needed - Reason: Worsening of condition Followup: snw - With: Private Physician - When: 2 - 3 days - Reason: Recheck today's complaints, Continuance of care, Re-evaluation by your physician Discharge Instructions: - Discharge Summary Sheet snw - Rib Contusion snw - Fall Prevention in the Home, Adult snw - How to Use an Incentive Spirometer snw - Incentive Spirometer Record snw Forms: - Medication Reconciliation Form snw - Thank You Letter snw - Antibiotic Education snw - Prescription Opioid Use snw - Patient Portal Instructions snw - Leadership Thank You Letter snw Prescriptions: - acetaminophen-codeine 300-60 mg Oral tablet - take 1 tablet by ORAL route every 4 hours as needed for pain; 18 tablet; snw Refills: 0, Product Selection Permitted Signatures: Dispatcher [employer] Carmen Melendez FNP-C REROLLER HAND-Csnw Paige Kimble, RN RN jl7 Clarissa Hawkins RN RN ap3
[2023-07-11 20:32] VITALS: BP 141/75; TEMP 97.1; O2SAT 100
== END 2023-07-11 20:27 | disposition home or self-care (01) ==
LOC: ER 18:00
DX: S20.211A Contusion of right front wall of thorax, initial encounter (principal); W10.2XXA Fall (on)(from) incline, initial encounter; I10 Essential (primary) hypertension; Z88.1 Allergy status to other antibiotic agents; Z88.2 Allergy status to sulfonamides; Z88.8 Allergy status to other drugs, medicaments and biological substances
CPT/HCPCS: 70450; 71250; 72125; 99283

== ENCOUNTER 2024-12-16 23:48 | Emergency (ER) | payer OTHER ==
--- OUTSIDE RECORDS SUMMARY | 2024-12-16 23:51 | XMS REPORT | Clinical Summary ---
Author Name Unknown Organization [facility] Address [address] [place] [address] Care Team Providers Care Card Clothier Name Role Phone Radha Lynn DO Unavailable Matty Auguste MD Unavailable Eduardo Antunez MD Unavailable [phone] Tierra Wyman APRN Primary Care Provider Rolando Muller MD Unavailable Lisandro Ruelas MD Unavailable Juan Stock MD Unavailable [phone] Flori Bennett MD Unavailable Eduardo Gonsalez MD Unavailable [phone] Allergies Active Allergy Reactions Criticality Noted Date Comments Adhesive Itching Medium 04/04/2020 Steri-strips Prochlorperazine Anxiety Low 11/26/2009 Patient states she gets heart palpitations Butorphanol Tartrate Palpitations Low 04/04/2020 Sulfa (Sulfonamide Antibiotics) Palpitations Low 12/02/2016 Medications atorvastatin (LIPITOR) 20 mg tablet Taking 80 mg daily 1 9 Active pramipexole (MIRAPEX) 1 mg tablet TAKE 1 TABLET BY MOUTH EVERYDAY AT BEDTIME 9 Active telmisartan (MICARDIS) 40 mg tablet 1 tablet (40 mg). Taking 1 tablet 80 mg daily 1 9 Active PARoxetine (PAXIL) 30 mg tablet Take by mouth every morning. Active omeprazole (PriLOSEC) 40 MG capsule TAKE 1 CAPSULE BY MOUTH EVERY DAY 0 Active abaloparatide (Tymlos) 80 mcg (3,120 mcg/1.56 mL) pnij Inject 80 mcg under the skin. 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 Cancer Staging:Clinical stage from 03/26/2021:Stage 0(cTis (DCIS), cN0, cM0, ER+, KY+, HER2: Not Assessed) - Unsigned Pathologic stage from 06/06/2021:Stage 0(pTis (DCIS), pN0(sn), cM0, ER: Not Assessed, KY: Not Assessed, HER2: Not Assessed) - Unsigned Lumbar post-laminectomy syndrome 03/28/2020 Overview (03/28/2020): Added automatically from request for surgery [id number] Chronic pain 03/28/2020 Overview (03/28/2020): Added automatically from request for surgery [id number] Reactive depression (situational) 12/06/2019 Generalized anxiety disorder 12/06/2019 Insomnia co-occurrent and due to medical conditi on 12/06/2019 Mild cognitive impairment, so stated 12/06/2019 Ankylosing spondylitis 09/06/2019 Low back pain 09/06/2019 Encounters Date Type Department Care Team Description 06/29/2024 2:45 PM CDT Follow-Up Breast Center - Surgical Oncology [address] [facility], [address] [place] [address] Juan Stock MD Personal history of breast cancer 06/29/2024 7:30 AM CDT - 06/29/2024 11:59 PM CDT Hospital Encounter Breast Imaging [address] [facility], 5th [place] [address] Isabel Freitas PA Personal history of breast cancer Discharge Disposition: Home 06/29/2024 6:00 AM CDT - 06/29/2024 7:29 AM CDT Hospital Encounter Breast Imaging [address] [facility], 5th [place] [address] Isabel Freitas PA Personal history of breast cancer Discharge Disposition: Home 06/29/2024 Documentation Breast Imaging [address] [facility], 5th [place] [address] Roddy Goodson S, RT 06/29/2024 Travel 03/14/[address] [facility] - Survivorship, Breast [address] [facility], 2nd [place] [address] Marina Stephens, ROE Personal history of in-situ neoplasm of breast (Primary Dx); History of radiation therapy to breast area after 12/17/2023 Immunizations Name Administration Dates Next Due Influenza, high dose, trival ent, preservative free 09/08/2022 Influenza, injectable, quadr ivalent, preservative free 08/22/2020 Influenza, split virus, triv alent, preservative 09/01/2019 Moderna SARS-CoV-2 Vaccination 07/22/2021,2020,11/27/2020 Surgical History Surgery Date Site/Laterality Comments APPENDECTOMY 11/15/1965 - 11/14/1966 same surgery as ovary removal BACK SURGERY 2015,2017,2018 2 fusions COLONOSCOPY 11/15/2017 - 11/14/2018 HYSTERECTOMY 11/15/1981 - 11/14/1982 Partial NEPHRECTOMY 11/15/2003 - 11/14/2004 Left and adrenal removed due to kidney cancer; no further treatment; Dr Chapin Jaffe SHOULDER SURGERY 11/15/2008 - 11/14/2009 Rotator cuff UPPER GASTROINTESTINAL ENDOSCOPY About 3 of them BACK SURGERY 08/10/2019 hardware removal [place] PRQ IMPLTJ NSTIM ELECTRODE ARRAY EPIDURAL 12/15/2019 Back/N/A Procedure: PERCUTANEOUS IMPLANTATION OF EPIDURAL NEUROSTIMULATOR ELECTRODE ARRAY Spinal cord stimulator trial; Surgeon: Lisandro Ruelas MD; Location: [facility]; Service: PAIN SERVICE Medical devices from this surgery are in the Medical Devices section. [place] INSJ/RPLCMT SPINAL NPG/RCVR POCKET CRTJ&CONNJ 04/04/2020 Back/N/A Procedure: INSERTION OF SPINAL NEUROSTIMULATOR, DIRECT COUPLING; Surgeon: Lisandro Ruelas MD; Location[facility]; Service: PAIN SERVICE Medical devices from this surgery are in the Medical Devices section. SKIN LESION EXCISION basal cell on right arm CYST REMOVAL 5 cysts removed in left and right breast starting 24yrs old, over a period of 10 years SKIN LESION EXCISION 11/15/2019 - 11/14/2020 squamous cell under left eye OVARY BIOPSY 11/15/1965 - 11/14/1966 right ovary due to cyst FOOT NEUROMA SURGERY Bilateral Right toe fractured and pin placed. [place] MASTECTOMY PARTIAL 06/06/2021 Breast/Left Procedure: SEGMENTAL MASTECTOMY - SEED LOC; Surgeon: Juan Stock MD; Location: [facility] OR; Service: SURG ONC - [place] INJ RADIOACTIVE TRACER FOR ID OF SENTINEL NODE 06/06/2021 N/A Procedure: ISOTOPE INJECTION FOR SENTINEL NODE BIOPSY; Surgeon: Juan Stock MD; Location: [facility] OR; Service: SURG ONC - [place] INTRAOP SENTINEL LYMPH NODE ID W/DYE INJECTION 06/06/2021 Left Procedure: INTRAOPERATIVE LYMPHATIC MAPPING; Surgeon: Juan Stock MD; Location: [facility]IN OR; Service: SURG ONC - [place] BX/EXC LYMPH NODE OPEN DEEP AXILLARY NODE 06/06/2021 Axilla/Left Procedure: SENTINEL NODE BIOPSY - [place]ILLA; Surgeon: Juan Stock MD; Location: MAIN OR; Service: SURG ONC - [place] REPAIR COMPLEX TRUNK 1.1-2.5 CM 06/06/2021 Breast/Left Procedure: COMPLEX REPAIR OF TRUNK; Surgeon: Rolando Muller MD; Location: MAIN OR; Service: PLS - PLASTIC SURGERY Medical History Medical History Date Comments Hypertension 1999 Hyperlipidemia 1999 Cyst of breast 5 cysts removed On left and righ t breast Gastric reflux Take ranatinadin Heartburn also History of recurrent urinary tract infection Many infections Urinary incontinence Worse as ol tip Uterine leiomyoma hysterctomy Rheumatoid arthritis Ankylosing spondylitis Taki ng bi-monthly infusions, Symponi Gout Many years ago i n foot Anxiety And panic attacks Taking Paxil Kidney cancer 2004 kidney removed a nd no further treatment 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 Basal cell carcinoma of skin 1997 rig ht arm Personal history of exposure to therapeutic radiation 08/04/2021 History of radiation therapy acc elerated partial radiation- not currently using Family History Medical History Relation Name Comments -Lymphoma Brother 1 Corey Tanner Undergoing donnie tments for non-hodgekins -Pancreatic cancer Brother 2 Brian Tanner -Thoracic or Lung Father Elizabeth Tanner history of smoking -Other cancer Paternal Aunt 1 History of smoking -Other cancer Paternal Cousin History of smoking Bladder Cancer Sister Cleopatra Son Metastatic Relation Name Status Comments Brother 1 Corey Tanner Alive Brother 2 Brian Tanner (Age 68) Daughter Alive Father Elizabeth Tanner (Age 73) Half-Sister (Age 75) d. heart c oncerns Maternal Aunt 1 (Age >50) Maternal Aunt 2 (Age 1) d. due t o stomach issues as a baby Maternal Grandfather (Age 70s) Maternal Grandmother (Age 40s) d . heart issues Maternal Uncle 1 (Age 42) d. hea rt issues Maternal Uncle 2 (Age >50) Mother (Age 80) Other 1 (Age >50) Other 2 (Age 1) Paternal Aunt 1 (Age >50) diagno sed >50 Paternal Aunt 2 (Age >50) Paternal Aunt 3 (Age >50) Paternal Aunt 4 (Age >50) Paternal Cousin (Age >50) diagno sed >50y Paternal Grandfather (Age 53) Paternal Grandmother (Age 86) Paternal Uncle Axel Sister Cleopatra Son (Age 50) Social History Tobacco Use Types Packs/Day Years Used Date Smoking Tobacco: Never Smokeless Tobacco: Never Alcohol Use Standard Drinks/Week Comments Not Currently 0 (1 standard drink = 0.6 oz pure alcohol) Only margaritas about 3 or 4 times a year Comments No Sex and Gender Information Value Date Recorded Sex Assigned at Not on file Legal Sex Female 2:27 PM CDT Gender Identity Not on file Sexual Orientation Not on file Occupation Industry Job Start Date Job End Date [employer] Not on file Not on file Not on file Obstetrics History Para Term AB IAB SAB Ectopic Multiple Livin g Live Births 1 1 1 1 Date Outcome GA Total Labor Labor/2nd/3rd Weight Sex Type Anes PTL Iwona A1 A5 Name Clin Term Comments Menarche:16 yrs old Parity: 34 yrs old history:9 weeks total control pills use: 1 month total Fertility Treatments: None Hormone Replacement Therapy Use: Premarin- 10-12yrs after hysterectomy LD : 20years ago LMP: 36yrs old hysterectomy Bra Size: 40B Last Filed Vital Signs Vital Sign Reading Time Taken Comments Blood Pressure 152/77 06/29/2024 2:15 PM CDT Pulse 75 06/29/2024 2:15 PM CDT Temperature 36.8 C (98.3 F) 06/29/2024 2:15 PM CD T Respiratory Rate 20 06/29/2024 2:15 PM CDT Oxygen Saturation 97% 06/29/2024 2:15 PM CDT Inhaled Oxygen Concentration - - Weight 77.6 kg (171 lb 1.2 oz) 06/29/2024 2:15 P M CDT Height 160 cm (5' 2.99") 06/29/2024 2:15 PM CDT Body Mass Index 30.31 06/29/2024 2:15 PM CDT Plan of Treatment Upcoming Encounters Date Type Department Care Team (Late st Contact Info) Description 06/28/2025 7:30 AM CDT Appointment Breast Imaging [address] [facility], 5th [place] [address] Barb Umanzor PA [address] [place] [address] [email or web address] 06/28/2025 8:30 AM CDT Appointment Breast Imaging [address] [facility], 5th [place] [address] Barb Umanzor PA [address] [place] [address] [email or web address] 06/28/2025 2:30 PM CDT Follow-Up Breast Center - Surgical Oncology [address] [facility], [address]th [place] [address] Juan Stock MD [address] [place] [address] [email or web address] 06/29/2025 9:05 AM CDT Appointment Mammography [address] [facility], [address] [address] Marina Stephens, SOFTWARE PRODUCT MANAGER [address] [place] [address] [email or web address] 06/29/2025 11:00 AM CDT Appointment Breast Imaging [address] [facility], [address] [place] [address] Marina Stephens, SOFTWARE PRODUCT MANAGER [address] [place] [address] [email or web address] 06/29/2025 1:00 PM CDT Office Visit Cancer Prevention Center - Survivorship, Breast [address] [facility], [address] [address] Marina Stephens, SOFTWARE PRODUCT MANAGER [address] [place] [address] [email or web address] Health Maintenance Due Date Last Done Comments Pneumococcal Vaccine: 65+ Ye ars (1 of 1 - PCV) 1997 07/04/2023 COVID-19 Vaccine (2023-2 5 season) 2024 07/22/2021, 12/24/2020, 11/27/2020 Influenza Vaccine (#1) 2024 3, 09/08/2022, 08/22/2020, Additional history exists Medical Devices Implanted Type Area Song Lyricist Device Identifier Shelf Expiration Date Model / Serial / Lot Nevro Trial Lead Kit [id number] Implanted:Qty: 1 on 12/15/2019 by iLsandro Ruelas MD at [facility] Implant Midline: Back 08/17/2022 [id number] 50B / NA / [id number] Nevro Trial Lead Kit [id number] Implanted:Qty: 1 on 12/15/2019 by Lisandro Ruelas MD at [facility] Implant Midline: Back 08/17/2022 [id number] 50B / NA / [id number] Nevro Blue Perc Lead Kit 50cm [id number] Implanted:Qty: 1 on 04/04/2020 by Lisandro Ruelas MD at [facility] Implant Spine 09/24/2020 [id number] 0B / N/A / [id number] Nevro Blue Perc Lead Kit 50cm [id number] Implanted:Qty: 1 on 04/04/2020 by Lisandro Ruelas MD at [facility] Implant Spine 07/18/2022 [id number] 0B / N/A / [id number] Nevro Senza Ipg Kit C1822 Implanted:Qty: 1 on 04/04/2020 by Lisandro Ruelas MD at [facility] Implant Spine 07/22/2021 [id number] / [id number] / [id number] Description:*bundled with ch arger kit Nevro N300 Lead [place] Kit [id number] Implanted:Qty: 1 on 04/04/2020 by Lisandro Ruelas MD at [facility] Implant Spine 05/11/2022 [id number] / N/A / [id number] Procedures Procedure Name Priority Date/Time Associated Diagnosis Comments US BREAST COMPLETE LEFT Routine 06/29/2024 9:29 AM CDT Personal history of breast cancer MAMMO DIGITAL DIAGNOSTIC BILATERAL Routine 06/29/2024 7:51 AM CDT Personal history of breast cancer after 12/17/2023 Results * US Breast Complete - Left (06/29/2024 9:29 AM CDT) Anatomical Region Laterality Modality Breast Left Ultrasound Impressions 06/29/2024 9:51 AM CDT No suspicious sonographic findings identified. Overall BI-RAD Category: 2 - Benign Mammogram in 1 Year is recommended for both breasts. Narrative 06/29/2024 9:51 AM CDT CLINICAL INDICATION: Patient is a 78 y.o. female and is seen for history of breast cancer. US Breast Complete - Left COMPARISON: The present examination has been compared to prior imaging studies performed : 12/25/2021 Mammography Digital Diagnostic Left at [facility] , 05/14/2022 Mammography Digital Diagnostic Bilateral with Bladimir at [facility] , 05/13/2023 US Breast Complete - Left at [facility] , 05/13/2023 Diagnostic Mammogram w Bladimir - Bilateral at [facility] , 06/29/2024 Mammography Digital Diagnostic Bilateral at [facility] TECHNIQUE: Real-time sonographic imaging was performed on the following regions: left, breast (including all 4 quadrants and retroareolar region). Images were obtained in multiple scanning planes. FINDINGS: Left 1) Post-Surgical Finding: There are postsurgical scars seen in the left breast at 2, 11 and 12 o'clock. Compared to the previous study, there are no significant changes. There has been no interval development of a suspicious mass, microcalcification, or architectural distortion. No suspicious sonographic findings identified. Isabel SÁNCHEZ [facility] [place] ORDERABLES Final Result * Mammography Digital Diagnostic Bilateral (06/29/2024 7:51 AM CDT) Anatomical Region Laterality Modality Breast Bilateral Mammography Impressions 06/29/2024 8:08 AM CDT Bilateral There is no mammographic evidence of malignancy. Overall BI-RAD Category: 2 - Benign. Post-surgical changes were seen in the upper left breast. Mammogram in 1 Year is recommended. The patient completed a breast cancer risk assessment during her appointment utilizing the Cleopatra model. Based upon the information provided, their calculated lifetime risk of the developing breast cancer is 2.37%. If the calculated lifetime risk of breast cancer exceeds 20%, supplemental screening with breast MRI should be considered. Narrative 06/29/2024 8:08 AM CDT CLINICAL INDICATION: Patient is a 78 y.o. female and is seen for history of breast cancer (history of left breast DCIS). Mammography Digital Diagnostic Bilateral Computer-aided detection was utilized by the radiologist in the interpretation of this examination. COMPARISON: The present examination has been compared to prior imaging studies performed : 06/03/2021 Mammography Guided Seed Placement Left at [facility] , 06/03/2021 Post Procedure Mammogram Left at [facility] , 12/25/2021 Mammography Digital Diagnostic Left at [facility] , 05/14/2022 Mammography Digital Diagnostic Bilateral with Bladimir at [facility] , 05/13/2023 Diagnostic Mammogram w Bladimir - Bilateral at [facility] FINDINGS: The breasts are heterogeneously dense, which may obscure small masses. Left 1) Post-Surgical Finding: There are post-surgical findings seen in the upper region of the left breast, 4 cm from the nipple,with fat necrosis calcifications and surgical clips. On June 06, 2021, the patient underwent left breast segmental resection for DCIS along with left axillary sentinel lymph node biopsy. There is no evidence of suspicious masses, calcifications, or other abnormal findings in the left breast. Right There is no evidence of suspicious masses, calcifications, or other abnormal findings in the right breast. Scattered benign-appearing calcifications were noted bilaterally. Isabel SÁNCHEZ IM MAMMOGRAPHY ORDERABLES Final Result after 12/17/2023 Insurance T MEDICARE PPO AETNA MEDICARE PPO Advance Directives * Full Code (Latest Code Status on File) Date Activated Date Inactivated Comments 06/06/2021 10:17 PM 06/07/2021 12:34 PM * Full Code Date Activated Date Inactivated Comments 06/06/2021 10:17 PM 06/06/2021 10:17 PM * Full Code Date Activated Date Inactivated Comments 04/04/2020 5:33 PM 04/04/2020 8:24 PM * Full Code Date Activated Date Inactivated Comments 12/15/2019 1:34 PM 12/15/2019 6:36 PM Care Teams Card Clothier Relationship Specialty Start Date End Date Radha Lynn DO [address] [place] [address] [facility] [address] [place] [address] [email or web address] PCP - External Primary Care Provider Family Practice 04/12/19 Matty Auguste MD [address] [place] [address] PCP - External Referring Orthopedic Surgery 04/12/19 Eduardo Antunez MD [address] [place] [address] [email or web address] PCP - External Follow Up A Dermatology 04/17/19 Tierra Wyman APRN [address] [place] [phone] [email or web address] PCP - General Breast Medical Oncology 05/25/22 Rolando Mulelr MD [address] [place] [phone] [email or web address] Consulting Physician Plastic and Reconstructive Surgery 05/26/21 Lisandro Ruelas MD [address] [place] [phone] [email or web address] Consulting Physician Pain Management 09/26/19 Juan Stock MD [address] [place] [id number] [email or web address] Consulting Physician Melanoma Surgery 05/08/21 Flori Bennett MD [address] [place] [phone] [email or web address] Consulting Physician Breast Medical Oncology 05/08/21 Eduardo Gonsalez MD [address] [place] [phone] [email or web address] Consulting Physician Radiation Oncology 06/26/21
[2024-12-17] MEDS ORDERED: ONDANSETRON 4 MG/2 ML VIAL ONE (00:42)
[2024-12-17] MEDS ORDERED: METHOCARBAMOL 1,000 MG/10 ML VIAL ONE (00:43)
[2024-12-17] MEDS ORDERED: MORPHINE 4 MG/ML SYR ONE (00:43)
[2024-12-17] MEDS ORDERED: MORPHINE 2 MG/ML SYR ONE (00:44)
[2024-12-17] MEDS ORDERED: NA CHLORIDE 0.9% 100 ML ONE (00:44)
[2024-12-17 01:51] LABS: Absolute Eosinophils 0.2 K/uL (0-0.5); Absolute Lymphocytes (CBC) 1.2 K/uL (0.7-4.9); Absolute Monocytes 0.7 K/uL (0.1-1.3); Basophils % 0.4 % (0-1.3); Eosinophils % 2.1 % (0-4.4); Hemoglobin 10.5 g/dL (12.0-15.0); Lymphocytes % 14.6 % (15.3-44.8); MCH 30.2 pg (27.0-35.0); MCV 88.9 fL (80-100); MPV 7.7 fL (7.6-11.3); Monocytes % 9.1 % (3.3-12.3); Neutrophils % 73.8 % (41.7-73.7); Nucleated Red Blood Cells % 0.1 % (0-0); Platelets 236 thou/uL (152-406); RBC Red Blood Cell Count 3.49 M/uL (3.86-4.86); Red Cell Distribution Width 14.7 % (12.1-15.2)
[2024-12-17 02:00] LABS: PT Prothrombin Time 10.6 SECONDS (9.4-12.5); Protime INR 1.01
[2024-12-17 02:12] LABS: ALT/SGPT 19 U/L (13-56); AST/SGOT 13 U/L (15-37); Alkaline Phosphatase 104 U/L (45-117); BUN Blood Urea Nitrogen 22 mg/dL (7-18); Bicarbonate 26 mEq/L (21-32); Bilirubin Total 0.4 mg/dL (0.2-1.0); Glomerular Filtration Rate 85 ml/min (=/>90); Glucose Level 135 mg/dL (74-106); Magnesium 1.9 mg/dL (1.6-2.4); NT PRO-BNP 59 pg/mL (<450); Sodium Level 139 mEq/L (136-145); Troponin High Sensitivity 3.9 pg/mL (<58.9)
[2024-12-17] MEDS ORDERED: ALBUMIN HUMAN 25% 100 ML IV ONE (02:17)
[2024-12-17] MEDS ORDERED: NA CHLORIDE 0.9% 1,000 ML ONE (02:17)
[2024-12-17 02:32] LABS: Bilirubin Direct < 0.2 mg/dL (0-0.2); Bilirubin Indirect, Calculated 0.2 mg/dL (0.2-0.8)
[2024-12-17] MEDS ORDERED: HYDROMORPHONE HCL 0.5 MG/0.5 ML INJ ONE (03:36)
--- NOTE | 2024-12-17 06:10 | RAD REPORT ---
EXAM DESCRIPTION: Chest Abdomen Pelvis W Cont CLINICAL HISTORY: acute chest pain COMPARISON: June 19, 2022 TECHNIQUE: Contiguous axial images of the chest, abdomen and pelvis were obtained after the administration of in travenous contrast followed by reconstruction images. The exam was performed according to our departmental dose-optimization program, which includes automated exposure control, adjustment of the mA and/or kV according to patient size and/or use of iterative reconstruction technique. FINDINGS: CHEST: MEDIASTINUM: The heart size is normal. No pericardial effusion. The aorta is intact without aneurysm. There are no pathologically enlarged intrathoracic or axillary lymph nodes. There is a small hiatal hernia. Pulmonary arteries are intact. LUNGS/PLEURA: The central airways are patent. The lungs demonstrate scarring or atelectasis within th e right lower lobe. No consolidation or pleural effusion. No pulmonary edema or pneumothorax. No lung cavitation noted. No noncalcified nodule. SOFT TISSUES/BONES: There are no suspicious-appearing lytic or blastic osseous lesions. No acute osse ous abnormality. ABDOMEN/PELVIS: ORGANS: The liver and spleen, gallbladder, pancreas, adrenal glands are normal. Left kidney has been resected. The right kidney demonstrates numerous cysts measuring up to 5 cm. No follow-up imaging is required. GI/BOWEL: There are no findings of small bowel obstruction. No acute bowel wall inflammatory change. The appendix is not visualized. Scattered colonic diverticula without pericolonic inflammation. PELVIS: The bladder is normal. The rectum is normal. No pelvic free. No pelvic lymphadenopathy noted. PERITONEUM/RETROPERITONEUM: No intraperitoneal free air or free fluid. No retroperitoneal or mesenter ic lymphadenopathy. BONES/SOFT TISSUES: No suspicious lytic or blastic osseous lesions. Incidental enchondroma within the proximal right femur. No acute osseous abnormality. There is moderate-severe spondylosis. Postdiscectomy changes L3-4 and L4-L5. IMPRESSION: 1. No acute intrathoracic, abdominal or pelvic abnormality. 2. Diverticulosis. 3. Left nephrectomy. RECOMMENDATIONS: Electronically signed by: Yang Fajardo MD 12/17/2024 06:04 AM [facility] Due to temporary technical issues with the PACS[employer] reporting system, reports are being abhijit d by the in-house radiologist without review as a courtesy to ensure prompt reporting the interpreting radiologist is fully responsible for the content of the report. Transcribed Date/Time: 12/17/2024 6:10 AM
[2024-12-17] MEDS ORDERED: HYDROMORPHONE ORAL 2 MG TAB ONE ×2 (06:32→06:33)
--- NOTE | 2024-12-17 06:47 | ER ---
Nurse's Notes [facility] Name: Irina Sanford Age: 79 yrs Sex: Female : 1945 Arrival Date: 12/16/2024 Time: 23:48 Bed 19 Private MD: Diagnosis: Acute upper thoracic pain, acute musculoskeletal back pain, Presentation: 12/16 23:50 Chief complaint: EMS states: Left scapula pain wit radiation to left shoulder and arm. ay Coronavirus screen: Client denies travel out of the [place] in the last 14 days. Ebola Screen: No symptoms or risks identified at this time. 23:50 Method Of Arrival: EMS: [facility] ay 12/17 00:28 Initial Sepsis Screen: Does the patient meet any 2 criteria? No. Patient's initial ay sepsis screen is negative. Does the patient have a suspected source of infection? No. Patient's initial sepsis screen is negative. Risk Assessment: Do you want to hurt yourself or someone else? Patient reports no desire to harm self or others. Note BIBA with c/o left scapula pain that radiates to left shoulder and arm. Pt alert and oriented, on 3L NC for comfort, on manufacturing engineer assembly. Denies N/V, SOB. Onset of symptoms was December 16, 2024. 00:28 Acuity: CARMELA 2 ay Triage Assessment: 00:00 General: Appears distressed, uncomfortable, Behavior is cooperative. Pain: Complains of ay pain in left scapular area Pain radiates to left shoulder and left arm Pain currently is 8 out of 10 on a pain scale. EENT: No signs and/or symptoms were reported regarding the EENT system. Neuro: Level of Consciousness is awake, alert, obeys commands, Oriented to person, place, time, situation, Mailing Machine Helper are equal bilaterally Speech is normal. Cardiovascular: Denies chest pain, nausea, shortness of breath, vomiting, Capillary refill < 3 seconds. Respiratory: Airway is patent Respiratory effort is even, unlabored, Respiratory pattern is regular, symmetrical. GI: No signs and/or symptoms were reported involving the gastrointestinal system. : No signs and/or symptoms were reported regarding the genitourinary system. Derm: No signs and/or symptoms reported regarding the dermatologic system. Musculoskeletal: No signs and/or symptoms reported regarding the musculoskeletal system. Historical: - Allergies: : Compazine; ay : Sulfa (Sulfonamide Antibiotics); ay : Talwin; ay - Home Meds: : B-12 [Active]; Ellura Oral [Active]; Florajen3 Oral [Active]; folic acid 1 mg Oral tab ay [Active]; gabapentin 300 mg Oral cap [Active]; Lipitor 20 mg Oral tab [Active]; Mirapex 0.75 mg Oral tab [Active]; Paxil 30 mg Oral tab [Active]; trazodone 100 mg Oral tab [Active]; valsartan 80 mg Oral tab [Active]; - PMHx: : Hypertensive disorder; ay - Immunization history:: Adult Immunizations Client reports having NOT received the Covid vaccine. Pneumococcal vaccine is up to date, Flu vaccine is up to date. - Infectious Disease History:: Denies. - Social history:: Smoking status: Patient denies any tobacco usage or history of. Screenin:00 [facility] ED Fall Risk Assessment (Adult) History of falling in the last 3 months, ay including since admission No falls in past 3 months (0 pts) Confusion or Disorientation No (0 pts) Intoxicated or Sedated No (0 pts) Impaired Gait No (0 pts) Mobility Assist Device Used No (0 pt) Altered Elimination No (0 pt) Score/Fall Risk Level 0 - 2 = Low Risk Oriented to surroundings, Maintained a safe environment, Educated pt \T\ family on fall prevention, incl call for assistance when getting out of bed. Abuse screen: Denies threats or abuse. Nutritional screening: No deficits noted. Tuberculosis screening: No symptoms or risk factors identified. Assessment: 03:48 Reassessment: Patient and/or family updated on plan of care and expected duration. Pain ha1 level reassessed. Patient is alert, oriented x 3, equal unlabored respirations, skin warm/dry/pink. PAIN 10/10. Vital Signs: 00:28 BP 104 / 59; Pulse 76; Resp 16; Pulse Ox 92% on R/A; ay 03:47 BP 108 / 61; Pulse 75; Resp 19 S; Temp 98.9(O); Pulse Ox 96% on 2 lpm NC; ha1 06:00 BP 139 / 61; Pulse 64; Resp 17; Pulse Ox 97% on R/A; ay [place] Coma Score: 07:04 Eye Response: spontaneous(4). Motor Response: obeys commands(6). Verbal Response: sp4 oriented(5). Total: 15. ED Course: 12/16 23:50 Patient arrived in ED. [id number] 23:55 Gaurav Porter MD is Attending Physician. sp4 23:55 Maintain EMS IV. Dressing intact. Good blood return noted. Site clean \T\ dry. Gauge \T\ vk site: 20 gauge Right AC. Flushed with 10 mL NS. 12/17 00:00 No provider procedures requiring assistance completed. Oxygen administration via nasal ay cannula \T\ 2L/min. 00:00 EKG completed in triage. Results shown to MD. ay 00:00 ppap coordinator on. Pulse ox on. NIBP on. ay 00:37 Pacheco Khan, RN is Primary Nurse. ay 01:25 Basic Metabolic Panel Sent. ay 01:25 CBC with Diff Sent. ay 01:25 LFT's Sent. ay 01:25 Magnesium Sent. ay 01:25 NT PRO-BNP Sent. ay 01:25 PT-INR Sent. ay 01:25 Troponin HS Sent. ay 02:29 Triage completed. ay 03:10 CT Chest, Abdomen, Pelvis - W/Contrast In Process Unspecified. EDMS 07:31 IV discontinued, intact, bleeding controlled, No redness/swelling at site. Pressure ay dressing applied. Administered Medications: 01:24 Drug: morphine IVP or IV 6 mg IVP once over 4 mins Route: IVP; Infused Over: 4 mins; ay Site: right antecubital; 04:33 Follow up: Response: No adverse reaction ay 01:24 Drug: Methocarbamol IVPB 1 grams IVPB once over 1 hrs; (mix in NS 100 mL) Route: IVPB; ay Infused Over: 1 hrs; Site: right antecubital; 07:16 Follow up: IV Status: Completed infusion; IV Intake: 100ml ay 01:24 Drug: Ondansetron IVP 4 mg IVP once; over 2 minutes Route: IVP; Site: right antecubital;ay 04:32 Follow up: Response: No adverse reaction ay 02:40 Drug: NS 0.9% IV 1000 ml IV at 1000 ml once; to be given as a bolus over 60 minutes ay Route: IV; Rate: 1000 ml; Site: right antecubital; 07:16 Follow up: IV Status: Completed infusion; IV Intake: 1000ml ay 02:40 Drug: Albumin IVPB 25 grams 100 ml IVPB once; (Note: Albumin 25% concentration) Volume: ay 100 ml; Route: IVPB; Site: right antecubital; 07:14 Follow up: Response: No adverse reaction ay 07:15 Follow up: IV Status: Completed infusion; IV Intake: 100ml ay 03:47 Drug: HYDROmorphone IVP 0.5 mg IVP once Route: IVP; Site: right antecubital; ha1 04:33 Follow up: Response: No adverse reaction ay 06:59 Drug: HYDROmorphone PO 1 mg PO once Route: PO; ay 07:15 Follow up: Response: No adverse reaction ay 07:14 Drug: Promethazine PO 25 mg PO once Route: PO; ay 07:15 Follow up: Response: No adverse reaction ay Intake: 07:15 IV: 100ml; Total: 100ml. ay 07:16 IV: 1000ml; Total: 1100ml. ay 07:16 IV: 100ml; Total: 1200ml. ay Outcome: 06:47 Discharge ordered by MD. morales 07:31 Discharged to home ambulatory, ay 07:31 Condition: stable 07:31 Discharge instructions given to patient, Instructed on discharge instructions, follow up and referral plans. Demonstrated understanding of instructions, follow-up care, medications, Prescriptions given X 3, 07:33 Patient left the ED. ay Signatures: Dispatcher [employer] EDMS Beatriz Lopez [email or web address] Loretta Cline, RN RN ha1 Gaurav Porter MD MD sp4 Sigrid Gould Awudu, RN RN ay
--- NOTE | 2024-12-17 06:47 | EDPHYS ---
Physician Documentation [facility] Name: Irina Sanford Age: 79 yrs Sex: Female : 1945 Arrival Date: 12/16/2024 Time: 23:48 Bed 19 Private MD: ED Physician Gaurav Porter HPI: 12/16 23:55 This 79 yrs old Female presents to ER via Unassigned with complaints of Chest sp4 Pain. Historical: - Allergies: 12/17 02:29 Compazine; ay 02:29 Sulfa (Sulfonamide Antibiotics); ay 02:29 Talwin; ay - Home Meds: 02:29 B-12 [Active]; Ellura Oral [Active]; Florajen3 Oral [Active]; folic acid 1 mg Oral tab ay [Active]; gabapentin 300 mg Oral cap [Active]; Lipitor 20 mg Oral tab [Active]; Mirapex 0.75 mg Oral tab [Active]; Paxil 30 mg Oral tab [Active]; trazodone 100 mg Oral tab [Active]; valsartan 80 mg Oral tab [Active]; - PMHx: 02:29 Hypertensive disorder; ay - Immunization history:: Adult Immunizations Client reports having NOT received the Covid vaccine. Pneumococcal vaccine is up to date, Flu vaccine is up to date. - Infectious Disease History:: Denies. - Social history:: Smoking status: Patient denies any tobacco usage or history of. ROS: 07:04 Constitutional: Negative for fever, chills, and weight loss, positive upper back pain sp4 positive left upper back pain 07:04 All other systems are negative, Exam: 07:04 Constitutional: This is a well developed, well nourished patient who is awake, alert, sp4 and in no acute distress. Head/Face: Normocephalic, atraumatic. Eyes: Pupils equal round and reactive to light, extra-ocular motions intact. Lids and lashes normal. Conjunctiva and sclera are not injected. Cornea within normal limits. Periorbital areas with no swelling, redness, or edema. ENT: Nares patent. No nasal discharge, no septal abnormalities noted. Tympanic membranes are normal and external auditory canals are clear. Oropharynx with no redness, swelling, or masses, exudates, or evidence of obstruction, uvula midline. Mucous membranes moist. Neck: Trachea midline, no thyromegaly or masses palpated, and no cervical lymphadenopathy. Supple, full range of motion without nuchal rigidity, or vertebral point tenderness. Chest/axilla: Normal chest wall appearance and motion. Nontender with no deformity. No lesions are appreciated. Cardiovascular: Regular rate and rhythm with a normal S1 and S2. No gallops, murmurs, or rubs. Normal PMI, no JVD. No pulse deficits. Respiratory: Lungs have equal breath sounds bilaterally, clear to auscultation and percussion. No rales, rhonchi or wheezes noted. No increased work of breathing, no retractions or nasal flaring. Abdomen/GI: Soft, with normal bowel sounds. No distension or tympany. No guarding or rebound. No evidence of tenderness throughout. Back: No spinal tenderness. No costovertebral tenderness. Skin: Warm, dry with normal turgor. Normal color with no rashes, no lesions, and no evidence of cellulitis. MS/ Extremity: Pulses equal, no cyanosis. Neurovascular intact. Full, normal range of motion. Neuro: Awake and alert, GCS 15, oriented to person, place, time, and situation. Cranial nerves II-XII grossly intact. Motor strength 5/5 in all extremities. Sensory grossly intact. Psych: Awake, alert, with orientation to person, place and time. Behavior, mood, and affect are within normal limits 07:04 ECG was reviewed by the Attending Physician. EKG at 0032 normal sinus rhythm rate 75 Vital Signs: 00:28 BP 104 / 59; Pulse 76; Resp 16; Pulse Ox 92% on R/A; ay 03:47 BP 108 / 61; Pulse 75; Resp 19 S; Temp 98.9(O); Pulse Ox 96% on 2 lpm NC; ha1 06:00 BP 139 / 61; Pulse 64; Resp 17; Pulse Ox 97% on R/A; ay [place] Coma Score: 07:04 Eye Response: spontaneous(4). Motor Response: obeys commands(6). Verbal Response: sp4 oriented(5). Total: 15. MDM: 00:03 Medical Screening Exam initiated sp4 06:10 ED course: FINDINGS: CHEST: MEDIASTINUM: The heart size is normal. No pericardial sp4 effusion. The aorta is intact without aneurysm. There are no pathologically enlarged intrathoracic or axillary lymph nodes. There is a small hiatal hernia. Pulmonary arteries are intact. LUNGS/PLEURA: The central airways are patent. The lungs demonstrate scarring or atelectasis within the right lower lobe. No consolidation or pleural effusion. No pulmonary edema or pneumothorax. No lung cavitation noted. No noncalcified nodule. SOFT TISSUES/BONES: There are no suspicious-appearing lytic or blastic osseous lesions. No acute osseous abnormality. ABDOMEN/PELVIS: ORGANS: The liver and spleen, gallbladder, pancreas, adrenal glands are normal. Left kidney has been resected. The right kidney demonstrates numerous cysts measuring up to 5 cm. No follow-up imaging is required. GI/BOWEL: There are no findings of small bowel obstruction. No acute bowel wall inflammatory change. The appendix is not visualized. Scattered colonic diverticula without pericolonic inflammation. PELVIS: The bladder is normal. The rectum is normal. No pelvic free. No pelvic lymphadenopathy noted. PERITONEUM/RETROPERITONEUM: No intraperitoneal free air or free fluid. No retroperitoneal or mesenteric lymphadenopathy. BONES/SOFT TISSUES: No suspicious lytic or blastic osseous lesions. Incidental enchondroma within the proximal right femur. No acute osseous abnormality. There is moderate-severe spondylosis. Postdiscectomy changes L3-4 and L4-L5. IMPRESSION: 1. No acute intrathoracic, abdominal or pelvic abnormality. 2. Diverticulosis. 3. Left nephrectomy. RECOMMENDATIONS: Electronically signed by: Yang Fajardo MD 12/17/2024 06:04 AM . 07:06 Differential diagnosis: acute pericarditis, anxiety, coronary artery disease chest wall sp4 pain, congestive heart failure cholecystitis. HEART Score: History: Slightly Suspicious (0), ECG: Normal (0), Age: > or = 65 years (2), Risk Factors: 1 or 2 risk factors (1), Troponin: < or = 1 x Normal Limit (0), Total Score = 3. Data reviewed: vital signs, nurses notes, EMS record, lab test result(s), EKG, radiologic studies, CT scan. ED course: Stable for discharge home at this time with p.o. as needed pain medications.. 12/17 00:02 Order name: Basic Metabolic Panel; Complete Time: 06:05 sp4 12/17 00:02 Order name: CBC with Diff; Complete Time: 02:15 sp4 12/17 00:02 Order name: LFT's; Complete Time: 06:05 sp4 12/17 00:02 Order name: Magnesium; Complete Time: 06:09 sp4 12/17 00:02 Order name: NT PRO-BNP; Complete Time: 06:09 sp4 12/17 00:02 Order name: PT-INR; Complete Time: 02:15 sp4 12/17 00:02 Order name: Troponin HS; Complete Time: 06:09 sp4 12/17 00:03 Order name: CT Chest, Abdomen, Pelvis - W/Contrast sp4 12/17 00:02 Order name: Cardiac monitoring; Complete Time: : sp4 12/17 00:02 Order name: EKG - Nurse/Tech; Complete Time: sp4 12/17 00:02 Order name: IV Saline Lock; Complete Time: sp4 12/17 00:02 Order name: Labs collected and sent; Complete Time: sp4 12/17 00:02 Order name: O2 Per Protocol; Complete Time: sp4 12/17 00:02 Order name: O2 Sat Monitoring; Complete Time: sp4 EC:32 Rate is 75 beats/min. Rhythm is regular, Normal Sinus Rhythm. QRS [place] is Normal. ME sp4 interval is normal. QRS interval is normal. QT interval is normal. No Q waves. T waves are Normal. No ST changes noted. Clinical impression: No evidence of ischemia. Interpreted by me. Reviewed by me. Administered Medications: 01:24 Drug: morphine IVP or IV 6 mg IVP once over 4 mins Route: IVP; Infused Over: 4 mins; ay Site: right antecubital; 04:33 Follow up: Response: No adverse reaction ay 01:24 Drug: Methocarbamol IVPB 1 grams IVPB once over 1 hrs; (mix in NS 100 mL) Route: IVPB; ay Infused Over: 1 hrs; Site: right antecubital; 07:16 Follow up: IV Status: Completed infusion; IV Intake: 100ml ay 01:24 Drug: Ondansetron IVP 4 mg IVP once; over 2 minutes Route: IVP; Site: right antecubital;ay 04:32 Follow up: Response: No adverse reaction ay 02:40 Drug: NS 0.9% IV 1000 ml IV at 1000 ml once; to be given as a bolus over 60 minutes ay Route: IV; Rate: 1000 ml; Site: right antecubital; 07:16 Follow up: IV Status: Completed infusion; IV Intake: 1000ml ay 02:40 Drug: Albumin IVPB 25 grams 100 ml IVPB once; (Note: Albumin 25% concentration) Volume: ay 100 ml; Route: IVPB; Site: right antecubital; 07:14 Follow up: Response: No adverse reaction ay 07:15 Follow up: IV Status: Completed infusion; IV Intake: 100ml ay 03:47 Drug: HYDROmorphone IVP 0.5 mg IVP once Route: IVP; Site: right antecubital; ha1 04:33 Follow up: Response: No adverse reaction ay 06:59 Drug: HYDROmorphone PO 1 mg PO once Route: PO; ay 07:15 Follow up: Response: No adverse reaction ay 07:14 Drug: Promethazine PO 25 mg PO once Route: PO; ay 07:15 Follow up: Response: No adverse reaction ay Disposition Summary: 12/17/24 06:47 Discharge Ordered Notes: Location: Home sp4 Problem: new sp4 Symptoms: have improved sp4 Condition: Stable sp4 Diagnosis - Acute upper thoracic pain, acute musculoskeletal back pain, sp4 Followup: sp4 - With: Private Physician - When: 7 - 10 days - Reason: Recheck today's complaints Discharge Instructions: - Discharge Summary Sheet sp4 - Acute Back Pain, Adult sp4 Forms: - Patient Portal Instructions sp4 Prescriptions: - promethazine 25 mg Oral tablet - take 1 tablet ORAL route every 6 hours As needed PRN nausea; 30 tablet; sp4 Refills: 0, Product Selection Permitted - methocarbamol 750 mg Oral tablet - take 2 tablets ORAL route every 8 hours for 3 days PRN pain; 60 tablet; sp4 Refills: 0, Product Selection Permitted Signatures: Dispatcher [employer] EDLoretta Sims RN RN ha1 Gaurav Porter MD MD sp4 Pacheco Khan RN RN ay Corrections: (The following items were deleted from the chart) 00:03 00:03 BASIC METABOLIC PANEL+C.LAB.BRZ ordered. EDMS EDMS 00:03 00:03 CBC+H.LAB.BRZ ordered. EDMS EDMS 00:03 00:03 HEPATIC FUNCTION+C.LAB.BRZ ordered. EDMS EDMS 00: 00:03 MAGNESIUM+C.LAB.BRZ ordered. EDMS EDMS 00: 00:03 PROBNP+C.LAB.BRZ ordered. EDMS EDMS 00: 00:03 PROTIME (+INR)+COAG.LAB.BRZ ordered. EDMS EDMS 00: 00:03 Troponin High Sensitivity+C.LAB.BRZ ordered. EDMS EDMS 00: 00:03 Chest Abdomen Pelvis W Con+CT.RAD.BRZ ordered. EDMS EDMS
[2024-12-17] MEDS ORDERED: PROMETHAZINE 25 MG TABLET ONE (07:04)
[2024-12-17 07:41] VITALS: TEMP 98.9
[2024-12-17 07:42] VITALS: BP 139/61; O2SAT 97
--- NOTE | 2024-12-19 12:20 | EKG ---
Test Date: 2024-12-17 Test Time: 00:32:04 [employer] Monk: RAFY MEASUREMENT RESULTS: Intervals: Rate: 75 CA: 184 QRSD: 80 QT: 364 QTc: 406 [place]: P: 56 CA: 184 QRS: 38 T: 93 INTERPRETIVE STATEMENTS: Normal sinus rhythm Possible Anterior infarct, age undetermined Abnormal ECG Compared to ECG 11/25/2021 15:11:54 Myocardial infarct finding now present Electronically Signed On 12-19-24 12:16:24 SAFETY ANALYST by Max Aguilera
== END 2024-12-17 07:33 | disposition home or self-care (01) ==
LOC: ER 23:48
DX: M54.6 Pain in thoracic spine (principal); M54.9 Dorsalgia, unspecified
CPT/HCPCS: 96365; 93005; 85025; 80048; 36415; 83735; 85610; 82947; 80076; 84484; 83880; 71260; 74177; 96375; 99285; 96366; Q9967; Q0169; J2270; J1171; J2405; J2800; P9047; J7030